=== PATIENT | male | born 1940 | race Caucasian/White ===

== ENCOUNTER → 2017-12-02 09:17 | Outpatient (CLI) | payer MEDICARE, BC, SELFPAY ==
[2017-12-02 10:47] LABS: AST(SGOT) 15 U/L (15-37); Alanine Aminotransfer ALT/SGPT 19 U/L (16-61); Albumin, Serum 3.7 g/dL (3.2-5.0); Alkaline Phosphatase 103 U/L (45-117); Anion Gap 10 (5-15); BUN 16 mg/dL (7-18); BUN/Creat Ratio 15.1 RATIO (10-20); Chloride 103 mmol/L (98-107); Cholesterol 123 mg/dL (200); Creatinine, Serum 1.06 mg/dL (0.70-1.30); EST Glomerular Filtration Rate 72 mL/min (>60); Est Glom Filt Rate - Afr Amer 87 mL/min (>60); Globulin 3.6 g/dL (2.2-4.2); Glucose 130 mg/dL (74-106); High Density Lipoprotein 45 mg/dL; Potassium 4.4 mmol/L (3.5-5.1); Protein, Total 7.3 g/dL (6.4-8.2); Sodium Level 141 mmol/L (136-145); Triglycerides 80 mg/dL; Very Low Density Lipoprotein 16 mg/dL (5-40)
== END ==
PROVIDERS: Family Provider Family Medicine; PCP Family Medicine; Visit Provider Family Medicine
DX: E11.9 Type 2 diabetes mellitus without complications (principal)
CPT/HCPCS: 36415; 80053; 80061

== ENCOUNTER → 2017-12-09 11:28 | Outpatient (CLI) | payer MEDICARE, BC, SELFPAY | PROVIDERS: Family Provider Family Medicine; PCP Family Medicine; Visit Provider Family Medicine | DX: M51.36 Other intervertebral disc degeneration, lumbar region (principal) | CPT/HCPCS: 72100 ==

== ENCOUNTER 2018-01-13 16:30 | Outpatient (RCR) | payer MEDICARE, BC, SELFPAY ==
--- NOTE | 2018-01-06 09:16 | HP.PTEVAL_ITS ---
Patient's Visit Information FAIZA TELLO is a 78 year old M referred to Physical Therapy by Cortez Holloway with a diagnosis of lumbar DDD. Date of Evaluation: 12/21/17 Physical Therapist: Nestor Weinberg - Visit Plan Frequency: 2x /Week Duration: 4-6 Weeks Plan: Start with flexion progression, US, neutral spine core stability exercises. - Subjective Subjective: Pt. is here today for his initial evaluation with diagnosis of lumbar DDD. Pt. reports having back pain for years, but has become worse over the past few months. He arrives today walking without AD, but is flexed and wears an abdominal brace. Pt. has increased pain down her R leg to toes. He is a refrigerated national truck driver by trade and reports no pain while sitting. He has greatest difficulty with getting up and with walking. He has trialed chiropractor without releif, ice and heat without relief. He denies N/T in either LE. He reports being able to sleep on his L side without issues. He reports having to walk hunched over in grocery store and having to sit down frequently. He did have an xray showing There is disc space narrowing L2-3, L3-4 and L5-S1. There is also spondylolysis of L5 with a grade 2 spondylolisthesis of L5 over S1He also takes care of his who has dementia. Pt. is hopeful to reduce symptoms in order to get back to all house and work activies without issues. - Pain lumbar spine Pain Intensity (Out of 10): 3 - Objective POSTURE: Pt. has flexed posture with R lateral lean. He has increased pain with attempts to correct. Pt. has slight L knee flexion during stance. decreased lumbar lordosis. PALPATION: Pt. has increased tenderness throughout lumbar paraspinals. Pt. has incraesed pain at R gluteal region. No pain at distal leg. NEURO: Pt. has normal sensation throughout B LEs. Pt. has 2+ achilles and patellar DTR. Pt. is able to rise on heels and toes with balance aid. ROM: Lumbar spine: flexion min loss increase NW, extension mod/max loss increase NW, SB mod loss bilat, rotation- mod loss bilat increase NW. Pt. has normal ROM of B hips, but has tight HS and hip flexors bilaterally. MMT: RLE- ankle 5/5 throughout; knee- ext 4+/5, flexion 4+/5; hip- flexion 4/5, abd 4/5, ext 4/5. LLE- ankle 5/5 throughout; knee- 5/5 throughout; hip- flexion 4+/5, abd 4/5, ext 4/5. Core strength- poor. GAIT: Pt. ambulates without AD. Pt. has increased pain with stance throughout, flexed posture throughout. R lateral lean. STAIRS: Step to pattern with BHR with icnreased pain noted. - Special Tests L/S Slump test left side: Negative L/S Slump test right side: Positive L/S Left Straight Leg Raise: Negative L/S Right Straight Leg Raise: Positive Lumbar Standing: Flexion - Mechanical Response: No effect Lumbar Standing: Flexion - Symptoms During Testing: Increases Lumbar Standing: Flexion - Symptoms After Testing: No worse Lumbar Standing: Extension - Mechanical Response: No effect Lumbar Standing: Extension - Symptoms During Testing: Increases Lumbar Standing: Extension - Symptoms After Testing: No worse Lumbar Standing: Right Side Glides - Mechanical Response: No effect Lumbar Standing: Right Side [place] - Symptoms During Testing: Increases Lumbar Standing: Right Side [place] - Symptoms After Testing: No worse Lumbar Standing: Left Side [place] - Mechanical Response: No effect Lumbar Standing: Left Side [place] - Symptoms During Testing: Increases Lumbar Standing: Left Side [place] - Symptoms After Testing: No worse Lumbar Lying: Flexion - Mechanical Response: No effect Lumbar Lying: Flexion - Symptoms During Testing: Decreases Lumbar Lying: Flexion - Symptoms After Testing: No better Lumbar Static: Slouched Sit - Mechanical Response: No effect Lumbar Static: Slouched Sit - Symptoms During Testing: No effect Lumbar Static: Slouched Sit - Symptoms After Testing: No effect Lumbar Static: Sitting Erect - Mechanical Response: No effect Lumbar Static: Sitting Erect - Symptoms During Testing: Increases Lumbar Static: Sitting Erect - Symptoms After Testing: No worse - Goals Goal 1:: Pt. to be I with HEP. Goal Time Frame: 4-6 Weeks Goal 2:: Pt. to sleep throughout the night without increase in symptoms. Goal Time Frame: 4-6 Weeks Goal 3:: Pt. to have increased core and BLE strength by 1/2 grade of all effected musculature. Goal Time Frame: 4-6 Weeks Goal 4:: Pt. to have decreased pain with walking to 0-2/10 with ability to ambulate unlimited distances. Goal Time Frame: 4-6 Weeks Goal 5:: Pt. to complete all job activities without increase in symptoms. - Rehabilitation Potential Physical Therapy Diagnosis: Pt. presents with sign and symptoms consistent with lumbar DDD and spinal stenosiss Pt. has increased pain with standing and reduced pain with flexed posture. Pt. has subsequent core weakness, increased pain, difficulty walking and decreased tolerance to all functional mobility. Rehabilitation Potential: Fair - Anticipated Interventions Patient/Client Instruction: Educate patient on: Condition, Plan of Care, Risk Factors, Benefits of Fitness Program For the Purpose of:: To foster healthy habits, To improve decision making, To facilitate caregiver knowledge, To improve self management, To prevent re-injury , To improve ability to perform tasks related to life management, To improve tolerance to ADL's Therapeutic Exercise to Include: Strength training, Power training, Postural training, Flexibilty training, Passive ROM, Active ROM, Dynamic Lumbar Stabilization, Cierra Exercises For the Purpose of:: To decrease pain, To decrease swelling/inflammation, To increase ROM, To improve nutrient delivery to tissue, To increase oxygenation perfusion, To improve gait and locomotor functions, To improve health of tissue , To decrease soft tissue restriction, To increase flexibility/ROM Thank you for the opportunity to evaluate your patient. For Medicare and Medicare HMO plans, please review the plan of care and approve it. It will need to be FAXED BACK to us at [phone] for Medicare purposes. Please let me know if there are questions or concerns regarding this plan of care. Physician Signature: Date:
--- NOTE | 2018-03-23 11:35 | HP.PTDCNRP_ITS ---
HP - Discharge Summary (1) - Patient Information FAIZA TELLO was seen in my office for initial evaluation on 12/21/17. The following Plan of Care was established for this patient: Initial Frequency: 2x /Week Initial Duration: 4-6 Weeks - Anticipated Interventions Patient/Client Instruction: Educate patient on: Condition, Plan of Care, Risk Factors, Benefits of Fitness Program For the Purpose of:: To foster healthy habits, To improve decision making, To facilitate caregiver knowledge, To improve self management, To prevent re- injury, To improve ability to perform tasks related to life management, To improve tolerance to ADL's Therapeutic Exercise to Include: Strength training, Power training, Postural training, Flexibilty training, Passive ROM, Active ROM, Dynamic Lumbar Stabilization, Cierra Exercises For the Purpose of:: To decrease pain, To decrease swelling/inflammation, To increase ROM, To improve nutrient delivery to tissue, To increase oxygenation perfusion, To improve gait and locomotor functions, To improve health of tissue, To decrease soft tissue restriction, To increase flexibility/ROM This patient was last seen in our office 01/17/18. Pertinent comments regarding their Physical therapy will appear below: Pt. was seen for his lumbar spine. He was ultimately referred to [facility] for consult and has descided to have surgery. Pt. will be DC from PT at this point in time. At this point I will be discontinuing this patient from physical therapy. I would be happy to see this patient again in the future if found appropriate by the physician. Thank you! Nestor Weinberg
== END 2018-01-13 19:00 | disposition home or self-care (01) ==
LOC: PT 16:30
PROVIDERS: Family Provider Family Medicine; PCP Family Medicine; Visit Provider Family Medicine
DX: M51.36 Other intervertebral disc degeneration, lumbar region (principal)
CPT/HCPCS: 97012; 97035; 97110; 97162

== ENCOUNTER → 2018-01-17 06:37 | Outpatient (CLI) | payer MEDICARE, BC, SELFPAY ==
--- NOTE | 2018-01-17 06:43 | CT_ITS ---
STUDY: CT ABDOMEN WITHOUT CONTRAST REASON FOR EXAM: Male, 78 years old. Follow-up AAA, hypertension controlled with medication. RADIATION DOSAGE (If Supplied By Facility): CTDIvol = ( 8.38 ) mGy, DLP = ( 339.17 ) mGycm TECHNIQUE: Transaxial images were obtained without intravenous contrast, and without oral contrast. Sagittal and coronal images were reconstructed. Individualized dose optimization techniques were used for this CT. COMPARISON: CT abdomen without IV contrast February 15, 2017. FINDINGS: There is stable mild elevation of the right diaphragm. Stable 2 mm noncalcified nodule in the posterior left costophrenic sulcus on series 2 image 53. The visualized lung bases are otherwise unremarkable. The heart size is normal. Again seen are atherosclerotic calcifications of the coronary arteries and visualized distal descending thoracic aorta. Normal liver. The portal vein diameter is 13.5 mm. Normal gallbladder and extrahepatic biliary system. Normal spleen. 17 mm accessory spleen noted along the anterior margin of the lower pole. Normal pancreas. Normal bilateral adrenal glands. 3.75 x 3.1 x 2.6 cm cortical cyst at the lateral upper pole of the right kidney again noted, and there is a stable 2.1 x 2.3 x 1.5 cm exophytic cortical cyst at the posterior midpole. There is an exophytic 4.8 x 3.8 x 4.05 cm cortical cyst at the anterior upper pole of the left kidney that is unchanged. Exophytic 1.55 x 1.05 x 1.25 cm cortical cyst at the posterior left mid pole also is stable. No hydronephrosis. There is a stable small hiatal hernia. Normal small intestine. Normal colon. There is non-visualization of the appendix. There is stable atherosclerotic calcification of the abdominal aorta and iliac arteries there is 2.55 cm fusiform dilatation of the proximal to mid infrarenal aorta, common increasing to 3.15 x 3.2 cm at the juncture of the mid and distal thirds. The distal abdominal aorta shows stable 4.3 x 4.5 cm aneurysmal dilatation. 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 Normal inferior vena cava. Normal retroperitoneum. Normal abdominal wall. There are stable multilevel degenerative changes of the visualized lumbar spine, with anterior endplate osteophytes most prominent at L2-3, L3-4, L4-5. There are chronic bilateral L5 pars defects and a stable grade 1-2 spondylolisthesis at L5-S1 There are also degenerative changes with anterior osteophytes fusion of the visualized bilateral sacroiliac joints CT/Abdomen without IV Contrast IMPRESSION: 1. Atherosclerotic vascular calcifications again noted. Stable distal abdominal aortic and distal right common iliac aneurysms, as described. No periaortic density to indicate leak or inflammation. 2. Stable bilateral renal cortical cysts, as noted. No hydronephrosis. 3. Stable degenerative changes of the spine and pelvis, including chronic bilateral L5 pars defects and grade 1-2 L5-S1 spondylolisthesis. 4. Stable small hiatal hernia. The bowel is otherwise unremarkable without central obstruction. The appendix is not visualized. 5. Stable mild elevation of the right diaphragm. Electronically Signed: Donavan Henson MD at 16:27 EDT , Service support ,
--- NOTE | 2018-01-17 06:57 | CDU_ITS ---
Reason For Study: CAROTID ARTERY DISEASE Rt. Velocities/BP Lt. Velocities/BP Prox CCA 59/14 cm/sec. Prox CCA 131/45 cm/sec. Mid CCA 73/19 cm/sec. Mid CCA 90/34 cm/sec. Dist CCA 55/15 cm/sec. Dist CCA 86/37 cm/sec. Rt ICA occluded. Prox ICA 127/51 cm/sec. Prox ECA 114/29 cm/sec. Mid ICA 136/68 cm/sec. Rt. Vert. 45/12 cm/sec. Dist ICA 71/31 cm/sec. Lt. ICA/CCA = 1.5. Prox ECA 123/27 cm/sec. Lt. Vert. 39/14 cm/sec. Right Extracranial There is intimal thickening but no significant atherosclerotic plaque noted in the right common carotid artery. The right internal carotid artery is occluded. There is homogeneous, irregular atherosclerotic plaque noted in the right external carotid artery. Antegrade flow is noted in the right vertebral artery. Left Extracranial There is intimal thickening but no significant atherosclerotic plaque noted in the left common carotid artery. There is heterogeneous, irregular atherosclerotic plaque noted in the left internal carotid artery. The atherosclerotic plaque causes acoustic shadowing. There is heterogeneous, irregular atherosclerotic plaque noted in the left external carotid artery. Antegrade flow is noted in the left vertebral artery. Procedure Carotid Duplex 25892. Exam performed in department. Interpretation Summary Irregular plague at the proximal right internal carotid with no color flow consistent with known occlusion Irregular calcific plague at the proximal left external and internal carotids with 50-69% stenosis of the internal carotid Mild disease left external carotid Patent and antegrade vertebrals bilaterally No change from 05/12/17. Ordering Physician: Cortez Holloway Referring Physician: Joby Holloway Performed By: Em Lemus, YOLIE, RVT
== END ==
PROVIDERS: Family Provider Family Medicine; PCP Family Medicine; Visit Provider Family Medicine
DX: I65.23 Occlusion and stenosis of bilateral carotid arteries (principal); I71.4 Abdominal aortic aneurysm, without rupture
CPT/HCPCS: 74150; 93880

== ENCOUNTER → 2018-01-21 10:22 | Outpatient (CLI) | payer MEDICARE, BC, SELFPAY ==
--- NOTE | 2018-01-21 11:30 | MRI_ITS ---
STUDY: MRI LUMBAR SPINE WITHOUT CONTRAST REASON FOR EXAM: Male, 78 years old. Back pain radiating to right hip TECHNIQUE: Standardized fat and water weighted pulse sequences were obtained in the sagittal and axial planes. COMPARISON: December 15, 2012 FINDINGS: T12-L1: Normal endplates. Normal disc height, desiccation and minimal annular bulge.. Normal bilateral facet joints. Normal central canal and bilateral lateral recesses. Normal bilateral intervertebral neural foramina. Normal lumbar lordosis. There is no substantial scoliosis. Normal conus medullaris that terminates at T12-L1 L1-2: Normal endplates. Normal disc height, desiccation and normal morphology. Normal bilateral facet joints. Normal central canal and bilateral lateral recesses. Normal bilateral intervertebral neural foramina. L2-3: Endplate spurring. Narrowed disc space with desiccation of the disc and prominent annular bulge. Mild facet arthropathy and thickening of ligamenta flava. Mild to moderate narrowing of the central canal. Severe bilateral recess and neuroforaminal stenosis. L3-4: Grade 1 retrolisthesis . Narrowed disc space with desiccation of disc and minimal bulging disc osteophyte complex. Bilateral facet arthropathy and thickening of ligamenta flava. Normal central canal. Severe bilateral recess and neuroforaminal stenosis exaggerated by shortened pedicles L4-5: Mild endplate spurring. Normal disc height, desiccation and minor bulging disc osteophyte complex.. Bilateral facet arthropathy. Normal central canal. Moderate bilateral recess and neuroforaminal stenosis exaggerated by shortened pedicles.. L5-S1: Grade 1 spondylolisthesis and spondylolysis Normal endplates. Normal disc height, desiccation and mild bulging disc osteophyte complex.. Facet arthropathy and thickening of ligamenta flava.. Normal central canal . Moderate bilateral recess stenosis and more severe neuroforaminal stenosis. Normal visualized sacral ala. Bilateral renal cysts are noted Distal abdominal aortic aneurysm is noted with maximum dimension of 4.15 x 3.9 cm Normal visualized paraspinous soft tissue structures. There is increasing narrowing of L3-4 disc space however the disc disease has decreased since prior study. There is also increasing narrowing of the L2-3 disc space and slightly increased prominence of the bulging annulus. No other significant change since prior study MRI/Spine Lumbar (Routine) IMPRESSION: Advanced spondylosis and multilevel spinal stenosis secondary to disc disease and bony hypertrophy exaggerated by shortened pedicles Findings as above Electronically Signed: Christian Pineda MD at 23:19 EDT , Service support ,
== END ==
PROVIDERS: Family Provider Family Medicine; PCP Family Medicine; Referring Provider Family Medicine; Visit Provider Family Medicine
DX: M51.36 Other intervertebral disc degeneration, lumbar region (principal)
CPT/HCPCS: 72148

== ENCOUNTER 2018-07-15 14:30 | Outpatient (RCR) | payer MEDICARE, BC, SELFPAY ==
[2018-03-11 11:56] VITALS: BMI 26.9
--- NOTE | 2018-03-23 11:44 | HP.PTEVAL ---
Patient's Visit Information FAIZA TELLO is a 78 year old M referred to Physical Therapy by Nelida Baez, with a diagnosis of L4-S1 fusion. Date of Evaluation: 03/18/18 Physical Therapist: Nestor Weinberg - Visit Plan Frequency: 2x /Week Duration: 4-6 Weeks Plan: Start with neutral spine core stability HS stretching, After 3 weeks slowly progress ROM and wean from brace at this point as well. Progress gait and BLE strenthening as tolerated. - Subjective Findings: Pt. is here today for his initial evaluation s/p L4-S1 lumbar fusion. Pt. had surgery 1 month previously. Pt. is known to this PT as I saw him previously. Pt. arrives today with walker, but is not wearing his brace. He reports that it is too bulky. Pt. reports having 4/10 pain with walking, but minimal pain with resting. Pt. reports no numbness or tingling. Pt. reports no leg pain, but is sore throughout his lumbar spine. Pt. saw his physician about 2 weeks ago and they were pleased wtih progress. Pt. is taking tylenol with codein for pain killers. Pt. 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 - Pain lumbar spine Pain Intensity (Out of 10): 4 Pain Intensity Range: 2, 6 - Objective POSTURE: Pt. has flexed posture, decreased lordosis. Pt. has wide CRISTINE, rounded shoulders. Pt. is able to improve with use of walker. PALPATION: Pt. has normal healing incision, no signs of infection. Pt. has some scabing formation at top of incision and ~1 inch from superior aspect. Rest of incision is fully healed. NEURO: All intact. Pt. has normal sensation throughout bilateral LEs. Pt. has 2+ achilles and patellar DTR bilaterally. ROM: Lumbar spine: flexion mod loss, ext mod loss, rotation mod loss, SB mob loss bilat. Pt. instructed to just complete motion in pain free ranges. Pt. has tight HS and hip flexor bilaterally. MMT: RLE- ankle- anle 5/5 throughout; knee- ext 4+/5, flexion 4+/5; hip- flexion 4/5, abd 4/5, ext 4/5. LLE- ankle 4+/5 throughout; knee- ext 4+/5, flexion 4+/5; hip- flexion 4/5, abd 4/5, ext 4/5. Core strength- poor. GAIT: Pt. ambulates with standard walker, I adjusted the height to increase erect posture. Pt. has flexed posture, but us abl to correct. Pt. reports mild increase in LBP with walking, reudced with erector posture. - Goals Goal 1:: Pt. to be I with HEP. Goal Time Frame: 4-6 Weeks Goal 2:: Pt. ambulate with least restrictive device without increase in symptoms. Goal Time Frame: 4-6 Weeks Goal 3:: Pt. have improved posture in stance without increase in symptoms. Goal Time Frame: 4-6 Weeks Goal 4:: Pt. to have increased BLE and core strength by 1/2 grade to reduce stress applied to lumbar spine with all functional mobility. Goal Time Frame: 4-6 Weeks Goal 5:: Pt. to have increaed lumbar ROM by 25% in all directions without incerase in symptoms. Goal Time Frame: 4-6 Weeks Goal 6:: Pt. to sleep throughout the night and be able to sit at rest without incerase in symptoms allowing for increased quality of life. Goal Time Frame: 4-6 Weeks - Rehabilitation Potential Physical Therapy Diagnosis: Pt. has signs and syptoms consistent with L4-S1 fusion. Pt. has subsequent hypomobility, core weakness and difficulty walking. Pt. would benefit from PT to adress above limitations and progress functional mobility. Rehabilitation Potential: Good - Anticipated Interventions Patient/Client Instruction: Educate patient on: Condition, Plan of Care, Risk Factors, Benefits of Fitness Program For the Purpose of:: To improve decision making, To facilitate caregiver knowledge, To improve self management, To prevent re-injury, To improve ability to perform tasks related to life management, To improve tolerance to ADL's Therapeutic Exercise to Include: Strength training, Power training, Endurance training, Balance training, Postural training, Flexibilty training, Gait and locomotor training, Passive ROM, Active ROM, Dynamic Lumbar Stabilization For the Purpose of:: To decrease pain, To decrease swelling/inflammation, To increase ROM, To improve nutrient delivery to tissue, To improve muscle performance and motor function, To improve ability to perform ADL's, To improve gait and locomotor functions, To improve health of tissue, To decrease soft tissue restriction, To increase flexibility/ROM IF ES: Yes Cryotherapy (ice pack, ice massage): Yes Thermo therapy (hot pack): Yes Ultrasound (thermal/non thermal): Yes For the Purpose of:: To decrease pain, To decrease swelling/inflammation, To increase ROM, To improve nutrient delivery to tissue, To increase oxygenation perfusion, To improve muscle performance and motor function Thank you for the opportunity to evaluate your patient. For Medicare and Medicare HMO plans, please review the plan of care and approve it. It will need to be FAXED BACK to us at [phone] for Medicare purposes. For Medicare only, by signing this I certify the plan of care. Please let me know if there are questions or concerns regarding this plan of care. Physician Signature: Date:
--- NOTE | 2018-06-07 14:04 | HP.PTREVAL ---
Nelida Baez, GRIFFIN-C, It has been my pleasure to treat FAIZA TELLO over the last 13 visits for L4-S1 fusion. Please see the progress note below for an update on the physical therapy plan of care! Subjective: Pt. reports overall I am improving. Pt. went back to physician who reported that he should continue with PT at this point in time. Pt. reports ebign 75% better overall. Objective/Function: ROM: Lumbar spine- flexion min/nil loss NE, ext mod loss NE (stiffness), Rotation min loss bilat NE, SB min loss bilat NE. R hip- decreased hip IR and ER mild increase in pirformis region. MMT: RLE- ankle 5/5 throghout; knee- ext 5-/5, flexion 5-/5; hip- flexion 4+/5, abd 4/5, ext 4/5. LLE- 5/5 throughout ankle/knee; hip- flexion 4+/5, abd 4/5, ext 4/5. Core strength- poor+. GAIT: Pt. is amblating with SPC at this point in time. He continues to have slight flexed posture with increased hip flexion. Pt. is able increase hip extension with VCing. Pt. contiunes to present with functional RLE weakness, no foot drop. Pt. does continue to complain of burning in his thigh and knee at times, mostly with walking. STAIRS: Pt. is able to complete with BHR with reciprocal pattern, heavy use of bars, especially with eccentric lowering,. Plan Plan: Pt. to be continued to be seen x2 per week for 4 weeks. Progress extension ROM of lumbar spine, stretcing of HS, neural glides, BLE/core strenghtening and gait progression. Goals Goal 1:: Pt. to be I with HEP. Goal Time Frame: 4-6 Weeks Goal Progress: Progressing Goal 2:: Pt. ambulate with least restrictive device without increase in symptoms. Goal Time Frame: 4-6 Weeks Goal Progress: Progressing Goal 3:: Pt. have improved posture in stance without increase in symptoms. Goal Time Frame: 4-6 Weeks Goal Progress: Progressing Goal 4:: Pt. to have increased BLE and core strength by 1/2 grade to reduce stress applied to lumbar spine with all functional mobility. Goal Time Frame: 4-6 Weeks Goal Progress: Progressing Goal 5:: Pt. to have increaed lumbar ROM by 25% in all directions without incerase in symptoms. Goal Time Frame: 4-6 Weeks Goal Progress: Progressing Goal 6:: Pt. to sleep throughout the night and be able to sit at rest without incerase in symptoms allowing for increased quality of life. Goal Time Frame: 4-6 Weeks Goal Progress: Goal Met Anticipated Interventions Patient/Client Instruction: Educate patient on: Condition, Plan of Care, Risk Factors, Benefits of Fitness Program For the Purpose of:: To improve decision making, To facilitate caregiver knowledge, To improve self management, To prevent re-injury, To improve ability to perform tasks related to life management, To improve tolerance to ADL's Therapeutic Exercise to Include: Strength training, Power training, Endurance training, Balance training, Postural training, Flexibilty training, Gait and locomotor training, Passive ROM, Active ROM, Dynamic Lumbar Stabilization For the Purpose of:: To decrease pain, To decrease swelling/inflammation, To increase ROM, To improve nutrient delivery to tissue, To improve muscle performance and motor function, To improve ability to perform ADL's, To improve gait and locomotor functions, To improve health of tissue, To decrease soft tissue restriction, To increase flexibility/ROM IF ES: Yes Cryotherapy (ice pack, ice massage): Yes Thermo therapy (hot pack): Yes Ultrasound (thermal/non thermal): Yes For the Purpose of:: To decrease pain, To decrease swelling/inflammation, To increase ROM, To improve nutrient delivery to tissue, To increase oxygenation perfusion, To improve muscle performance and motor function Please do not hesitate to contact me at [phone] by phone or if you have questions or concerns regarding this new plan of care! Sincerely, CHLOE AlmanzarT
--- NOTE | 2018-08-30 07:59 | HP.PTDCSUM ---
HP - PT D/C Summary It has been my pleasure to treat FAIZA TELLO under orders from CLEO Camarena, for the diagnosis of L4-S1 fusion for a total of 23 visit(s). Discharge Date: 07/15/18 Please see the following information for a summary of their discharge status. - Subjective Subjective: Pt. reports I am doing pkay, but my hip and knee still bother me. Pt. is walking with a cane. He reports no pain with sleeping, but walking continues to be the most sore. - Pain lumbar spine Pain Intensity (Out of 10): 0 right hip pain Pain Intensity (Out of 10): 2 - Overall Improvement % Improvement: 90 - Objective Objective/Function: Pt. contiunes to have lmited ROM into extension and requires increased Vcing to increase upright posture, but has overall improved. He now has minimal low back pain, but his hipcontiunes to bother him. Pt. has progressed with core strength as well. PT. will be DC from PT to HEP at this point intime. - Goals Goal 1:: Pt. to be I with HEP. Goal Progress: Goal Met Goal 2:: Pt. ambulate with least restrictive device without increase in symptoms. Goal Progress: Goal Met Goal 3:: Pt. have improved posture in stance without increase in symptoms. Goal Progress: Goal Met Goal 4:: Pt. to have increased BLE and core strength by 1/2 grade to reduce stress applied to lumbar spine with all functional mobility. Goal Progress: Goal Met Goal 5:: Pt. to have increaed lumbar ROM by 25% in all directions without incerase in symptoms. Goal Progress: Goal Met Goal 6:: Pt. to sleep throughout the night and be able to sit at rest without incerase in symptoms allowing for increased quality of life. Goal Progress: Goal Met - Plan Plan: Pt to be DC from PT at this point in time. - D/C Information Discharge Comments: Pt. was treated for core strengthening and general debility after his lumbar fusion. Pt. made good gains with strengthening, but continues to have pain in hip with all mobility. Pt. did require frequent Vcing to increase erector posture. Pt is currently independent with all mobility and HEP and will be DC to HEP at this point in time. If there are questions or concerns regarding this patient's physical therapy, please feel free to call me at [phone]. Thank you for the referral of this patient. Sincerely, CHLOE AlmanzarT
== END 2018-07-15 19:00 | disposition home or self-care (01) ==
LOC: PT 14:30
PROVIDERS: Family Provider Family Medicine; PCP Family Medicine; Referring Provider Nurse Practitioner Acute Care; Visit Provider Nurse Practitioner Acute Care
DX: Z98.1 Arthrodesis status (principal)
CPT/HCPCS: 97035; 97110; 97140; 97162; 97530

== ENCOUNTER → 2018-07-27 10:47 | Outpatient (CLI) | payer MEDICARE, BC, SELFPAY ==
[2018-03-11 11:56] VITALS: BMI 26.9
--- NOTE | 2018-07-27 10:53 | RAD_ITS ---
STUDY: X-RAY - PELVIS AND RIGHT HIP REASON FOR EXAM: Male, 78 years old. Pain, decreased range of motion TECHNIQUE: 3 views of the pelvis and hip. COMPARISON: None. FINDINGS: There is a non-specific bowel gas pattern. Normal visualized soft tissue structures. There is diffuse demineralization of the osseous structures. There is narrowing with cortical sclerosis and osteophyte formation of the sacroiliac joint consistent with degenerative osteoarthritic changes. Normal bilateral superior and inferior pubic rami. Normal pubic symphysis. Normal bilateral ischial tuberosities. There is severe right hip arthrosis with obliteration of the superior joint space between the femoral head and acetabulum. Additionally there is femoral head flattening. No demonstrated subchondral sclerosis or cyst formation. Age consistent mild to moderate left hip arthrosis. RAD/HIP, UNI W/ Pelvis 2-3 Views IMPRESSION: Severe right hip arthrosis with flattening of the femoral head Electronically Signed: Donavan Rosa MD at 17:44 EDT , Service support ,
== END ==
PROVIDERS: Family Provider Family Medicine; PCP Family Medicine; Referring Provider Family Medicine; Visit Provider Family Medicine
DX: M25.551 Pain in right hip (principal)
CPT/HCPCS: 73502; J7030; A4216

== ENCOUNTER → 2018-08-25 09:31 | Outpatient (CLI) | payer MEDICARE, BC, SELFPAY ==
[2018-03-11 11:56] VITALS: BMI 26.9
--- NOTE | 2018-08-25 09:35 | RAD_ITS ---
PROCEDURE: Fluoroscopic guided Hip Injection DATE: August 25, 2018. INDICATION: Male, 78 years old. Chronic right hip pain PHYSICIAN: Alvin Lopez M.D. MEDICATIONS: 80 mg of Depomedrol, 4 cc of 1% lidocaine. 2% lidocaine administered subcutaneously for local anesthesia. ACCESS SITE: Right hip. NEEDLE: 22-gauge spinal needle. FLUOROSCOPY TIME (if supplied): (0:24) minutes/seconds FINDINGS: The risks, benefits, and alternatives to the procedure were explained to the patient. The specific risks of bleeding, infection, and neurovascular injury were detailed and accepted. Witnessed informed consent was obtained. A 22-gauge spinal needle was positioned under radiographic fluoroscopic localization. Approximately 2 cc of Isovue-300 instilled for localization purposes. Medication was then injected. The patient tolerated the procedure well without any immediate complications. The patient was placed supine with head elevated and returned to the floor in stable condition. RAD/Inj/Asp [place] Jt Should/Hip/Knee IMPRESSION: 1. Successful fluoroscopic guided hip injection. Electronically Signed: Alvin Lopez, at 11:08 EDT , Service support ,
== END ==
PROVIDERS: Family Provider Family Medicine; PCP Family Medicine; Referring Provider Family Medicine; Visit Provider Family Medicine
DX: M25.551 Pain in right hip (principal); G89.29 Other chronic pain
CPT/HCPCS: 20610; 77002; Q9967

== ENCOUNTER → 2018-09-22 08:12 | Outpatient (CLI) | payer MEDICARE, BC, SELFPAY ==
[2018-03-11 11:56] VITALS: BMI 26.9
[2018-09-22 10:45] LABS: ALB/GLOB Ratio 1.1 RATIO (0.9-2.4); AST(SGOT) 15 U/L (15-37); Alanine Aminotransfer ALT/SGPT 15 U/L (16-61); Albumin, Serum 3.6 g/dL (3.2-5.0); Alkaline Phosphatase 185 U/L (45-117); Anion Gap 9 (5-15); BUN 24 mg/dL (7-18); BUN/Creat Ratio 22.6 RATIO (10-20); Calcium,Total 8.9 mg/dL (8.5-10.1); Chloride 103 mmol/L (98-107); Cholesterol 160 mg/dL (200); Creatinine, Serum 1.06 mg/dL (0.70-1.30); EST Glomerular Filtration Rate 72 mL/min (>60); Est Glom Filt Rate - Afr Amer 87 mL/min (>60); Globulin 3.2 g/dL (2.2-4.2); Glucose 126 mg/dL (74-106); High Density Lipoprotein 47 mg/dL; Potassium 4.5 mmol/L (3.5-5.1); Protein, Total 6.8 g/dL (6.4-8.2); Sodium Level 139 mmol/L (136-145); Thyroid Stim Hormone (TSH) 2.21 uIU/mL (0.358-3.74); Triglycerides 144 mg/dL; Very Low Density Lipoprotein 29 mg/dL (5-40)
== END ==
PROVIDERS: Family Provider Family Medicine; PCP Family Medicine; Referring Provider Family Medicine; Visit Provider Family Medicine
DX: E11.9 Type 2 diabetes mellitus without complications (principal)
CPT/HCPCS: 36415; 80053; 80061; 84403; 84443

== ENCOUNTER 2018-12-14 14:00 | Outpatient (RCR) | payer MEDICARE, BC, SELFPAY ==
[2018-03-11 11:56] VITALS: BMI 26.9
--- NOTE | 2018-11-18 14:08 | HP.PTEVAL_ITS ---
Patient's Visit Information FAIZA TELLO is a 78 year old M referred to Physical Therapy by Nicholas Araya MD with a diagnosis of UNILATERAL PRIMARY OSTEOARTHRITIS RIGHT HIP. Date of Evaluation: 11/18/18 Physical Therapist: Polo Giraldo, PT, Cert MDT, OCS - Visit Plan Frequency: 1-2x /Week Duration: 3 Weeks Plan: PT INTERVENTIONNS ROM/STRENGTHENING EX'S FOR HIP ,NUSTEP - Subjective Findings: This 78 y/o male presents to physical therapy with right pain from OA.Patient sent for PT for prehab for right THR on 12/05/18. Patient has had right hip pain several years but became progessive worse since undergoing lumbar fusion L3-4 with rods Feb 2018. Patient also has right TKR . Patient has hip pain with difficulty with walking ,get up from chair. Stairs are dufficulty one step at time with cane /railing. Patient sleeping okay. Patient location pain referrs to groin to thigh. Patient pain affects ADLS and housework tasks. Patient pain affects QOL and function. VOCATION: retired. HOME SITUATION : 1 story home has fww ,chair in tub. SOCIAL : - Pain Right Hip Pain Intensity (Out of 10): 9 Pain Intensity Range: 10 - Objective POSTURE: mod posture knee varus. GAIT: antalgic gait foward posture antalgic gait. NEURO INTACT. BALANCE: fair+ cane. AROM: flexion 80 flexion degrees,abduction 20 degrees pain , ER 0 degrees. MMT: quads 3+hams 4-/5,hip flexion 3/5,abd 3-/5. STAIRS: one step at time with rail/cane - Special Tests R Hip Scour: Positive - Goals Goal 1:: Independant with HEP post surgery ex's Goal Time Frame: 2-4 Weeks Goal 2:: Improve gait with less pain by 30% to improve function Goal Time Frame: 2-4 Weeks Goal 3:: Patient to increase ROM of hip by 5 degrees or greater to improve function. Goal Time Frame: 2-4 Weeks Goal 4:: Patient to increase strength hip by 1/2 grade to improve function. Goal Time Frame: 2-4 Weeks - Rehabilitation Potential Physical Therapy Diagnosis: Patient has OA right hip with pain ,severe loss of hip motion ,painfull gait impairs function and requires Prehab prior to THR right. Rehabilitation Potential: Good - Anticipated Interventions Patient/Client Instruction: Educate patient on: Condition, Plan of Care For the Purpose of:: To decrease pain, To increase ROM, To improve muscle performance and motor function, To improve ability to perform ADL's, To increase tolerance to activity/condition/position, To improve ability of physical actions for home/community/work/leisure, To improve gait and locomotor functions, To improve balance, To improve safety with gait, To improve tolerance to ADL's Therapeutic Exercise to Include: Strength training, Postural training, Gait and locomotor training, Passive ROM, Active ROM For the Purpose of:: To decrease pain, To increase ROM, To improve ability to perform ADL's, To increase tolerance to activity/condition/position, To improve health of tissue, To decrease soft tissue restriction, To increase flexibility/ROM, To improve endurance, To improve balance, To improve tolerance to ADL's Thank you for the opportunity to evaluate your patient. For Medicare and Medicare HMO plans, please review the plan of care and approve it. It will need to be FAXED BACK to us at [phone] for Medicare purposes. For Medicare only, by signing this I certify the plan of care. Please let me know if there are questions or concerns regarding this plan of care. Physician Signature: Date:
--- NOTE | 2019-01-18 15:20 | HP.PTDCSUM ---
HP - PT D/C Summary It has been my pleasure to treat FAIZA TELLO under orders from Nicholas Araya MD, for the diagnosis of UNILATERAL PRIMARY OSTEOARTHRITIS RIGHT HIP for a total of 4 visit(s). Discharge Date: Please see the following information for a summary of their discharge status. - Subjective Subjective: Doing okay pain same.. HIP surgey not scheduled - Pain Right Hip Pain Intensity (Out of 10): 7 - Overall Improvement % Improvement: 30 - Objective Objective/Function: DID WELL WITH EXERCISES PROGRESSING ROM ,PATIENT WAITING FOR SURGERY - Goals Goal 1:: Independant with HEP post surgery ex's Goal 2:: Improve gait with less pain by 30% to improve function Goal 3:: Patient to increase ROM of hip by 5 degrees or greater to improve function. Goal 4:: Patient to increase strength hip by 1/2 grade to improve function. - Plan Plan: PT INTERVENTIONNS ROM/STRENGTHENING EX'S FOR HIP ,NUSTEP - D/C Information If there are questions or concerns regarding this patient's physical therapy, please feel free to call me at [phone]. Thank you for the referral of this patient. Sincerely, Polo Giraldo, PT, Cert MDT, OCS
== END 2018-12-14 19:00 | disposition home or self-care (01) ==
LOC: PT 14:00
PROVIDERS: Family Provider Family Medicine; PCP Family Medicine; Referring Provider Orthopaedic Surgery; Visit Provider Orthopaedic Surgery
DX: M16.11 Unilateral primary osteoarthritis, right hip (principal)
CPT/HCPCS: 97110; 97162

== ENCOUNTER 2019-02-01 09:00 | Outpatient (RCR) | payer MEDICARE, BC, SELFPAY ==
[2018-03-11 11:56] VITALS: BMI 26.9
--- NOTE | 2019-01-19 16:07 | HP.PTEVAL ---
Patient's Visit Information FAIZA TELLO is a 79 year old M referred to Physical Therapy by Nicholas Araya MD with a diagnosis of R hip arthroplasty. Date of Evaluation: 01/19/19 Physical Therapist: Nestor Weinberg DPT - Visit Plan Frequency: 1-2x /Week Duration: 4 Weeks Plan: Pt. will be seen weekly with focus on increased hip ROM (no over stretching), some gentle LE strengthening. and progression of HEP. NO BIKE!!! - Subjective Findings: Pt. is here today for his initial evaluation with diagnosis of R hip replacement. R HANANE DOS: 12/30/18 with direct anterior approach. Pt. did 3 weeks of in home PT. Pt. reports no pain currently, but does have occassional soreness. Pt. arrives today with walking stick, with occassional use, but does pick it up periodically wtih walking. PT. reports no issues with sleeping as well. Pt. denies N/T in either LE. Pt. reports being HEP compliant without issues at home. He is hopeful to - Pain R hip Pain Intensity (Out of 10): 1 Pain Intensity Range: 0, 3 - Objective POSTURE: Pt. has slight flexed posture in stance, but is able to correct. Pt. has good equal LE wt. shift. PALPATION: Pt. has good/well healing incision. No signs of infection, negative homans sign. Pt. has mild anterior thigh soreness. NEURO: Pt. has normal DTR of bilateral LEs, Pt. has normal sensation throughout. ROM: Pt. has good ROM of his R LE, flexion 110deg No pain, no over pressure, abd 40deg NE, ext 10deg (did not apply over pressure. MMT: LLE- 5/5 throughout, except hip abd 4/5. RLE- ankle 5/5 througout; knee 5/5 throughout; hip: flexion x10 SLR no over pressure. Pt. had 4-/5 hip abd. GAIT: Pt. ambulates well with walking stick I without issues. Pt. is able to ambulate without his walking stick, but has slight increased in R hip sway (laterally). STAIRS: reciprocal pattern sligth RLE functional weakness noted. - Goals Goal 1:: Pt. to be I with HEP. Goal Time Frame: 4-6 Weeks Goal 2:: Pt. to sleep throughout the night without increase in symptoms. Goal Time Frame: 4-6 Weeks Goal 3:: Pt. to have icnreased RLE MMT increased by 1/2 grade of all effected musculature. Goal Time Frame: 4-6 Weeks Goal 4:: Pt. to ambulate unlimited distances with normal gait pattern without increase in symptoms and LRD. Goal Time Frame: 4-6 Weeks Goal 5:: Pt. to negotiate 1 fligth of stairs with 1 HR with reciprocal pattern without increase in symptoms. Goal Time Frame: 4-6 Weeks Goal 6:: Pt. to complete all work/recreational activities without increase in symptoms. Goal Time Frame: 4-6 Weeks - Rehabilitation Potential Physical Therapy Diagnosis: Pt. has signs and symptoms with hypombility and weakness after R HANANE. Pt. is doing very well and is walking well. I talked to him about checking in weekly and progressing HEP. I would like him to focus on increasing walking to tolerance and light strengthening exercises. Rehabilitation Potential: Excellent - Anticipated Interventions Patient/Client Instruction: Educate patient on: Condition, Plan of Care, Risk Factors, Benefits of Fitness Program For the Purpose of:: To improve decision making, To facilitate caregiver knowledge, To improve self management, To prevent re-injury, To improve ability to perform tasks related to life management, To improve tolerance to ADL's Therapeutic Exercise to Include: Strength training, Power training, Endurance training, Balance training, Postural training, Flexibilty training, Gait and locomotor training, Passive ROM, Active ROM For the Purpose of:: To decrease pain, To decrease swelling/inflammation, To increase ROM, To improve nutrient delivery to tissue, To increase oxygenation perfusion, To improve muscle performance and motor function, To improve ability to perform ADL's, To improve gait and locomotor functions, To improve health of tissue, To decrease soft tissue restriction, To increase flexibility/ROM Thank you for the opportunity to evaluate your patient. For Medicare and Medicare HMO plans, please review the plan of care and approve it. It will need to be FAXED BACK to us at [phone] for Medicare purposes. For Medicare only, by signing this I certify the plan of care. Please let me know if there are questions or concerns regarding this plan of care. Physician Signature: Date:
--- NOTE | 2019-02-07 07:57 | HP.PTDCSUM ---
HP - PT D/C Summary It has been my pleasure to treat FAIZA TELLO under orders from Nicholas Araya MD, for the diagnosis of R hip arthroplasty for a total of 2 visit(s). Discharge Date: Please see the following information for a summary of their discharge status. - Subjective Subjective: Doing well ..ready to d/c - Pain R hip Pain Intensity (Out of 10): 0 - Overall Improvement % Improvement: 80 - Objective Objective/Function: POSTURE: mild foward posture. GAIT: reciprocal pattern mild decrease stance time. MMT: quads/hams 4/5,hip flexion 4-/5. STAIRS: altenating with rail. BALANCE: good - - Goals Goal 1:: Pt. to be I with HEP. Goal Progress: Progressing Goal 2:: Pt. to sleep throughout the night without increase in symptoms. Goal Progress: Goal Met Goal 3:: Pt. to have icnreased RLE MMT increased by 1/2 grade of all effected musculature. Goal Progress: Goal Met Goal 4:: Pt. to ambulate unlimited distances with normal gait pattern without increase in symptoms and LRD. Goal Progress: Goal Met Goal 5:: Pt. to negotiate 1 fligth of stairs with 1 HR with reciprocal pattern without increase in symptoms. Goal Progress: Goal Met Goal 6:: Pt. to complete all work/recreational activities without increase in symptoms. Goal Progress: Goal Met - Plan Plan: D/C TO HOME - D/C Information If there are questions or concerns regarding this patient's physical therapy, please feel free to call me at [phone]. Thank you for the referral of this patient. Sincerely, Polo Giraldo, PT, Cert MDT, OCS
== END 2019-02-01 19:00 | disposition home or self-care (01) ==
LOC: PT 09:00
PROVIDERS: Family Provider Family Medicine; PCP Family Medicine; Referring Provider Orthopaedic Surgery; Visit Provider Orthopaedic Surgery
DX: Z47.1 Aftercare following joint replacement surgery (principal); M16.11 Unilateral primary osteoarthritis, right hip
CPT/HCPCS: 97110; 97161

== ENCOUNTER → 2019-04-20 07:26 | Outpatient (CLI) | payer MEDICARE, BC, SELFPAY ==
[2018-03-11 11:56] VITALS: BMI 26.9
--- NOTE | 2019-04-20 07:29 | CT_ITS ---
PROCEDURE: CTA OF THE ABDOMEN AND PELVIS WITH IV CONTRAST REASON FOR EXAM: AAA follow-up Patient oriented dose modulation technique utilized. TECHNIQUE: Axial CT angiography multi-detector data acquisition was obtained from the lung bases to the lesser trochanters following intravenous administration of 100 ml of Isovue 300 contrast. Axial images and MIP images were reconstructed from the axial data set. Post-processing of the angiographic images was performed, with multiplanar reformation and 3D reconstruction. TECHNICAL QUALITY: Good COMPARISON: . FINDINGS: ABDOMINAL AORTA: There is abdominal aortic atherosclerosis diffusely extending into the bilateral iliac arteries. There is an abdominal aortic aneurysm which measures 4.6 x 4.4 cm in maximum dimension. No periaortic hemorrhage or fluid collection. The aneurysm begins 6.10 cm below the lowest renal artery and measures approximately 4.1 cm in length. The top of the aneurysm is just below the ROGELIO origin. CELIAC AND SUPERIOR MESENTERIC ARTERIES: Narrowing and angulation of the celiac axis likely due to arcuate ligament compression. Minimal atherosclerosis of the superior mesenteric artery without hemodynamically significant stenosis. INFERIOR MESENTERIC ARTERY: The inferior mesenteric artery is patent. RIGHT RENAL ARTERY(ARTERIES): There are 2 right renal arteries with mild atherosclerosis at the dominant artery origin but no hemodynamically significant stenosis LEFT RENAL ARTERY(ARTERIES): Single left artery with moderate atherosclerosis at its origin causing 55% stenosis. RIGHT COMMON ILIAC ARTERY: Atherosclerosis and significant tortuosity with distal fusiform aneurysm measuring up to 2.3 cm. RIGHT EXTERNAL ILIAC ARTERY: Atherosclerosis without significant narrowing. RIGHT INTERNAL ILIAC ARTERY: Atherosclerosis without significant narrowing. LEFT COMMON ILIAC ARTERY: Atherosclerosis and tortuosity without significant narrowing. LEFT EXTERNAL ILIAC ARTERY: Atherosclerosis without significant narrowing. LEFT INTERNAL ILIAC ARTERY: Atherosclerosis without significant narrowing. Visualized lung bases are normal. The heart is unremarkable. The liver, spleen, pancreas and gallbladder are normal. The adrenal glands are not enlarged. There are bilateral simple renal cysts. No hydronephrosis or solid renal masses. Small bowel and colon are unremarkable except for minor diverticular changes. The appendix is not seen. There are degenerative and operative changes of the lumbar spine. Stable spondylolisthesis of L5-S1. The urinary bladder is unremarkable. Right hip replacement noted. Prostate calcifications are noted. CT/CT ANGIO ABD&PEL W/O&W/DYE IMPRESSION: 1. Infrarenal fusiform abdominal aortic aneurysm measuring 4.6 x 4.4 cm, not substantially changed since 01/17/2018 when utilizing similar measurement techniques on both studies. 2. 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 3. Atherosclerosis and arterial tortuosity. 4. 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 5. Simple bilateral renal cysts. 6. 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 7. Degenerative and operative changes of the lumbar spine. Electronically Signed: Magnus Ledesma MD ([place]) at 13:23 EST , Service support ,
[2019-04-20 07:41] LABS: EGFR FINGERSTICK > 60.0000 mL/min (>60)
--- NOTE | 2019-04-20 07:47 | CDU_ITS ---
Reason For Study: carotid artery disease Rt. Velocities/BP Lt. Velocities/BP Prox CCA 56.5/10.8 cm/sec. Prox CCA 98.2/33.0 cm/sec. Mid CCA 43.4/9.5 cm/sec. Mid CCA 68.2/18.6 cm/sec. Dist CCA 48.6/8.2 cm/sec. Dist CCA 82.5/33.0 cm/sec. Prox ECA 85.2/14.7 cm/sec. Prox ICA 138.9/42.4 cm/sec. Rt. Vert. 55.2/16.0 cm/sec. Mid ICA 132.3/51.1 cm/sec. Dist ICA 125.8/51.1 cm/sec. Lt. ICA/CCA = 2.0. Prox ECA 149.9/22.6 cm/sec. Lt. Vert. 45.8/12.6 cm/sec. Right Extracranial There is homogeneous, smooth atherosclerotic plaque noted in the right common carotid artery. The right internal carotid artery is occluded. There is heterogeneous, irregular atherosclerotic plaque noted in the right external carotid artery. Antegrade flow is noted in the right vertebral artery. Left Extracranial There is intimal thickening but no significant atherosclerotic plaque noted in the left common carotid artery. There is heterogeneous, irregular atherosclerotic plaque noted in the left internal carotid artery. There is heterogeneous, irregular atherosclerotic plaque noted in the left external carotid artery. Antegrade flow is noted in the left vertebral artery. Procedure Carotid Duplex 15544. The exam was diagnostic. Exam performed in department. Interpretation Summary Occluded right internal carotid artery without change from January 17, 2018 <50% stenosis right external carotid Irregular calcific plaque with shadowing left proximal internal carotid with 50-69% stenosis. <50% stenosis left external carotid Patent, antegrade, <50% stenosis bilateral vertebrals Ordering Physician: Joby Holloway Performed By: Edouard Sanders RVMelinda
== END ==
PROVIDERS: Family Provider Family Medicine; PCP Family Medicine; Referring Provider Family Medicine; Visit Provider Family Medicine
DX: I71.4 Abdominal aortic aneurysm, without rupture (principal); I65.23 Occlusion and stenosis of bilateral carotid arteries; I70.1 Atherosclerosis of renal artery; M51.36 Other intervertebral disc degeneration, lumbar region; N28.1 Cyst of kidney, acquired
CPT/HCPCS: 74174; 93880; Q9967

== ENCOUNTER → 2019-06-19 08:17 | Outpatient (CLI) | payer MEDICARE, BC, SELFPAY ==
[2019-05-01 08:11] VITALS: BMI 27.3
[2019-06-19 10:44] LABS: Anion Gap 7 (5-15); BUN 31 mg/dL (7-18); BUN/Creat Ratio 26.3 RATIO (10-20); Calcium,Total 8.9 mg/dL (8.5-10.1); Chloride 107 mmol/L (98-107); Cholesterol 144 mg/dL (200); Creatinine, Serum 1.18 mg/dL (0.70-1.30); EST Glomerular Filtration Rate 63 mL/min (>60); Est Glom Filt Rate - Afr Amer 76 mL/min (>60); Glucose 152 mg/dL (74-106); High Density Lipoprotein 40 mg/dL; Potassium 4.4 mmol/L (3.5-5.1); Sodium Level 140 mmol/L (136-145); Triglycerides 139 mg/dL; Very Low Density Lipoprotein 28 mg/dL (5-40)
== END ==
PROVIDERS: PCP Family Medicine; Referring Provider Family Medicine; Visit Provider Family Medicine
DX: E11.9 Type 2 diabetes mellitus without complications (principal)
CPT/HCPCS: 36415; 80048; 80061

== ENCOUNTER → 2019-07-14 16:10 | Outpatient (CLI) | payer MEDICARE, BC, SELFPAY ==
[2019-05-01 08:11] VITALS: BMI 27.3
[2019-07-14 17:27] LABS: Absolute Lymphocyte Count 1.49 X10^3/uL (0.83-4.51); Absolute Neutrophil Count 6.6 X10^3/uL (2.0-7.7); Basophil# 0.07 X10^3/uL; Basophil% 0.7 % (0-1); Eosinophils% 3.2 % (0-5); Hematocrit 45.3 % (40-54); Hemoglobin 14.5 g/dL (13.0-16.5); Lymphocyte # 1.49 X10^3/ul (4.0); Lymphocyte % 15.8 % (19-41); Mean Corpuscular Hgb 28.5 pg (27.0-32.0); Mean Platelet Vol. 9.8 fl (6.2-12.0); Monocyte% 9.5 % (0-10); NRBC Flagged by Analyzer 0 % (0-5); Neutrophil # 6.58 X10^3/uL (2.7-7.7); Neutrophil % 69.6 % (47-70); Platelet Count 276 K/mm3 (150-450); RBC Distribution Width CV 12.9 % (11.6-14.6); RBC Distribution Width SD 42.1 fl (35.1-43.9); Red Blood Count 5.09 M/mm3 (4.6-6.2); White Blood Count 9.5 K/mm3 (4.4-11.0)
== END ==
PROVIDERS: PCP Family Medicine; Referring Provider Family Medicine; Visit Provider Family Medicine
DX: K92.1 Melena (principal)
CPT/HCPCS: 36415; 85025

== ENCOUNTER → 2019-10-10 14:37 | Outpatient (CLI) | payer MEDICARE, BC, SELFPAY ==
[2019-05-01 08:11] VITALS: BMI 27.3
[2019-10-10 18:12] LABS: Partial Thromboplast Time 27.4 Seconds (24.1-36.2); Prothrombin Time (Protime)PT. 12.3 SECONDS (11.7-14.9)
[2019-10-10 18:40] LABS: ALB/GLOB Ratio 1.2 RATIO (0.9-2.4); AST(SGOT) 14 U/L (15-37); Alanine Aminotransfer ALT/SGPT 20 U/L (16-61); Albumin, Serum 3.9 g/dL (3.2-5.0); Alkaline Phosphatase 132 U/L (45-117); Anion Gap 10 (5-15); BUN 28 mg/dL (7-18); BUN/Creat Ratio 22.8 RATIO (10-20); Calcium,Total 9.1 mg/dL (8.5-10.1); Chloride 102 mmol/L (98-107); Creatinine, Serum 1.23 mg/dL (0.70-1.30); EST Glomerular Filtration Rate 60 mL/min (>60); Est Glom Filt Rate - Afr Amer 73 mL/min (>60); Globulin 3.3 g/dL (2.2-4.2); Glucose 180 mg/dL (74-106); Potassium 4.3 mmol/L (3.5-5.1); Protein, Total 7.2 g/dL (6.4-8.2); Sodium Level 138 mmol/L (136-145); Thyroid Stim Hormone (TSH) 1.55 uIU/mL (0.358-3.74)
== END ==
PROVIDERS: PCP Family Medicine; Referring Provider Family Medicine; Visit Provider Family Medicine
DX: Z01.818 Encounter for other preprocedural examination (principal); E11.9 Type 2 diabetes mellitus without complications
CPT/HCPCS: 36415; 80053; 84443; 85610; 85730

== ENCOUNTER 2019-10-19 13:30 | Outpatient (RCR) | payer MEDICARE, BC, SELFPAY ==
[2019-05-01 08:11] VITALS: BMI 27.3
--- NOTE | 2019-09-20 16:31 | HP.PTEVAL_ITS ---
Patient's Visit Information FAIZA TELLO is a 79 year old M referred to Physical Therapy by Nelida Baez NP-Billy with a diagnosis of SACROILTIS/S/P LUMBAR FUSION. Date of Evaluation: 09/20/19 Physical Therapist: Polo Giraldo, PT, Cert MDT, OCS - Visit Plan Frequency: 2x /Week Duration: 4 Weeks Plan: H/O RIGHT THR LAST YEAR AND 1 1/2 AGO SPINAL LUMBAR FUSION. PT INTERVENTION MODALTIES FOR PAIN RELEIVE,PROGRESS TO GRADED DLS,LE FLEXABLITY,STRENGTHENING,POSTURAL EX'S - Subjective This 79 y/o male presents to physical therapy with lumbar fusion/scarolitis.Patient had s/p lumbar fusion about 1 1/2 ago . Patient also had right THR 6 monts ago. Patient pain Right buttuck radiated right thigh to foot throbbing pain.Denies parathesia/tingling. Patient seen DR had epsidural injection which only helped 2 days. No MEDS. Patient aggraveting factors standin 10mins,walking ,lifting . Alleviating factors rest,sleeping and sittnig. Patient had MRI showed stenosis (see for results) . Coughing/sneezing/straining -. Bowel/bladder good. Patient sleeping good. Patient plans to have CTS surgery.Patient symptoms affects function and ADLS'/housework tasks. Patient back pain affects QOL. SOCIAL: . VOCATION: retIRED - Pain Right Back Pain Intensity (Out of 10): 5 Pain Intensity Range: 10 Right Lower Extremity Pain Intensity (Out of 10): 4 Pain Intensity Range: 10 - Objective POSTURE: mild foward posture. GAIT: reciprocal pattern antalgic gait with cane right side. NEURO:denies parathesia/tingling ,reflexes L3-4,L4-5,L5-S1 1/3. PALAPTION: INFERIOR SI. FLEXABLITY: HAMS MOD TIGHT. LUMBAR ROM: flexion min tight,extension mod/severe tight pain,side glides mod pain right,left min/mod. SYMTTRIES: ALIGN - Special Tests L/S Slump test left side: Negative L/S Slump test right side: Negative L/S Left Straight Leg Raise: Negative L/S Right Straight Leg Raise: Positive - Goals Goal 1:: Patient to be I with HEP Goal Time Frame: 4-6 Weeks Goal 2:: Patient decrease lumbar pain by 50% or > to improve QOL and function. Goal Time Frame: 4-6 Weeks Goal 3:: Patient improve lumbar ROM for function of recovery Goal Time Frame: 4-6 Weeks Goal 4:: Patient to improve back owestry score by 5 vpoints or > to improve QOL. Goal Time Frame: 4-6 Weeks Goal 5:: Patient improve ability to walking and stand with min limiations for ADLS' Goal Time Frame: 4-6 Weeks - Rehabilitation Potential Physical Therapy Diagnosis: This patient has h/o spinal lumbar fusion 1 1/2 ago and right THR last year. Patient had MRI showed stenosis mod/large bulding and potrusion . Symptoms worse with walking and standing affects right glut and worse with extension,betterwith sitting. Rehabilitation Potential: Good - Anticipated Interventions Patient/Client Instruction: Educate patient on: Condition, Plan of Care For the Purpose of:: To decrease pain, To increase ROM, To improve muscle performance and motor function, To improve ability to perform ADL's, To improve performance and independence with ADL's, To improve ability of physical actions for home/community/work/leisure, To improve health of tissue, To decrease soft tissue restriction, To increase flexibility/ROM, To reduce risk of recurrence, To improve ability to perform tasks related to life management Therapeutic Exercise to Include: Strength training, Postural training, Flexibilty training, Dynamic Lumbar Stabilization For the Purpose of:: To decrease pain, To increase ROM, To improve muscle performance and motor function, To improve ability to perform ADL's, To increase tolerance to activity/condition/position, To improve ability of physical actions for home/community/work/leisure, To improve health of tissue, To decrease soft tissue restriction, To increase flexibility/ROM, To improve ability to perform tasks related to life management TENS: Yes IF ES: Yes Cryotherapy (ice pack, ice massage): Yes Thermo therapy (hot pack): Yes Ultrasound (thermal/non thermal): Yes For the Purpose of:: To decrease pain, To increase ROM, To improve nutrient delivery to tissue, To increase oxygenation perfusion, To improve health of tissue, To decrease soft tissue restriction Thank you for the opportunity to evaluate your patient. For Medicare and Medicare HMO plans, please review the plan of care and approve it. It will need to be FAXED BACK to us at [phone] for Medicare purposes. For Medicare only, by signing this I certify the plan of care. Please let me know if there are questions or concerns regarding this plan of care. Physician Signature: Date:
--- NOTE | 2020-01-04 10:22 | HP.PT.NRP ---
FAIZA TELLO was seen in my office for initial evaluation on 09/20/19. The following Plan of Care was established for this patient: Initial Frequency: 2x /Week Initial Duration: 4 Weeks Patient/Client Instruction: Educate patient on: Condition, Plan of Care For the Purpose of:: To decrease pain, To increase ROM, To improve muscle performance and motor function, To improve ability to perform ADL's, To improve performance and independence with ADL's, To improve ability of physical actions for home/community/work/leisure, To improve health of tissue, To decrease soft tissue restriction, To increase flexibility/ROM, To reduce risk of recurrence, To improve ability to perform tasks related to life management Therapeutic Exercise to Include: Strength training, Postural training, Flexibilty training, Dynamic Lumbar Stabilization For the Purpose of:: To decrease pain, To increase ROM, To improve muscle performance and motor function, To improve ability to perform ADL's, To increase tolerance to activity/condition/position, To improve ability of physical actions for home/community/work/leisure, To improve health of tissue, To decrease soft tissue restriction, To increase flexibility/ROM, To improve ability to perform tasks related to life management TENS: Yes IF ES: Yes Cryotherapy (ice pack, ice massage): Yes Thermo therapy (hot pack): Yes Ultrasound (thermal/non thermal): Yes For the Purpose of:: To decrease pain, To increase ROM, To improve nutrient delivery to tissue, To increase oxygenation perfusion, To improve health of tissue, To decrease soft tissue restriction This patient was last seen in our office . Pertinent comments regarding their Physical therapy will appear below: Patient seen for PT for back pain. PT focused on DLS and strengthening 80% improved thus is d/c. At this point I will be discontinuing this patient from physical therapy. I would be happy to see this patient again in the future if found appropriate by the physician. Thank you! Polo Giraldo, PT, Cert MDT, OCS
== END 2019-10-19 19:00 | disposition home or self-care (01) ==
LOC: PT 13:30
PROVIDERS: PCP Family Medicine; Referring Provider Nurse Practitioner Acute Care; Visit Provider Nurse Practitioner Acute Care
DX: M46.1 Sacroiliitis, not elsewhere classified (principal); Z98.1 Arthrodesis status
CPT/HCPCS: 97110; 97162

== ENCOUNTER → 2020-01-22 08:35 | Outpatient (CLI) | payer MEDICARE, BC, SELFPAY ==
[2019-05-01 08:11] VITALS: BMI 27.3
--- NOTE | 2020-01-22 08:39 | CDU_ITS ---
Reason For Study: carotid artery disease Rt. Velocities/BP Lt. Velocities/BP Prox CCA 77.3/17.3 cm/sec. Prox CCA 98.2/29.1 cm/sec. Mid CCA 69.5/17.3 cm/sec. Mid CCA 102.1/36.9 cm/sec. Dist CCA 69.5/14.7 cm/sec. Dist CCA 91.7/36.9 cm/sec. Prox ECA 109.9/21.3 cm/sec. Prox ICA 140.6/47.4 cm/sec. Rt. Vert. 43.4/10.8 cm/sec. Mid ICA 171.7/55.2 cm/sec. Dist ICA 107.0/42.2 cm/sec. Lt. ICA/CCA = 1.9. Prox ECA 140.6/31.9 cm/sec. Lt. Vert. 56.4/16.8 cm/sec. Right Extracranial There is homogeneous, smooth atherosclerotic plaque noted in the right common carotid artery. The right internal carotid artery is occluded. There is heterogeneous, irregular atherosclerotic plaque noted in the right external carotid artery. Antegrade flow is noted in the right vertebral artery. Left Extracranial There is intimal thickening but no significant atherosclerotic plaque noted in the left common carotid artery. There is heterogeneous, irregular atherosclerotic plaque noted in the left internal carotid artery. There is heterogeneous, irregular atherosclerotic plaque noted in the left external carotid artery. Antegrade flow is noted in the left vertebral artery. Procedure Carotid Duplex 48614. The exam was diagnostic. Exam performed in department. Interpretation Summary Known occlusion of the right internal carotid artery <50% stenosis right external carotid Irregular calcific plaque at the proximal left internal carotid artery with 50 to 69% stenosis of the left internal carotid <50% stenosis left external carotid Patent and antegrade vertebrals bilaterally No clinically significant change since the previous examination of April 20, 2019 Ordering Physician: Joby Holloway Performed By: Edouard Sanders RVT
--- NOTE | 2020-01-22 08:39 | AAVD_ITS ---
Reason For Study: AAA Aorta Measurements Aorta Doppler Measurements Proximal aorta measures1.64 x 1.64cm. in cross- Peak systolic flow velocities within the proximal sectional axis. aorta measure 66.6 cm/sec. Proximal aorta measures1.66cm. in longitudinal Peak systolic flow velocities within the mid aorta axis. measure 43.8 cm/sec. Mid aorta measures2.89 x 2.75cm. in cross- Peak systolic flow velocities within the distal sectional axis. aorta measure 49.5 cm/sec. Mid aorta measures2.66cm. in longitudinal axis. Distal aorta measures4.52 x 4.49cm. in cross- sectional axis. Distal aorta measures4.25cm. in longitudinal axis. Left Iliac Artery Left iliac artery measures .97 x 1.02 cm. in the cross-sectional axis. Left iliac artery measures 1.06 cm. in the longitudinal axis. Peak systolic velocity in the left iliac artery measures 154.4 cm/sec. Right Iliac Artery Right iliac artery measures 2.32 x 2.27 cm. in the cross-sectional axis. Right iliac artery measures 2.16 cm. in the longitudinal axis. Peak systolic velocity in the right iliac artery measures 146.7 cm/sec. Procedure Aorta IVC Iliac vasculature or bypass grafts 13808. The exam was diagnostic. Exam performed in department. Interpretation Summary 4.52 x 4.49 distal abdominal aortic aneurysm Right common iliac 2.32 x 2.27 cm consistent with aneurysmal change Left common iliac 0.97 x 1.02 cm Ordering Physician: Joby Holloway Performed By: Edouard Sanders RVMelinda
== END ==
PROVIDERS: PCP Family Medicine; Referring Provider Family Medicine; Visit Provider Family Medicine
DX: I71.4 Abdominal aortic aneurysm, without rupture (principal); I73.9 Peripheral vascular disease, unspecified; I65.23 Occlusion and stenosis of bilateral carotid arteries
CPT/HCPCS: 93880; 93978

== ENCOUNTER → 2020-04-04 09:36 | Outpatient (CLI) | payer MEDICARE, BC, SELFPAY ==
[2019-05-01 08:11] VITALS: BMI 27.3
[2020-04-04 12:50] LABS: ALB/GLOB Ratio 1.2 RATIO (0.9-2.4); AST(SGOT) 12 U/L (15-37); Alanine Aminotransfer ALT/SGPT 18 U/L (16-61); Alkaline Phosphatase 137 U/L (45-117); Anion Gap 5 (5-15); BUN 25 mg/dL (7-18); BUN/Creat Ratio 21.2 RATIO (10-20); Chloride 107 mmol/L (98-107); Cholesterol 126 mg/dL (200); Creatinine, Serum 1.18 mg/dL (0.70-1.30); EST Glomerular Filtration Rate 63 mL/min (>60); Est Glom Filt Rate - Afr Amer 76 mL/min (>60); Globulin 3.2 g/dL (2.2-4.2); Glucose 105 mg/dL (74-106); High Density Lipoprotein 42 mg/dL; Potassium 4.6 mmol/L (3.5-5.1); Protein, Total 7.2 g/dL (6.4-8.2); Sodium Level 141 mmol/L (136-145); Triglycerides 112 mg/dL; Very Low Density Lipoprotein 22 mg/dL (5-40)
== END ==
PROVIDERS: PCP Family Medicine; Referring Provider Family Medicine; Visit Provider Family Medicine
DX: E11.9 Type 2 diabetes mellitus without complications (principal)
CPT/HCPCS: 36415; 80053; 80061

== ENCOUNTER → 2020-06-05 17:27 | Outpatient (CLI) | payer MEDICARE, BC, SELFPAY ==
[2019-05-01 08:11] VITALS: BMI 27.3
[2020-06-05 17:58] LABS: Absolute Lymphocyte Count 1.89 X10^3/uL (0.83-4.51); Absolute Neutrophil Count 5.3 X10^3/uL (2.0-7.7); Basophil# 0.08 X10^3/uL; Basophil% 0.9 % (0-1); Eosinophil# 0.56 X10^3/uL; Eosinophils% 6.2 % (0-5); Hematocrit 42.5 % (40-54); Hemoglobin 13.5 g/dL (13.0-16.5); Lymphocyte # 1.89 X10^3/ul (4.0); Mean Corp Hgb Conc 31.8 g/dL (32-36); Mean Corpuscular Hgb 27.1 pg (27.0-32.0); Mean Corpuscular Volume 85.2 fL (80-94); Mean Platelet Vol. 9.8 fl (6.2-12.0); Monocyte# 1.07 X10^3/uL; Monocyte% 11.9 % (0-10); NRBC Flagged by Analyzer 0 % (0-5); Neutrophil # 5.31 X10^3/uL (2.7-7.7); Neutrophil % 59.2 % (47-70); Platelet Count 309 K/mm3 (150-450); RBC Distribution Width CV 13.8 % (11.6-14.6); RBC Distribution Width SD 42.8 fl (35.1-43.9); Red Blood Count 4.99 M/mm3 (4.6-6.2)
[2020-06-05 18:05] LABS: ALB/GLOB Ratio 1.1 RATIO (0.9-2.4); AST(SGOT) 12 U/L (15-37); Alanine Aminotransfer ALT/SGPT 17 U/L (16-61); Albumin, Serum 3.9 g/dL (3.2-5.0); Alkaline Phosphatase 145 U/L (45-117); Anion Gap 6 (5-15); BUN 26 mg/dL (7-18); BUN/Creat Ratio 17.4 RATIO (10-20); Calcium,Total 9.2 mg/dL (8.5-10.1); Chloride 104 mmol/L (98-107); Creatinine, Serum 1.49 mg/dL (0.70-1.30); EST Glomerular Filtration Rate 48 mL/min (>60); Est Glom Filt Rate - Afr Amer 58 mL/min (>60); Globulin 3.5 g/dL (2.2-4.2); Glucose 243 mg/dL (74-106); Potassium 4.3 mmol/L (3.5-5.1); Protein, Total 7.4 g/dL (6.4-8.2); Sodium Level 138 mmol/L (136-145)
== END ==
PROVIDERS: PCP Family Medicine; Referring Provider Family Medicine; Visit Provider Family Medicine
DX: K92.1 Melena (principal)
CPT/HCPCS: 36415; 80053; 85025

== ENCOUNTER 2020-06-05 19:20 | Inpatient (IN) | payer MEDICARE, BC, SELFPAY ==
[2019-05-01 08:11] VITALS: BMI 27.3
[2020-06-05] VITALS (11 sets, daily range): BP systolic 92–154; BP diastolic 55–108; PULSE 66–79; RESP 12–20; TEMP 35.3–36.6; O2SAT 95–100; BMI 28.2; BMI 28.3
--- NOTE | 2020-06-05 19:30 | ED.DCSUM_ITS ---
History of Present Illness Chief Complaint: GI Bleed Informant: Patient Narrative: 80-year-old male presenting with rectal bleeding. He states that he has had 5-6 episodes today. Patient does take aspirin and Plavix on a regular basis and he reports that he takes extra aspirin for aches and pains sometimes. Patient does state that he seen some clotting. He was told by his PCP if he started to get lightheaded to come to the ED. This is why he came. He has mild lower abdominal cramping. He does not have any nausea or vomiting. Patient states that he had an episode like this about a year ago which resolved on its own. - Past Medical History (1) Acute blood loss anemia (ABLA) Status: Chronic (2) Arthritis Status: Chronic (3) Carotid stenosis, bilateral Status: Chronic (4) DDD (degenerative disc disease), cervical Status: Chronic (5) Hematochezia Status: Chronic (6) History of diverticulitis of colon Status: Chronic Past Medical History - Allergies and Home Meds Allergies/Adverse Reactions: Allergies No Known Allergies Allergy (Verified 05/01/19 08:11) Prior records reviewed: Yes Past Medical History: - - Reviewed in problem list Surgical History: appendectomy, total knee arthroplasty Lives: Alone Smoking Status: Former smoker Alcohol: None Drugs: None - Family History Maternal Family History: Family History (Last Reviewed 06/05/20 @ 22:[address] Mckay So MD) Father CVA (cerebral vascular accident) Mother Heart disease Brother CVA (cerebral vascular accident) Pancreatic cancer Review of Systems General: Reports: Chills, Fever Eyes: Denies: Visual changes - bilaterally, Diplopia ENT: Denies: Rhinorrhea, Sore throat Cardiovascular: Reports: - - Lightheadedness. Denies: Chest pain, Palpitations Respiratory: Denies: Dyspnea, Cough, Dyspnea on exertion Gastrointestinal: Reports: Abdominal pain, Hematochezia Genitourinary: Denies: Dysuria, Hematuria Musculoskeletal: Denies: Myalgias, Arthralgias Skin: Denies: Rash, Abscess Neurological: Denies: Headache, Parasthesia, Numbness Psych: Denies: Depression, Anxiety Hematologic: Reports: Easy bleeding. Denies: Easy bruising Physical Exam Vital Signs/Narrative: Vital Signs Temp Pulse Resp BP Pulse Ox 06/05/20 19:21 95.5 F L 66 18 95/71 100 Inital Vital Signs reviewed: Yes General: Well nourished, No Acute Distress Head: Normocephalic, Atraumatic Eyes: Perrl, EOMI ENT: Moist mucous membranes, No rhinorrhea Cardiovascular: Regular rate, Regular rhythm Respiratory: No distress, CTA bilaterally Abdomen: Soft, Tender - Mild lower abdominal cramping. Abdomen is nonperitoneal. Rectal: - - Dark brown stool and blood mixed at the rectum verge. No bright red blood noted. Extremities: Nontender, No edema Skin: Normal color, No rash Neurological: Alert, Oriented x3, Cranial nerves II-XII grossly intact Psychological: Normal affect, Normal Mood Diagnostic/Tx/Re-eval Clinical Impression(s) from Imaging Studies Abdomen/Pelvis CT 06/05/20 19:31 IMPRESSION: Colonic diverticulosis. No obstruction or abscess. Infrarenal abdominal aortic aneurysm. Electronically Signed: Darnell Baker MD at 20:18 EST , Service support , Chest X-Ray 06/05/20 20:48 IMPRESSION: Degenerative changes, as described above. No demonstrated acute cardiopulmonary process. Electronically Signed: Darnell Baker MD at 21:27 EST , Service support , Laboratory Data 06/05/20 06/05/20 06/05/20 19:24 19:24 19:24 WBC 8.4 RBC 4.45 L Hgb 12.0 L Hct 37.8 L MCV 84.9 MCH 27.0 MCHC 31.7 L RDW Std Deviation 42.5 RDW Coeff of Ryan 13.7 Plt Count 280 MPV 10.0 Immature Gran % (Auto) 1.000 H Neut % (Auto) 60.8 Lymph % (Auto) 22.2 [place] % (Auto) 9.9 Eos % (Auto) 5.1 H Baso % (Auto) 1.0 Absolute Neuts (auto) 5.1 Absolute Lymphs (auto) 1.86 Nucleated RBC % 0 PT 13.1 INR 1.0 Sodium 138 Potassium 4.6 Chloride 105 Carbon Dioxide 23.0 Anion Gap 10 BUN 27 H Creatinine 1.69 H Estim Creat Clear Calc 34.28 Est GFR (MDRD) Af Amer 50 L Est GFR (MDRD) Non-Af 42 L BUN/Creatinine Ratio 16.0 Glucose 305 H Calcium 8.7 Total Bilirubin 0.30 AST 11 L ALT 17 Alkaline Phosphatase 126 H Total Protein 6.5 Albumin 3.5 Globulin 3.0 Albumin/Globulin Ratio 1.2 Blood Type Antibody Screen Crossmatch 06/05/20 19:24 WBC RBC Hgb Hct MCV MCH MCHC RDW Std Deviation RDW Coeff of Ryan Plt Count MPV Immature Gran % (Auto) Neut % (Auto) Lymph % (Auto) H[place] % (Auto) Eos % (Auto) Baso % (Auto) Absolute Neuts (auto) Absolute Lymphs (auto) Nucleated RBC % PT INR Sodium Potassium Chloride Carbon Dioxide Anion Gap BUN Creatinine Estim Creat Clear Calc Est GFR (MDRD) Af Amer Est GFR (MDRD) Non-Af BUN/Creatinine Ratio Glucose Calcium Total Bilirubin AST ALT Alkaline Phosphatase Total Protein Albumin Globulin Albumin/Globulin Ratio Blood Type A POSITIVE Antibody Screen NEGATIVE Crossmatch See Detail - Medical Decision Making 80-year-old male presenting with lightheadedness and GI bleed. He is a mixture of dark blood in stool but no bright red blood. Initial blood pressures were in the 70s systolic. He was given IV fluids and, screened, crossmatched for 2 units given his type. Patient's hemoglobin was 12 however given his substantial hypotension I did transfuse this. Patient also has acute kidney injury. He was given IV fluids. Patient systolic blood pressure has come up to 110. Patient discussed with Dr. Soto who felt patient was stable enough to be admitted to [facility]. He will see him in consult. Patient was discussed with hospitalist who felt the patient was stable for PCU. Impression: 1. Hypotension?resolved 2. Acute blood loss anemia 3. GI bleed ED Disposition - Plan for ED Patient: Disposition: Acute Care [facility]
--- NOTE | 2020-06-05 19:31 | CT_ITS ---
STUDY: CT ABDOMEN AND PELVIS WITH CONTRAST REASON FOR EXAM: Male, 80 years old. HAVING RECTAL BLEEDING SINCE THIS 3AM WITH BOWEL MOVEMENTS, HX HTN, RADIATION DOSAGE (If Supplied By Facility): CTDIvol = ( 19.15 ) mGy, DLP = ( 1167.60 ) mGycm TECHNIQUE: Transaxial images were obtained from the dome of the diaphragm to the symphysis pubis without oral contrast. IV 100mL Isovue-370 was administered. Sagittal and coronal images were reconstructed. Individualized dose optimization techniques were used for this CT. COMPARISON: April 20, 2019 FINDINGS: There are chronic interstitial fibrotic changes of the lung bases. There are coronary artery calcifications. The visualized portions of the heart are within normal limits. Normal liver. Normal gallbladder and extrahepatic biliary system. Normal spleen. Normal pancreas. Normal bilateral adrenal glands. There are 4.6 and 2.5 cm cysts of the right kidney. There is 4.9 cm cyst of the left kidney. There is a small hiatal hernia. Normal small intestine. There are multiple colonic diverticula consistent with diverticulosis. There is non-visualization of the appendix. There is diffuse atherosclerotic calcification of the abdominal aorta, with a 4.6 cm infrarenal aneurysm. Normal inferior vena cava. Normal retroperitoneum. Normal urinary bladder. There is no free fluid in the abdomen or pelvis. Normal abdominal wall. Degenerative changes of the spine. Spondylolisthesis with spondylolysis at the lumbosacral junction. Posterior fusion with bilateral pedicle screws at L4 and S1 with laminectomy of L5. There is right hip replacement. There is sacroiliac spurring and ankylosis. CT/Abdomen/Pelvis W IV Cont ONLY IMPRESSION: Colonic diverticulosis. No obstruction or abscess. Infrarenal abdominal aortic aneurysm. Electronically Signed: Darnell Baker MD at 20:18 EST , Service support ,
[2020-06-05 19:45] LABS: Absolute Lymphocyte Count 1.86 X10^3/uL (0.83-4.51); Absolute Neutrophil Count 5.1 X10^3/uL (2.0-7.7); Basophil# 0.08 X10^3/uL; Eosinophil# 0.43 X10^3/uL; Eosinophils% 5.1 % (0-5); Hematocrit 37.8 % (40-54); Lymphocyte # 1.86 X10^3/ul (4.0); Lymphocyte % 22.2 % (19-41); Mean Corp Hgb Conc 31.7 g/dL (32-36); Mean Corpuscular Volume 84.9 fL (80-94); Monocyte# 0.83 X10^3/uL; Monocyte% 9.9 % (0-10); NRBC Flagged by Analyzer 0 % (0-5); Neutrophil # 5.11 X10^3/uL (2.7-7.7); Neutrophil % 60.8 % (47-70); Platelet Count 280 K/mm3 (150-450); RBC Distribution Width CV 13.7 % (11.6-14.6); RBC Distribution Width SD 42.5 fl (35.1-43.9); Red Blood Count 4.45 M/mm3 (4.6-6.2); White Blood Count 8.4 K/mm3 (4.4-11.0)
[2020-06-05 19:54] LABS: Prothrombin Time (Protime)PT. 13.1 SECONDS (11.7-14.9)
[2020-06-05 20:06] LABS: ALB/GLOB Ratio 1.2 RATIO (0.9-2.4); AST(SGOT) 11 U/L (15-37); Alanine Aminotransfer ALT/SGPT 17 U/L (16-61); Albumin, Serum 3.5 g/dL (3.2-5.0); Alkaline Phosphatase 126 U/L (45-117); Anion Gap 10 (5-15); BUN 27 mg/dL (7-18); Calcium,Total 8.7 mg/dL (8.5-10.1); Chloride 105 mmol/L (98-107); Creatinine, Serum 1.69 mg/dL (0.70-1.30); EST Glomerular Filtration Rate 42 mL/min (>60); Est Glom Filt Rate - Afr Amer 50 mL/min (>60); Estimated Creatinine Clearance 34.28 ml/min; Glucose 305 mg/dL (74-106); Potassium 4.6 mmol/L (3.5-5.1); Protein, Total 6.5 g/dL (6.4-8.2); Sodium Level 138 mmol/L (136-145)
--- NOTE | 2020-06-05 20:28 | EKG12_ITS ---
Test Reason : GI BLEED Blood Pressure : / mmHG Vent. Rate : 068 BPM Atrial Rate : 068 BPM P-R Int : 176 ms QRS Dur : 088 ms QT Int : 426 ms P-R-T Axes : 035 000 020 degrees QTc Int : 452 ms Normal sinus rhythm Normal ECG Confirmed by DEBORAH BOOTH, KARINE ([id number]), senior technical editor KRISTOFER ESCALERA ([id number]) on 06/10/2020 10:46:26 AM Referred By: ERIBERTO Confirmed By:KARINE CABRERA MD
[2020-06-05] MEDS: 0.9% Normal Saline 1,000 ML 999 ML IV (20:35)
--- NOTE | 2020-06-05 20:48 | RAD_ITS ---
STUDY: X-RAY CHEST REASON FOR EXAM: Male, 80 years old. PT HAVING RECTAL BLEEDING 0300 THIS AM WITH BOWEL MOVEMENTS. TECHNIQUE: Single frontal view of the chest. COMPARISON: None. FINDINGS: There are monitoring devices. The lungs are clear and expanded. There is no demonstrated pleural abnormality. Normal size heart. Normal mediastinum and augustina. Normal visualized pulmonary arteries. Normal visualized aortic arch and descending thoracic aorta. There is demineralization of the osseous structures. There is degenerative osteoarthritis of the bilateral shoulders. There is no demonstrated abnormality of the visualized soft tissue structures of the upper abdomen. RAD/Chest 1 View (Portable) IMPRESSION: Degenerative changes, as described above. No demonstrated acute cardiopulmonary process. Electronically Signed: Darnell Baker MD at 21:27 EST , Service support ,
--- NOTE | 2020-06-05 21:39 | HP.PCM_ITS ---
Problem List (1) Acute blood loss anemia (ABLA) Status: Acute (2) Carotid stenosis, bilateral Status: Chronic (3) Abdominal aortic aneurysm (AAA) greater than 39 mm in diameter Status: Chronic (4) DDD (degenerative disc disease), cervical Status: Chronic (5) Arthritis Status: Chronic (6) S/P knee replacement Status: Chronic Comment: Right knee- 2011 (7) Type II diabetes mellitus, uncontrolled Status: Chronic (8) Generalized abdominal discomfort Status: Chronic (9) History of diverticulitis of colon Status: Chronic (10) Hematochezia Status: Chronic (11) Knee joint replacement status Status: Chronic Comment: Left knee 1987 (12) Lumbago Status: Chronic History of Present Illness Date of Admission: 06/05/20 Chief Complaint: Rectal bleeding The patient is a 80 year old M with a significant history of abdominal aortic aneurysm; degenerative disc disease; diabetes mellitus and of diverticulitis who presents to the emergency department with bright red blood per rectum. His symptoms started about 3 AM on the day of presentation. Aside from the bright red blood per rectum he also had dark red-black stools and clots. He went to see his PCP who reportedly scoped him at the office and sent him for blood work. Patient returned home and was advised to come to the hospital however patient did not want to come to the hospital. Patient's subsequently felt dizzy; was diaphoretic and he passed out. Following the episode of passing out patient agreed to come to the hospital. Patient is on Plavix. Also he was put on baby aspirin but because of hip pain he has been taking full dose aspirin. Reportedly at emergency department his blood pressure was low with systolic in the 70s. Patient received 1 L bolus of normal saline and blood transfusion and his blood pressure responded appropriately. Reportedly he had a colonoscopy 7 to [address] Soto. The colonoscopy was done because of diverticulitis. Patient reports that the colonoscopy was not remarkable. He denies a history of endoscopy. Past Medical History Past Medical History (Chronic Problems): Chronic Problems (Last Reviewed 06/05/20 @ 22:[address] Mckay So MD) Carotid stenosis, bilateral (Chronic) Abdominal aortic aneurysm (AAA) greater than 39 mm in diameter (Chronic) DDD (degenerative disc disease), cervical (Chronic) Arthritis (Chronic) S/P knee replacement (Chronic) Right knee- 2011 Type II diabetes mellitus, uncontrolled (Chronic) Generalized abdominal discomfort (Chronic) History of diverticulitis of colon (Chronic) Hematochezia (Chronic) Knee joint replacement status (Chronic) Left knee 1987 Lumbago (Chronic) Medical History: Medical History (Last Reviewed 06/05/20 @ 22:[address] Mckay So MD) Carotid stenosis, bilateral (Chronic) I65.23 Abdominal aortic aneurysm (AAA) greater than 39 mm in diameter (Chronic) I71.4 DDD (degenerative disc disease), cervical (Chronic) M50.30 Arthritis (Chronic) M19.90 Type II diabetes mellitus, uncontrolled (Chronic) E11.65 Generalized abdominal discomfort (Chronic) R10.84 History of diverticulitis of colon (Chronic) Z87.19 Hematochezia (Chronic) K92.1 Lumbago (Chronic) M54.5 Allergies No Known Allergies Allergy (Verified 05/01/19 08:11) Home Medications: Ambulatory Orders Medication Instructions Recorded clopidogrel 75 mg tablet 75 mg PO ONCE 05/21/17 glipizide 10 mg tablet, extended 10 mg PO QDAY 05/21/17 release 24 hr losartan 50 mg-hydrochlorothiazide 1 tab PO QDAY 05/21/17 12.5 mg tablet metformin 750 mg tablet,extended 750 mg PO BID tab 05/21/17 release 24 hr psyllium husk 0.52 gram capsule 0.52 g PO ONCE 05/21/17 simvastatin 40 mg tablet 40 mg PO QAM 05/21/17 Surgical History: Surgical History (Last Reviewed 06/05/20 @ 22:[address] Mckay So MD) S/P knee replacement (Chronic) Z96.659 Right knee- 2011 Knee joint replacement status (Chronic) Z96.659 Left knee 1987 Previous back surgery Z98.890 Surgical History: appendectomy, total knee arthroplasty Smoking Status: Former smoker Tobacco Use: Chew - *Family History Maternal Family History: Family History (Last Reviewed 06/05/20 @ 22:[address] Mckay So MD) Father CVA (cerebral vascular accident) Mother Heart disease Brother CVA (cerebral vascular accident) Pancreatic cancer Review of Systems Constitutional: Denies: Chills, Fever, Weight Change HEENT: Denies: Head Aches, Sinus Congestion, Sinus Drainage Cardiovascular: Reports: Syncope. Denies: Chest Pain, Palpitations Respiratory: Denies: Cough, Shortness of breath at rest, Sputum production Gastrointestinal: Reports: Abdominal Pain, Hematochezia. Denies: Nausea, Vomiting Genitourinary: Denies: Dysuria Musculoskeletal: Denies: Joint Pain, Joint Tenderness Skin: Denies: Rash, Wounds Neurological: Denies: Numbness, Tingling, Focal weakness Psychiatric: Denies: Anxiety, Depression, Homicidal Ideations, Suicidal Ideations Hematologic/ Lymphatic: Denies: Easy Bruising, Easy Bleeding VTE Information - Inpt Only VTE Present on Admission: No VTE Mechan Device Prophylaxis: SCD's VTE Pharm Prophylaxis ordered?: No Patient Problems: Active and Suspected Problems (Last Reviewed 06/05/20 @ 22:[address] Mckay So MD) Acute blood loss anemia (ABLA) (Acute) - Physical Exam Vitals/I&O's: Vital Signs Temp Pulse Resp BP Pulse Ox 97.5 F L 71 12 110/55 L 100 06/05/20 21:21 06/05/20 21:27 06/05/20 21:27 06/05/20 21:27 06/05/20 21:27 Oxygen Flow Rate (L/min) 2 Oxygen Delivery Method Nasal Cannula Weight: 86.6 kg Body Mass Index (BMI) 28.2 Intake and Output for Last 24 Hours 06/03/20 06/04/20 06/05/20 23:59 23:59 23:59 Intake Total 0 / 0 Balance 0 / 0 General: Alert, Oriented x3, Cooperative HEENT: Atraumatic, PERRLA, EOMI, Normocephalic Neck: Supple, No JVD, Negative Carotid Bruits Lungs: Clear to auscultation, Normal air movement Cardiovascular: Regular rate, Normal S1, Normal S2, No murmurs Abdomen: Bowel Sounds Present, Soft, Non Tender Extremities: No edema, Capillary Refill Less than 3 Seconds Skin: No rashes, No breakdown Musculoskeletal: No Tenderness to Palpation of Joints or Extremities Neurological: Cranial nerves II-XII grossly intact - Hard of hearing Psych/Mental Status: Normal Affect, Appropriate Laboratory Results 06/05/20 19:24: WBC 8.4, RBC 4.45 L, Hgb 12.0 L, Hct 37.8 L, MCV 84.9, MCH 27.0, MCHC 31.7 L, RDW Std Deviation 42.5, RDW Coeff of Ryan 13.7, Plt Count 280, MPV 10.0, Immature Gran % (Auto) 1.000 H, Neut % (Auto) 60.8, Lymph % (Auto) 22.2, [place] % (Auto) 9.9, Eos % (Auto) 5.1 H, Baso % (Auto) 1.0, Absolute Neuts (auto) 5.1, Absolute Lymphs (auto) 1.86, Nucleated RBC % 0 06/05/20 19:24: Sodium 138, Potassium 4.6, Chloride 105, Carbon Dioxide 23.0, Anion Gap 10, BUN 27 H, Creatinine 1.69 H, Estim Creat Clear Calc 34.28, Est GFR (MDRD) Af Amer 50 L, Est GFR (MDRD) Non-Af 42 L, BUN/Creatinine Ratio 16.0, Glucose 305 H, Calcium 8.7, Total Bilirubin 0.30, AST 11 L, ALT 17, Alkaline Phosphatase 126 H, Total Protein 6.5, Albumin 3.5, Globulin 3.0, A lbumin/Globulin Ratio 1.2 06/05/20 19:24: PT 13.1, INR 1.0 06/05/20 19:24: Blood Type A POSITIVE, Antibody Screen NEGATIVE, Crossmatch See Detail Assessment/Plan All Active Problems (Last Reviewed 06/05/20 @ 22:[address] Mckay So MD) Acute blood loss anemia (ABLA) (Acute) The patient is a 80 year old M with a significant history of abdominal aortic aneurysm; degenerative disc disease; diabetes mellitus and of diverticulitis who presents emergency department with bright red blood per rectum; syncope and hypotension. Acute blood loss anemia/syncope/hypotension Etiology from rectal bleeding likely secondary to diverticular bleed. Received normal saline bolus and 2 units of packed red blood was ordered and transfusion began at emergency department. Nursing communication to get H&H 1 hour after second unit of blood has been transfused. Although this is likely lower GI bleed because of syncope and hypotension cannot completely rule out upper GI bleed. Protonix 40 mg IV twice daily ordered. We will keep patient n.p.o. and hold aspirin and Plavix as well. Emergency point doctor discussed the case with Dr. Soto. Inpatient consult to Dr. Soto. Acute kidney injury Creatinine of 1.69. Review of old record shows a creatinine baseline between 1.06-1.23. IVELISSE likely secondary to hypoperfusion from acute blood loss anemia. Normal saline bolus and packed red blood cells as above. Trend BMP. Diabetes mellitus Patient with hyperglycemia on presentation Glipizide and Metformin held secondary to n.p.o. status. Accu-Chek with correction scale insulin ordered. Aortic aneurysm and carotid stenosis On aspirin and Plavix held secondary to acute blood loss anemia. DVT prophylaxis Subcutaneous Lovenox ordered. Inpatient E&M: 19487 Init Hosp L3
[2020-06-06] VITALS (14 sets, daily range): BP systolic 106–141; BP diastolic 58–95; PULSE 59–73; RESP 13–20; TEMP 36.6–37.4; O2SAT 96–100
[2020-06-06] MEDS: Insulin Lispro 100 UNIT/ML INSULN.PEN SC ×2 (00:05→05:36)
[2020-06-06 00:21] LABS: Bedside Glucose 220 mg/dL (70-110)
[2020-06-06 03:25] LABS: Absolute Lymphocyte Count 1.43 X10^3/uL (0.83-4.51); Absolute Neutrophil Count 6.8 X10^3/uL (2.0-7.7); Basophil# 0.07 X10^3/uL; Basophil% 0.7 % (0-1); Eosinophil# 0.27 X10^3/uL; Eosinophils% 2.8 % (0-5); Hematocrit 38.3 % (40-54); Hemoglobin 12.2 g/dL (13.0-16.5); Lymphocyte # 1.43 X10^3/ul (4.0); Lymphocyte % 14.8 % (19-41); Mean Corp Hgb Conc 31.9 g/dL (32-36); Mean Corpuscular Hgb 27.3 pg (27.0-32.0); Mean Corpuscular Volume 85.7 fL (80-94); Mean Platelet Vol. 9.8 fl (6.2-12.0); Monocyte# 0.98 X10^3/uL; Monocyte% 10.2 % (0-10); NRBC Flagged by Analyzer 0 % (0-5); Neutrophil # 6.83 X10^3/uL (2.7-7.7); Platelet Count 196 K/mm3 (150-450); RBC Distribution Width CV 14.1 % (11.6-14.6); RBC Distribution Width SD 44.1 fl (35.1-43.9); Red Blood Count 4.47 M/mm3 (4.6-6.2); White Blood Count 9.6 K/mm3 (4.4-11.0)
[2020-06-06 03:33] LABS: Anion Gap 4 (5-15); BUN 26 mg/dL (7-18); BUN/Creat Ratio 23.4 RATIO (10-20); Chloride 108 mmol/L (98-107); Creatinine, Serum 1.11 mg/dL (0.70-1.30); EST Glomerular Filtration Rate 68 mL/min (>60); Est Glom Filt Rate - Afr Amer 82 mL/min (>60); Glucose 215 mg/dL (74-106); Potassium 4.1 mmol/L (3.5-5.1); Sodium Level 139 mmol/L (136-145)
[2020-06-06 05:41] LABS: Bedside Glucose 205 mg/dL (70-110)
--- NOTE | 2020-06-06 07:40 | PN_ITS ---
Patient Problems: Active and Suspected Problems (Last Reviewed 06/06/20 @ 11:[address] Ezra Soto MD) Rectal bleeding (Acute) Reason for Visit: Follow-up on acute GI bleed Subjective: Patient was seen and examined. He has had 2 maroon colored stools. Vitals have remained stable. No sudden drops in H&H overnight. Patient was transfused 2 units of blood in the ED. repeat hemoglobin is 13.0. He denies chest pain, palpitations or abdominal pain. Objective: Physical exam: General: Alert, Oriented x3, Cooperative HEENT: Atraumatic, PERRLA, EOMI, Normocephalic Neck: Supple, No JVD, Negative Carotid Bruits Lungs: Clear to auscultation, Normal air movement Cardiovascular: Regular rate, Normal S1, Normal S2, No murmurs Abdomen: Bowel Sounds Present, Soft, Non Tender Extremities: No edema Musculoskeletal: No Tenderness to Palpation of Joints or Extremities Neurological: Cranial nerves II-XII grossly intact - Hard of hearing Psych/Mental Status: Normal Affect, Appropriate Vitals/I&O's: Vital Signs Temp Pulse Resp BP Pulse Ox 97.9 F 60 18 125/72 H 98 06/06/20 04:45 06/06/20 04:45 06/06/20 04:45 06/06/20 04:45 06/06/20 04:45 Oxygen Flow Rate (L/min) 2 Oxygen Delivery Method Room Air Weight: 82.3 kg Body Mass Index (BMI) 28.3 Intake and Output for Last 24 Hours 06/04/20 06/05/20 06/06/20 23:59 23:59 23:59 Intake Total 1510.25 / 1510.25 400 / 400 Output Total 300 / 300 Balance 1510.25 / 1510.25 100 / 100 Laboratory Results 06/05/20 19:24: WBC 8.4, RBC 4.45 L, Hgb 12.0 L, Hct 37.8 L, MCV 84.9, MCH 27.0, MCHC 31.7 L, RDW Std Deviation 42.5, RDW Coeff of Ryan 13.7, Plt Count 280, MPV 10.0, Immature Gran % (Auto) 1.000 H, Neut % (Auto) 60.8, Lymph % (Auto) 22.2, [place] % (Auto) 9.9, Eos % (Auto) 5.1 H, Baso % (Auto) 1.0, Absolute Neuts (auto) 5.1, Absolute Lymphs (auto) 1.86, Nucleated RBC % 0 06/05/20 19:24: Sodium 138, Potassium 4.6, Chloride 105, Carbon Dioxide 23.0, Anion Gap 10, BUN 27 H, Creatinine 1.69 H, Estim Creat Clear Calc 34.28, Est GFR (MDRD) Af Amer 50 L, Est GFR (MDRD) Non-Af 42 L, BUN/Creatinine Ratio 16.0, Gl ucose 305 H, Calcium 8.7, Total Bilirubin 0.30, AST 11 L, ALT 17, Alkaline Phosphatase 126 H, Total Protein 6.5, Albumin 3.5, Globulin 3.0, Albumin/Globulin Ratio 1.2 06/05/20 19:24: PT 13.1, INR 1.0 06/05/20 19:24: Blood Type A POSITIVE, Antibody Screen NEGATIVE, Crossmatch See Detail 06/06/20 00:03: POC Glucose 220 H 06/06/20 03:10: Sodium 139, Potassium 4.1, Chloride 108 H, Carbon Dioxide 27.0, Anion Gap 4 L, BUN 26 H, Creatinine 1.11, Estim Creat Clear Calc 48.80, Est GFR (MDRD) Af Amer 82, Est GFR (MDRD) Non-Af 68, BUN/Creatinine Ratio 23.4 H, Glucose 215 H, Calcium 8.0 L 06/06/20 03:10: WBC 9.6, RBC 4.47 L, Hgb 12.2 L, Hct 38.3 L, MCV 85.7, MCH 27.3, MCHC 31.9 L, RDW Std Deviation 44.1 H, RDW Coeff of Ryan 14.1, Plt Count 196, MPV 9.8, Immature Gran % (Auto) 0.500, Neut % (Auto) 71.0 H, Lymph % (Auto) 14.8 L, [place] % (Auto) 10.2 H, Eos % (Auto) 2.8, Baso % (Auto) 0.7, Absolute Neuts (auto) 6.8, Absolute Lymphs (auto) 1.43, Nucleated RBC % 0 06/06/20 05:35: POC Glucose 205 H Current Medications Dextrose (Dextrose 50%-Water 25 Gm/50 Ml Disp.Syrin) 0 gm IV X1 PRN; Protocol PRN Reason: Hypoglycemia Glucagon (Glucagon 1 Mg/Ml Syringe) 1 mg IM .X1 PRN PRN Reason: Hypoglycemia Pantoprazole Sodium 40 mg/ (Sodium Chloride) 110 mls @ 330 mls/hr IV Q12 NAGI Last Infusion: 06/05/20 23:43 Dose: Infused Documented by: Sodium Chloride () 250 mls @ 15 mls/hr IV .[id number] PRN PRN Reason: Saline Flush Last Infusion: 06/05/20 23:43 Dose: 15 mls/hr Documented by: Sodium Chloride () 250 mls @ 15 mls/hr IV .[id number] PRN PRN Reason: Additional IVPB Infusion Insulin Human Lispro (Insulin Lispro 100 Unit/Ml Insuln.Pen) 0 unit SC Q6 NAGI; Protocol Last Admin: 06/06/20 05:36 Dose: 4 u Documented by: Ondansetron HCl (Ondansetron 4 Mg/2 Ml Vial) 4 mg IV Q8H PRN PRN PRN Reason: NAUSEA/VOMITING Sodium Chloride (0.9% Saline Lock 10 Ml Syringe) 10 - 40 ml IV UD PRN PRN Reason: SALINE FLUSH STROKE Vital Signs/Narrative: Vital Signs Temp Pulse Resp BP Pulse Ox 06/06/20 04:45 97.9 F 60 18 125/72 H 98 Medical Necessity - Tobacco Use Smoking Status: Former smoker Tobacco Use: Chew Assessment/Plan All Active Problems (Last Reviewed 06/06/20 @ 11:[address] Ezra Soto MD) Rectal bleeding (Acute) 1. Acute GI bleed, likely secondary to diverticular bleed Patient got 2 units of packed RBCs in the emergency room CT of the abdomen and pelvis on admission showed colonic diverticulosis. Patient has had 2 maroon-colored stools since admission; home Plavix and aspirin on hold General surgery consulted We will continue on PPI. Patient will be discharged off Plavix and aspirin if no more bleeding tomorrow 2. Hypotension, resolved with blood transfusions, blood pressure starting to rise up Would resume home losartan/hydrochlorothiazide Continue to monitor 3. Type 2 DM, on Metformin and glipizide at home Blood glucose in the hospital is fairly uncontrolled Continue to hold Metformin, resume glipizide Due to monitor with insulin sliding scale 4. Abdominal aortic aneurysm/chronic right carotid artery occlusion/left carotid artery stenosis All remain stable, patient is due for follow-up with Dr. Cueva in the outpatient 5. DVT prophylaxis?SCDs 6. Disposition:DC in am if no further bleeding Inpatient E&M: [id number] [facility] Hosp L3
[2020-06-06 09:05] LABS: Hematocrit 39.7 % (40-54)
--- NOTE | 2020-06-06 11:20 | PCM.CONS.GEN ---
Problem List (1) Rectal bleeding Status: Acute Reason for Consult Date of Consultation: 06/06/20 History of Present Illness: The patient is a 80 year old M with a significant history of abdominal aortic aneurysm; degenerative disc disease; diabetes mellitus and of diverticulitis who presents to the emergency department with bright red blood per rectum. His symptoms started about 3 AM on the day of presentation. Aside from the bright red blood per rectum he also had dark red-black stools and clots. He went to see his PCP who reportedly scoped him at the office and sent him for blood work. Patient returned home and was advised to come to the hospital however patient did not want to come to the hospital. Patient's subsequently felt dizzy; was diaphoretic and he passed out. Following the episode of passing out patient agreed to come to the hospital. Patient is on Plavix. Also he was put on baby aspirin but because of hip pain he has been taking full dose aspirin. Reportedly at emergency department his blood pressure was low with systolic in the 70s. Patient received 1 L bolus of normal saline and blood transfusion and his blood pressure responded appropriately. Reportedly he had a colonoscopy 7 to 8 years ago with me. The colonoscopy was done because of diverticulitis. Patient reports that the colonoscopy was not remarkable. He denies a history of endoscopy. Has been on the floor he has had 1 maroon-colored stool in his hemoglobin has actually gone up from his initial hemoglobin (12.2). Past Medical History Past Medical History (Chronic Problems): Chronic Problems (Last Reviewed 06/05/20 @ 22:[address] Mckay So MD) Acute blood loss anemia (ABLA) (Chronic) Carotid stenosis, bilateral (Chronic) Abdominal aortic aneurysm (AAA) greater than 39 mm in diameter (Chronic) DDD (degenerative disc disease), cervical (Chronic) Arthritis (Chronic) S/P knee replacement (Chronic) Right knee- 2011 Type II diabetes mellitus, uncontrolled (Chronic) Generalized abdominal discomfort (Chronic) History of diverticulitis of colon (Chronic) Hematochezia (Chronic) Knee joint replacement status (Chronic) Left knee 1987 Lumbago (Chronic) Medical History: Medical History (Last Reviewed 06/06/20 @ 11:[address] Ezra Soto MD) Carotid stenosis, bilateral (Chronic) I65.23 Abdominal aortic aneurysm (AAA) greater than 39 mm in diameter (Chronic) I71.4 DDD (degenerative disc disease), cervical (Chronic) M50.30 Arthritis (Chronic) M19.90 Type II diabetes mellitus, uncontrolled (Chronic) E11.65 Generalized abdominal discomfort (Chronic) R10.84 History of diverticulitis of colon (Chronic) Z87.19 Hematochezia (Chronic) K92.1 Lumbago (Chronic) M54.5 Allergies No Known Allergies Allergy (Verified 05/01/19 08:11) Home Medications: Ambulatory Orders Medication Instructions Recorded clopidogrel 75 mg tablet 75 mg PO ONCE 05/21/17 glipizide 10 mg tablet, extended 10 mg PO QDAY 05/21/17 release 24 hr losartan 50 mg-hydrochlorothiazide 1 tab PO QDAY 05/21/17 12.5 mg tablet metformin 750 mg tablet,extended 750 mg PO BID tab 05/21/17 release 24 hr psyllium husk 0.52 gram capsule 0.52 g PO ONCE 05/21/17 simvastatin 40 mg tablet 40 mg PO QAM 05/21/17 Surgical History: Surgical History (Last Reviewed 06/06/20 @ 11:[address] Ezra Soto MD) S/P knee replacement (Chronic) Z96.659 Right knee- 2011 Knee joint replacement status (Chronic) Z96.659 Left knee 1987 Previous back surgery Z98.890 Surgical History: appendectomy, total knee arthroplasty Lives: Alone Smoking Status: Former smoker Tobacco Use: Chew Alcohol: None Drugs: None - *Family History Maternal Family History: Family History (Last Reviewed 06/05/20 @ 22:[address] Mckay So MD) Father CVA (cerebral vascular accident) Mother Heart disease Brother CVA (cerebral vascular accident) Pancreatic cancer Review of Systems Constitutional: Denies: Chills, Fever, Weight Change Cardiovascular: Denies: Chest Pain, Chest Pressure, Chest Tightness, Palpitations Respiratory: Denies: Cough, Hemoptysis, Shortness of breath at rest, Shortness of breath upon exertion, Wheezing Gastrointestinal: Reports: Abdominal Pain - Lower abdominal, Melena. Denies: Nausea, Vomiting - Physical Exam Vitals/I&O's: Vital Signs Temp Pulse Resp BP Pulse Ox 98.1 F 59 L 20 H 120/66 99 06/06/20 09:00 06/06/20 09:00 06/06/20 09:00 06/06/20 09:00 06/06/20 09:00 Oxygen Flow Rate (L/min) 2 Oxygen Delivery Method Room Air Weight: 181 lb 7.047 oz Body Mass Index (BMI) 28.3 Intake and Output for Last 24 Hours 06/04/20 06/05/20 06/06/20 23:59 23:59 23:59 Intake Total 1510.25 / 1510.25 670 / 670 Output Total 450 / 450 Balance 1510.25 / 1510.25 220 / 220 General: Alert, Oriented x3 Lungs: Clear to auscultation Cardiovascular: Regular rate, Regular Rhythm, No murmurs Abdomen: Bowel Sounds Present, Soft, Non Tender, Non-Distended Laboratory Results 06/05/20 19:24: WBC 8.4, RBC 4.45 L, Hgb 12.0 L, Hct 37.8 L, MCV 84.9, MCH 27.0, MCHC 31.7 L, RDW Std Deviation 42.5, RDW Coeff of Ryan 13.7, Plt Count 280, MPV 10.0, Immature Gran % (Auto) 1.000 H, Neut % (Auto) 60.8, Lymph % (Auto) 22.2, [place] % (Auto) 9.9, Eos % (Auto) 5.1 H, Baso % (Auto) 1.0, Absolute Neuts (auto) 5.1, Absolute Lymphs (auto) 1.86, Nucleated RBC % 0 06/05/20 19:24: Sodium 138, Potassium 4.6, Chloride 105, Carbon Dioxide 23.0, Anion Gap 10, BUN 27 H, Creatinine 1.69 H, Estim Creat Clear Calc 34.28, Est GFR (MDRD) Af Amer 50 L, Est GFR (MDRD) Non-Af 42 L, BUN/Creatinine Ratio 16.0, Glucose 305 H, Calcium 8.7, Total Bilirubin 0.30, AST 11 L, ALT 17, Alkaline Phosphatase 126 H, Total Protein 6.5, Albumin 3.5, Globulin 3.0, Albumin/Globulin Ratio 1.2 06/05/20 19:24: PT 13.1, INR 1.0 06/05/20 19:24: Blood Type A POSITIVE, Antibody Screen NEGATIVE, Crossmatch See Detail 06/06/20 00:03: POC Glucose 220 H 06/06/20 03:10: Sodium 139, Potassium 4.1, Chloride 108 H, Carbon Dioxide 27.0, Anion Gap 4 L, BUN 26 H, Creatinine 1.11, Estim Creat Clear Calc 48.80, Est GFR (MDRD) Af Amer 82, Est GFR (MDRD) Non-Af 68, BUN/Creatinine Ratio 23.4 H, Glucose 215 H, Calcium 8.0 L 06/06/20 03:10: WBC 9.6, RBC 4.47 L, Hgb 12.2 L, Hct 38.3 L, MCV 85.7, MCH 27.3, MCHC 31.9 L, RDW Std Deviation 44.1 H, RDW Coeff of Ryan 14.1, Plt Count 196, MPV 9.8, Immature Gran % (Auto) 0.500, Neut % (Auto) 71.0 H, Lymph % (Auto) 14.8 L, [place] % (Auto) 10.2 H, Eos % (Auto) 2.8, Baso % (Auto) 0.7, Absolute Neuts (auto) 6.8, Absolute Lymphs (auto) 1.43, Nucleated RBC % 0 06/06/20 05:35: POC Glucose 205 H 06/06/20 09:00: Hgb 13.0, Hct 39.7 L Current Medications Dextrose (Dextrose 50%-Water 25 Gm/50 Ml Disp.Syrin) 0 gm IV X1 PRN; Protocol PRN Reason: Hypoglycemia Glucagon (Glucagon 1 Mg/Ml Syringe) 1 mg IM .X1 PRN PRN Reason: Hypoglycemia Pantoprazole Sodium 40 mg/ (Sodium Chloride) 110 mls @ 330 mls/hr IV Q12 NAGI Last Infusion: 06/06/20 10:45 Dose: Infused Documented by: Sodium Chloride () 250 mls @ 15 mls/hr IV .[id number] PRN PRN Reason: Saline Flush Last Infusion: 06/06/20 10:46 Dose: 15 mls/hr Documented by: Sodium Chloride () 250 mls @ 15 mls/hr IV .[id number] PRN PRN Reason: Additional IVPB Infusion Insulin Human Lispro (Insulin Lispro 100 Unit/Ml Insuln.Pen) 0 unit SC Q6 NAGI; Protocol Last Admin: 06/06/20 05:36 Dose: 4 u Documented by: Non-Formulary Medication (Simvastatin) 40 mg PO QAM NAGI Non-Formulary Medication (Psyllium Husk [Konsyl]) 0.52 g PO ONCE NAGI Ondansetron HCl (Ondansetron 4 Mg/2 Ml Vial) 4 mg IV Q8H PRN PRN PRN Reason: NAUSEA/VOMITING Sodium Chloride (0.9% Saline Lock 10 Ml Syringe) 10 - 40 ml IV UD PRN PRN Reason: SALINE FLUSH Assessment/Plan All Active Problems (Last Reviewed 06/05/20 @ 22:[address] Mckay So MD) Rectal bleeding (Acute) At this point with stable vitals and stable hemoglobin and no active bleeding I really do not think going to give changes plan of care by doing an upper scope on him. I like for him to have full liquids now. I am not quite sure why he is on the Plavix. Plavix should be remain on hold. He has significant sciatica and was using aspirin for this. Neurology consultation might be of benefit to put him on more appropriate medications for his sciatica. His hemoglobin remained stable and he is tolerating liquids probably discharging him on a proton pump inhibitor be appropriate and I will see him in the office in 1 week.
[2020-06-06 12:10] LABS: Bedside Glucose 102 mg/dL (70-110)
--- NOTE | 2020-06-06 12:45 | CASEMGMT ---
RN H[employer]OR [employer]ER CM spoke w/pt for planning/care coordination assessment. АНДРЕЙ YOUNG introduced self and role at [facility]. Pt voices understanding and consents to assessment at this time. Pt is A/O at this time and answers all questions appropriately. Care providers, pharmacy, and demographics verified/updated at this time. PCP: Dr Holloway Specialists: none Preferred Pharmacy: [facility] Retail pharmacy Insurance:[facility], [place] Prescription Benefit: Yes Living Will/HPOA: Pt states he has both LW and Healthcare POMirna, who is his son, Jimmy Rivas. LNOK: Son/POA, Jimmy. Son, Jovani, Daughter, Maria G Living Arrangements: Lives in a ranch-style home w/2 steps to enter. Pt lives w/his , who has dementia, and pt takes care of her. Pt's daughter, Maria G, is staying with his while pt is hospitalized. Transportation: Pt states drives self and states no transportation concerns at this time. DME: States has the following DME: shower chair, raised toilet seat, rails/grab bars, hand held shower, cane, glucometer Pt states no need for further DME at this time. HHC/SNF: No history of either and denies needs for HHC. Pt wishes to return home and states has no concerns with going home at time of discharge. CM to follow for any discharge planning/needs. Pt voices no concerns/needs at this time. Advised pt to ask for CM if any questions/concerns/needs arise. Voices understanding. PLAN: Home Christelle BARTON RN, CM
[2020-06-06 15:14] LABS: Hematocrit 38.9 % (40-54); Hemoglobin 12.6 g/dL (13.0-16.5)
[2020-06-06 16:55] LABS: Bedside Glucose 145 mg/dL (70-110)
[2020-06-06 23:22] LABS: Hematocrit 39.8 % (40-54); Hemoglobin 12.9 g/dL (13.0-16.5)
[2020-06-07] VITALS: BP 130/64; PULSE 63; RESP 15; TEMP 36.3; O2SAT 96
[2020-06-07 00:02] VITALS: PULSE 55
[2020-06-07] MEDS: Insulin Lispro 100 UNIT/ML INSULN.PEN SC (00:16)
[2020-06-07 00:20] LABS: Bedside Glucose 195 mg/dL (70-110)
[2020-06-07 02:38] VITALS: BP 142/78; PULSE 60; RESP 16; TEMP 36.4; O2SAT 97
[2020-06-07 04:00] VITALS: PULSE 55
[2020-06-07 05:34] LABS: Absolute Lymphocyte Count 1.02 X10^3/uL (0.83-4.51); Absolute Neutrophil Count 4.7 X10^3/uL (2.0-7.7); Basophil# 0.05 X10^3/uL; Basophil% 0.7 % (0-1); Eosinophil# 0.43 X10^3/uL; Eosinophils% 6.2 % (0-5); Hematocrit 41.2 % (40-54); Hemoglobin 13.3 g/dL (13.0-16.5); Lymphocyte # 1.02 X10^3/ul (4.0); Lymphocyte % 14.7 % (19-41); Mean Corp Hgb Conc 32.3 g/dL (32-36); Mean Corpuscular Hgb 27.6 pg (27.0-32.0); Mean Corpuscular Volume 85.5 fL (80-94); Mean Platelet Vol. 9.7 fl (6.2-12.0); Monocyte% 10.1 % (0-10); NRBC Flagged by Analyzer 0 % (0-5); Neutrophil # 4.71 X10^3/uL (2.7-7.7); Neutrophil % 67.7 % (47-70); Platelet Count 221 K/mm3 (150-450); RBC Distribution Width CV 14.2 % (11.6-14.6); RBC Distribution Width SD 44.1 fl (35.1-43.9); Red Blood Count 4.82 M/mm3 (4.6-6.2)
[2020-06-07 05:55] LABS: AST(SGOT) 20 U/L (15-37); Alanine Aminotransfer ALT/SGPT 16 U/L (16-61); Albumin, Serum 3.3 g/dL (3.2-5.0); Alkaline Phosphatase 134 U/L (45-117); Anion Gap 6 (5-15); BUN 18 mg/dL (7-18); BUN/Creat Ratio 16.7 RATIO (10-20); Calcium,Total 8.6 mg/dL (8.5-10.1); Chloride 104 mmol/L (98-107); Creatinine, Serum 1.08 mg/dL (0.70-1.30); EST Glomerular Filtration Rate 70 mL/min (>60); Est Glom Filt Rate - Afr Amer 84 mL/min (>60); Estimated Creatinine Clearance 50.15 ml/min; Globulin 3.2 g/dL (2.2-4.2); Glucose 159 mg/dL (74-106); Potassium 4.1 mmol/L (3.5-5.1); Protein, Total 6.5 g/dL (6.4-8.2); Sodium Level 138 mmol/L (136-145)
--- NOTE | 2020-06-07 08:04 | DCINST_ITS ---
- Discharge Diagnoses Current Active Problems: Current Active and Chronic Problems (Last Reviewed 06/06/20 @ 11:[address] Ezra Soto MD) Acute blood loss anemia (ABLA) (Chronic) Rectal bleeding (Acute) Carotid stenosis, bilateral (Chronic) Abdominal aortic aneurysm (AAA) greater than 39 mm in diameter (Chronic) DDD (degenerative disc disease), cervical (Chronic) Arthritis (Chronic) S/P knee replacement (Chronic) Right knee- 2011 Type II diabetes mellitus, uncontrolled (Chronic) Generalized abdominal discomfort (Chronic) History of diverticulitis of colon (Chronic) Hematochezia (Chronic) Knee joint replacement status (Chronic) Left knee 1987 Lumbago (Chronic) You will use the following diet at home:: Cardiac Your food should be the consistency of: Regular Your liquids should be the consistency of: Regular/Thin Discharge Activity: Return to Normal Activity Call your doctor if you observe: Fever of 101 or Higher, Shortness of breath, Dizziness, Fainting spells, Swelling in the ankles, Chest pain, Increased palpitations (irregular heartbeat) Instructions: ED Lower GI Bleeding (Stable) Additional Instructions: Obtain a CBC by your primary care physician as an outpatient on Wednesday if possible Allergies/Adverse Reactions: Allergies No Known Allergies Allergy (Verified 05/01/19 08:11) Medications to take at Discharge glipizide 10 mg tablet, extended release 24 hr 10 mg PO QDAY 05/21/17 losartan 50 mg-hydrochlorothiazide 12.5 mg tablet 1 tab PO QDAY 05/21/17 metformin 750 mg tablet,extended release 24 hr 750 mg PO BID tab 05/21/17 psyllium husk 0.52 gram capsule 0.52 g PO ONCE 05/21/17 simvastatin 40 mg tablet 40 mg PO QAM 05/21/17 Primary Care Physician: Joby Holloway MD [Primary Care Provider] - Please follow up with your Primary Care Physician in: 3-5 days Test Results: Test results from this visit will be discussed in further detail at your follow- up appointment, if applicable. Please Follow Up With: Ezra Soto MD When: 1-2 weeks
[2020-06-07 08:30] VITALS: BP 135/70; PULSE 65; RESP 16; TEMP 36.6; O2SAT 96
--- NOTE | 2020-06-07 09:32 | DS.PCM_ITS ---
Discharge Date and Diagnosis - Problem List Patient Problems: Active and Suspected Problems (Last Reviewed 06/06/20 @ 11:[address] Ezra Soto MD) Rectal bleeding (Acute) Date of Admission: 06/05/20 Date of Discharge: 06/07/20 - Primary Discharge Diagnosis Acute Problems: Active Problems (Last Reviewed 06/06/20 @ 11:[address] Ezra Soto MD) Rectal bleeding (Acute) - Secondary Discharge Diagnosis Chronic Problems: Chronic Problems (Last Reviewed 06/06/20 @ 11:[address] zEra Soto MD) Acute blood loss anemia (ABLA) (Chronic) Carotid stenosis, bilateral (Chronic) Abdominal aortic aneurysm (AAA) greater than 39 mm in diameter (Chronic) DDD (degenerative disc disease), cervical (Chronic) Arthritis (Chronic) S/P knee replacement (Chronic) Right knee- 2011 Type II diabetes mellitus, uncontrolled (Chronic) Generalized abdominal discomfort (Chronic) History of diverticulitis of colon (Chronic) Hematochezia (Chronic) Knee joint replacement status (Chronic) Left knee 1987 Lumbago (Chronic) Hospital Course and Treatment Imaging Results: Clinical Impression(s) from Imaging Studies Abdomen/Pelvis CT 06/05/20 19:31 IMPRESSION: Colonic diverticulosis. No obstruction or abscess. Infrarenal abdominal aortic aneurysm. Electronically Signed: Darnell Baker MD at 20:18 EST , Service support , Chest X-Ray 06/05/20 20:48 IMPRESSION: Degenerative changes, as described above. No demonstrated acute cardiopulmonary process. Electronically Signed: Darnell Baker MD at 21:27 EST , Service support , Consults: General Surgery Operations: None Procedures: None Summary of Care Provided: Per HPI: The patient is a 80 year old M with a significant history of abdominal aortic aneurysm; degenerative disc disease; diabetes mellitus and of diverticulitis who presents to the emergency department with bright red blood per rectum. His symptoms started about 3 AM on the day of presentation. Aside from the bright red blood per rectum he also had dark red-black stools and clots. He went to see his PCP who reportedly scoped him at the office and sent him for blood work. Patient returned home and was advised to come to the hospital however patient did not want to come to the hospital. Patient's subsequently felt dizzy; was diaphoretic and he passed out. Following the episode of passing out patient agreed to come to the hospital. Patient is on Plavix. Also he was put on baby aspirin but because of hip pain he has been taking full dose aspirin. Reportedly at emergency department his blood pressure was low with systolic in the 70s. Patient received 1 L bolus of normal saline and blood transfusion and his blood pressure responded appropriately. Reportedly he had a colonoscopy 7 to [address] Soto. The colonoscopy was done because of diverticulitis. Patient reports that the colonoscopy was not remarkable. He denies a history of endoscopy. Hospital Course: 1. Acute GI [id number]-old male presented from home with bright red blood per rectum likely secondary to a diverticular bleed. He does have a history of diverticulosis. His hemoglobin on admission was stable at 12 but he was transfused 2 units in the ER. His hemoglobin is stable and he says that he did not have any more maroon stools overnight tonight. He would like to go home. We will plan for discharge today and have him follow-up with general surgery as an outpatient for EGD and colonoscopy at their discretion. I discussed with him that he is not to continue his aspirin and Plavix until after he is seen general surgery. I discussed the discharge plan with him and expressed understanding of the risk and benefits of going home and would like to go home today. 2. Type 2 diabetes, abdominal aortic aneurysm, chronic right carotid artery occlusion, left carotid artery stenosis, hypertension, hyperlipidemia are all chronic medical conditions which complicate his care. His home medications were continued where appropriate Patient Problems: Active and Suspected Problems (Last Reviewed 06/06/20 @ 11:[address] Ezra Soto MD) Rectal bleeding (Acute) - Physical Exam Vitals/I&O's: Vital Signs Temp Pulse Resp BP Pulse Ox 97.8 F 65 16 135/70 H 96 06/07/20 08:30 06/07/20 08:30 06/07/20 08:30 06/07/20 08:30 06/07/20 08:30 Oxygen Flow Rate (L/min) 2 Oxygen Delivery Method Room Air Weight: 177 lb 4.026 oz Body Mass Index (BMI) 28.3 Intake and Output for Last 24 Hours 06/05/20 06/06/20 06/07/20 23:59 23:59 23:59 Intake Total 1510.25 / 1510.25 802.75 / 802.75 58.5 / 58.5 Output Total 1650 / 1950 300 / 300 Balance 1510.25 / 1510.25 -847.25 / -1147.25 -241.5 / -241.5 General: Alert, Oriented x3, Cooperative, No apparent distress HEENT: Atraumatic, PERRLA, EOMI, Normocephalic Oral: Moist Mucosa Neck: Supple, No JVD Lungs: Clear to auscultation, Normal air movement, No rhonchi, No wheeze, No rales Cardiovascular: Regular rate, Regular Rhythm, Normal S1, Normal S2, No murmurs Abdomen: Soft, Non Tender, Non-Distended, No Hepato-splenomegaly Extremities: No edema, Capillary Refill Less than 3 Seconds Skin: No rashes, No breakdown Neurological: Neuro grossly intact, Sensory exam intact to light touch and pain Psych/Mental Status: Normal Affect, Appropriate Laboratory Results 06/06/20 12:04: POC Glucose 102 06/06/20 15:00: Hgb 12.6 L, Hct 38.9 L 06/06/20 16:51: POC Glucose 145 H 06/06/20 23:10: Hgb 12.9 L, Hct 39.8 L 06/07/20 00:10: POC Glucose 195 H 06/07/20 05:20: WBC 7.0, RBC 4.82, Hgb 13.3, Hct 41.2, MCV 85.5, MCH 27.6, MCHC 32.3, RDW Std Deviation 44.1 H, RDW Coeff of Ryan 14.2, Plt Count 221, MPV 9.7, Immature Gran % (Auto) 0.600, Neut % (Auto) 67.7, Lymph % (Auto) 14.7 L, [place] % (Auto) 10.1 H, Eos % (Auto) 6.2 H, Baso % (Auto) 0.7, Absolute Neuts (auto) 4.7, Absolute Lymphs (auto) 1.02, Nucleated RBC % 0 06/07/20 05:20: Sodium 138, Potassium 4.1, Chloride 104, Carbon Dioxide 28.0, Anion Gap 6, BUN 18, Creatinine 1.08, Estim Creat Clear Calc 50.15, Est GFR (MDRD) Af Amer 84, Est GFR (MDRD) Non-Af 70, BUN/Creatinine Ratio 16.7, Glucose 159 H, Calcium 8.6, Total Bilirubin 0.50, AST 20, ALT 16, Alkaline Phosphatase 134 H, Total Protein 6.5, Albumin 3.3, Globulin 3.2, Albumin/Globulin Ratio 1.0 Discharge Activity: Return to Normal Activity Call your doctor if you observe: Fever of 101 or Higher, Shortness of breath, Dizziness, Fainting spells, Swelling in the ankles, Chest pain, Increased palpitations (irregular heartbeat) Home Medications: Medications to take at Discharge glipizide 10 mg tablet, extended release 24 hr 10 mg PO QDAY 05/21/17 losartan 50 mg-hydrochlorothiazide 12.5 mg tablet 1 tab PO QDAY 05/21/17 metformin 750 mg tablet,extended release 24 hr 750 mg PO BID tab 05/21/17 psyllium husk 0.52 gram capsule 0.52 g PO ONCE 05/21/17 simvastatin 40 mg tablet 40 mg PO QAM 05/21/17 Primary Care Physician: Joby Holloway MD [Primary Care Provider] - Please follow up with your Primary Care Physician in: 3-5 days Please Follow Up With: Ezra Soto MD When: 1-2 weeks Patient Instructions: ED Lower GI Bleeding (Stable) Disposition: Home Minutes spent on discharge:: 35 Patient Condition:: Stable Medical Necessity - Tobacco Use Smoking Status: Former smoker Tobacco Use: Chew Meaningful Use Info Meaningful Use Diagnoses (Choose all that apply): None applicable Inpatient E&M: 69100 Disch Hosp
--- NOTE | 2020-06-10 14:36 | CASEMGMT ---
[facility] Discharge Follow-Up Phone Call. Dennise: Janice Strata: 3 Discharge Date: 06/07/20 Adm Dx: Acute Blood Loss anemia Call to pt to inquire about how he has been doing since being discharged from the hospital. Pt states, I'm doing pretty good. He states he was getting concerned since he had not had a BM over the weekend and called Dr Holloway this morning who ordered for him to take Dulcolax OTC. He states, he did end up having a BM on his own today without the medication. He states it was solid and very dark red/blackish. He has not had any further bright red BM since being at the hospital. He has been holding the Plavix and ASA as instructed and has an appt with Dr Soto no 06/17 who he states plans to address with him at that time if he wishes for him to resume these medications. He also has an appt scheduled with his PCP, Dr Holloway, on 06/18. He denies having any questions about the discharge instructions or medications. He thanked [facility] for calling him. Christelle BARTON RN, CM
== END 2020-06-07 09:15 | disposition home or self-care (01) | DRG 811 ==
LOC: ED 21:21 → ICU 22:23
PROVIDERS: Internal Medicine; Admitting Provider Hospitalist; Emergency Provider Student in an Organized Health Care Education/Training Program; PCP Family Medicine; Visit Provider Family Medicine
DX: D62 Acute posthemorrhagic anemia (principal); K57.33 Diverticulitis of large intestine without perforation or abscess with bleeding; I65.23 Occlusion and stenosis of bilateral carotid arteries; I71.4 Abdominal aortic aneurysm, without rupture; G89.29 Other chronic pain; I10 Essential (primary) hypertension; E78.5 Hyperlipidemia, unspecified; E11.65 Type 2 diabetes mellitus with hyperglycemia; M50.30 Other cervical disc degeneration, unspecified cervical region; M19.90 Unspecified osteoarthritis, unspecified site; M54.40 Lumbago with sciatica, unspecified side; Z79.82 Long term (current) use of aspirin; Z79.02 Long term (current) use of antithrombotics/antiplatelets; Z79.84 Long term (current) use of oral hypoglycemic drugs; Z87.891 Personal history of nicotine dependence
CPT/HCPCS: 36415; 71045; 74177; 80048; 80053; 82962; 85014; 85018; 85025; 85610; 86850; 86900; 86901; 86920; 86922; 93005; 99285; J7050; P9016; Q9967; A4216

== ENCOUNTER → 2021-01-15 14:53 | Outpatient (CLI) | payer MEDICARE, BC, SELFPAY ==
[2021-01-15 18:12] LABS: Hematocrit 46.3 % (40-54); Hemoglobin 14.8 g/dL (13.0-16.5); Mean Corpuscular Hgb 28.2 pg (27.0-32.0); Mean Corpuscular Volume 88.4 fL (80-94); Platelet Count 308 K/mm3 (150-450); RBC Distribution Width CV 13.3 % (11.6-14.6); RBC Distribution Width SD 43.1 fl (35.1-43.9); Red Blood Count 5.24 M/mm3 (4.6-6.2); White Blood Count 8.1 K/mm3 (4.4-11.0)
[2021-01-15 18:49] LABS: ALB/GLOB Ratio 0.8 RATIO (0.9-2.4); AST(SGOT) 14 U/L (15-37); Alanine Aminotransfer ALT/SGPT 18 U/L (16-61); Albumin, Serum 3.6 g/dL (3.2-5.0); Alkaline Phosphatase 141 U/L (45-117); Anion Gap 8 (5-15); BUN 27 mg/dL (7-18); BUN/Creat Ratio 23.3 RATIO (10-20); Calcium,Total 9.1 mg/dL (8.5-10.1); Chloride 101 mmol/L (98-107); Cholesterol 140 mg/dL (200); Creatinine, Serum 1.16 mg/dL (0.70-1.30); EST Glomerular Filtration Rate 64 mL/min (>60); Est Glom Filt Rate - Afr Amer 78 mL/min (>60); Globulin 4.3 g/dL (2.2-4.2); Glucose 146 mg/dL (74-106); High Density Lipoprotein 40 mg/dL; Potassium 4.4 mmol/L (3.5-5.1); Protein, Total 7.9 g/dL (6.4-8.2); Sodium Level 136 mmol/L (136-145); Thyroid Stim Hormone (TSH) 1.56 uIU/mL (0.358-3.74); Triglycerides 164 mg/dL; Very Low Density Lipoprotein 33 mg/dL (5-40)
== END ==
PROVIDERS: PCP Family Medicine; Referring Provider Family Medicine; Visit Provider Family Medicine
DX: E11.59 Type 2 diabetes mellitus with other circulatory complications (principal)
CPT/HCPCS: 36415; 80053; 80061; 84443; 85027

== ENCOUNTER 2021-04-24 12:34 | Outpatient (CLI) | payer MEDICARE, BC, SELFPAY ==
--- NOTE | 2021-04-24 12:36 | CDU_ITS ---
Reason For Study: carotid stenosis Rt. Velocities/BP Lt. Velocities/BP Prox CCA 82.6/13.4 cm/sec. Prox CCA 79.9/22.6 cm/sec. Mid CCA 86.5/13.4 cm/sec. Mid CCA 100.8/30.4 cm/sec. Dist CCA 65.6/12.1 cm/sec. Dist CCA 98.2/35.6 cm/sec. Prox ECA 100.8/18.6 cm/sec. Prox ICA 180.6/53.3 cm/sec. Rt. Vert. 61.7/13.4 cm/sec. Mid ICA 99.4/33.6 cm/sec. Dist ICA 139.0/51.1 cm/sec. Lt. ICA/CCA = 1.8. Prox ECA 146.7/20.6 cm/sec. Lt. Vert. 48.5/12.6 cm/sec. Right Extracranial There is homogeneous, smooth atherosclerotic plaque noted in the right common carotid artery. The right internal carotid artery is occluded. There is homogeneous, smooth atherosclerotic plaque noted in the right external carotid artery. Antegrade flow is noted in the right vertebral artery. Left Extracranial There is intimal thickening but no significant atherosclerotic plaque noted in the left common carotid artery. There is heterogeneous, irregular atherosclerotic plaque noted in the left internal carotid artery. There is heterogeneous, irregular atherosclerotic plaque noted in the left external carotid artery. Antegrade flow is noted in the left vertebral artery. Procedure Carotid Duplex 13178. This is a Carotid Duplex examination using B-mode, color flow and specral Doppler. The exam was diagnostic. Exam performed in department. VL/Carotid Duplex Ultrasound Interpretation Summary Irregular calcific plaque at the proximal right internal carotid artery with no flow identified consistent with occlusion Less than 50% stenosis right external carotid artery Irregular calcific plaque in the proximal left internal carotid artery with 50 to 69% stenosis. Less than 50% stenosis left external carotid artery Patent and antegrade vertebral arteries bilaterally No change from the previous examination of January 22, 2020 Ordering Physician: Subhash Cueva Referring Physician: Joby Holloway Performed By: Edouard Sanders Melinda
== END 2021-04-24 23:59 | disposition short-term general hospital (02) ==
LOC: CVS 12:35
PROVIDERS: PCP Family Medicine; Referring Provider Family Medicine; Visit Provider Family Medicine
DX: I77.9 Disorder of arteries and arterioles, unspecified (principal); I65.23 Occlusion and stenosis of bilateral carotid arteries
CPT/HCPCS: 93880

== ENCOUNTER 2021-06-04 07:40 | Outpatient (CLI) | payer MEDICARE, BC, SELFPAY ==
--- NOTE | 2021-06-04 07:46 | AAVD_ITS ---
Reason For Study: AAA Aorta Measurements Aorta Doppler Measurements Proximal aorta measures2.0 X 2.0cm. in cross- Peak systolic flow velocities within the proximal sectional axis. aorta measure 105.8 cm/sec. Proximal aorta measures2.1cm. in longitudinal Peak systolic flow velocities within the mid aorta axis. measure 50.9 cm/sec. Mid aorta measures2.35 X 2.34cm. in cross- Peak systolic flow velocities within the distal sectional axis. aorta measure 40.8 cm/sec. Mid aorta measures2.4cm. in longitudinal axis. Distal aorta measures4.51 X 4.54cm. in cross- sectional axis. Distal aorta measures4.59cm. in longitudinal axis. Left Iliac Artery Left iliac artery measures 1.31 X 1.34 cm. in the longitudinal axis. Left iliac artery measures 1.38 cm. in the cross-sectional axis. Peak systolic velocity in the left iliac artery measures 138.7 cm/sec. Right Iliac Artery Right iliac artery measures 2.81 X 2.82 cm. in the longitudinal axis. Right iliac artery measures 2.78 cm. in the cross-sectional axis. Peak systolic velocity in the right iliac artery measures 200.2 cm/sec. Procedure Aorta IVC Iliac vasculature or bypass grafts 36572. Exam performed in department. VL/Abd Aortic/IVC Duplex scan Interpretation Summary Distal abdominal aortic aneurysm 4.51 x 4.54 cm in diameter. Left common iliac artery 1.31 x 1.34 cm in diameter Right common iliac artery 2.81 x 2.82 cm in diameter Previous examination of January 22, 2020 demonstrates a 4.52 x 4.49 cm abdominal aortic aneurysm with a right common iliac measuring 2.32 x 2.27 cm in diameter Ordering Physician: Subhash Cueva Referring Physician: MARIELA PARKINSON Performed By: Em Lemus, RDCS, RVT
== END 2021-06-04 23:59 | disposition home or self-care (01) ==
PROVIDERS: PCP Family Medicine; Referring Provider Surgery; Visit Provider Surgery
DX: I71.4 Abdominal aortic aneurysm, without rupture (principal)
CPT/HCPCS: 93978

== ENCOUNTER 2023-04-21 01:15 | Emergency (ER) | payer MEDICARE, BC, SELFPAY ==
[2023-04-21] VITALS (12 sets, daily range): BP systolic 119–169; BP diastolic 57–80; PULSE 57–69; RESP 11–18; TEMP 36.2; O2SAT 97–100; BMI 29.3
--- NOTE | 2023-04-21 01:27 | CT_ITS ---
EXAM: CT ABDOMEN AND PELVIS WITHOUT INTRAVENOUS CONTRAST CLINICAL INDICATION: back pain, AAA back pain, AAA TECHNIQUE: Helically acquired images were obtained of the abdomen and pelvis without intravenous contrast. This CT exam was performed using one or more of the following dose reduction techniques: automated exposure control, adjustment of the mA and/or kV according to patient size, and/or use of iterative reconstruction technique. RADIATION DOSE: CTDIvol = 9.91 mGy, DLP = 549.83 mGy-cm COMPARISON: CT scan 06/05/2020. FINDINGS: LOWER THORAX: There is a moderate hiatal hernia. There are coronary artery calcifications. There is mild atelectasis in visualized posterior lung bases. No cardiomegaly. No significant pericardial effusion. ABDOMEN: LIVER: Unremarkable. Homogeneous. GALLBLADDER AND BILE DUCTS: Unremarkable. No calcified gallstones. No gallbladder distention or wall edema. No intra- or extrahepatic biliary ductal dilation. PANCREAS: Unremarkable. No focal cystic mass. SPLEEN: The spleen appears normal. There is a small accessory spleen. ADRENALS: Unremarkable. No nodules. KIDNEYS AND URETERS: There are simple appearing renal cysts bilaterally. No follow-up imaging is necessary for simple renal cysts or cysts that are too small to characterize. Normal renal size and position. No hydronephrosis. STOMACH AND BOWEL: There are colonic diverticula. There is no evidence for acute diverticulitis. No stomach or bowel distention. PELVIS: APPENDIX: No evidence of acute appendicitis. BLADDER: Unremarkable. REPRODUCTIVE: Unremarkable as visualized. No mass. ABDOMEN and PELVIS: INTRAPERITONEAL SPACE: Unremarkable. No ascites or other fluid collection. No free air. BONES/JOINTS: There are multilevel degenerative changes in the visualized spine. There is chronic spondylolysis and grade 2 spondylolisthesis at the L5-S1 level. There are postsurgical changes in the lower lumbar spine, including laminectomy and surgical fusion at the L4-S1 levels. There is a right hip prosthesis. SOFT TISSUES: Unremarkable. No discrete abdominal or pelvic wall hernia. VASCULATURE: There is a 5.4 x 5.5 cm aneurysm of the distal abdominal aorta, extending to the bifurcation. This was also present on the 2020 exam, and was 5.1 x 5.1 cm, by my measurement. There is a short segment of dissection within the angles, which was also previously present. There no evidence for aneurysm leakage/rupture.. LYMPH NODES: Unremarkable. No enlarged lymph nodes. CT/Abdomen/Pelvis without Cont IMPRESSION: 1. 5.5 cm distal abdominal aortic aneurysm, which contains a short segment of dissection but no evidence for rupture. Aneurysm has increased from 5.1 cm at the time of the 2020 exam. Recommend abdomen/pelvis CT or MR imaging follow-up in 3-6 months. Consider surgical or endovascular referral. 2. Moderate hiatal hernia. 3. Coronary artery atherosclerosis. 4. Colonic diverticulosis without evidence for acute diverticulitis. Electronically Signed: Dillon Rai MD at 2:25 EST ,
[2023-04-21] MEDS: fentaNYL 100 MCG/2 ML Ampul 12.5 MCG IV (01:32)
[2023-04-21] MEDS: Ondansetron 4 MG/2 ML Vial IV (01:32)
[2023-04-21 01:35] LABS: Absolute Lymphocyte Count 1.52 X10^3/uL (0.83-4.51); Absolute Neutrophil Count 2.2 X10^3/uL (2.0-7.7); Basophil# 0.05 X10^3/uL; Basophil% 1.1 % (0-1); Eosinophil# 0.35 X10^3/uL; Eosinophils% 7.4 % (0-5); Hematocrit 42.5 % (40-54); Hemoglobin 13.6 g/dL (13.0-16.5); Lymphocyte # 1.52 X10^3/ul (0.83-4.51); Lymphocyte % 31.9 % (19-41); Mean Corpuscular Hgb 29.4 pg (27.0-32.0); Mean Platelet Vol. 9.2 fl (6.2-12.0); Monocyte# 0.64 X10^3/uL; Monocyte% 13.4 % (0-10); NRBC Flagged by Analyzer 0.8 % (0-5); Neutrophil # 2.18 X10^3/uL (2.7-7.7); Neutrophil % 45.8 % (47-70); Platelet Count 240 K/mm3 (150-450); RBC Distribution Width CV 13.8 % (11.6-14.6); Red Blood Count 4.62 M/mm3 (4.6-6.2); White Blood Count 4.8 K/mm3 (4.4-11.0)
--- OUTSIDE RECORDS SUMMARY | 2023-04-21 01:50 | XMS RPT_ITS | CCD ---
Author Name Unknown Address [address] [place] [address] Organization [facility] Care Team Providers Care Bottler Helper Name Role Phone Cortez Holloway Primary Care Provider [phone] Medications Completed/Discontinued Medications Medication Drug Class(es) Dates Sig (Normalized) Sig (Original) aspirin 81 mg oral tablet (1 source) Platelet Aggregation Inhibitor, Nonsteroidal Anti-inflammatory Drug take 1 tablet by mouth once daily Aspirin 81 mg tab Take 81 mg by mouth once daily. 0 Active Problems Problem Classification Problem Date Documented Da te Episodic/Chronic Diverticulosis and diverticulitis (1 source) Diverticular disease; Translations: [Diverticulosis] Onset: 04-13-2013 04-13-2013 Chronic Results Test Name Value Interpretation Reference Range Facil ity Encounters Encounter Date Encounter Type Care Provider Facility Start: 06-08-2020 End: 06-08-2020 Patient encounter procedure Ezra Soto Work Phone: [facility] Start: 06-08-2020 Results Only Ezra obando Work Phone: General Surgery Procedures Date Procedure Procedure Detail Performing Clinician Start: 06-08-2020 PT ED PATIENT INFORMATION Ezra Soto Work Phone: Plan of Treatment Date Care Activity Detail Author Start: 12-19-2019 Influenza vaccination INFLUENZA (#1) [facility] Start: 01-02-2004 ADVANCE DIRECTIVE DISCUSSION ADVANCE DIRECTIVE DISCUSSION [facility] Start: 01-02-2004 PNEUMOVAX AGE 65 AND OVER WITH 5YR LOOKBACK (#1) PNEUMOVAX AGE 65 AND OVER WITH 5YR LOOKBACK (#1) [facility] Start: 1989 SHINGRIX VACCINE (1 of 2) MÉNDEZ GRIX VACCINE (1 of 2) [facility] Start: 01-02-1984 DIABETES SCREEN DIABETES SCREEN [facility] Start: 1958 Urine microalbumin profile DTAP,TDAP ,TD (1 - Tdap) [facility] PT ED PATIENT INFORMATION PT ED PATIENT INFORMATION Other 06/08/2020 [facility] Payers Date Payer Category Payer Unknown [employer] DENG ME DICARE SUPPLEMENT [id number] 2016-Present Indemnity [id number] 2003 Medicare MEDICARE MEDICAR E A AND B [id number] 2003-Present [place], [place] Medicare [id number] Social History Date Type Detail Facility [facility]: [facility] Start: 04-03-2013 Alcohol intake 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 Author Type: Physician Type: Progress Notes Filed: 07/16/2020 9:41 AM Note Text: Patient is status post an EGD and colonoscopy completed at [facility] on 07/09/2020. His upper scope showed that he had a small hiatal hernia biopsies for H. pylori were negative. He had no signs of any active bleeding and no ulcerations were identified. His colonoscopy showed some diverticulosis and some internal hemorrhoids. He had a fairly poor bowel prep and there were certainly areas where I could have missed polyps. But I do not think that I missed anything bit. Patient has been moving his bowels he has not noticed any rectal bleeding. Objective:Blood pressure 136/76, pulse 82, temperature 36.3 ?C (97.3 ?F), temperature source Temporal Artery, weight 81.6 kg (180 lb), SpO2 100 %. Abdomen is soft and nontender Assessment:Anemia, unspecified type (primary encounter diagnosis) Rectal bleeding Plan: At this point I really do not think we need to repeat endoscopies on him if he were to develop rectal bleeding that he is noticing I would probably treat him just with some Anusol HC suppositories which can be obtained at [facility]. [facility] Clinical Note 07-09-2020 Note Date & Type Note Facility 07-09-2020 Note HNO ID: [id number] Author: Candis (Rn) АНДРЕЙ Arndt Service: ? Author Type: Registered Nurse Type: Nursing Progress Note Filed: 07/09/2020 8:59 AM Note Text: Dr. Soto notified of pt's continued BP. No orders received. Candis Arndt RN [facility] Progress note 06-17-2020 Note Date & Type Note Facility 06-17-2020 Note HNO ID: [id number] Author: Ezra Soto Service: ? Author Type: Physician Type: Progress Notes Filed: 06/17/2020 9:50 AM Note Text: HISTORY AND PHYSICAL Faiza Rivas 1940 REFERRING PHYSICIAN: MD Prasanth CHIEF COMPLAINT: Hospital F/U HPI: The patient is a 80 year old male referred for Follow-up from hospitalization for GI bleed. The patient is a 80 year old M with a significant history of abdominal aortic aneurysm; degenerative disc disease; diabetes mellitus and of diverticulitis who presents to the emergency department with bright red blood per rectum. His symptoms started about 3 AM on the day of presentation. Aside from the bright red blood per rectum he also had dark red-black stools and clots. He went to see his PCP who reportedly scoped him at the office and sent him for blood work. Patient returned home and was advised to come to the hospital however patient did not want to come to the hospital. Patient's subsequently felt dizzy; was diaphoretic and he passed out. Following the episode of passing out patient agreed to come to the hospital. Patient is on Plavix. Also he was put on baby aspirin but because of hip pain he has been taking full dose aspirin. Reportedly at emergency department his blood pressure was low with systolic in the 70s. Patient received 1 L bolus of normal saline and blood transfusion and his blood pressure responded appropriately. Reportedly he had a colonoscopy 7 to 8 years ago with me. The colonoscopy was done because of diverticulitis. Patient reports that the colonoscopy was not remarkable. He denies a history of endoscopy. Has been on the floor he has had 1 maroon-colored stool in his hemoglobin has actually gone up from his initial hemoglobin (12.2). Since being home he has had normal bowel movements he has been eating normally he has not been back on his Plavix or aspirin. Faiza has undergone prior endoscopy. The patient is being seen by me today at the request of Self, my opinion and advice regarding Rectal bleeding (primary encounter diagnosis). 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 - glipiZIDE 10 mg tablet Take 1 tablet by mouth twice daily before meals. - losartan/hydrochlorothiazide(HYZAAR 100 MG-12.5 MG TAB) Take one(1) tablet daily. - simvastatin (ZOCOR) 40 mg tablet Take 40 mg by mouth once daily. - Aspirin 81 mg tab Take 81 mg by mouth once daily. - pioglitazone hcl(ACTOS 15 MG TAB) Take one(1) tablet daily. - pioglitazone hcl(ACTOS 30 MG TAB) Take one(1) tablet daily. No current facility-administered medications for this visit. ALLERGIES: Patient has no known allergies. PERSONAL HISTORY: Social History Tobacco Use - Smoking status: Never Smoker Substance Use Topics - Alcohol use: No - Drug use: Not on file FAMILY HISTORY: No family history on file. REVIEW OF SYMPTOMS: The review of systems data was entered by the nurse and reviewed by me Nursing Notes: Rachael Suresh LPN 06/17/2020 9:43 AM Signed REVIEW OF SYSTEMS: General: The patient NOTES fatigue, denies weight loss, denies weight gain, denies feeling hot, and denies feelings of cold. Eyes: The patient denies glaucoma, denies eye injury/surgery, wears glasses or contacts. Ear/Nose/Throat: The patient denies allergies, denies hayfever, denies ear infections, and denies bloody noses. Cardiovascular: The patient denies chest pain, denies heart disease, denies high blood pressure,denies cardiac stent, denies prior heart attack, denies irregular heart beat, NOTES high cholesterol, denies poor circulation, denies heart failure, other cardiac issues, denies claudication, denies cold feet, denies peripheral arterial stent. Respiratory: The patient denies tuberculosis, denies pneumonia, denies frequent cough, denies pulmonary embolism, denies shortness of breath, and denies coughing up blood. Gastrointestinal: The patient denies difficulty swallowing, denies acid reflux, denies ulcers, denies vomiting, denies jaundice/hepatitis, denies gallbladder problems, denies black or tarry stools, denies hemorrhoids, denies bleeding from rectum, denies diverticulitis, denies constipation, denies diarrhea, denies loss of stool control, and denies hernias. Kidney/[place]man (more content not included)... [facility] Summary Purpose Family History No Family History Records Found Advance Directives No Advanced Directives Records Found Additional Source Comments Source Comments (unrecognize d section and content) In the event this informatio n is protected by the Federal Confidentiality of Alcohol and Drug Abuse Patient Records regulations: The Federal rules restrict any use of the information to criminally investigate or prosecute any alcohol or drug abuse patient.[facility] (unrecognized sect ion and content) No Status Records Found INFORMATION SOURCE (unrecogn ized section and content) FOR RECORDS PERTAINING TO PATIENTS WHO ARE OR HAVE BEEN ENROLLED IN A CHEMICAL DEPENDENCY/SUBSTANCEABUSE PROGRAM, SOME INFORMATION MAY BE OMITTED. This clinical summary was aggregated from multiple sources. Caution should be exercised in using it in the provision of clinical care. This summary normalizes information from multiple sources, and as a consequence, information in this document may materially change the coding, format and clinical context of patient data. In addition, data may be omitted in some cases. CLINICAL DECISIONS SHOULD BE BASED ON THE PRIMARY CLINICAL RECORDS. [facility]. provides no warranty or guarantee of the accuracy or completeness of information in this document.
[2023-04-21 01:53] LABS: AST(SGOT) 15 U/L (15-37); Alanine Aminotransfer ALT/SGPT 18 U/L (16-61); Albumin, Serum 3.4 g/dL (3.2-5.0); Alkaline Phosphatase 100 U/L (45-117); Anion Gap 3 (5-15); BUN 25 mg/dL (7-18); BUN/Creat Ratio 21.6 RATIO (10-20); Bilirubin, Direct 0.11 mg/dL (0.00-0.30); Calcium,Total 9.4 mg/dL (8.5-10.1); Chloride 105 mmol/L (98-107); Creatinine, Serum 1.16 mg/dL (0.70-1.30); EST Glomerular Filtration Rate 64 mL/min (>60); Est Glom Filt Rate - Afr Amer 77 mL/min (>60); Estimated Creatinine Clearance 44.32 ml/min; Globulin 3.8 g/dL (2.2-4.2); Glucose 110 mg/dL (74-106); Lipase 29 U/L (13-75); Potassium 4.2 mmol/L (3.5-5.1); Protein, Total 7.2 g/dL (6.4-8.2); Sodium Level 140 mmol/L (136-145)
[2023-04-21] MEDS: fentaNYL 100 MCG/2 ML Ampul 25 MCG IV (01:59)
[2023-04-21 02:15] LABS: Bacteria 0 SEEN /hpf (None Seen); Mucous, Urine 0 SEEN /hpf (<or=2+); Red Blood Cells-Urine 0 SEEN /hpf (0-5); Squamous Epithelial Cells - UA 0 SEEN /hpf (0-5); White Blood Cells 0 SEEN /hpf (0-5)
[2023-04-21 02:24] LABS: Color, Urine Yellow (Yellow); Glucose, Dipstick Normal (Normal); Ketone-Dipstick Negative (Negative); Leukocyte Esterase-Dipstick Negative /ul (Negative); Nitrite-Dipstick Negative (Negative); Occult Blood-Urine Negative /ul (Negative); Protein-Dipstick 15 mg/dl (Negative); Urine Bilirubin Dipstick Negative (Negative); Urine Clarity Clear (Clear); Urine Urobilinogen Normal (Normal)
[2023-04-21] MEDS: Morphine 4 MG/ML Syringe IV (02:51)
--- NOTE | 2023-04-21 03:06 | EX.ED.DYSGE1 ---
HPI History of Present Illness Chief Complaint: Flank Pain Informant: patient Onset/Context/Timing Onset: Days Context: Gradual Onset Narrative Narrative: Patient presents via EMS secondary to back pain. He states has had back pain for the last week that continues to worsen. He finally took some [place] tonight but does not like taking pain medicine. He denies any new injury. No fall. No urinary symptoms. On review of records I did note that the patient has a history of a AAA. Last imaging obtained here was from 2020. Family states that has been stable for quite some time. He has not had it repaired and has not had it checked since 2020. [facility] Medical History Abdominal aortic aneurysm (AAA) greater than 39 mm in diameter Arthritis Bleeding internal hemorrhoids Carotid stenosis, bilateral DDD (degenerative disc disease), cervical Generalized abdominal discomfort Hematochezia History of diverticulitis of colon Lumbago Type II diabetes mellitus, uncontrolled Home Medications glipizide 10 mg tablet, extended release 24 hr 10 mg PO QDAY 05/21/17 [History Last Taken Unknown] losartan 50 mg-hydrochlorothiazide 12.5 mg tablet (Hyzaar) 1 tab PO QDAY 05/21/17 [History Last Taken Unknown] metformin 750 mg tablet,extended release 24 hr 750 mg PO BID 05/21/17 [History Last Taken Unknown] psyllium husk 0.52 gram capsule (Daily Fiber) 0.52 g PO DAILY 05/21/17 [History Last Taken Unknown] simvastatin 40 mg tablet 40 mg PO QAM 05/21/17 [History Last Taken Unknown] hydrocodone-acetaminophen 5-325mg 5mg-325mg 1 tab PO Q6H PRN PRN Pain 3 days #10 TABLETS 04/21/23 [Rx Last Taken Unknown] pioglitazone 45 mg tablet 45 mg PO DAILY 04/21/23 [History Last Taken Unknown] Allergy/AdvReac Type Severity Reaction Status Date / Time No Known Allergies Allergy Verified 06/17/21 14:54 Family History Father CVA (cerebral vascular accident) Mother Heart disease Brother CVA (cerebral vascular accident) Pancreatic cancer Surgical History Knee joint replacement status Previous back surgery S/P knee replacement Social History Smoking Status: Former smoker second hand exposure: No alcohol intake: current alcohol intake frequency: holidays/special occasions only Alcohol type: beer substance use type: does not use caffeine: Yes what type of physical activity do you participate in: none frequency: does not exercise seatbelt use: always ROS ROS ED Constitutional Constitutional ED: Denies chills or fever(s) Eyes Eyes: Denies discharge from eye(s) ENT ENT ED: Denies discharge from eye(s), rhinorrhea or sore throat Cardiovascular Cardiovascular: Denies chest pain or palpitations Respiratory/Chest Respiratory/Chest: Denies cough or dyspnea Gastrointestinal Gastrointestinal: Denies abdominal pain, nausea or vomiting Genitourinary Genitourinary ED: Denies dysuria or hematuria Musculoskeletal Musculoskeletal: Reports back pain; Denies extremity pain Integumentary Denies Abrasions or rash Neurologic Neurologic: Denies headache(s) or weakness Allergic/Immunologic Allergic/Immunologic ED: Denies lip swelling or urticaria EXAM Physical Exam Const Vital Signs: 04/21/23 01:16 04/21/23 01:56 04/21/23 02:00 Temperature 97.1 F L Temperature Source Temporal Pulse Rate 62 61 57 L Respiratory Rate 18 15 12 Blood Pressure 148/80 H 127/80 H Blood Pressure Mean 102 95 Pulse Ox 100 99 99 Oxygen Delivery Method Room Air 04/21/23 02:10 04/21/23 02:15 04/21/23 02:20 Temperature Temperature Source Pulse Rate 69 60 57 L Respiratory Rate 18 15 17 Blood Pressure 121/72 H Blood Pressure Mean 87 Pulse Ox 100 99 Oxygen Delivery Method Room Air 04/21/23 02:30 04/21/23 02:40 04/21/23 02:45 Temperature Temperature Source Pulse Rate 62 59 L 63 Respiratory Rate 11 L 11 L 14 Blood Pressure 131/57 H 143/76 H Blood Pressure Mean 80 95 Pulse Ox 98 99 100 Oxygen Delivery Method Nasal Cannula 04/21/23 02:50 04/21/23 04:17 04/21/23 05:25 Temperature Temperature Source Pulse Rate 62 60 66 Respiratory Rate 15 14 15 Blood Pressure 169/75 H 119/78 Blood Pressure Mean 106 91 Pulse Ox 100 98 97 Oxygen Delivery Method Room Air Positive well nourished and well developed General Appearance ED: well developed HEENT Reports moist mucous membranes Eyes EOMs intact bilaterally Chest Wall inspection of chest normal and palpation of chest normal Resp normal respiratory effort and clear to auscultation bilaterally Cardio regular rate and regular rhythm GI GI Narrative: Mild diffuse abdominal tenderness. No guarding or rebound. Back/Spine Back/Spine Narrative: No CVA tenderness, but patient states his back pain does feel better with pressure to the right CVA region. Extremity normal to inspection Neuro oriented x3 and no sensory deficits noted Neuro Narrative: Strong and equal distal pulses. Motor Exam: strength 5/5 throughout Psych mental status grossly normal Skin no rashes or lesions noted MDM MDM MDM Narrative Medical decision making narrative: Given the patient's prior AAA, he was sent immediately to CT. He was given a small dose of fentanyl. Labwork obtained to evaluate for leukocytosis, anemia, and electrolyte derangement. Urinalysis obtained to evaluate for infection/hematuria. History & Record Review Discussion w/independent historian: Patient and Family Additional record(s) reviewed:: Prior outpatient record, Prior ED visit and Prior labs Lab Data Attestation: I reviewed the patient's lab results. Labs: Laboratory Results - last 24 hr 04/21/23 04/21/23 01:23 02:10 WBC 4.8 RBC 4.62 Hgb 13.6 Hct 42.5 MCV 92.0 MCH 29.4 MCHC 32.0 RDW Std Deviation 47.0 H RDW Coeff of Ryan 13.8 Plt Count 240 MPV 9.2 Immature Gran % (Auto) 0.400 Neut % (Auto) 45.8 L Lymph % (Auto) 31.9 [place] % (Auto) 13.4 H Eos % (Auto) 7.4 H Baso % (Auto) 1.1 H Absolute Neuts (auto) 2.2 Absolute Lymphs (auto) 1.52 Nucleated RBC % 0.8 Sodium 140 Potassium 4.2 Chloride 105 Carbon Dioxide 32.0 Anion Gap 3 L BUN 25 H Creatinine 1.16 Estim Creat Clear Calc 44.32 Est GFR (MDRD) Af Amer 77 Est GFR (MDRD) Non-Af 64 BUN/Creatinine Ratio 21.6 H Glucose 110 H Calcium 9.4 Total Bilirubin 0.30 Direct Bilirubin 0.11 AST 15 ALT 18 Alkaline Phosphatase 100 Total Protein 7.2 Albumin 3.4 Globulin 3.8 Lipase 29 Urine Color Yellow Urine Clarity Clear Urine pH 7.0 Ur Specific [place] 1.010 Urine Protein 15 H Urine Glucose (UA) Normal Urine Ketones Negative Urine Occult Blood Negative Urine Nitrite Negative Urine Bilirubin Negative Urine Urobilinogen Normal Ur Leukocyte Esterase Negative Urine RBC 0 SEEN Urine WBC 0 SEEN Ur Squamous Epith Cells 0 SEEN Urine Bacteria 0 SEEN Urine Mucus 0 SEEN Radiography Diagnostic Testing: Clinical Impression(s) from Imaging Studies Abdomen/Pelvis CT 04/21/23 01:27 IMPRESSION: 1. 5.5 cm distal abdominal aortic aneurysm, which contains a short segment of dissection but no evidence for rupture. Aneurysm has increased from 5.1 cm at the time of the 2020 exam. Recommend abdomen/pelvis CT or MR imaging follow-up in 3-6 months. Consider surgical or endovascular referral. 2. Moderate hiatal hernia. 3. Coronary artery atherosclerosis. 4. Colonic diverticulosis without evidence for acute diverticulitis. Electronically Signed: Dillon Rai MD at 2:25 EST Reading Location ID and State: [facility] [place] , Service support , Treatment and Re-Evaluation :: CBC was normal white count 4.8 with a hemoglobin of 13.6. Differential unremarkable. Chemistry studies unremarkable with normal creatinine. LFTs unremarkable. Urinalysis reveals no evidence of infection or hematuria. CT scan of the abdomen pelvis reveals a 5.5 cm distal aortic aneurysm which contains a short segment of dissection but no evidence for rupture. Aneurysm has increased from 5.1 cm in 2020. Area of dissection was present previously. Test results are discussed with patient and family at bedside. He does require multiple doses of analgesics here. I offered admission for pain control and further evaluation of his aneurysm. He is very adamant that he wants to go home. Patient does follow with Dr. Cueva for his aneurysm and will be sure to follow-up soon. He has an appointment with his PCP next week as well. He is given a short course of [place] for pain. Return instructions given. Discharge Plan Triage Chief Complaint: Flank Pain ED Provider: Luiza Price Dx/Rx/DC Orders Clinical Impression: Back pain Instructions: ED Back Pain (Acute or Chronic) Prescriptions: New hydrocodone-acetaminophen 5-325 mg tablet 1 tab PO Q6H PRN PRN (Reason: Pain) 3 Days Qty: 10 0RF No Action losartan-hydrochlorothiazide [Hyzaar] 50-12.5 mg tablet 1 tab PO QDAY metformin 750 mg tablet extended release 24 hr 750 mg PO BID simvastatin 40 mg tablet 40 mg PO QAM glipizide 10 mg tablet extended release 24 hr 10 mg PO QDAY psyllium husk [Daily Fiber] 0.52 gram capsule 0.52 g PO DAILY pioglitazone 45 mg tablet 45 mg PO DAILY Patient Comments: TAKE 1 TABLET BY MOUTHEONCE DAILYD Primary Care Provider: Joby Holloway Referrals: Joby Holloway MD [Primary Care Provider] - [facility] appointment Disposition Disposition: Home, Self Care Discharge Date/Time: 04/21/23 05:58
[2023-04-21] MEDS: Ketorolac 15 MG/ML Vial IV (04:06)
[2023-04-21] MEDS: HYDROmorphone 0.5 MG/0.5 ML SYRINGE IV (04:07)
== END 2023-04-21 05:58 | disposition home or self-care (01) ==
PROVIDERS: Emergency Provider Emergency Medicine; PCP Family Medicine; Visit Provider Emergency Medicine
DX: M54.50 Low back pain, unspecified (principal); I71.40 Abdominal aortic aneurysm, without rupture, unspecified; E11.9 Type 2 diabetes mellitus without complications; Z79.84 Long term (current) use of oral hypoglycemic drugs; Z87.891 Personal history of nicotine dependence
CPT/HCPCS: 74176; 80048; 80076; 81001; 83690; 85025; 96374; 96375; 96376; 99284; A4216; J2405

== ENCOUNTER 2023-05-18 07:57 | Emergency (ER) | payer MEDICARE, BC, SELFPAY ==
[2023-05-18 07:58] VITALS: BP 182/101; PULSE 74; RESP 14; TEMP 36.7; O2SAT 100; BMI 28.5
[2023-05-18 08:29] VITALS: BP 175/93; PULSE 69; RESP 18; O2SAT 99
--- NOTE | 2023-05-18 08:38 | CT_ITS ---
STUDY: CT BRAIN WITHOUT CONTRAST REASON FOR EXAM: Male, 83 years old. Dizziness RADIATION DOSAGE (If Supplied By Facility): CTDIvol = ( 44.99 ) mGy, DLP = ( 779.24 ) mGycm TECHNIQUE: Transaxial CT imaging of the brain was performed without administration of intravenous contrast material. Individualized dose optimization techniques were used for this CT. COMPARISON: No relevant priors. FINDINGS: Normal soft tissue structures. Normal calvarium. There is mild cerebral atrophy with widening of the extra-axial spaces and ventricular dilatation. Normal white matter tracts of the cerebral hemispheres. Normal basal ganglia and thalami. Normal brainstem. Normal cerebellum. There is no intracranial hemorrhage. There are no findings of an acute ischemic infarction. There is dense calcification of the vertebral arteries and cavernous portions of the internal carotid arteries bilaterally. Normal visualized paranasal sinuses. CT/Brain/Head without Contrast IMPRESSION: Chronic involutional changes of the brain. Electronically Signed: Alvin Lopez MD at 9:18 EST ,
--- OUTSIDE RECORDS SUMMARY | 2023-05-18 08:44 | XMS RPT_ITS | CCD ---
Author Name Unknown Address [address] [place] [address] Organization [facility] Care Team Providers Care Bank Cashier Name Role Phone Cortez Holloway Primary Care Provider [phone] Medications Completed/Discontinued Medications Medication Drug Class(es) Dates [...] Patient encounter procedure Ezra Soto Work Phone: [facility] Start: 06-08-2020 Results Only Ezra obando Work Phone: General Surgery Procedures Date Procedure Procedure Detail Performing Clinician Start: 06-08-2020 PT ED PATIENT INFORMATION Ezra Soto Work Phone: Plan of Treatment Date Care Activity Detail Author Start: 12-19-2019 Influenza vaccination INFLUENZA (#1) [facility] Start: 01-02-2004 ADVANCE DIRECTIVE DISCUSSION ADVANCE DIRECTIVE DISCUSSION [facility] Start: 01-02-2004 PNEUMOVAX AGE 65 AND OVER WITH 5YR LOOKBACK (#1) PNEUMOVAX AGE 65 AND OVER WITH 5YR LOOKBACK (#1) [facility] Start: 1989 SHINGRIX VACCINE (1 of 2) MÉNDEZ GRIX VACCINE (1 of 2) [facility] Start: 01-02-1984 DIABETES SCREEN DIABETES SCREEN [facility] Start: 1958 Urine microalbumin profile DTAP,TDAP ,TD (1 - Tdap) [facility] PT ED PATIENT INFORMATION PT ED PATIENT INFORMATION Other 06/08/2020 [facility] Payers Date Payer Category Payer Unknown ISH DENG ME DICARE SUPPLEMENT [id number] 2016-Present Indemnity [id number] 2003 Medicare MEDICARE MEDICAR E A AND B [id number] 2003-Present [place], [place] Medicare [id number] Social History Date Type Detail Facility [facility]: [facility] Start: 04-03-2013 Alcohol intake 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 Author Type: Physician Type: Progress Notes Filed: 07/16/2020 9:41 AM Note Text: Patient is status post an EGD and colonoscopy completed at [facility] on 07/09/2020. His upper scope showed that [...] HC suppositories which can be obtained at [facility]. [facility] Clinical Note 07-09-2020 Note Date & Type Note Facility 07-09-2020 Note HNO ID: [id number] Author: Candis (Rn) АНДРЕЙ Arndt Service: ? Author Type: Registered Nurse Type: Nursing Progress Note Filed: 07/09/2020 8:59 AM Note Text: Dr. Soto notified of pt's continued BP. No orders received. Candis Arndt RN [facility] Progress note 06-17-2020 Note Date & Type Note Facility 06-17-2020 Note HNO ID: [id number] Author: Ezra Soto Service: ? Author Type: [...] - APPENDECTOMY - COLONOSCOP W/ OR W/O [facility] SPEC 04/28/2007 Colonoscopy - COLONOSCOP W/ OR W/O [facility] SPEC 03/29/13 Current Outpatient Medications Medication Sig [...] denies hernias. Kidney/Usman (more content not included)... [facility] Summary Purpose Family History No Family History [...] or prosecute any alcohol or drug abuse patient.[facility] (unrecognized sect ion and content) No [...] BE BASED ON THE PRIMARY CLINICAL RECORDS. [facility] [employer] [facility]. provides no warranty or guarantee of the accuracy or completeness of information in this document.
--- NOTE | 2023-05-18 08:54 | EDS_ITS ---
HPI History of Present Illness Chief Complaint: Dizziness Informant: patient and family Narrative Narrative: 83-year-old male states has been having episodes of dizziness for the past several weeks and had a severe episode today. He states turning his head is tri ggering the episodes, and he seems to get them every morning when he gets up, other position changes are also triggering the episodes which last just about a minute or so. Feels like movement and spinning. He denies any headache or focal neurologic symptoms. Today he caused an episode by reaching back and stretching his arms up over his head, and states he felt like he blacked out although he knows that he did not lose consciousness and family confirms that he did not fall or lose consciousness. He denies any neck pain, focal neurologic symptoms, he states sometimes he gets a little blurry vision and some nausea with these but has not vomited. Denies any fevers. No recent illness. No earache or johnie tinnitus but he states his hearing is very poor and oftentimes in crowds he gets some buzzing or ringing. No recent head injuries. He takes aspirin, he states he has a history of carotid vascular disease, was on clopidogrel but was stopped due to GI bleeding sometime remotely. Family was also concerned because this morning they checked his blood pressure and it was very high at home and 2 weeks ago the last time he had a checked it was low/normal. He has been compliant with his blood pressure medications, but presents here early and has not had his morning medications yet which include his blood pressure medicine. [facility] Medical History Abdominal aortic aneurysm (AAA) greater than 39 mm in diameter Arthritis Bleeding internal hemorrhoids Carotid stenosis, bilateral DDD (degenerative disc disease), cervical Generalized abdominal discomfort Hematochezia History of diverticulitis of colon Lumbago Type II diabetes mellitus, uncontrolled Home Medications glipizide 10 mg tablet, extended release 24 hr 10 mg PO QDAY 05/21/17 [History Last Taken Unknown] losartan 50 mg-hydrochlorothiazide 12.5 mg tablet (Hyzaar) 1 tab PO QDAY 05/21/17 [History Last Taken Unknown] metformin 750 mg tablet,extended release 24 hr 750 mg PO BID 05/21/17 [History Last Taken Unknown] psyllium husk 0.52 gram capsule (Daily Fiber) 0.52 g PO DAILY 05/21/17 [History Last Taken Unknown] simvastatin 40 mg tablet 40 mg PO QAM 05/21/17 [History Last Taken Unknown] pioglitazone 45 mg tablet 45 mg PO DAILY 04/21/23 [History Last Taken Unknown] diazepam 5 mg tablet 2.5 - 5 mg (0.5 - 1 x 5 mg) PO BID PRN dizziness or vertigo #10 tabs 05/18/23 [Rx Last Taken Unknown] meclizine 25 mg tablet 25 mg PO Q8H PRN PRN Dizziness #30 tabs 05/18/23 [Rx Last Taken Unknown] Allergy/AdvReac Type Severity Reaction Status Date / Time No Known Allergies Allergy Verified 06/17/21 14:54 Family History Father CVA (cerebral vascular accident) Mother Heart disease Brother CVA (cerebral vascular accident) Pancreatic cancer Surgical History Knee joint replacement status Previous back surgery S/P knee replacement Social History Smoking Status: Former smoker second hand exposure: No alcohol intake: current alcohol intake frequency: holidays/special occasions only Alcohol type: beer substance use type: does not use caffeine: Yes what type of physical activity do you participate in: none frequency: does not exercise seatbelt use: always ROS ROS ED Constitutional Constitutional ED: Denies chills or fever(s) Eyes Eyes: Reports blurry vision bilateral (Only when vertiginous. Normal right now.); Denies change in vision or diplopia ENT ENT ED: Reports vertigo; Denies ear pain, rhinorrhea, sore throat or tinnitus Cardiovascular Cardiovascular: Reports other Details: Edema both feet and ankles for several weeks ; Denies chest pain or palpitations Respiratory/Chest Respiratory/Chest: Denies cough or dyspnea Gastrointestinal Gastrointestinal: Denies abdominal pain, diarrhea, nausea or vomiting Genitourinary Genitourinary ED: Denies dysuria or hematuria Musculoskeletal Musculoskeletal: Denies back pain or neck pain Integumentary Denies abscess or rash Neurologic Neurologic: Reports other Details: Chronic numbness over the dorsum of the right knee since knee replacement remotely, nothing distally ; Denies headache(s), paresthesias or weakness Psychiatric Psychiatric: Denies suicidal ideation or suicidal thoughts EXAM Physical Exam Const Vital Signs: 05/18/23 07:58 05/18/23 08:26 05/18/23 08:29 Temperature 98.1 F Temperature Source Temporal Pulse Rate 74 69 Respiratory Rate 14 18 Respiratory Effort Normal Non-Labored Respiratory Pattern Normal Blood Pressure 182/101 H 175/93 H Blood Pressure Mean 128 120 Pulse Ox 100 99 Oxygen Delivery Method Room Air Room Air Positive well nourished and well developed General Appearance ED: well developed and NAD HEENT Reports TM's clear and moist mucous membranes normocephalic and atraumatic Tympanic Membrane ED: Yes TM's clear Eyes PERRL and EOMs intact bilaterally Neck full ROM and supple Resp normal respiratory effort and clear to auscultation bilaterally Cardio regular rate, regular rhythm and no murmurs GI non-tender and non-distended Auscultation: normoactive bowel sounds Palpation: soft Back/Spine no CVA tenderness General Back: other FROM Extremity normal to inspection General Extremety ED: Yes edema; Negative for pulses abnormal or tenderness General Extremity: edema bilateral lower extremity Details: moderate (But only to ankles, symmetric bilaterally); Negative for pulses abnormal Neuro oriented x3, CN's II-XII intact bilaterally and no sensory deficits noted Neuro Narrative: Normal odpfdm-qz-fjmu and ykiz-dw-sfhf bilaterally. Normal speech no aphasia or dysarthria. NIHSS 0. Sensorium / Orientation: awake and alert Motor Exam: strength 5/5 throughout Psych mental status grossly normal Skin no rashes or lesions noted and no wounds MDM MDM MDM Narrative Medical decision making narrative: The symptoms are very much consistent with peripheral vertigo. He does not have symptoms right now, so I did not perform a jolt test which would not be helpful in this case. With his pressure being very high and this feeling like he blacked out this morning, although I suspect it was just a severe episode of vertigo, I performed a CT in order to rule out intracranial hemorrhage. Neurologically he is intact and normal. He currently is asymptomatic with regards to his pressure elevation which is 182/101, on repeat without treatment 175/93. I reviewed the images and the results of the CT head which I agree with, it is negative for anything acute. Basic labs are unremarkable as well, normal renal function in context of his bilateral ankle edema, this may be due to venous insufficiency given his age, and because of his vertigo he has been more sedentary, resting in his recliner more often. Discussed this with patient and family. He was given meclizine that family had with them, and I approved. He then turned his head while we were discussing his test results, his blood pressure was 160 prior to that, and turning his head triggered another severe episode of vertigo. Watching him during this, he was very anxious, he then turned his head more and felt worse, he was very anxious, and repeat blood pressure afterwards is 170s. He has not had his morning medications yet, I do not think that the hypertension is causing his vertigo. I think is probably reactionary. He is ambulatory to and from the bathroom without problem, I offered admission, however he wants to go home. I did offer a prescription for some Valium in case he needs it, and we will write him for meclizine as well and have him follow-up with otolaryngology as an outpatient. We discussed reasons to return family understands comfortable with that plan. Lab Data Attestation: I reviewed the patient's lab results. Labs: Laboratory Results - last 24 hr 05/18/23 08:50 WBC 5.6 RBC 4.57 L Hgb 13.4 Hct 42.6 MCV 93.2 MCH 29.3 MCHC 31.5 L RDW Std Deviation 47.3 H RDW Coeff of Ryan 13.9 Plt Count 253 MPV 9.6 Immature Gran % (Auto) 0.500 Neut % (Auto) 66.0 Lymph % (Auto) 16.5 L Early % (Auto) 11.1 H Eos % (Auto) 4.8 Baso % (Auto) 1.1 H Absolute Neuts (auto) 3.7 Absolute Lymphs (auto) 0.92 Nucleated RBC % 0 Sodium 137 Potassium 4.4 Chloride 104 Carbon Dioxide 30.0 Anion Gap 3 L BUN 22 H Creatinine 1.15 Estim Creat Clear Calc 50.78 Est GFR (MDRD) Af Amer 78 Est GFR (MDRD) Non-Af 64 BUN/Creatinine Ratio 19.1 Glucose 152 H Calcium 9.6 Radiography Diagnostic Testing: Clinical Impression(s) from Imaging Studies Brain CT 05/18/23 08:38 IMPRESSION: Chronic involutional changes of the brain. Electronically Signed: Alvin Lopez MD at 9:18 EST , Rhythm Strip Rhythm Strip: Sinus Rhythm Rate: 70 Ectopy: None Discharge Plan Triage Chief Complaint: Dizziness ED Provider: Darnell Kessler Dx/Rx/DC Orders Clinical Impression: Episodic peripheral vertigo, Episode of hypertension, Bilateral edema of lower extremity Instructions: ED Vertigo, Unspecified Prescriptions: New meclizine [meclizine] 25 mg tablet 25 mg PO Q8H PRN PRN (Reason: Dizziness) Qty: 30 0RF diazepam 5 mg tablet 2.5 - 5 mg PO BID PRN (Reason: dizziness or vertigo) Qty: 10 0RF No Action losartan-hydrochlorothiazide [Hyzaar] 50-12.5 mg tablet 1 tab PO QDAY metformin 750 mg tablet extended release 24 hr 750 mg PO BID simvastatin 40 mg tablet 40 mg PO QAM glipizide 10 mg tablet extended release 24 hr 10 mg PO QDAY psyllium husk [Daily Fiber] 0.52 gram capsule 0.52 g PO DAILY pioglitazone 45 mg tablet 45 mg PO DAILY Patient Comments: TAKE 1 TABLET BY MOUTHEONCE DAILYD Primary Care Provider: Joby Holloway Referrals: Joby Holloway MD [Primary Care Provider] - 3-5 Days (for reevaluation of your blood pressure and leg swelling) Cortez Blevins MD [Med Staff - Active Staff] - As soon as possible Activity Restrictions/Additional Instructions: Take your blood pressure medicine as soon as you get home. Disposition Disposition: Home, Self Care
[2023-05-18 09:02] LABS: Absolute Lymphocyte Count 0.92 X10^3/uL (0.83-4.51); Absolute Neutrophil Count 3.7 X10^3/uL (2.0-7.7); Basophil# 0.06 X10^3/uL; Basophil% 1.1 % (0-1); Eosinophil# 0.27 X10^3/uL; Eosinophils% 4.8 % (0-5); Hematocrit 42.6 % (40-54); Hemoglobin 13.4 g/dL (13.0-16.5); Lymphocyte # 0.92 X10^3/ul (0.83-4.51); Lymphocyte % 16.5 % (19-41); Mean Corp Hgb Conc 31.5 g/dL (32-36); Mean Corpuscular Hgb 29.3 pg (27.0-32.0); Mean Corpuscular Volume 93.2 fL (80-94); Mean Platelet Vol. 9.6 fl (6.2-12.0); Monocyte# 0.62 X10^3/uL; Monocyte% 11.1 % (0-10); NRBC Flagged by Analyzer 0 % (0-5); Neutrophil # 3.69 X10^3/uL (2.7-7.7); Platelet Count 253 K/mm3 (150-450); RBC Distribution Width CV 13.9 % (11.6-14.6); RBC Distribution Width SD 47.3 fl (35.1-43.9); Red Blood Count 4.57 M/mm3 (4.6-6.2); White Blood Count 5.6 K/mm3 (4.4-11.0)
[2023-05-18 09:43] LABS: Anion Gap 3 (5-15); BUN 22 mg/dL (7-18); BUN/Creat Ratio 19.1 RATIO (10-20); Calcium,Total 9.6 mg/dL (8.5-10.1); Chloride 104 mmol/L (98-107); Creatinine, Serum 1.15 mg/dL (0.70-1.30); EST Glomerular Filtration Rate 64 mL/min (>60); Est Glom Filt Rate - Afr Amer 78 mL/min (>60); Estimated Creatinine Clearance 50.78 ml/min; Glucose 152 mg/dL (74-106); Potassium 4.4 mmol/L (3.5-5.1); Sodium Level 137 mmol/L (136-145)
[2023-05-18 11:10] VITALS: BP 142/87; PULSE 80; RESP 16; O2SAT 97
--- NOTE | 2023-05-18 11:12 | ED.RN ---
THIS RN EDUCATES PATIENT AND FAMILY ON DISCHARGE INSTRUCTIONS AND FOLLOW UP. PT INSTRUCTED TO TAKE HIS BP MEDICATION UPON RETURNING HOME HE IS SCHEDULED. PT EDUCATED ON PRESCRIPTIONS AND NOT TO DRIVE WHEN TAKING NARCOTIC PAIN MEDICATION. PT VERBALIZES UNDERSTANDING AND DENIES ANY FURTHER QUESTIONS. IV D/C. AND ASSISTED IN DRESSING. PT AMBULATES OUT OF DEPARTMENT WITH FAMILY.
== END 2023-05-18 11:15 | disposition home or self-care (01) ==
PROVIDERS: Emergency Provider Emergency Medicine; PCP Family Medicine; Visit Provider Emergency Medicine
DX: H81.399 Other peripheral vertigo, unspecified ear (principal); E11.9 Type 2 diabetes mellitus without complications; R60.0 Localized edema; I10 Essential (primary) hypertension; Z79.84 Long term (current) use of oral hypoglycemic drugs; Z79.899 Other long term (current) drug therapy; Z87.891 Personal history of nicotine dependence
CPT/HCPCS: 70450; 80048; 85025; 93005; 99283; A4216

== ENCOUNTER → 2023-06-04 | Outpatient (CLI) | payer MEDICARE, BC, SELFPAY ==
--- NOTE | 2023-06-04 12:42 | CT_ITS ---
STUDY: CTA ABDOMEN AND PELVIS WITH CONTRAST REASON FOR EXAM: Male, 83 years old. AAA RADIATION DOSAGE (If Supplied By Facility): CTDIvol = ( 23 ) mGy, DLP = ( 972.62 ) mGycm TECHNIQUE: Transaxial images were obtained from the dome of the diaphragm to the symphysis pubis without oral contrast. 100mL [id number] was administered. Sagittal and coronal images were reconstructed. Individualized dose optimization techniques were used for this CT. COMPARISON: Comparison is made with prior study dated November 19, 2019 and April 21, 2019. FINDINGS: Mild degree of increased markings at the lung bases suggests a mild degree of scarring. Carotid artery calcification. Normal liver. Normal gallbladder and extrahepatic biliary system. Normal spleen. Small accessory spleen. Normal pancreas. Normal bilateral adrenal glands. Stable bilateral renal cysts. There is a small hiatal hernia. Normal small intestine. Normal colon. The appendix is visualized and appears normal. There is diffuse atherosclerotic calcification of the abdominal aorta. Saccular infrarenal abdominal aortic aneurysm with a transverse dimension of 5.3 cm. Mural thrombus is seen especially on the left side of the midline. Stable short segment of dissection on the lateral inferior aspect of the aneurysm. There is evidence of aneurysmal dilatation of the right common iliac artery measuring 1.7 cm in transverse dimension. Normal inferior vena cava. Normal retroperitoneum. Normal urinary bladder. There are prostatic calcifications. Normal abdominal wall. There are diffuse degenerative changes of the visualized lumbar spine. Loss of the normal lumbar lordosis. Prior fusion at the L4-L5 and L5-S1 levels. Stable grade 2 anterolisthesis of L5 on S1. CT/CTA Abd/Pelvis W/WO Contrast IMPRESSION: Saccular infrarenal abdominal aortic aneurysm with a transverse dimension of 5.3 cm. Mural thrombus is seen. Aneurysmal dilatation of the right common iliac artery. Electronically Signed: Alvin Lopez MD at 14:01 EST ,
--- OUTSIDE RECORDS SUMMARY | 2023-06-04 12:58 | XMS RPT_ITS | CCD ---
Author Name Unknown Address [address] [place] [address] Organization [facility] Care Team Providers Care Broacher Name Role Phone Cortez Holloway Primary Care Provider Medications Completed/Discontinued Medications Medication Drug Class(es) Dates [...] Patient encounter procedure Ezra Soto Work Phone: [facility] Start: 06-08-2020 Results Only Ezra obando Work Phone: General Surgery Procedures Date Procedure Procedure Detail Performing Clinician Start: 06-08-2020 PT ED PATIENT INFORMATION Ezra Soto Work Phone: Plan of Treatment Date Care Activity Detail Author Start: 12-19-2019 Influenza vaccination INFLUENZA (#1) [facility] Start: 01-02-2004 ADVANCE DIRECTIVE DISCUSSION ADVANCE DIRECTIVE DISCUSSION [facility] Start: 01-02-2004 PNEUMOVAX AGE 65 AND OVER WITH 5YR LOOKBACK (#1) PNEUMOVAX AGE 65 AND OVER WITH 5YR LOOKBACK (#1) [facility] Start: 1989 SHINGRIX VACCINE (1 of 2) MÉNDEZ GRIX VACCINE (1 of 2) [facility] Start: 01-02-1984 DIABETES SCREEN DIABETES SCREEN [facility] Start: 1959 Urine microalbumin profile DTAP,TDAP ,TD (1 - Tdap) [facility] PT ED PATIENT INFORMATION PT ED PATIENT INFORMATION Other 06/08/2020 [facility] Payers Date Payer Category Payer Unknown ISH DENG ME DICARE SUPPLEMENT [id number] 2016-Present Indemnity [id number] 2003 Medicare MEDICARE MEDICAR E A AND B [id number] 2003-Present [place], [place] Medicare [id number] Social History Date Type Detail Facility [facility]: [facility] Start: 04-03-2013 Alcohol intake 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 Author Type: Physician Type: Progress Notes Filed: 07/16/2020 9:41 AM Note Text: Patient is status post an EGD and colonoscopy completed at [facility] on 07/09/2020. His upper scope showed that [...] HC suppositories which can be obtained at [facility]. [facility] Clinical Note 07-09-2020 Note Date & Type Note Facility 07-09-2020 Note HNO ID: [id number] Author: Candis (Rn) АНДРЕЙ Arndt Service: ? Author Type: Registered Nurse Type: Nursing Progress Note Filed: 07/09/2020 8:59 AM Note Text: Dr. Soto notified of pt's continued BP. No orders received. Candis Arndt RN [facility] Progress note 06-17-2020 Note Date & Type Note Facility 06-17-2020 Note HNO ID: [id number] Author: Ezra Soto Service: ? Author Type: [...] - APPENDECTOMY - COLONOSCOP W/ OR W/O [facility] SPEC 04/28/2007 Colonoscopy - COLONOSCOP W/ OR W/O [facility] SPEC 03/29/13 Current Outpatient Medications Medication Sig [...] denies hernias. Kidney/Usman (more content not included)... [facility] Summary Purpose Family History No Family History [...] or prosecute any alcohol or drug abuse patient.[facility] (unrecognized sect ion and content) No Status [...] BE BASED ON THE PRIMARY CLINICAL RECORDS. [facility] [employer] [facility]. provides no warranty or guarantee of the accuracy or completeness of information in this document.
== END | disposition home or self-care (01) ==
LOC: CT 12:36
PROVIDERS: PCP Family Medicine; Referring Provider Surgery; Visit Provider Surgery
DX: I71.40 Abdominal aortic aneurysm, without rupture, unspecified (principal)
CPT/HCPCS: 74174; Q9967

== ENCOUNTER → 2023-06-08 | Outpatient (CLI) | payer MEDICARE, BC, SELFPAY ==
--- NOTE | 2023-06-08 08:54 | CDU_ITS ---
Reason For Study: Rt Carotid Stenosis/Occlusion Rt. Velocities/BP Lt. Velocities/BP Prox CCA 76.0/13.9 cm/sec. Prox CCA 80.2/28.6 cm/sec. Mid CCA 77.8/15.7 cm/sec. Mid CCA 114.6/36.0 cm/sec. Dist CCA 65.5/13.8 cm/sec. Dist CCA 106.0/38.4 cm/sec. RT ICA Occluded. Prox ICA 203.7/68.9 cm/sec. Prox ECA 118.0/19.4 cm/sec. Mid ICA 146.2/38.6 cm/sec. Rt. Vert. 33.9/11.8 cm/sec. Dist ICA 114.1/47.1 cm/sec. Lt. ICA/CCA = 1.8. Prox ECA 192.7/24.6 cm/sec. Lt. Vert. 36.0/9.0 cm/sec. Right Extracranial There is homogeneous, smooth atherosclerotic plaque noted in the right common carotid artery. The right internal carotid artery is occluded. There is heterogeneous, irregular atherosclerotic plaque noted in the right external carotid artery. Antegrade flow is noted in the right vertebral artery. Left Extracranial There is heterogeneous, irregular atherosclerotic plaque noted in the left common carotid artery. There is heterogeneous, irregular atherosclerotic plaque noted in the left internal carotid artery. The atherosclerotic plaque causes acoustic shadowing. There is heterogeneous, irregular atherosclerotic plaque noted in the left external carotid artery. Antegrade flow is noted in the left vertebral artery. Procedure Carotid Duplex 85072. This is a Carotid Duplex examination using B-mode, color flow and specral Doppler. The exam was diagnostic. Exam performed in department. VL/Carotid Duplex Ultrasound Interpretation Summary Occluded right internal carotid artery Less than 50% stenosis right external carotid artery Extensive irregular calcific plaque with shadowing at the proximal left interna l carotid artery with 50 to 69% stenosis but likely closer to the upper limits of that range. Less than 50% stenosis left external carotid artery but close to the 50% range. Patent and antegrade vertebral arteries bilaterally Velocities demonstrate slight progression on the left from a previous examinati on April 24, 2021 Ordering Physician: Subhash Cueva Referring Physician: Cortez Holloway MD Performed By: Celestino Avendano RVT
--- OUTSIDE RECORDS SUMMARY | 2023-06-08 09:23 | XMS RPT_ITS | CCD ---
Author Name Unknown Address [address] [place] [address] Organization [facility] Care Team Providers Care Insurance Associate Name Role Phone Cortez Holloway Primary Care [...] Patient encounter procedure Ezra Soto Work Phone: [facility] Start: 06-08-2020 Results Only Ezra obando Work Phone: General Surgery Procedures Date Procedure Procedure Detail Performing Clinician Start: 06-08-2020 PT ED PATIENT INFORMATION Ezra Soto Work Phone: Plan of Treatment Date Care Activity Detail Author Start: 12-19-2019 Influenza vaccination INFLUENZA (#1) [facility] Start: 01-02-2004 ADVANCE DIRECTIVE DISCUSSION ADVANCE DIRECTIVE DISCUSSION [facility] Start: 01-02-2004 PNEUMOVAX AGE 65 AND OVER WITH 5YR LOOKBACK (#1) PNEUMOVAX AGE 65 AND OVER WITH 5YR LOOKBACK (#1) [facility] Start: 1989 SHINGRIX VACCINE (1 of 2) MÉNDEZ GRIX VACCINE (1 of 2) [facility] Start: 01-02-1984 DIABETES SCREEN DIABETES SCREEN [facility] Start: 1958 Urine microalbumin profile DTAP,TDAP ,TD (1 - Tdap) [facility] PT ED PATIENT INFORMATION PT ED PATIENT INFORMATION Other 06/08/2020 [facility] Payers Date Payer Category Payer Unknown [employer]H DENG ME DICARE SUPPLEMENT [id number] 2016-Present Indemnity [id number] 2003 Medicare MEDICARE MEDICAR E A AND B [id number] 2003-Present [place] [id number] Social History Date Type Detail Facility [facility]: [facility] Start: 04-03-2013 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 Author Type: Physician Type: Progress Notes Filed: 07/16/2020 9:41 AM Note Text: Patient is status post an EGD and colonoscopy completed at [facility] on 07/09/2020. His upper scope showed [...] HC suppositories which can be obtained at [facility]. [facility] Clinical Note 07-09-2020 Note Date & Type Note Facility 07-09-2020 Note HNO ID: [id number] Author: Candis (Rn) АНДРЕЙ Arndt Service: ? Author Type: Registered Nurse Type: Nursing Progress Note Filed: 07/09/2020 8:59 AM Note Text: Dr. Soto notified of pt's continued BP. No orders received. Candis Arndt RN [facility] Progress note 06-17-2020 Note Date & Type Note Facility 06-17-2020 Note HNO ID: [id number] Author: Ezra Soto Service: ? Author Type: [...] - APPENDECTOMY - COLONOSCOP W/ OR W/O [facility] SPEC 04/28/2007 Colonoscopy - COLONOSCOP W/ OR W/O [facility] SPEC 03/29/13 Current Outpatient Medications Medication Sig [...] not included)... [facility] Summary Purpose Family History No Family [...] or prosecute any alcohol or drug abuse patient.[facility] (unrecognized sect ion and content) No [...] BE BASED ON THE PRIMARY CLINICAL RECORDS. [facility] [employer] [facility]. provides no warranty or guarantee of the accuracy or completeness of information in this document.
== END | disposition home or self-care (01) ==
LOC: CVS 08:53
PROVIDERS: PCP Family Medicine; Referring Provider Surgery; Visit Provider Surgery
DX: I65.23 Occlusion and stenosis of bilateral carotid arteries (principal)
CPT/HCPCS: 93880

== ENCOUNTER → 2023-11-30 | Outpatient (CLI) | payer MEDICARE, BC, SELFPAY ==
--- NOTE | 2023-11-30 13:35 | CT_ITS ---
INDICATION: AAA EXAMINATION: CTA abdomen and pelvis - TECHNIQUE: Routine abdominal CT angiogram protocol was performed with IV contrast. MIP images provided. A radiation dose optimization technique was used for this scan. IV Contrast dosage and agent: 100 mL Isovue-370 Radiation dose DLP mGy / cm. COMPARISON: 06/04/2023 FINDINGS: Lung bases: Normal. Liver: Normal. No bile ductal dilatation. Gallbladder: Normal. Spleen: Normal. Adrenal gland: Normal. Kidneys: Normal. No hydronephrosis or stone formation. Multiple bilateral renal cysts. Pancreas:Normal. Bowel gas pattern: Nonobstructive. Small hiatal hernia. Appendix: Not visualized Free air: None. Free fluid: None. Pelvis: Pelvic organs: No mass lesion noted. Bone survey: No aggressive bony lesions. No acute fractures. Status post transpedicular fixation from L4 through S1. Diffuse degenerative disc disease of the lumbar spine. Status post right hip arthroplasty which produces streak artifact and obscures the pelvis. Adenopathy: No significant pathologic adenopathy detected. Other: None. Vascular: There is fusiform dilatation of the infrarenal abdominal aorta measuring up to 3.2 cm in diameter with some peripheral pelvic calcified and noncalcified plaque. There is no change in the more saccular aneurysm of the distal abdominal aorta just proximal to the aortic bifurcation with a maximal transverse diameter of 5.2 cm. Mild amount of peripheral calcified plaque and a moderate amount of mural thrombus. No change in dilatation of the right common iliac artery.. Mild amount of calcified plaque within the common iliac arteries were widely patent external iliac arteries. 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 The superior mesenteric artery is widely patent. Inferior mesenteric arteries widely patent. 2 right renal arteries without renal artery stenosis. Calcified plaque in the origin left renal artery producing a moderate (60%) stenosis. CT/CTA Abd/Pelvis W/WO Contrast IMPRESSION: No change in fusiform and saccular aneurysm of the distal abdominal aorta with dilatation of the right common iliac artery. No acute or chronic mesenteric ischemia. Widely patent right renal arteries. Moderate (60%) stenosis left renal artery stenosis. Small hiatal hernia. Bilateral renal cysts. Electronically Signed: David Palma MD at 11:37 EDT ,
[2023-11-30 14:12] LABS: CREATININE FINGERSTICK < 1.0 mg/dL (0.70-1.30); EGFR FINGERSTICK > 60.0000 mL/min (>60)
== END | disposition home or self-care (01) ==
LOC: CT 13:29
PROVIDERS: PCP Family Medicine; Referring Provider Surgery Trauma Surgery; Visit Provider Surgery Trauma Surgery
DX: I71.43 Infrarenal abdominal aortic aneurysm, without rupture (principal)
CPT/HCPCS: 74174; Q9967

== ENCOUNTER 2024-02-01 20:23 | Emergency (ER) | payer MEDICARE, BC, SELFPAY ==
[2024-02-01 20:24] VITALS: BP 151/93; PULSE 126; RESP 15; TEMP 36.4; O2SAT 99; BMI 25.8
--- NOTE | 2024-02-01 22:08 | EX.ED.UPPERE ---
HPI History of Present Illness Chief Complaint: Upper Extremity Injury Informant: patient and family Narrative Narrative: Patient is an 84-year-old male with history of type 2 diabetes as well as degenerative disc disease and arthritis. He states that roughly 1 to 2 days ago he noticed pain in his left wrist without any type of trauma or excessive activity. He states that as the days have passed he now has increased pain redness and swelling and is difficult to move his wrist/hand secondary to this. He states he tried [id number] medications without any improvement and therefore comes in for evaluation [facility] Medical History Bleeding internal hemorrhoids Carotid stenosis, bilateral Abdominal aortic aneurysm (AAA) greater than 39 mm in diameter DDD (degenerative disc disease), cervical Arthritis Lumbago Hematochezia History of diverticulitis of colon Generalized abdominal discomfort Type II diabetes mellitus, uncontrolled Home Medications ?Medication ?Instructions ?Recorded ?Last Taken ?Type metformin 750 mg tablet,extended 750 mg PO BID 05/21/17 Unknown History release 24 hr psyllium husk 0.52 gram capsule 0.52 g PO DAILY 05/21/17 Unknown History (Daily Fiber) simvastatin 40 mg tablet 40 mg PO QAM 05/21/17 Unknown History colchicine 0.6 mg capsule 0.6 mg PO BID 7 days #14 caps 02/01/24 Unknown Rx ibuprofen 200 mg tablet (Advil) 200 mg PO Q6H 02/01/24 Unknown History oxycodone-acetaminophen 5 mg-325 1 tab PO Q6H PRN pain 3 days #12 02/01/24 Unknown Rx mg tablet (Percocet) tabs Allergy/AdvReac Type Severity Reaction Status Date / Time No Known Allergies Allergy Verified 12/30/23 13:08 Family History Father CVA (cerebral vascular accident) Mother Heart disease Brother CVA (cerebral vascular accident) Pancreatic cancer Surgical History History of hip replacement (~2019) Previous back surgery S/P knee replacement Knee joint replacement status Social History Smoking Status: Former smoker second hand exposure: No alcohol intake: current alcohol intake frequency: holidays/special occasions only Alcohol type: beer substance use type: does not use caffeine: Yes what type of physical activity do you participate in: none frequency: does not exercise seatbelt use: always ROS ROS ED Constitutional Constitutional ED: Denies chills or fever(s) Eyes Eyes: Denies change in vision ENT ENT ED: Denies sore throat Cardiovascular Cardiovascular: Denies chest pain Respiratory/Chest Respiratory/Chest: Denies cough or dyspnea Gastrointestinal Gastrointestinal: Denies abdominal pain, diarrhea, nausea or vomiting Genitourinary Genitourinary ED: Denies dysuria Musculoskeletal Musculoskeletal: Reports back pain and other Details: Positive left wrist pain Integumentary Reports other Details: Positive left wrist redness and swelling Neurologic Neurologic: Denies headache(s) or paresthesias Hematologic/Lymphatic Hematologic/Lymphatic: Denies easy bleeding or easy bruising EXAM Physical Exam Const Vital Signs: 02/01/24 20:24 Temperature 97.6 F L Temperature Source Temporal Pulse Rate 126 H Respiratory Rate 15 Blood Pressure 151/93 H Blood Pressure Mean 112 Pulse Ox 99 Oxygen Delivery Method Room Air Positive well nourished and well developed General Appearance ED: well developed HEENT HEENT Narrative: Normocephalic atraumatic Eyes PERRL and EOMs intact bilaterally Neck full ROM and supple Resp normal respiratory effort and clear to auscultation bilaterally Cardio regular rate and regular rhythm Extremity Extremity Narrative: Left upper extremity is neurovascularly intact; AIN/PIN are intact and normal. There is asymmetric soft tissue swelling and erythema to the left wrist compared to right. There is diffuse tenderness to palpation of the left wrist and there is pain with passive or active range of motion. No obvious abscess formation. No lymphangitic streaking. Compartments are soft and compressible going against compartment syndrome. Neuro oriented x3, CN's II-XII intact bilaterally, moves all extremities, no focal motor deficits and no sensory deficits noted Sensorium / Orientation: alert Psych mental status grossly normal Skin Skin Narrative: Asymmetric erythema warmth and soft tissue swelling of the left wrist compared to right MDM MDM MDM Narrative Medical decision making narrative: Patient arrived to the ER hypertensive and tachycardic but states this is secondary to pain. He denied any recent trauma and/or fevers or recent surgical procedures. He states there is no chest pain or shortness of breath associated with this. The history and exam is most consistent with gout as he reports that there was no trauma or increased activity. Therefore I have low concern for fracture or dislocation and by exam there are no signs of compartment syndrome. Therefore do not feel there is need for imaging or laboratory studies I have low concern for a septic joint based on the fact the patient's wrist joint is negative and he has had no recent trauma or procedures. He will be started on colchicine for the gout secondary to his advanced age but otherwise is safe for discharge. After treatment in the ER he did have improvement of his hypertension and heart rate. History & Record Review Discussion w/independent historian: Patient and Family Discharge Plan Triage Chief Complaint: Upper Extremity Injury ED Provider: Ruben Cunningham Dx/Rx/DC Orders Clinical Impression: Gout, Arthritis, DDD (degenerative disc disease), cervical, Type 2 diabetes mellitus Instructions: ED Gout, ED Gout Diet Prescriptions: New colchicine 0.6 mg capsule 0.6 mg PO BID 7 Days Qty: 14 0RF oxycodone-acetaminophen [Percocet] 5-325 mg tablet 1 tab PO Q6H PRN (Reason: pain) 3 Days Qty: 12 0RF No Action metformin 750 mg tablet extended release 24 hr 750 mg PO BID simvastatin 40 mg tablet 40 mg PO QAM psyllium husk [Daily Fiber] 0.52 gram capsule 0.52 g PO DAILY ibuprofen [Advil] 200 mg tablet 200 mg PO Q6H Primary Care Provider: Cortez Holloway Referrals: Cortez Holloway MD [Primary Care Provider] - Activity Restrictions/Additional Instructions: Your symptoms are most consistent with gout. Take the colchicine to help dissolve the crystals. You may continue the prescribed Percocet for pain control but please continue to take 2 or 3 [id number] Advil at the same time as you take a Percocet to help control pain and reduce inflammation. If you have worsening of symptoms or any further concerns please return for repeat evaluation Print Language: Frisian Disposition Disposition: Home, Self Care Discharge Date/Time: 02/01/24 23:08
[2024-02-01 22:23] VITALS: BP 100/92; PULSE 100; RESP 16; O2SAT 94
[2024-02-01] MEDS: oxyCODONE 5 MG Tablet PO (22:42)
[2024-02-01] MEDS: predniSONE 20 MG Tablet 60 MG PO (22:43)
[2024-02-01] MEDS: Colchicine 0.6 MG TABLET 1.2 MG PO (22:44)
[2024-02-01 23:01] VITALS: BP 131/73; PULSE 101; RESP 16; TEMP 36.6; O2SAT 94
[2024-02-01] MEDS: Colchicine 0.6 MG TABLET PO (23:05)
== END 2024-02-01 23:08 | disposition home or self-care (01) ==
PROVIDERS: Emergency Provider Emergency Medicine; PCP Family Medicine; Visit Provider Emergency Medicine
DX: M10.032 Idiopathic gout, left wrist (principal); E11.9 Type 2 diabetes mellitus without complications; I10 Essential (primary) hypertension; M50.30 Other cervical disc degeneration, unspecified cervical region; Z79.84 Long term (current) use of oral hypoglycemic drugs; Z79.899 Other long term (current) drug therapy; Z87.891 Personal history of nicotine dependence
CPT/HCPCS: 99283

== ENCOUNTER → 2024-02-10 | Outpatient (CLI) | payer MEDICARE, BC, SELFPAY ==
--- NOTE | 2024-02-10 14:20 | RAD_ITS ---
STUDY: X-RAY - LEFT KNEE REASON FOR EXAM: Male, 84 years old. POLYARTHRALGIA TECHNIQUE: 4 views of the left knee. COMPARISON: Left knee radiographs dated 09/29/2011. FINDINGS: There are 2 unchanged fixation screws traversing through the lateral tibial plateau of the proximal tibia. Normal visualized distal femur. Normal visualized proximal fibula. Normal proximal tibiofibular articulation. There is no demonstrated acute fracture. There is unchanged severe degenerative arthrosis of the medial femorotibial compartment with severe joint space narrowing. There is unchanged moderate degenerative arthrosis of the lateral femorotibial compartment with moderate joint space narrowing. There is unchanged severe degenerative arthrosis of the patellofemoral articulation. There is a moderate volume joint effusion. There are atherosclerotic calcifications. RAD/Knee 4 or More Views IMPRESSION: Unchanged tricompartment degenerative arthrosis, most pronounced in the patellofemoral and medial femorotibial compartments. Moderate joint effusion. No demonstrated acute fracture. Electronically Signed: Pilo Lopez MD at 16:01 EDT ,
[2024-02-10 17:55] LABS: Absolute Lymphocyte Count 1.26 X10^3/uL (0.83-4.51); Absolute Neutrophil Count 5.7 X10^3/uL (2.0-7.7); Basophil# 0.07 X10^3/uL; Basophil% 0.9 % (0-1); Eosinophil# 0.21 X10^3/uL; Eosinophils% 2.6 % (0-5); Hematocrit 39.5 % (40-54); Hemoglobin 12.8 g/dL (13.0-16.5); Lymphocyte # 1.26 X10^3/ul (0.83-4.51); Lymphocyte % 15.5 % (19-41); Mean Corp Hgb Conc 32.4 g/dL (32-36); Mean Corpuscular Hgb 28.8 pg (27.0-32.0); Mean Platelet Vol. 9.8 fl (6.2-12.0); Monocyte# 0.79 X10^3/uL; Monocyte% 9.7 % (0-10); NRBC Flagged by Analyzer 0 % (0-5); Neutrophil # 5.69 X10^3/uL (2.7-7.7); Neutrophil % 70.2 % (47-70); Platelet Count 435 K/mm3 (150-450); RBC Distribution Width CV 12.5 % (11.6-14.6); RBC Distribution Width SD 40.9 fl (35.1-43.9); Red Blood Count 4.44 M/mm3 (4.6-6.2); White Blood Count 8.1 K/mm3 (4.4-11.0)
[2024-02-10 18:09] LABS: Anion Gap 6 (5-15); BUN 29 mg/dL (7-18); BUN/Creat Ratio 21.3 RATIO (10-20); Calcium,Total 9.2 mg/dL (8.5-10.1); Chloride 102 mmol/L (98-107); Creatinine, Serum 1.36 mg/dL (0.70-1.30); EST Glomerular Filtration Rate 53 mL/min (>60); Est Glom Filt Rate - Afr Amer 64 mL/min (>60); Glucose 169 mg/dL (74-106); Potassium 4.2 mmol/L (3.5-5.1); Sodium Level 134 mmol/L (136-145); Uric Acid 4.6 mg/dL (3.5-7.2)
[2024-02-10 18:32] LABS: Erythrocyte Sedimentation Rate 31 mm/hr (0-20)
[2024-02-14 11:08] LABS: ANTINUCLEAR ANTIBODIES DIRECT Negative (Negative)
== END | disposition home or self-care (01) ==
PROVIDERS: PCP Family Medicine; Referring Provider Family Medicine; Visit Provider Family Medicine
DX: N39.0 Urinary tract infection, site not specified (principal)
CPT/HCPCS: 36415; 73564; 80048; 84550; 85025; 85652; 86038; 86140

== ENCOUNTER → 2024-06-06 | Outpatient (CLI) | payer MEDICARE, BC, SELFPAY ==
--- NOTE | 2024-06-06 09:01 | AAVD_ITS ---
Reason For Study : AAA Aorta Measurements Aorta Doppler Measurements Proximal aorta measures1.99 x 2.03cm. in cross-sectional Peak systolic flow velocities within the proximal aorta axis. measure 85 cm/sec. Proximal aorta measures1.99cm. in longitudinal axis. Peak systolic flow velocities within the mid aorta measure Mid aorta measures3.43 x 3.37cm. in cross-sectional axis. 85 cm/sec. Mid aorta measures3.35cm. in longitudinal axis. Peak systolic flow velocities within the distal aorta Distal aorta measures5.28 x 5.25cm. in cross-sectional axis.measure 54.2 cm/sec. Distal aorta measures5.19cm. in longitudinal axis. Mural thrombus noted in distal aorta with true lumen measuring 3.01 x 4.59 cm. Left Iliac Artery Left iliac artery measures 1.00 x 1.03 cm. in the cross-sectional axis. Left iliac artery measures 1.09 cm. in the longitudinal axis. Peak systolic velocity in the left iliac artery measures 203.4 cm/sec. Right Iliac Artery Right iliac artery measures 2.19 x 1.96 cm. in the cross-sectional axis. Right iliac artery measures 2.21 cm. in the longitudinal axis. Peak systolic velocity in the right iliac artery measures 203.4 cm/sec. Procedure Aorta IVC Iliac vasculature or bypass grafts 60802. Preliminary report given to Erin MAHER. Exam performed in department. 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
== END | disposition home or self-care (01) ==
PROVIDERS: PCP Family Medicine; Referring Provider Surgery Trauma Surgery; Visit Provider Surgery Trauma Surgery
DX: I72.3 Aneurysm of iliac artery (principal); I71.40 Abdominal aortic aneurysm, without rupture, unspecified
CPT/HCPCS: 93978

== ENCOUNTER → 2024-11-17 | Outpatient (CLI) | payer MEDICARE, BC, SELFPAY ==
--- NOTE | 2024-11-17 07:17 | AAVD_ITS ---
Reason For Study Reason For Study: AAA Aorta Measurements Aorta Doppler Measurements Proximal aorta measures2.19 x 2.23cm. in cross-sectional Peak systolic flow velocities within the proximal aorta axis. measure 39.5 cm/sec. Proximal aorta measures2.36cm. in longitudinal axis. Peak systolic flow velocities within the mid aorta measure Mid aorta measures3.67 x 3.54cm. in cross-sectional axis. 55.5 cm/sec. Mid aorta measures3.67cm. in longitudinal axis. Peak systolic flow velocities within the distal aorta Distal aorta measures5.71 x 5.64cm. in cross-sectional axis.measure 15.9 cm/sec. Distal aorta measures5.56cm. in longitudinal axis. 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 Left Iliac Artery Left iliac artery measures 1.26 x 1.28 cm. in the cross-sectional axis. Left iliac artery measures 1.42 cm. in the longitudinal axis. Peak systolic velocity in the left iliac artery measures 144.7 cm/sec. Right Iliac Artery Right iliac artery measures 2.29 x 2.46 cm. in the cross-sectional axis. Right iliac artery measures 2.20 cm. in the longitudinal axis. Peak systolic velocity in the right iliac artery measures 125.4 cm/sec. VL/Abd Aortic/IVC Duplex scan Interpretation Summary Aorta patent, 5.71 cm aneurysm present. Right iliac artery patent, 2.46 cm aneurysm present Left iliac artery patent, ectasia to 1.28 cm Ordering Physician: Jennifer Velazquez Referring Physician: Cortez Holloway Performed By: Celestino Avendano RVT
--- OUTSIDE RECORDS SUMMARY | 2024-11-17 07:23 | XMS RPT_ITS | CCD ---
Author Organization [facility] Care Team Providers Care Educational Interpreter Name Role Phone Mariela Holloway Primary Care Provider [phone] Dr. Joby Holloway Primary Care Provider [phone] Dr. Subhash Cueva Attending Provider German Irizarry Attending Unavailable Jewel, Mariela Referring Unavailable Rannathanael, Christopher Primary Care Unavailable Edie, German Attending Unavailable Jewel, Christopher Referring Unavailable Rannathanael, [facility] Primary [facility] Unavailable Newcastle, German Attending Unavailable Ranney, [facility] Primary Care Unavailable Edie, German Referring Unavailable Ranney, Christopher Primary Care Unavailable Ranney, Christopher Referring Unavailable Newcastle, German Attending Unavailable Newcastle, German Referring Unavailable Ranney, Christopher Primary Care Unavailable Edie, German Attending Unavailable Ranney, [facility] Primary Care Unavailable Ruben Cunningham Attending Unavailable [facility] Unavailable Edie, German Attending Unavailable Velazquez, Jennifer Attending Unavailable Velazquez, Jennifer Referring Unavailable Ranney, [facility] Primary Care Unavailable Rannathanael, Christopher Attending Unavailable Ranney, Christopher Referring Unavailable Ranney, Christopher Primary Care Unavailable Edie, German Referring Unavailable Ranney, Christopher Primary Care Unavailable Newcastle, German Attending Unavailable Medications Current Medications Medication Drug Class(es) Dates Sig (Normalized) Sig (Original) diazePAM 5 mg oral tablet (2 sources) Benzodiazepine Start: 05-18-2023 take 2.5-5 mg by mouth twice daily Diazepam Active 2.5 - 5 MG PO TWICE A DAY May 18, 2023 12:00am glipiZIDE er 10 mg 24 hr extended release oral tablet (4 sources) Sulfonylurea Start: 05-21-2017 take 10 mg by mouth once daily Glipizide Active 10 MG PO daily May 21, 2017 12:00am Start: 12-28-2012 take 1 tablet by manuel th twice daily before mealtime glipiZIDE 10 mg tablet Take 1 tablet by mouth twice daily before meals. 0 12/28/2012 Active Comment on above: Take 1 tablet by manuel th twice daily before meals. hydroCHLOROthiazide 12.5 mg / losartan potassium 50 mg oral tablet (4 sources) Thiazide Diuretic, Angiotensin 2 Receptor Rupesh Start: 05-21-19 18 take 1 tablet by mouth once daily Losartan-Hydroch lorothiazide (Hyzaar) 50-12.5 mg tablet Active 1 TABLET PO daily May 21, 2017 12:00am Start: 03-16-2007 losartan/hydro chlorothiazide(HYZAAR 100 MG-12.5 MG TAB) Take one(1) tablet daily. 0 03/16/2007 Active Comment on above: Take one(1) tablet d aily. meclizine hydrochloride 25 mg oral tablet (2 sources) Antiemetic Start: 4 take 25 mg by mouth every eight hours as needed Meclizine Active 25 MG PO EVERY 8 HOURS NEEDED May 18, 2023 10:46am 24 hr metFORMIN hydrochloride 750 mg extended release oral tablet (4 sources) Biguanide Start: 8 take 750 mg by mouth twice daily Metformin Active 750 MG PO TWICE A DAY May 21, 2017 12:00am Start: 12-28-2012 take 1 tablet by manuel th once daily metFORMIN (GLUCOPHAGE) 500 mg tablet Take 1 tablet by mouth once daily. 0 12/28/2012 Active Comment on above: Take 1 tablet by manuel th once daily. pioglitazone 45 mg oral tablet (5 sources) Peroxisome Proliferator Receptor alpha Agonist, Peroxisome Proliferator Receptor gamma Agonist, Thiazolidinedione Start: 04-21-19 24 take 45 mg by mouth once daily Pioglitazone Active 45 MG PO DAILY April 21, 2023 12:00am Start: 03-16-2007 pioglitazone h cl(ACTOS 30 MG TAB) Take one(1) tablet daily. 0 03/16/2007 Active Start: 03-16-2007 pioglitazone h cl(ACTOS 15 MG TAB) Take one(1) tablet daily. 0 03/16/2007 Active Comment on above: Take one(1) tablet d aily. psyllium 520 mg oral capsule (3 sources) Start: 8 Psyllium Husk (Daily Fiber) 0.52 gram capsule Active 0.52 GM PO DAILY May 21, 2017 12:00am simvastatin 40 mg oral tablet (3 sources) HMG-CoA Reductase Inhibitor Start: 8 take 40 mg by mouth once daily in the morning Simvastatin Active 40 MG PO EVERY MORNING May 21, 2017 12:00am Completed/Discontinued Medications Medication Drug Class(es) Dates Sig (Normalized) Sig (Original) acetaminophen 325 mg / HYDROcodone bitartrate 5 mg oral tablet (3 sources) Opioid Agonist Start: 04-21-2023 End: 05-18-2023 take 1 tablet by mouth every six hours as needed Hydrocodone-Acetam inophen Discontinued 1 TABLET PO EVERY 6 HOURS NEEDED 10 April 21, 2023 May 18, 2023 8:31am aspirin 81 mg oral tablet (1 source) Platelet Aggregation Inhibitor, Nonsteroidal Anti-inflammatory Drug take 1 tablet by mouth once daily Aspirin 81 mg tab Take 81 mg by mouth once daily. 0 Active Comment on above: Take 81 mg by mouth once daily. clopidogrel 75 mg oral tablet (3 sources) P2Y12 Platelet Inhibitor Start: 05-21-2017 End: 06-06-2020 take 1 tablet by mouth once Clopidogrel (Plavix) 75 mg tablet Discontinued 75 MG PO ONCE May 21, 2017 12:00am June 06, 2020 4:28pm Problems Active Problems Problem Classification Problem Date Documented Da te Episodic/Chronic Abdominal pain (3 sources) Abdominal discomfort; Translations: [Generalized abdominal pain] 05-21-2017 Episodic Acute posthemorrhagic anemia (3 sources) Acute posthemorrhagic anemia; Translations: [Acute posthemorrhagic anemia] 06-05-2020 Episodic Aortic; peripheral; and visceral artery aneurysms (7 sources) Abdominal aortic aneurysm; Translations: [Abdominal aortic aneurysm (AAA) greater than 39 mm in diameter] Onset: 06-18-2024 06-05-2020 Chronic Conditions associated with dizziness or vertigo (2 sources) Peripheral vertigo; Translations: [Other peripheral vertigo, unspecified ear] 05-26-2023 Episodic Diabetes mellitus with complications (3 sources) Type II diabetes mellitus uncontrolled; Translations: [Uncontrolled type II diabetes mellitus] 06-05-2020 Chronic Diverticulosis and diverticulitis (1 source) Diverticular disease; Translations: [Diverticulosis] Onset: 04-13-2013 04-13-2013 Chronic Essential hypertension (2 sources) Elevated blood pressure; Translations: [Essential (primary) hypertension] 05-26-2023 Chronic Gastrointestinal hemorrhage (6 sources) Rectal hemorrhage; Translations: [Hemorrhage of anus and rectum] 06-06-2020 Episodic Occlusion or stenosis of precerebral arteries (3 sources) Bilateral stenosis of carotid arteries; Translations: [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es] 06-05-2020 Chronic Osteoarthritis (3 sources) Arthritis; Translations: [Unspecified osteoarthritis, unspecified site] 06-05-2020 Chronic Other connective tissue disease (3 sources) History of total knee arthroplasty; Translations: [Presence of unspecified artificial knee joint] 06-05-2020 Chronic Other gastrointestinal disorders (3 sources) History of diverticulitis; Translations: [Personal history of other diseases of the digestive system] 05-21-2017 Episodic Residual codes; unclassified (2 sources) Bilateral lower limb edema; Translations: [Localized edema] 05-26-2023 Episodic Spondylosis; intervertebral disc disorders; other back problems (3 sources) Degeneration of cervical intervertebral disc; Translations: [Other cervical disc degeneration, unspecified cervical region] 06-05-2020 Chronic Spondylosis; intervertebral disc disorders; other back problems (6 sources) Low back pain; Translations: [Low back pain] 06-05-2020 Episodic Unclassified (2 sources) Infrarenal abdominal aortic aneurysm, without rupture; Translations: [Infrarenal abdominal aortic aneurysm, without rupture] Onset: 12-28-2023 Unclassified (1 source) Abdominal aortic aneurysm, without rupture, unspecified; Translations: [Abdominal aortic aneurysm, without rupture, unspecified] Onset: 01-03-2024 Past or Other Problems Problem Classification Problem Date Documented Da te Episodic/Chronic Other non-traumatic joint disorders (1 source) Pain in left wrist; Translations: [Pain in left wrist] Onset: 02-25-2024 Episodic Urinary tract infections (1 source) Urinary tract infection, site not specified; Translations: [Urinary tract infection, site not specified] Onset: 03-01-2024 Episodic Results Test Name Value Interpretation Reference Range Facility Abd Aortic/IVC Duplex scanon 06-06-2024 Abd Aortic/IVC Duplex scan [facility] [address] [place] [address] Abd Aortic/IVC Duplex scan 06/06/24 0902 MR#: [id number] Acct: [id number] Name: JAYJAY PARKS Rep #: [id number] : 1940 84 From: German Irizarry MD Attending Dr: Dr. German Irizarry MD Status: [facility] Ordering Dr: German Irizarry MD Date: 06/06/24 Location: [facility] Sex: M C Admitted: Reason For Study : AAA Aorta Measurements Aorta Doppler Measurements Proximal aorta measures1.99 x 2.03cm. in cross-sectional Peak systolic flow velocities within the proximal aorta axis. measure 85 cm/sec. Proximal aorta measures1.99cm. in longitudinal axis. Peak systolic flow velocities within the mid aorta measure Mid aorta measures3.43 x 3.37cm. in cross-sectional axis. 85 cm/sec. Mid aorta measures3.35cm. in longitudinal axis. Peak systolic flow velocities within the distal aorta Distal aorta measures5.28 x 5.25cm. in cross-sectional axis.measure 54.2 cm/sec. Distal aorta measures5.19cm. in longitudinal axis. Mural thrombus noted in distal aorta with true lumen measuring 3.01 x 4.59 cm. Left Iliac Artery Left iliac artery measures 1.00 x 1.03 cm. in the cross-sectional axis. Left iliac artery measures 1.09 cm. in the longitudinal axis. Peak systolic velocity in the left iliac artery measures 203.4 cm/sec. Right Iliac Artery Right iliac artery measures 2.19 x 1.96 cm. in the cross-sectional axis. Right iliac artery measures 2.21 cm. in the longitudinal axis. Peak systolic velocity in the right iliac artery measures 203.4 cm/sec. Procedure Aorta IVC Iliac vasculature or bypass grafts 31775. Preliminary report given to Erin MAHER. Exam performed in department. 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 Mariela Holloway MD; Dr. German Irizarry MD Date Dictated: 06/06/24901 Date Transcribed: 06/06/241706 Sprinkler Worker: Signed Normal [facility] ANTINUCLEAR ANTIBODIES DIREC Ton 02-14-2024 DALI,DIRECT Negative Normal Negative [facility] Comment on above: Order Comment: Order Date: 02/10/24 Order Info: [id number] - DALI Result Comment: Perf ormed at: [facility] [place] [id number] Clinical Nursing Assistant: Khoa Reyes PhD, Phone: [phone] Performed By: #### L 501.1400, L100.0100, L501.6710, L3100.5475, L101.9900, L500.2500 #### [facility] [address] [place], [place], [id number] Basic Metabolic Profile (BMP )on 02-10-2024 BUN/CRE 21.3 RATIO High 10- [facility] Comment on above: Order Comment: Order Date: 02/10/24 Order Info: 0667-1 - BMP Order Info: 3084-1 - URIC Order Info: 69976-4 - CRP Performed By: #### L 501.1400, L100.0100, L501.6710, L3100.5475, L101.9900, L500.2500 #### [facility] [address] [place], [address] CA,Total 9.2 mg/dL Normal 8.5-10.1 [facility] Comment on above: Order Comment: Order Date: 02/10/24 Order Info: 666-04 - BMP Order Info: 3083-04 - URIC Order Info: - CRP Performed By: #### L 501.1400, L100.0100, L501.6710, L3100.5475, L101.9900, L500.2500 #### [facility] [address] [place], [address] Chloride [Moles/Vol] 102 mmol/L Normal 98-107 [facility] Comment on above: Order Comment: Order Date: 02/10/24 Order Info: 666-04 - BMP Order Info: 3083-04 - URIC Order Info: - CRP Performed By: #### L 501.1400, L100.0100, L501.6710, L3100.5475, L101.9900, L500.2500 #### [facility] [address] [place], [address] CO2 [Moles/Vol] 27.0 mmol/L Normal 21.0-32.0 [facility] Comment on above: Order Comment: Order Date: 02/10/24 Order Info: 666-04 - BMP Order Info: 3083-04 - URIC Order Info: - CRP Performed By: #### L 501.1400, L100.0100, L501.6710, L3100.5475, L101.9900, L500.2500 #### [facility] [address] [place], [address] Creatinine [Mass/Vol] 1.36 mg/dL High 0.70-1.30 [facility] Comment on above: Order Comment: Order Date: 02/10/24 Order Info: 666-04 - BMP Order Info: 3083-04 - URIC Order Info: - CRP Result Comment: The validity of the calculated GFR GFRAA in patients over 70 years has not been determined. Clinical correlation is essential. Performed By: #### L 501.1400, L100.0100, L501.6710, L3100.5475, L101.9900, L500.2500 #### [facility] [address] [place], [address] EST GFR - AA 64 mL/min Normal >60 [facility] Comment on above: Order Comment: Order Date: 02/10/24 Order Info: 666-04 - BMP Order Info: 3083-04 - URIC Order Info: [id number] - CRP Result Comment: Afri can Armenian GFR Calc Performed By: #### L 501.1400, L100.0100, L501.6710, L3100.5475, L101.9900, L500.2500 #### [facility] [address] [place], [address] GAP 6 Normal 5-15 [facility] Comment on above: Order Comment: Order Date: 02/10/24 Order Info: 666-04 - BMP Order Info: 3083-04 - URIC Order Info: 16431-9 - CRP Performed By: #### L 501.1400, L100.0100, L501.6710, L3100.5475, L101.9900, L500.2500 #### [facility] [address] [place], [address] GFR/1.73 sq M.predicted among non-blacks MDRD (S/P/Bld) [Vol rate/Area] 53 mL/min/{1.73_m2} Low >60 [facility] Comment on above: Order Comment: Order Date: 02/10/24 Order Info: 666-04 - BMP Order Info: 3083-04 - URIC Order Info: [id number] - CRP Result Comment: Non- GFR Calc Performed By: #### L 501.1400, L100.0100, L501.6710, L3100.5475, L101.9900, L500.2500 #### [facility] [address] [place], [address] Glucose [Mass/Vol] 169 mg/dL High 74-106 [facility] Comment on above: Order Comment: Order Date: 02/10/24 Order Info: 666-04 - BMP Order Info: 3083-04 - URIC Order Info: [id number] - CRP Result Comment: Fast ing Glucose result greater than or equal to 126 mg/dL suggests DIABETES MELLITUS per A.D.A. criteria. Performed By: #### L 501.1400, L100.0100, L501.6710, L3100.5475, L101.9900, L500.2500 #### [facility] [address] [place], [address] Potassium [Moles/Vol] 4.2 mmol/L Normal 3.5-5.1 [facility] Comment on above: Order Comment: Order Date: 02/10/24 Order Info: 666-04 - BMP Order Info: 3083-04 - URIC Order Info: [id number] - CRP Performed By: #### L 501.1400, L100.0100, L501.6710, L3100.5475, L101.9900, L500.2500 #### [facility] [address] [place], [address] Sodium [Moles/Vol] 134 mmol/L Low 136-145 [facility] Comment on above: Order Comment: Order Date: 02/10/24 Order Info: 666-04 - BMP Order Info: 3083-04 - URIC Order Info: [id number] - CRP Performed By: #### L 501.1400, L100.0100, L501.6710, L3100.5475, L101.9900, L500.2500 #### [facility] [address] [place], [address] Urea nitrogen [Mass/Vol] 29 mg/dL High 7-18 [facility] Comment on above: Order Comment: Order Date: 02/10/24 Order Info: 666-04 - BMP Order Info: 3083-04 - URIC Order Info: 33287-0 - CRP Performed By: #### L 501.1400, L100.0100, L501.6710, L3100.5475, L101.9900, L500.2500 #### [facility] [address] [place], [address] CBC W/Diff, Automatedon 10 Absolute Lymph 1.26 X10 3/uL Normal 0.83-4.51 [facility] Comment on above: Order Comment: Order Date: 02/10/24 Order Info: 01807-18 - CBCD Order Info: 15092-9 - SED Performed By: #### L 501.1400, L100.0100, L501.6710, L3100.5475, L101.9900, L500.2500 #### [facility] [address] [place], [address] Absolute Neut 5.7 X10 3/uL Normal 2.0-7.7 [facility] Comment on above: Order Comment: Order Date: 02/10/24 Order Info: 01807-18 - CBCD Order Info: 52201-5 - SED Performed By: #### L 501.1400, L100.0100, L501.6710, L3100.5475, L101.9900, L500.2500 #### [facility] [address] [place], [address] Basophils/100 WBC (Bld) 0.9 % Normal 0-1 [facility] Comment on above: Order Comment: Order Date: 02/10/24 Order Info: 0184 - CBCD Order Info: 33333-5 - SED Performed By: #### L 501.1400, L100.0100, L501.6710, L3100.5475, L101.9900, L500.2500 #### [facility] [address] [place], [address] Eosinophils/100 WBC (Bld) 2.6 % Normal 0-5 [facility] Comment on above: Order Comment: Order Date: 02/10/24 Order Info: 01807-18 - CBCD Order Info: - SED Performed By: #### L 501.1400, L100.0100, L501.6710, L3100.5475, L101.9900, L500.2500 #### [facility] [address] [place], [address] Erythrocyte distribution width (RBC) [Ratio] 12.5 % Normal 11.6-14.6 [facility] Comment on above: Order Comment: Order Date: 02/10/24 Order Info: 183-04 - CBCD Order Info: - SED Performed By: #### L 501.1400, L100.0100, L501.6710, L3100.5475, L101.9900, L500.2500 #### [facility] [address] [place], [address] Hematocrit (Bld) [Volume fraction] 39.5 % Low 40-54 [facility] Comment on above: Order Comment: Order Date: 02/10/24 Order Info: 01807-18 - CBCD Order Info: 39707-6 - SED Performed By: #### L 501.1400, L100.0100, L501.6710, L3100.5475, L101.9900, L500.2500 #### [facility] [address] [place], [address] Hemoglobin (Bld) [Mass/Vol] 12.8 g/dL Low 13.0-16.5 [facility] Comment on above: Order Comment: Order Date: 02/10/24 Order Info: 01807-18 - CBCD Order Info: - SED Performed By: #### L 501.1400, L100.0100, L501.6710, L3100.5475, L101.9900, L500.2500 #### [facility] [address] [place], [address] IG% 1.100 High 0.0-0.9 [facility] Comment on above: Order Comment: Order Date: 02/10/24 Order Info: 183-04 - CBCD Order Info: - SED Result Comment: IG% - Immature Granulocytes (promyelocytes, myelocytes and metamyelocytes) > 1% indicates that a LEFT SHIFT is Present. Performed By: #### L 501.1400, L100.0100, L501.6710, L3100.5475, L101.9900, L500.2500 #### [facility] [address] [place], [address] Lymphocytes/100 WBC (Bld) 15.5 % Low 19-41 [facility] Comment on above: Order Comment: Order Date: 02/10/24 Order Info: 183-04 - CBCD Order Info: - SED Performed By: #### L 501.1400, L100.0100, L501.6710, L3100.5475, L101.9900, L500.2500 #### [facility] [address] [place], [address] MCH (RBC) [Entitic mass] 28.8 pg Normal 27.0-32.0 [facility] Comment on above: Order Comment: Order Date: 02/10/24 Order Info: 183-04 - CBCD Order Info: - SED Performed By: #### L 501.1400, L100.0100, L501.6710, L3100.5475, L101.9900, L500.2500 #### [facility] [address] [place], [address] MCHC (RBC) [Mass/Vol] 32.4 g/dL Normal 32-36 [facility] Comment on above: Order Comment: Order Date: 02/10/24 Order Info: 183-04 - CBCD Order Info: - SED Performed By: #### L 501.1400, L100.0100, L501.6710, L3100.5475, L101.9900, L500.2500 #### [facility] [address] [place], [address] MCV (RBC) [Entitic vol] 89.0 fL Normal 80-94 [facility] Comment on above: Order Comment: Order Date: 02/10/24 Order Info: 183- - CBCD Order Info: - SED Performed By: #### L 501.1400, L100.0100, L501.6710, L3100.5475, L101.9900, L500.2500 #### [facility] [address] [place], [address] Monocytes/100 WBC (Bld) 9.7 % Normal 0-10 [facility] Comment on above: Order Comment: Order Date: 02/10/24 Order Info: 183-04 - CBCD Order Info: - SED Performed By: #### L 501.1400, L100.0100, L501.6710, L3100.5475, L101.9900, L500.2500 #### [facility] [address] [place], [address] Neutrophils/100 WBC (Bld) 70.2 % High 47-70 [facility] Comment on above: Order Comment: Order Date: 02/10/24 Order Info: 183-04 - CBCD Order Info: - SED Performed By: #### L 501.1400, L100.0100, L501.6710, L3100.5475, L101.9900, L500.2500 #### [facility] [address] [place], [address] Nucleated RBC (Bld) [#/Vol] 0 10*3/uL Normal 0-5 [facility] Comment on above: Order Comment: Order Date: 02/10/24 Order Info: 01807-18 - CBCD Order Info: [id number] - SED Performed By: #### L 501.1400, L100.0100, L501.6710, L3100.5475, L101.9900, L500.2500 #### [facility] [address] [place], [address] Platelet mean volume (Bld) [Entitic vol] 9.8 fL Normal 6.2-12.0 [facility] Comment on above: Order Comment: Order Date: 02/10/24 Order Info: 183-04 - CBCD Order Info: 08960-1 - SED Performed By: #### L 501.1400, L100.0100, L501.6710, L3100.5475, L101.9900, L500.2500 #### [facility] [address] [place], [address] Platelets (Bld) [#/Vol] 435 10*3/uL Normal 150-450 [facility] Comment on above: Order Comment: Order Date: 02/10/24 Order Info: 183-04 - CBCD Order Info: 34122-0 - SED Performed By: #### L 501.1400, L100.0100, L501.6710, L3100.5475, L101.9900, L500.2500 #### [facility] [address] [place], [address] RBC (Bld) [#/Vol] 4.44 10*6/uL Low 4.6-6.2 [facility] Comment on above: Order Comment: Order Date: 02/10/24 Order Info: 183-04 - CBCD Order Info: - SED Performed By: #### L 501.1400, L100.0100, L501.6710, L3100.5475, L101.9900, L500.2500 #### [facility] [address] [place], [address] RDW SD 40.9 fl Normal 35.1-43.9 [facility] Comment on above: Order Comment: Order Date: 02/10/24 Order Info: 01807-18 - CBCD Order Info: [id number] - SED Performed By: #### L 501.1400, L100.0100, L501.6710, L3100.5475, L101.9900, L500.2500 #### [facility] [address] [place], [address] WBC (Bld) [#/Vol] 8.1 10*3/uL Normal 4.4-11.0 [facility] Comment on above: Order Comment: Order Date: 02/10/24 Order Info: 0184-1 - CBCD Order Info: 58659-3 - SED Performed By: #### L 501.1400, L100.0100, L501.6710, L3100.5475, L101.9900, L500.2500 #### [facility] [address] [place], [address] CRPon 02-10-2024 C-REACTIVE PROT 23.90 mg/L High 0.0-3.0 [facility] Comment on above: Order Comment: Order Date: 02/10/24 Order Info: 0667-1 - BMP Order Info: 3084-1 - URIC Order Info: 03929-5 - CRP Result Comment: C-Re active Protein (CRP) provides useful information for the diagnosis, therapy and monitoring of inflammatory processes and associated diseases. For the evaluation of Relative Risk for Cardiovascular Disease, a High Sensitivity CRP (HSCRP) should be ordered. Performed By: #### L 501.1400, L100.0100, L501.6710, L3100.5475, L101.9900, L500.2500 #### [facility] [address] [place], [address] Erythrocyte Sed Rateon 02-09 SED RATE 31 mm/hr High 0-20 [facility] Comment on above: Order Comment: Order Date: 02/10/24 Order Info: 0184-1 - CBCD Order Info: 70382-2 - SED Performed By: #### L 501.1400, L100.0100, L501.6710, L3100.5475, L101.9900, L500.2500 #### [facility] [address] [place], [address] Knee 4 or More Viewson 02-09 Knee 4 or More Views [facility] Imaging Services [address] [place], [place] [address] Knee 4 or More Views MR#: [id number] Acct: [id number] Name: JAYJAY PARKS Rep #: [id number] : 1940 M 84 From: Pilo Lopez MD PCP: Dr. Mariela Holloway MD Status: REG CLI Study: Knee 4 or More Views Date of Exam: 02/10/24 Exam# [id number] Ordering Dr: Mariela Holloway [id number] STUDY: X-RAY - LEFT KNEE REASON FOR EXAM: Male, 84 years old. POLYARTHRALGIA TECHNIQUE: 4 views of the left knee. COMPARISON: Left knee radiographs dated 09/29/2011. FINDINGS: There are 2 unchanged fixation screws traversing through the lateral tibial plateau of the proximal tibia. Normal visualized distal femur. Normal visualized proximal fibula. Normal proximal tibiofibular articulation. There is no demonstrated acute fracture. There is unchanged severe degenerative arthrosis of the medial femorotibial compartment with severe joint space narrowing. There is unchanged moderate degenerative arthrosis of the lateral femorotibial compartment with moderate joint space narrowing. There is unchanged severe degenerative arthrosis of the patellofemoral articulation. There is a moderate volume joint effusion. There are atherosclerotic calcifications. RAD/Knee 4 or More Views IMPRESSION: Unchanged tricompartment degenerative arthrosis, most pronounced in the patellofemoral and medial femorotibial compartments. Moderate joint effusion. No demonstrated acute fracture. Electronically Signed: Pilo Lopez MD at 16:01 EDT Reading Location ID and State: [address] [place] [address] , Service support , CC: Dr. Mariela Holloway MD Sprinkler Worker: Signed [facility] Uric Acidon 02-10-2024 URIC 4.6 mg/dL Normal 3.5-7.2 [facility] Comment on above: Order Comment: Order Date: 02/10/24 Order Info: [id number] - BMP Order Info: [id number] - URIC Order Info: [id number] - CRP Result Comment: The drugs N-Acetylcysteine and Metamizole may falsely depress this assay. Performed By: #### L 501.1400, L100.0100, L501.6710, L3100.5475, L101.9900, L500.2500 #### [facility] [address] [place], [address] Emergency Department Summary on 02-01-2024 Emergency Department Summary [facility] Medical Records Department [address] [place] [address] Emergency Department Summary 02/01/24 MR#: [id number] Acct: [id number] Name: JAYJAY PARKS Rep #: [id number] : 1940 84 From: Ruben Cunningham DO PCP: Dr. Mariela Holloway MD Status:DEP ER Location: ED HPI History of Present Illness Chief Complaint: Upper Extremity Injury Informant: patient and family Narrative Narrative: Patient is an 84-year-old male with history of type 2 diabetes as well as degenerative disc disease and arthritis. He states that roughly 1 to 2 days ago he noticed pain in his left wrist without any type of trauma or excessive activity. He states that as the days have passed he now has increased pain redness and swelling and is difficult to move his wrist/hand secondary to this. He states he tried [id number] medications without any improvement and therefore comes in for evaluation [facility] Medical History Bleeding internal hemorrhoids Carotid stenosis, bilateral Abdominal aortic aneurysm (AAA) greater than 39 mm in diameter DDD (degenerative disc disease), cervical Arthritis Lumbago Hematochezia History of diverticulitis of colon Generalized abdominal discomfort Type II diabetes mellitus, uncontrolled Home Medications ???Medication ???Instructions ???Recorded ???Last Taken ???Type metformin 750 mg tablet,extended 750 mg PO BID 05/21/17 Unknown History release 24 hr psyllium husk 0.52 gram capsule 0.52 g PO DAILY 05/21/17 Unknown History (Daily Fiber) simvastatin 40 mg tablet 40 mg PO QAM 05/21/17 Unknown History colchicine 0.6 mg capsule 0.6 mg PO BID 7 days #14 caps 02/01/24 Unknown Rx ibuprofen 200 mg tablet (Advil) 200 mg PO Q6H 02/01/24 Unknown History oxycodone-acetaminophen 5 mg-325 1 tab PO Q6H PRN pain 3 days #12 02/01/24 Unknown Rx mg tablet (Percocet) tabs Allergy/AdvReac Type Severity Reaction Status Date / Time No Known Allergies Allergy Verified 12/30/23 13:08 Family History Father CVA (cerebral vascular accident) Mother Heart disease Brother CVA (cerebral vascular accident) Pancreatic cancer Surgical History History of hip replacement ( 2019) Previous back surgery S/P knee replacement Knee joint replacement status Social History Smoking Status: Former smoker second hand exposure: No alcohol intake: current alcohol intake frequency: holidays/special occasions only Alcohol type: beer substance use type: does not use caffeine: Yes what type of physical activity do you participate in: none frequency: does not exercise seatbelt use: always ROS ROS ED Constitutional Constitutional ED: Denies chills or fever(s) Eyes Eyes: Denies change in vision ENT ENT ED: Denies sore throat Cardiovascular Cardiovascular: Denies chest pain Respiratory/Chest Respiratory/Chest: Denies cough or dyspnea Gastrointestinal Gastrointestinal: Denies abdominal pain, diarrhea, nausea or vomiting Genitourinary Genitourinary ED: Denies dysuria Musculoskeletal Musculoskeletal: Reports back pain and other Details: Positive left wrist pain Integumentary Reports other Details: Positive left wrist redness and swelling Neurologic Neurologic: Denies headache(s) or paresthesias Hematologic/Lymphatic Hematologic/Lymphatic: Denies easy bleeding or easy bruising EXAM Physical Exam Const Vital Signs: 02/01/24 20:24 Temperature 97.6 F L Temperature Source Temporal Pulse Rate 126 H Respiratory Rate 15 Blood Pressure 151/93 H Blood Pressure Mean 112 Pulse Ox 99 Oxygen Delivery Method Room Air Positive well nourished and well developed General Appearance ED: well developed HEENT HEENT Narrative: Normocephalic atraumatic Eyes PERRL and EOMs intact bilaterally Neck full ROM and supple Resp normal respiratory effort and clear to auscultation bilaterally Cardio regular rate and regular rhythm Extremity Extremity Narrative: Left upper extremity is neurovascularly intact; AIN/PIN are intact and normal. There is asymmetric soft tissue swelling and erythema to the left wrist compared to right. There is diffuse tenderness to palpation of the left wrist and there is pain with passive or active range of motion. No obvious abscess formation. No lymphangitic streaking. Compartments are soft and compressible going against compartment syndrome. Neuro oriented x3, CN's II-XII intact bilaterally, moves all extremities, no focal motor deficits and no sensory deficits noted Sensorium / Orientation: alert Psych mental status grossly normal Skin Skin Yaniv (more content not included)... Normal [facility] MR/BMS.Jessica 12-30-2023 MR/BMS.S [facility] Vascular Surgery [address] [place] [address] OFFICE VISIT Date of Service: 12/30/23 MR#: [id number] Acct: [id number] Name: JAYJAY PARKS Rep #: [id number] : 1940 Provider: Dr. German Irizarry MD Age/Sex: 83/M Location: [facility] Status: Signed Intake Vital Signs 07/05/23 13:34 12/30/23 13:07 Height 5 ft 8 in Weight: 177 lb BP 150/80 H Blood Pressure Location Lt brachial Position Sitting Respiration 16 Pulse 72 Pulse Source Monitor Temp 98.4 F Temp Source Temporal Pulse Oximetry (%) 99 Oxygen Delivery Method room air Intake Visit Reasons: DISCUSS ANEURYSM Is patient in pain?: No Allergies No Known Allergies Allergy (Verified 12/30/23 13:08) Medications ???Medication ???Instructions ???Recorded ???Confirmed ???Type metformin 750 mg tablet,extended 750 mg PO BID 05/21/17 12/30/23 History release 24 hr psyllium husk 0.52 gram capsule 0.52 g PO DAILY 05/21/17 12/30/23 History (Daily Fiber) simvastatin 40 mg tablet 40 mg PO QAM 05/21/17 12/30/23 History aspirin 81 mg tablet,delayed 81 mg PO QDAY 12/30/23 12/30/23 History release Have you fallen in the past year?: Yes PFSH Medical History Bleeding internal hemorrhoids Carotid stenosis, bilateral Abdominal aortic aneurysm (AAA) greater than 39 mm in diameter DDD (degenerative disc disease), cervical Arthritis Lumbago Hematochezia History of diverticulitis of colon Generalized abdominal discomfort Type II diabetes mellitus, uncontrolled Surgical History History of hip replacement ( 2019) Previous back surgery S/P knee replacement Knee joint replacement status Family History Father CVA (cerebral vascular accident) Mother Heart disease Brother CVA (cerebral vascular accident) Pancreatic cancer Social History Smoking Status: Former smoker second hand exposure: No alcohol intake: current alcohol intake frequency: holidays/special occasions only Alcohol type: beer substance use type: does not use caffeine: Yes what type of physical activity do you participate in: none frequency: does not exercise seatbelt use: always HPI HPI HPI: JAYJAY PARKS, is a 83 M who presents to the office today for follow up of AAA. He was last seen in July 2023 at which time it measured 5.5 cm. He was not interested in repair at the time so interval imaging was obtained and he returns now to discuss. 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 ROS General General: No weight change, appetite, fatigue, colon cancer, breast cancer or weakness HEENT HEENT: No difficulty swallowing, eye injury, eye surgery, swollen glands or hoarseness Endo Endocrine: Yes diabetes mellitus; No thyroid disease, thyroid cancer, Hair loss, heat intolerance or cold intolerance Skin Skin: No rash or changing moles Musc Musculoskeletal: Yes back problems and joint pain; No arthritis, rheumatoid arthritis or gout Cardio Cardiovascular: No murmur, pacemaker, heart disease, atrial fibrillation, high blood pressure, heart attack, heart stent, palpitations, shortness of breat with exertion or chest pain Psych Psychiatric: Yes depression; No anxiety or hearing voices Resp Respiratory: No shortness of breath, No sleep apnea, No cough, No COPD, No asthma, No emphysema and No wheezing Gastro Gastrointestinal: No abdominal pain, No nausea or vomiting, No diarrhea, No constipation, No blood in stool, No acid reflux, No hemorrhoids, No ulcers, No gallbladder problem and No black,tarry stools Cornelio Hematologic: Yes blood thinners, No blood disorders, No bleeding, No anemia and No blood clots Additional Details: asa Neuro Neurologic: No system reviewed and no additional complaints, except as documented, No as per HPI, No abnormal gait, No abnormal hearing, No abnormal movements, No abnormal speech, No behavioral changes, No burning sensations, No confusion, No convulsions, Yes disequilibrium, No dizziness, No localized weakness, No frequent falls, No headache(s), No lack of coordination, No loss of vision, No memory loss, No numbness, No other visual disturbances, No radicular pain, No restless legs, No sensory deficit, No syncope, No tingling, No tremor(s), No weakness and No other Exam Const General: cooperative, healthy appearing, comfortable, no acute distress and well developed Nutritional Appearance: well nourished Orientation: alert, awake and oriented x3 HENMT Head: normocephalic and atraumatic Ears: hearing grossly normal bilat (more content not included)... Normal [facility] CREATININE FINGERSTICKon CREATININE WB < 1.0 Normal 0.70-1.30 [facility] Comment on above: Performed By: #### L 9100.0200 #### [facility] [address] [place], [place], [id number] EGFR WB > 60.0000 Normal >60 [facility] Comment on above: Performed By: #### L 9100.0200 #### [facility] [address] [place], [place], [id number] CTA Abd/Pelvis W/WO Contrast on 11-30-2023 CTA Abd/Pelvis W/WO Contrast [facility] Imaging Services [address] [place] [address] CTA Abd/Pelvis W/WO Contrast MR#: [id number] Acct: [id number] Name: JAYJAY PARKS Rep #: [id number] : 1940 M 83 From: David Palma MD PCP: Dr. Mariela Holloway MD Status: REG CLI Study: CTA Abd/Pelvis W/WO Contrast Date of Exam: Exam# [id number] Ordering Dr: [place] [id number] INDICATION: AAA EXAMINATION: CTA abdomen and pelvis - TECHNIQUE: Routine abdominal CT angiogram protocol was performed with IV contrast. MIP images provided. A radiation dose optimization technique was used for this scan. IV Contrast dosage and agent: 100 mL Isovue-370 Radiation dose DLP mGy / cm. COMPARISON: 06/04/2023 FINDINGS: Lung bases: Normal. Liver: Normal. No bile ductal dilatation. Gallbladder: Normal. Spleen: Normal. Adrenal gland: Normal. Kidneys: Normal. No hydronephrosis or stone formation. Multiple bilateral renal cysts. Pancreas:Normal. Bowel gas pattern: Nonobstructive. Small hiatal hernia. Appendix: Not visualized Free air: None. Free fluid: None. Pelvis: Pelvic organs: No mass lesion noted. Bone survey: No aggressive bony lesions. No acute fractures. Status post transpedicular fixation from L4 through S1. Diffuse degenerative disc disease of the lumbar spine. Status post right hip arthroplasty which produces streak artifact and obscures the pelvis. Adenopathy: No significant pathologic adenopathy detected. Other: None. Vascular: There is fusiform dilatation of the infrarenal abdominal aorta measuring up to 3.2 cm in diameter with some peripheral pelvic calcified and noncalcified plaque. There is no change in the more saccular aneurysm of the distal abdominal aorta just proximal to the aortic bifurcation with a maximal transverse diameter of 5.2 cm. Mild amount of peripheral calcified plaque and a moderate amount of mural thrombus. No change in dilatation of the right common iliac artery.. Mild amount of calcified plaque within the common iliac arteries were widely patent external iliac arteries. 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 The superior mesenteric artery is widely patent. Inferior mesenteric arteries widely patent. 2 right renal arteries without renal artery stenosis. Calcified plaque in the origin left renal artery producing a moderate (60%) stenosis. CT/CTA Abd/Pelvis W/WO Contrast IMPRESSION: No change in fusiform and saccular aneurysm of the distal abdominal aorta with dilatation of the right common iliac artery. No acute or chronic mesenteric ischemia. Widely patent right renal arteries. Moderate (60%) stenosis left renal artery stenosis. Small hiatal hernia. Bilateral renal cysts. Electronically Signed: David Palma MD at 11:37 EDT , CC: Dr. Mariela Holloway MD; Dr. German Irizarry MD Sprinkler Worker: Signed Normal [facility] Absolute lymphocyte countOrd ered By: Darnellsaurav Kessler on 05-18-2023 Lymphocytes Auto (Unsp spec) [#/Vol] 0.92 10*3/uL 0.83-4.51 [facility] Automated lymphocyte count a s percentage of total leukocytesOrdered By: Darnell Kessler on 05-18-2023 Lymphocytes/100 WBC Auto (Unsp spec) 16.5 % 19-41 [facility] Basophil percentageOrdered B y: Darnell Kessler on 05-18-2023 Basophils/100 WBC (Bld) 1.1 % 0-1 [facility] Chloride [Moles/Vol] 104 mmol/L 98-107 [facility] Eosinophils/100 WBC (Bld) 4.8 % 0-5 [facility] Glucose [Mass/Vol] 152 mg/dL 74-106 [facility] Comment on above: Fasting Glucose resu lt greater than or equal to 126 mg/dL suggests DIABETES MELLITUS per A.D.A. criteria. Hemoglobin (Bld) [Mass/Vol] 13.4 g/dL 13.0-16.5 [facility] Monocytes/100 WBC (Bld) 11.1 % 0-10 [facility] Neutrophils (Bld) [#/Vol] 3.7 10*3/uL 2.0-7.7 [facility] Neutrophils/100 WBC (Bld) 66.0 % 47-70 [facility] Potassium [Moles/Vol] 4.4 mmol/L 3.5-5.1 [facility] Sodium [Moles/Vol] 137 mmol/L 136-145 [facility] WBC (Bld) [#/Vol] 5.6 10*3/uL 4.4-11.0 [facility] Determination of erythrocyte mean corpuscular volume (MCV)Ordered By: Darnell Kessler on 05-18-2023 MCV (RBC) [Entitic vol] 93.2 fL 80-94 [facility] Erythrocyte distribution wid th ratioOrdered By: Darnell Kessler on 05-18-2023 Erythrocyte distribution width (RBC) [Ratio] 13.9 % 11.6-14.6 [facility] Erythrocyte distribution wid th standard deviationOrdered By: Darnell Kessler on 05-18-2023 Erythrocyte distribution width (RBC) [Entitic vol] 47.3 fL 35.1-43.9 [facility] Hematocrit Auto (Bld) [Volum e fraction]Ordered By: Darnell Kessler on 05-18-2023 Hematocrit (Bld) [Volume fraction] 42.6 % 40-54 [facility] Immature granulocytes/100 WB C Auto (Bld)Ordered By: Darnell Kessler on 05-18-2023 Immature granulocytes/100 WBC (Bld) 0.500 % 0.0-0.9 [facility] Comment on above: IG% - Immature Granu locytes (promyelocytes, myelocytes and metamyelocytes) > 1% indicates that a LEFT SHIFT is Present. Laboratory - Chemistry and C hemistry - challengeOrdered By: Darnell Kessler on 05-18-2023 CO2 [Moles/Vol] 30.0 mmol/L 21.0-32.0 [facility] Urea nitrogen/Creatinine [Mass ratio] 19.1 mg/mg 10-20 [facility] - Hematology and Cell countsOrdered By: Darnell Kessler on 05-18-2023 MCH (RBC) [Entitic mass] 29.3 pg 27.0-32.0 [facility] MCHC (RBC) [Mass/Vol] 31.5 g/dL 32-36 [facility] Nucleated RBC/100 WBC (Bld) [Ratio] 0 % 0-5 [facility] Platelets (Bld) [#/Vol] 253 10*3/uL 150-450 [facility] No Panel InformationOrdered By: Darnell Kessler on 05-18-2023 Estimated Creatinine Clearance Calc 50.78 ml/min [facility] Estimated GFR (MDRD) Amer 78 mL/min >60 [facility] Comment on above: GFR Calc Estimated GFR (MDRD) Non-Af Amer 64 mL/min >60 [facility] Comment on above: Non- GFR Calc Platelet mean volume Benjamin-Ec ker (Bld) [Entitic vol]Ordered By: Darnell Kessler on 05-18-2023 Platelet mean volume (Bld) [Entitic vol] 9.6 fL 6.2-12.0 [facility] RBC Auto (Bld) [#/Vol]Ordere d By: Darnell Kessler on 05-18-2023 RBC (Bld) [#/Vol] 4.57 10*6/uL 4.6-6.2 [facility] Serum or plasma calcium bjorn urement (mass/volume)Ordered By: Darnell Kessler on 05-18-2023 Calcium [Mass/Vol] 9.6 mg/dL 8.5-10.1 [facility] Serum or plasma creatinine m easurement (mass/volume)Ordered By: Darnell Kessler on 05-18-2023 Creatinine [Mass/Vol] 1.15 mg/dL 0.70-1.30 [facility] Comment on above: The validity of the calculated GFR & GFRAA in patients over 70 years has not been determined. Clinical correlation is essential. Serum or plasma urea nitroge n measurement (mass/volume)Ordered By: Darnell Kessler on 05-18-2023 Urea nitrogen [Mass/Vol] 22 mg/dL 7-18 [facility] Thin prep Papanicolaou smear with manual screeningOrdered By: Darnell Kessler on 05-18-2023 Thin prep Papanicolaou smear with manual screening 3 5-15 [facility] Absolute lymphocyte countOrd ered By: Luiza Price on 04-21-2023 Lymphocytes Auto (Unsp spec) [#/Vol] 1.52 10*3/uL 0.83-4.51 [facility] Basophil percentageOrdered B y: Luiza Price on 04-21-2023 Basophil percentage 0 SEEN /hpf 0-5 [facility] Basophils/100 WBC (Bld) 1.1 % 0-1 [facility] Bilirubin [Mass/Vol] 0.30 mg/dL 0.20-1.00 [facility] Comment on above: For patients on eltr ombopag therapy, use of Dimension [place] TBIL is not recommended. Chloride [Moles/Vol] 105 mmol/L 98-107 [facility] Eosinophils/100 WBC (Bld) 7.4 % 0-5 [facility] Glucose [Mass/Vol] 110 mg/dL 74-106 [facility] Comment on above: Fasting Glucose resu lt from 100 to 125 mg/dL suggests IMPAIRED HOMEOSTASIS per A.D.A. criteria. Neutrophils (Bld) [#/Vol] 2.2 10*3/uL 2.0-7.7 [facility] Neutrophils/100 WBC (Bld) 45.8 % 47-70 [facility] Potassium [Moles/Vol] 4.2 mmol/L 3.5-5.1 [facility] Protein [Mass/Vol] 7.2 g/dL 6.4-8.2 [facility] Sodium [Moles/Vol] 140 mmol/L 136-145 [facility] WBC (Bld) [#/Vol] 4.8 10*3/uL 4.4-11.0 [facility] Bilirubin Test strip Ql (U)O rdered By: Luiza Price on 04-21-2023 Bilirubin Ql (U) Negative Negative [facility] Blood erythrocytes count (nu mber/volume)Ordered By: Luiza Price on 04-21-2023 RBC (Bld) [#/Vol] 4.62 10*6/uL 4.6-6.2 [facility] Blood hemoglobin measurement (mass/volume)Ordered By: Luiza Price on 04-21-2023 Hemoglobin (Bld) [Mass/Vol] 13.6 g/dL 13.0-16.5 [facility] Blood lymphocytes/100 leukoc ytesOrdered By: Luiza Price on 04-21-2023 Lymphocytes/100 WBC (Bld) 31.9 % 19-41 [facility] Blood monocytes/100 leukocyt esOrdered By: Luiza Price on 04-21-2023 Monocytes/100 WBC (Bld) 13.4 % 0-10 [facility] Blood platelet mean volumeOr dered By: Luiza Price on 04-21-2023 Platelet mean volume (Bld) [Entitic vol] 9.2 fL 6.2-12.0 [facility] Determination of erythrocyte mean corpuscular volume (MCV)Ordered By: Luiza Price on 04-21-2023 MCV (RBC) [Entitic vol] 92.0 fL 80-94 [facility] Direct bilirubinOrdered By: Luiza Price on 04-21-2023 Bilirubin.direct [Mass/Vol] 0.11 mg/dL 0.00-0.30 [facility] Hematocrit Auto (Bld) [Volum e fraction]Ordered By: Luiza Price on 04-21-2023 Hematocrit (Bld) [Volume fraction] 42.5 % 40-54 [facility] Ketones Test strip Ql (U)Ord ered By: Luiza Price on 04-21-2023 Ketones Ql (U) Negative Negative [facility] - Chemistry and C hemistry - challengeOrdered By: Luiza Price on 04-21-2023 ALP [Catalytic activity/Vol] 100 U/L 45-117 [facility] ALT [Catalytic activity/Vol] 18 U/L 16-61 [facility] CO2 [Moles/Vol] 32.0 mmol/L 21.0-32.0 [facility] Globulin (S) [Mass/Vol] 3.8 g/dL 2.2-4.2 [facility] Lipase [Catalytic activity/Vol] 29 U/L 13-75 [facility] Comment on above: Please note:LIPASE r evised reference range effective 22. New Lipase methodology. Expected to produce lower values than the previous assay method. NEW Reference Range: 13 - 75 U/L Urea nitrogen/Creatinine [Mass ratio] 21.6 mg/mg 10-20 [facility] - Hematology and Cell countsOrdered By: Luiza Price on 04-21-2023 Erythrocyte distribution width (RBC) [Entitic vol] 47.0 fL 35.1-43.9 [facility] Erythrocyte distribution width (RBC) [Ratio] 13.8 % 11.6-14.6 [facility] Immature granulocytes/100 WBC (Bld) 0.400 % 0.0-0.9 [facility] Comment on above: IG% - Immature Granu locytes (promyelocytes, myelocytes and metamyelocytes) > 1% indicates that a LEFT SHIFT is Present. MCH (RBC) [Entitic mass] 29.4 pg 27.0-32.0 [facility] Nucleated RBC/100 WBC (Bld) [Ratio] 0.8 % 0-5 [facility] MCHC Auto (RBC) [Mass/Vol]Or dered By: Luiza Price on 04-21-2023 MCHC (RBC) [Mass/Vol] 32.0 g/dL 32-36 [facility] Mucus LM Ql (Urine sed)Order ed By: Luiza Price on 04-21-2023 Mucus Ql (Urine sed) 0 SEEN /hpf [facility] Nitrite Test strip Ql (U)Ord ered By: Luiza Price on 04-21-2023 Nitrite Ql (U) Negative Negative [facility] No Panel InformationOrdered By: Luiza Price on 04-21-2023 Estimated Creatinine Clearance Calc 44.32 ml/min [facility] Estimated GFR (MDRD) Amer 77 mL/min >60 [facility] Comment on above: GFR Calc Estimated GFR (MDRD) Non-Af Amer 64 mL/min >60 [facility] Comment on above: Non- GFR Calc Platelets bldOrdered By: Lauren rPice on 04-21-2023 Platelets (Bld) [#/Vol] 240 10*3/uL 150-450 [facility] Protein Test strip Ql (U)Ord ered By: Luiza Price on 04-21-2023 Protein Ql (U) 15 mg/dl Negative [facility] Serum or plasma albumin bjorn urement (mass/volume)Ordered By: Luiza Price on 04-21-2023 Albumin [Mass/Vol] 3.4 g/dL 3.2-5.0 [facility] Serum or plasma calcium bjorn urement (mass/volume)Ordered By: Luiza Price on 04-21-2023 Calcium [Mass/Vol] 9.4 mg/dL 8.5-10.1 [facility] Serum or plasma creatinine m easurement (mass/volume)Ordered By: Luiza Price on 04-21-2023 Creatinine [Mass/Vol] 1.16 mg/dL 0.70-1.30 [facility] Comment on above: The validity of the calculated GFR & GFRAA in patients over 70 years has not been determined. Clinical correlation is essential. Serum or plasma urea nitroge n measurement (mass/volume)Ordered By: Luiza Price on 04-21-2023 Urea nitrogen [Mass/Vol] 25 mg/dL 7-18 [facility] Squamous epithelial cells de tection in urine sediment by light microscopyOrdered By: Luiza Price on 04-21-2023 Epithelial cells.squamous LM Ql (Urine sed) 0 SEEN /hpf 0-5 [facility] Thin prep Papanicolaou smear with manual screeningOrdered By: Luiza Price on 04-21-2023 Thin prep Papanicolaou smear with manual screening 15 U/L 15-37 [facility] Thin prep Papanicolaou smear with manual screening 3 5-15 [facility] Urine blood detectionOrdered By: Luiza Price on 04-21-2023 RBC Ql (U) Negative Negative [facility] RBC Ql (U) 0 SEEN /hpf 0-5 [facility] Urine clarityOrdered By: Lauren Price on 04-21-2023 Clarity (U) Clear Clear [facility] Urine color determinationOrd ered By: Luiza Price on 04-21-2023 Color (U) Yellow Yellow [facility] Urine glucose detectionOrder ed By: Luiza Price on 04-21-2023 Glucose Ql (U) Normal mg/dl Normal [facility] Urine leukocyte esterase det ection by dipstickOrdered By: Luiza Price on 04-21-2023 Leukocyte esterase Test strip Ql (U) Negative Negative [facility] Urine pHOrdered By: Luiza Price on 04-21-2023 pH (U) 7.0 [pH] 5.0 - 8.0 [facility] Urine sediment bacteria coun t by microscopy (number/high power field)Ordered By: Luiza Price on 04-21-2023 Bacteria LM.HPF (Urine sed) [#/Area] 0 /[HPF] None Seen [facility] Urine specific gravity measu rementOrdered By: Luiza Price on 04-21-2023 Specific gravity (U) [Rel density] 1.010 1.002-1.030 [facility] Urobilinogen Auto test strip Ql (U)Ordered By: Luiza Price on 04-21-2023 Urobilinogen Ql (U) Normal mg/dl Normal [facility] CNOVon 07-16-2020 GISELE Office Visit (KRISS ) JAYJAY PARKS ([id number]) 1940 M Date Time Provider Department 07/16/20 9:30 AM EZRA SOTO During your visit today, we recorded the following information about you: Temperature Pulse Blood pressure Weight 97.3 degrees 82/minute 136/76 81.6 kg Ezra Soto III, MD 07/16/2020 9:41 AM Signed Patient is status post an EGD and colonoscopy completed at [facility] on 07/09/2020. His upper scope showed [...] HC suppositories which can be obtained at [facility]. Referring Provider: MARIELA HOLLOWAY [[id number]] Allergies As of Date: 07/16/2020 (No Known Allergies) Date Reviewed: 07/16/2020 Reviewed by: Brittney Garcia Ma - Fully Assessed Reason for Visit: Follow Up [171] Primary Visit Diagnosis:Anemia, unspecified type [D64.9] Other Visit Diagnosis:Rectal bleeding [K62.5] Prescriptions as of 07/16/2020 Sig: SIMVASTATIN 40 MG TABLET Take 40 mg by mouth once yuliya* ASPIRIN 81 MG TABLET Take 81 mg by mouth once yuliya* METFORMIN 500 MG TABLET Take 1 tablet by mouth once d* GLIPIZIDE 10 MG TABLET Take 1 tablet by mouth twice * * HYZAAR 100 MG-12.5 MG TABLET Take one(1) tablet daily. * ACTOS 15 MG TABLET Take one(1) tablet daily. * ACTOS 30 MG TABLET Take one(1) tablet daily. Problem List As Of Date 07/16/2020 Noted Resolved Diverticulosis [K57.90] 04/13/2013 Anemia [D64.9] 07/09/2020 07/09/2020 Letter Text Encounter Status:Closed by EZRA SOTO MD on 07/16/20 Normal [facility] HISTORY PHYSICALon HISTORY PHYSICAL HNO ID: [id number] Author: Ezra Soto Service: General Surgery Author Type: Physician Type: HANDP Filed: 07/09/2020 7:47 AM Note Text: UPDATED HISTORY AND PHYSICAL EXAMINATION SERVICE DATE: 07/09/2020 SERVICE TIME: 7:47 AM PHYSICAL EXAM MUST BE COMPLETED ON ADMISSION The History and Physical (completed in the past 30 days) has been reviewed and the patient has been examined. The contents accurately reflect the patient's condition with the following additions or revisions since the HANDP was completed. Examination indicates no changes. This HANDP can be found in the Electronic Medical Record dated 06/17/20. SIGNATURE: Ezra Soto III, MD PATIENT NAME: Jayjay Parks DATE: July 09, 2020 TIME: 7:47 AM Normal [facility] NURSING PROGon 07-09-2020 NURSING PROG HNO ID: [id number] Author: Candis Arndt RN Service: ? Author Type: Registered Nurse Type: Nursing Progress Note Filed: 07/09/2020 11:01 AM Note Text: BP stabilized. Pt very alert. Denies any dizziness, pain or nausea. Ready for discharge. Candis Arndt RN Normal [facility] NURSING PROG HNO ID: [id number] Author: Candis Arndt RN Service: ? Author Type: Registered Nurse Type: Nursing Progress Note Filed: 07/09/2020 11:00 AM Note Text: Pt received in PACU. Pt just slightly drowsy, talking and awake. BP low. Dr. Soto notified. Denies pain or nausea. Abd soft and non distended. Passing gas rectally. Candis Arndt RN Normal [facility] NURSING PROG HNO ID: [id number] Author: Candis Arndt RN Service: ? Author Type: Registered Nurse Type: Nursing Progress Note Filed: 07/09/2020 10:39 AM Note Text: [facility] PRE-OP NURSING HAND OFF NOTE SBAR Hand off given to Carolann Murrieta RN. Hand off was communicated verbally and at the patient's bedside and all questions were answered. Candis Arndt RN Normal [facility] SURGICAL PATHOLOGYon 021 SURGICAL PATHOLOGY Specimen originated from [facility] Specimen #: [id number] Submitting Physician: EZRA SOTO ([id number]) FINAL DIAGNOSIS Stomach, antrum, biopsy Gastric oxyntic mucosa with no diagnostic abnormality. - There is no evidence of active Helicobacter pylori infection. Chandler Boswell M.D., PhD ([employer]) SPECIMEN SUBMITTED A: ANTRUM, BIOPSY H/H CLINICAL DATA ANEMIA, HOSP F/U GI BLEED R/O H. PYLORI GROSS DESCRIPTION A. Received in formalin are two pieces of domingo, soft tissue aggregating to 0.5 x 0.3 x 0.2 cm. Totally submitted in one cassette. Gross examination performed at [facility], [address] [place] [address] 07/09/2020 7:12:00 PM Date of Report: 07/10/2020 Date of Procedure: 07/09/2020 Date of Receipt: 07/09/2020 Submitted by: EZRA SOOT ([id number]) [facility] interpretation performed at [place] [address]. CLIA Number: [id number] Normal [facility] CNOVon 06-17-2020 CNOV Office Visit (BRANDYS ) JAYJAY PARKS ([id number]) 1940 M Date Time Provider Department 06/17/20 9:00 AM EZRA SOTO During your visit today, we recorded the following information about you: Temperature Pulse Respiration Blood pressure 97.8 degrees 82/minute 22/minute 124/62 Weight 82.1 kg Ezra Soto III, MD 06/17/2020 9:50 AM Signed HISTORY AND PHYSICAL Jayjay Parks 1940 REFERRING PHYSICIAN: MD Prasanth CHIEF COMPLAINT: [...] been back on his Plavix or aspirin. Jayjay has undergone prior endoscopy. The patient is being seen by me today at the request of MD Prasanth my opinion and advice regarding Rectal bleeding [...] - APPENDECTOMY - COLONOSCOP W/ OR W/O [facility] SPEC 04/28/2007 Colonoscopy - COLONOSCOP W/ OR W/O [facility] SPEC 03/29/13 Current Outpatient Medications Medication Sig - metFORMIN (GLUCOPHAGE) 500 mg tablet Take 1 tablet by mouth once daily. - glipiZIDE 10 mg tablet Take 1 tablet by mouth twice daily before meals. - losartan/hydrochlorothi azide(HYZAAR 100 MG-12.5 MG TAB) Take one(1) tablet [...] entered by the nurse and reviewed by wy Nursing Notes: Job Suresh LPN 06/17/2020 9:43 AM Signed REVIEW [...] The patient denies difficulty swallowing, denies acid r (more content not included)... Normal [facility] Jaz 06-17-2020 [facility] Telephone (GENSWS) JAYJAY PARKS ([id number]) 1940 M Date Time Provider Department 06/17/20 EZRA SOTO During your visit today, we recorded the following information about you: Job Suresh LPN 06/17/2020 9:36 AM Signed [facility] SURGICAL PHONE NOTE Date of Procedure/Surgery: 07/09/2020 [place] Procedure/Surgery Type: EGD COLONOSCOPY ? SEDATION:Conscious Sedation Location of Planned Procedure/Surgery: ? [facility] Surgery/Procedure Ordered: Yes COVID Testing Required: (FOR MAC CASES AND ASC PROCEDURES OTHER THAN COLON AND EGD): No Pre-Op Clearance Needed: No Prep Ordered:No and N/A Prep Instructions given:Yes: Given in the office. Referral Completed:PAVE to complete. Patient Diabetic:Yes: Non-Insulin Dependent Medication Considerations: Any meds that need to be held: No Patient on blood Thinners:No Pacemaker or Defibrillator:No Patient/Family Informed of above information and given directions regarding location/arrival: Yes: Patient Transportation Considerations: No Other Important Information: No Any physical limitations: Yes - uses walking cane for minimal assistance Any cognitive limitations: No Medical Case Manager/Chemicals Fermentation Operator required: No Communication Limitations: No Allergies As of Date: 06/17/2020 (No Known Allergies) Date Reviewed: 06/17/2020 Reviewed by: Job Suresh LPN - Fully Assessed Reason for Visit: Procedure [88] Primary Visit Diagnosis:Anemia, unspecified type [D64.9] Order(s):SURGICAL REQUEST - ELECTIVE (11/2019) [[id number]] Order #: [id number]: 1 Prescriptions as of 06/17/2020 Sig: SIMVASTATIN 40 MG TABLET Take 40 mg by mouth once yuliya* ASPIRIN 81 MG TABLET Take 81 mg by mouth once yuliya* METFORMIN 500 MG TABLET Take 1 tablet by mouth once d* GLIPIZIDE 10 MG TABLET Take 1 tablet by mouth twice * * HYZAAR 100 MG-12.5 MG TABLET Take one(1) tablet daily. * ACTOS 15 MG TABLET Take one(1) tablet daily. * ACTOS 30 MG TABLET Take one(1) tablet daily. Problem List As Of Date 06/17/2020 Noted Resolved Diverticulosis [K57.90] 04/13/2013 Encounter Status:Closed by JOB SURESH LPN on 06/17/20 [facility] 06-17-2020 [facility] Patient:Jayjay Parks MRN: Height:5' 8(1.727 m) Weight:181 lb (82.101 kg) Outpatient Medications as of 07/09/20: simvastatin (ZOCOR) 40 mg tablet Aspirin 81 mg tab metFORMIN (GLUCOPHAGE) 500 mg tablet glipiZIDE 10 mg tablet losartan/hydrochlorothi azide(HYZAAR 100 MG-12.5 MG TAB) pioglitazone hcl(ACTOS 15 MG TAB) pioglitazone hcl(ACTOS 30 MG TAB) Admission/Clinic Administered Medications as of 07/09/20: fentaNYL 50 mcg/mL 25-100 mcg injection (SUBLIMAZE) midazolam 1-5 mg injection (VERSED) diphenhydrAMINE 12.5-50 mg injection (BENADRYL) benzocaine 20% 1 [place] (TOPEX) Problem List: Diverticulosis [K57.90] Allergies: No Known Allergies Date Verified:07/09/20 Lab Values No results within the last 30 days for the following basenames: [facility] Job Suresh LPN 06/17/2020 9:36 AM Signed [facility] SURGICAL PHONE NOTE Date of Procedure/Surgery: 07/09/2020 [place] Procedure/Surgery Type: EGD COLONOSCOPY ? SEDATION:Conscious Sedation Location of Planned Procedure/Surgery: ? [facility] Surgery/Procedure Ordered: Yes COVID Testing Required: (FOR MAC CASES AND ASC PROCEDURES OTHER THAN COLON AND EGD): No Pre-Op Clearance Needed: No Prep Ordered:No and N/A Prep Instructions given:Yes: Given in the office. Referral Completed:PAVE to complete. Patient Diabetic:Yes: Non-Insulin Dependent Medication Considerations: Any meds that need to be held: No Patient on blood Thinners:No Pacemaker or Defibrillator:No Patient/Family Informed of above information and given directions regarding location/arrival: Yes: Patient Transportation Considerations: No Other Important Information: No Any physical limitations: Yes - uses walking cane for minimal assistance Any cognitive limitations: No Medical Case Manager/Chemicals Fermentation Operator required: No Communication Limitations: No Progress Notes ([facility]): Ezra Soto III, MD 06/17/2020 9:50 AM Signed HISTORY AND PHYSICAL Jayjay Parks 1940 REFERRING PHYSICIAN: MD Prasanth CHIEF COMPLAINT: [...] been back on his Plavix or aspirin. Jayjay has undergone prior endoscopy. The patient is being seen by me today at the request of MD Prasanth my opinion and advice regarding Rectal bleeding [...] - APPENDECTOMY - COLONOSCOP W/ OR W/O [facility] SPEC 04/28/2007 Colonoscopy - COLONOSCOP W/ OR W/O [facility] SPEC 03/29/13 Current Outpatient Medications Medication Sig - metFORMIN (GLUCOPHAGE) 500 mg tablet Take 1 tablet by mouth once daily. - glipiZIDE 10 mg tablet Take 1 tablet by mouth twice daily before meals. - losartan/hydrochlorothi azide(HYZAAR 100 MG-12.5 MG TAB) Take one(1) tablet daily. - simvastatin (ZOCOR) 40 mg tablet Take 40 mg by mouth once daily. - Aspirin 81 mg tab Take 81 mg by mouth once daily. - pioglitazone hcl(ACTOS 15 MG TAB) Take one (more content not included)... Normal [facility] Vital Signs Date Time Vital Sign Value Performing Clinician Faci santiagoy 05-18-2023 11:10-0500 Diastolic blood pressure 87 mm[Hg] Dr. Joby Holloway Work Phone: [facility] 05-18-2023 11:10-0500 Heart rate 80 /min Dr. Joby Holloway Work Phone: [facility] 05-18-2023 11:10-0500 Respiratory rate 16 /min Dr. Joby Holloway Work Phone: [facility] 05-18-2023 11:10-0500 SaO2% (BldA) [Mass fraction] 97 % Dr. Joby Holloway Work Phone: [facility] 05-18-2023 11:10-0500 Systolic blood pressure 142 mm[Hg] Dr. Joby Holloway Work Phone: [facility] 05-18-2023 07:58-0500 Body height 172.[address] Joby Holloway Work Phone: [facility] 05-18-2023 07:58-0500 Body mass index (BMI) [Ratio] 28.5 kg/m2 Dr. Joby Holloway Work Phone: [facility] 05-18-2023 07:58-0500 Body temperature 98.1 [degF] Dr. Joby Holloway Work Phone: [facility] 05-18-2023 07:58-0500 Body weight 85.[address] Joby Holloway Work Phone: [facility] 04-21-2023 05:25-0500 Diastolic blood pressure 78 mm[Hg] [facility] 04-21-2023 05:25-0500 Heart rate 66 /min [facility] 04-21-2023 05:25-0500 Respiratory rate 15 /min [facility] 04-21-2023 05:25-0500 SaO2% (BldA) [Mass fraction] 97 % [facility] 04-21-2023 05:25-0500 Systolic blood pressure 119 mm[Hg] [facility] 04-21-2023 01:16-0500 Body height 170.18 cm [facility] 04-21-2023 01:16-0500 Body mass index (BMI) [Ratio] 29.3 kg/m2 [facility] 04-21-2023 01:16-0500 Body temperature 97.1 [degF] [facility] 04-21-2023 01:16-0500 Body weight 85 kg [facility] Encounters Encounter Date Encounter Type Care Provider Facility Start: 11-17-2024 ambulatory Jennifer Velazquez Facility:[facility] Start: 08-31-2024 ambulatory German Irizarry Facility:[facility] Start: 06-22-2024 ambulatory German Irizarry Facility:[facility] Start: 06-06-2024 ambulatory German Irizarry Facility:[facility] Start: 06-06-2024 End: 06-06-2024 ambulatory German Irizarry Facility:[facility] Start: 02-10-2024 End: 02-10-2024 ambulatory Mariela Holloway Facility:[facility] Start: 02-01-2024 End: 02-01-2024 Emergency department patient visit Mariela Holloway Facility:[facility] Start: 01-25-2024 ambulatory Mariela Holloway Faci lity:[facility] Start: 12-30-2023 End: 12-30-2023 ambulatory Mariela Holloway [facility] Start: 11-30-2023 End: 11-30-2023 ambulatory German Irizarry Facility:[facility] Start: 06-08-2023 Non-patient / Non-visit Dr. Joby Holloway Work Phone: [facility] Start: 06-08-2023 End: 06-08-[address] Joby Holloway Work Phone: [facility] Work Phone: Start: 06-08-2023 End: 06-08-[address] Joby Holloway Work Phone: [facility] Work Phone: Start: 06-04-2023 End: 06-04-[address] Joby Holloway Work Phone: [facility] Work Phone: Start: 06-04-2023 End: 06-04-[address] Joby Holloway Work Phone: [facility] Work Phone: Start: 05-18-2023 End: 05-18-2023 Emergency department patient visit Dr. Joby Holloway Work Phone: [facility] Work Phone: Start: 04-21-2023 End: 04-21-2023 Emergency department patient visit [facility] Work Phone: Start: 06-08-2020 End: 06-08-2020 Patient encounter procedure Ezra Soto Work Phone: [facility] Start: 06-08-2020 Results Only Ezra obando Work Phone: General Surgery Procedures Date Procedure Procedure Detail Performing Clinician Start: 06-04-2023 Computed tomography angiography of abdominal and/or pelvic blood vessel Dr. Joby Holloway Work Phone: Start: 05-18-2023 CT of head without contrast Dr. Joby Holloway Work Phone: Start: 04-21-2023 CT of abdomen and pe lvis without contrast Start: 06-08-2020 PT ED PATIENT INFORMATION Ezra Aby Soto Work Phone: H/O: artificial joint S/P knee replacemen t Plan of Treatment Date Care Activity Detail Author Start: 05-18-2023 [facility] Start: 04-21-2023 [facility] Start: 12-19-2019 Influenza vaccination INFLUENZA (#1) [facility] Start: 01-02-2004 ADVANCE DIRECTIVE DISCUSSION ADVANCE DIRECTIVE DISCUSSION [facility] Start: 01-02-2004 PNEUMOVAX AGE 65 AND OVER WITH 5YR LOOKBACK (#1) PNEUMOVAX AGE 65 AND OVER WITH 5YR LOOKBACK (#1) [facility] Start: 1989 SHINGRIX VACCINE (1 of 2) SHINGRIX VACCINE (1 of 2) [facility] Start: 01-02-1984 DIABETES SCREEN DIABETES SCREEN [facility] Start: 1958 Urine microalbumin profile DTAP,TDAP,TD (1 - Tdap) [facility] Patient Education [facility] Work Phone: Patient referral [facility] Work Phone: PT ED PATIENT INFORMATION PT ED PATIENT INFORMATION Other 06/08/2020 [facility] Immunizations Immunization Date Immunization Notes Care Provider Del reza 01-07-2020 Influenza virus vaccine [facility] Payers Date Payer Category Payer Self-pay [id number] 2023 Unknown [id number] 2016 Unknown [employer]H [employer] DICARE SUPPLEMENT [id number] 2016-Present Indemnity [id number] 2003 Medicare MEDICARE MEDICAR E A AND B [id number] 2003-Present [place] [id number] 2003 Medicare [id number] Unknown [id number] 2 Unknown [id number] 2 Unknown [id number] 2 Unknown [id number] 2 Unknown [id number] 2 Unknown [id number] 2 Unknown [id number] 2 Unknown [id number] 2 Unknown [id number] 2 Unknown [id number] 2 Social History Date Type Detail Facility Start: 04-03-2013 [facility] Start: 04-03-2013 Alcohol intake 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 (finding) [facility] Start: 1940 Sex Assigned At [facility] Exposure to SARS-CoV -2 (event) Unable to assess [facility] Start: 04-21-2023 End: 05-18-2023 Tobacco smoking status NHIS Unknown if ever smoked [facility] Start: 01-15-2021 Occasional [facility] Start: 06-05-2020 None [facility] Start: 06-05-2020 Alone [facility] Start: 01-15-2021 Non-smoker [facility] Start: 1940 Sex Assigned At Male [facility] Mental Status Date Assessment Result Facility 05-18-2023 Cognitive function Voice/Name [facility] Work Phone: Progress note 07-16-2020 Note Date & Type Note Facility 07-16-2020 Note HNO ID: [id number] Author: Ezra Soto Service: ? Author Type: Physician Type: Progress Notes Filed: 07/16/2020 9:41 AM Note Text: Patient is status post an EGD and colonoscopy completed at [facility] on 07/09/2020. His upper scope showed [...] HC suppositories which can be obtained at [facility]. [facility] Clinical Note 07-09-2020 Note Date & Type Note Facility 07-09-2020 Note HNO ID: [id number] Author: Candis HandRn) АНДРЕЙ Arndt Service: ? Author Type: Registered Nurse Type: Nursing Progress Note Filed: 07/09/2020 8:59 AM Note Text: Dr. Soto notified of pt's continued BP. No orders received. Candis Arndt RN [facility] Progress note 06-17-2020 Note Date & Type Note Facility 06-17-2020 Note HNO ID: [id number] Author: Ezra Soto Service: ? Author Type: Physician Type: Progress Notes Filed: 06/17/2020 9:50 AM Note Text: HISTORY AND PHYSICAL Jayjay Parks 1940 REFERRING PHYSICIAN: MD Prasanth CHIEF COMPLAINT: [...] been back on his Plavix or aspirin. Jayjay has undergone prior endoscopy. The patient is being seen by me today at the request of MD Prasanth my opinion and advice regarding Rectal bleeding [...] - APPENDECTOMY - COLONOSCOP W/ OR W/O [facility] SPEC 04/28/2007 Colonoscopy - COLONOSCOP W/ OR W/O [facility] SPEC 03/29/13 Current Outpatient Medications Medication [...] entered by the nurse and reviewed by wy Nursing Notes: Job Suresh LPN 06/17/2020 9:43 AM Signed REVIEW [...] Kidney/Usman (more content not included)... [facility] Evaluation note Note Date & Type Note Facility Evaluation note No assessment information availa [facility] Work Phone: Summary Purpose Family History No Family History Records Found Relationship Condition Age at Onset Recorded Date/T leo father Cerebrovascular accident (CVA) Unknown mother Cardiac disease Unknown brother Cerebrovascular accident (CVA) Unknown Malignant neoplasm of pancreas Unknown Advance Directives No Advanced Directives Records Found Advance Directive Response Recorded Date/ Time Living Will No April 21 1:20am Power of Beer Runner Yes April 21 024 1:20am Name of Medical Power of Beer Runner KEILA PARKS April 21, 2023 1:20am Advance Directive Response Recorded Date/ Time Name of Medical Power of Beer Runner KEILA PARKS April 21, 2023 1:20am Name of Medical Power of Beer Runner segundo sandoval and andrez parks May 18, 2023 8:17am Living Will Yes May 18 8:17am Power of Beer Runner Yes May 18, 2023 8:17am Chief Complaint and Reason for Visit Chief Complaint flank pain Chief Complaint flank pain DIZZINESS AAA 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 Additional Source Comments Source Comments (unrecognize d section and content) In the event this informatio n is protected by the Federal Confidentiality of Alcohol and Drug Abuse Patient Records regulations: The Federal rules restrict any use of the information to criminally investigate or prosecute any alcohol or drug abuse patient.[facility] (unrecognized sect ion and content) No Status Records FoundNo Status Records Found INFORMATION SOURCE (unrecogn ized section and content) DATE CREATED AUTHOR 05/17/2021 [facility] DATE CREATED AUTHOR AUTHOR'S ORGANIZ ATION 11/12/2024 [facility] Care Teams (unrecognized sec tion and content) Team Status: Active Member Role Status Dates Dr. Joby Holloway MD Family Provider Active Dr. Joby Holloway MD Primary Care Provider Activ e Team Status: Inactive Member Role Status Dates Dr. Joby Holloway MD Primary Care Provider Activ e Dr. Luiza Price MD Emergency Provider Active Team Status: Active Member Role Status Dates Dr. Joby Holloway MD Primary Care Provider Activ e Dr. Subhash Cueva MD Attending Provider Active Team Status: Inactive Member Role Status Dates Dr. Joby Holloway MD Primary Care Provider Activ e Dr. Luiza Price MD Attending Provider, Emergency Provider Active Team Status: Inactive Member Role Status Dates Dr. Joby Holloway MD Primary Care Provider Activ e Dr. Subhash Cueva MD Attending Provider, Referring Provider Active Team Status: Inactive Member Role Status Dates Dr. Joby Holloway MD Primary Care Provider Activ e Dr. Darnell Kessler MD Attending Provider, Emergency Provider Active Team Status: Active Member Role Status Dates Dr. Joby Holloway MD Primary Care Provider Activ e Dr. Subhash Cueva MD Attending Provider, Referring Provider Active Goals (unrecognized section and content) Goals may be documented in a n alternate sectionGoals may be documented in an alternate sectionGoals may be documented in an alternate section FOR RECORDS PERTAINING TO PATIENTS WHO ARE [...] BE BASED ON THE PRIMARY CLINICAL RECORDS. [facility]. provides no warranty or guarantee of the accuracy or completeness of information in this document.
== END | disposition home or self-care (01) ==
LOC: CVS 07:16
PROVIDERS: PCP Family Medicine; Referring Provider Physician Assistant; Visit Provider Physician Assistant
DX: I71.43 Infrarenal abdominal aortic aneurysm, without rupture (principal)
CPT/HCPCS: 93978

== ENCOUNTER → 2024-11-27 | Outpatient (CLI) | payer MEDICARE, BC, SELFPAY ==
--- NOTE | 2024-11-27 09:32 | CDU_ITS ---
Reason For Study Reason For Study: Carotid Stenosis Rt. Velocities/BP Lt. Velocities/BP Prox CCA 57.0/6.9 cm/sec. Prox CCA 70.2/21.1 cm/sec. Mid CCA 60.7/6.0 cm/sec. Mid CCA 89.4/26.7 cm/sec. Dist CCA 60.7/6.0 cm/sec. Dist CCA 85.0/26.7 cm/sec. Rt ICA Occluded. Prox ICA 108.2/29.2 cm/sec. Prox ECA 121.1/11.5 cm/sec. Mid ICA 134.6/44.6 cm/sec. Rt. Vert. 33.7/8.0 cm/sec. Dist ICA 74.5/28.2 cm/sec. Lt. ICA/CCA = 1.5. Prox ECA 156.5/20.4 cm/sec. Lt. Vert. 38.4/10.2 cm/sec. Right Extracranial There is homogeneous, smooth atherosclerotic plaque noted in the right common carotid artery. The right internal carotid artery is occluded. There is heterogeneous, irregular atherosclerotic plaque noted in the right external carotid artery. Antegrade flow is noted in the right vertebral artery. Left Extracranial There is heterogeneous, irregular atherosclerotic plaque noted in the left common carotid artery. There is heterogeneous, irregular atherosclerotic plaque noted in the left internal carotid artery. The atherosclerotic plaque causes acoustic shadowing. There is heterogeneous, irregular atherosclerotic plaque noted in the left external carotid artery. Antegrade flow is noted in the left vertebral artery. Procedure Carotid Duplex 39307. This is a Carotid Duplex examination using B-mode, color flow and specral Doppler. Exam performed in department. VL/Carotid Duplex Ultrasound Interpretation Summary Occlusion of the right extracranial internal carotid. Moderate (50-69%) stenosis left extracranial internal carotid. Limited due to c alcific shadowing, alternative imaging may be beneficial. Patent and antegrade vertebrals bilaterally. Ordering Physician: German Irizarry Referring Physician: Cortez Holloway MD Performed By: Norah Staton RVT
--- NOTE | 2024-11-27 09:32 | CDU_ITS ---
Reason For Study Reason For Study: Carotid Stenosis Rt. Velocities/BP Lt. Velocities/BP Prox CCA 57.0/6.9 cm/sec. Prox CCA 70.2/21.1 cm/sec. Mid CCA 60.7/6.0 cm/sec. Mid CCA 89.4/26.7 cm/sec. Dist CCA 60.7/6.0 cm/sec. Dist CCA 85.0/26.7 cm/sec. Rt ICA Occluded. Prox ICA 108.2/29.2 cm/sec. Prox ECA 121.1/11.5 cm/sec. Mid ICA 134.6/44.6 cm/sec. Rt. Vert. 33.7/8.0 cm/sec. Dist ICA 74.5/28.2 cm/sec. Lt. ICA/CCA = 1.5. Prox ECA 156.5/20.4 cm/sec. Lt. Vert. 38.4/10.2 cm/sec. Right Extracranial There is homogeneous, smooth atherosclerotic plaque noted in the right common carotid artery. The right internal carotid artery is occluded. There is heterogeneous, irregular atherosclerotic plaque noted in the right external carotid artery. Antegrade flow is noted in the right vertebral artery. Left Extracranial There is heterogeneous, irregular atherosclerotic plaque noted in the left common carotid artery. There is heterogeneous, irregular atherosclerotic plaque noted in the left internal carotid artery. The atherosclerotic plaque causes acoustic shadowing. There is heterogeneous, irregular atherosclerotic plaque noted in the left external carotid artery. Antegrade flow is noted in the left vertebral artery. Procedure Carotid Duplex [id number]. This is a Carotid Duplex examination using B-mode, color flow and specral Doppler. Exam performed in department. VL/Carotid Duplex Ultrasound Interpretation Summary Occlusion of the right extracranial internal carotid. Moderate (50-69%) stenosis left extracranial internal carotid. Limited due to c alcific shadowing, alternative imaging may be beneficial. Patent and antegrade vertebrals bilaterally. Ordering Physician: German Irizarry Referring Physician: Cortez Holloway MD Performed By: Norah Staton RVT
--- OUTSIDE RECORDS SUMMARY | 2024-11-27 09:56 | XMS RPT_ITS | CCD ---
Author Organization [facility] Care Team Providers Care Cell Repairer Name Role Phone Mariela Holloway Primary Care Provider Dr. Joby Holloway Primary Care Provider Dr. Subhash Cueva Attending Provider Dr. Mariela Holloway MD Primary Care Provider Jennifer Larkin Attending Provider Jennifer Larkin Referring Provider Dr. German Irizarry MD Attending Provider Ranney, Christopher Primary Care Unavailable Edie, German Attending Unavailable Idanha, German Referring Unavailable Velazquez, Jennifer Attending Unavailable Velazquez, Jennifer Referring Unavailable Ranney, Christopher Primary Care Unavailable Idanha, German Attending Unavailable Ranney, Christopher Primary Care Unavailable Edie, German Referring Unavailable Ranney, Christopher Attending Unavailable Ranney, Christopher Referring Unavailable Ranney, Christopher Primary Care Unavailable Ranney, Christopher Primary Care Unavailable Ruben Cunningham Attending Unavailable Ranney, Christopher Primary Care Unavailable Edie, German Attending Unavailable Ranney, Christopher Referring Unavailable Ranney, Christopher Primary Care Unavailable Edie, German Attending Unavailable Ranney, Christopher Primary Care Unavailable Idanha, German Attending Unavailable Edie, German Attending Unavailable Ranney, Christopher Primary Care Unavailable Idanha, German Referring Unavailable Edie, German Attending Unavailable Ranney, Christopher Referring Unavailable Ranney, Christopher Primary Care Unavailable Ranney, Christopher Primary Care Unavailable Ranney, Christopher Referring Unavailable Idanha, German Attending Unavailable Ranney, Christopher Primary Care Unavailable Edie, German Referring Unavailable Idanha, German Attending Unavailable Medications Current Medications Medication Drug Class(es) Dates Sig (Normalized) Sig (Original) acetaminophen 325 mg / oxyCODONE hydrochloride 5 mg oral tablet (1 source) Opioid Agonist Start: 02-01-2024 take 1 tablet by mouth every six hours as needed for pain Oxycodone-Acetami nophen (Percocet) 5-325 mg tablet Active 1 {tbl} PO EVERY 6 HOURS as needed for pain 12 3 0 February 01, 2024 Gout Gout, unspecified colchicine 0.6 mg oral capsule (1 source) Start: 02-01-2024 take 1 capsule by mouth twice daily Colchicine 0.6 mg capsule Active 0.6 mg PO TWICE A DAY 14 7 0 February 01, 2024 12:00am ibuprofen 200 mg oral tablet (1 source) Nonsteroidal Anti-inflammatory Drug Start: 02-01-2024 take 1 tablet by mouth every six hours Ibuprofen (Advil) 200 mg tablet Active 200 mg PO EVERY 6 HOURS February 01, 2024 12:00am 24 hr metFORMIN hydrochloride 750 mg extended release oral tablet (5 sources) Biguanide Start: 05-21-2017 take 1 tablet by mouth twice daily Metformin 750 mg tablet extended release 24 hr Active 750 mg PO TWICE A DAY May 21, 2017 1:00am Start: 12-28-2012 take 1 tablet by manuel th once daily metFORMIN (GLUCOPHAGE) 500 mg tablet Take 1 tablet by mouth once daily. 0 12/28/2012 Active Comment on above: Take 1 tablet by manuel th once daily. psyllium 520 mg oral capsule (4 sources) Start: 8 Psyllium Husk (Daily Fiber) 0.52 gram capsule Active 0.52 g PO DAILY May 21, 2017 1:00am simvastatin 40 mg oral tablet (4 sources) HMG-CoA Reductase Inhibitor Start: 8 take 1 tablet by mouth once daily in the morning Simvastatin 40 mg tablet Active 40 mg PO EVERY MORNING May 21, 2017 1:00am Completed/Discontinued Medications Medication Drug Class(es) Dates Sig (Normalized) Sig (Original) acetaminophen 325 mg / HYDROcodone bitartrate 5 mg oral tablet (4 sources) Opioid Agonist Start: 04-21-2023 End: 05-18-2023 Hydrocodone-Acetami nophen 5-325 mg tablet Discontinued 1 {tbl} PO EVERY 6 HOURS NEEDED as needed for Pain 10 3 0 April 21, 2023 May 18, 2023 9:31am Back pain Dorsalgia, unspecified Start: 04-21-2023 End: 05-18-2023 take 1 tablet by mouth every six hours as needed Hydrocodone-Acetaminophen Discontinued 1 TABLET PO EVERY 6 HOURS NEEDED 10 3 April 21, 2023 May 18, 2023 8:31am aspirin 81 mg delayed release oral tablet (2 sources) Platelet Aggregation Inhibitor, Nonsteroidal Anti-inflammatory Drug Start: 12-30-2023 End: 02-01-2024 take 1 tablet by mouth once daily Aspirin 81 mg tablet,delayed release (DR/EC) Discontinued 81 mg PO daily December 30, 2023 12:00am February 01, 2024 8:49pm take 1 tablet by mouth once yuliya y Aspirin 81 mg tab Take 81 mg by mouth once daily. 0 Active Comment on above: Take 81 mg by mouth once daily. clopidogrel 75 mg oral tablet (4 sources) P2Y12 Platelet Inhibitor Start: 05-21-19 End: 06-06-19 take 1 tablet by mouth once Clopidogrel (Plavix) 75 mg tablet Discontinued 75 mg PO ONCE May 21, 2017 1:00am June 06, 2020 5:28pm diazePAM 5 mg oral tablet (3 sources) Benzodiazepine Start: 05-18-19 End: 07-28-19 24 take 2.5-5 mg by mouth twice daily as needed for dizziness Diazepam 5 mg tablet Discontinued 2.5 - 5 mg PO TWICE A DAY as needed for dizziness or vertigo 10 0 May 18, 2023 1:00am July 28, 2023 3:39pm glipiZIDE er 10 mg 24 hr extended release oral tablet (5 sources) Sulfonylurea Start: 05-21-19 18 End: 12-30-19 24 take 1 tablet by mouth once daily Glipizide 10 mg tablet extended release 24 hr Discontinued 10 mg PO daily May 21, 2017 1:00am December 30, 2023 1:08pm Start: 12-28-2012 take 1 tablet by manuel th twice daily before mealtime glipiZIDE 10 mg tablet Take 1 tablet by mouth twice daily before meals. 0 12/28/2012 Active Comment on above: Take 1 tablet by manuel th twice daily before meals. hydroCHLOROthiazide 12.5 mg / losartan potassium 50 mg oral tablet (5 sources) Thiazide Diuretic, Angiotensin 2 Receptor Rupesh Start: 05-21-2017 End: 12-30-2023 Losartan-Hydrochloroth iazide (Hyzaar) 50-12.5 mg tablet Discontinued 1 {tbl} PO daily May 21, 2017 1:00am December 30, 2023 1:09pm Start: 03-16-2007 losartan/hydro chlorothiazide(HYZAAR 100 MG-12.5 MG TAB) Take one(1) tablet daily. 0 03/16/2007 Active Comment on above: Take one(1) tablet d aily. meclizine hydrochloride 25 mg oral tablet (3 sources) Antiemetic Start: End: take 1 tablet by mouth every eight hours as needed for dizziness Meclizine 25 mg tablet Discontinued 25 mg PO EVERY 8 HOURS NEEDED as needed for Dizziness 30 0 May 18, 2023 11:46am December 30, 2023 1:09pm Episodic peripheral vertigo Other peripheral vertigo, unspecified ear pioglitazone 45 mg oral tablet (6 sources) Peroxisome Proliferator Receptor alpha Agonist, Peroxisome Proliferator Receptor gamma Agonist, Thiazolidinedione Start: End: take 1 tablet by mouth once daily Pioglitazone 45 mg tablet Discontinued 45 mg PO DAILY April 21, 2023 1:00am July 28, 2023 3:40pm Start: 03-16-2007 pioglitazone h cl(ACTOS 30 MG TAB) Take one(1) tablet daily. 0 03/16/2007 Active Start: 03-16-2007 pioglitazone h cl(ACTOS 15 MG TAB) Take one(1) tablet daily. 0 03/16/2007 Active Comment on above: Take one(1) tablet d aily. Problems Active Problems Problem Classification Problem Date Documented Da te Episodic/Chronic Abdominal pain (4 sources) Abdominal discomfort; Translations: [Generalized abdominal pain] 05-21-2017 Episodic Acute posthemorrhagic anemia (4 sources) Acute posthemorrhagic anemia; Translations: [Acute posthemorrhagic anemia] 06-05-2020 Episodic Aortic; peripheral; and visceral artery aneurysms (10 sources) Abdominal aortic aneurysm; Translations: [Abdominal aortic aneurysm (AAA) greater than 39 mm in diameter] Onset: 06-18-2024 06-05-2020 Chronic Comment on above: CTA-images reviewed, now 5.7 cm infrarenal abdominal aortic aneurysm with sufficient infrarenal neck for possible endovascular treatment. 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 Aneurysmal disease extends into the iliac artery and down to the iliac bifurcation. Significantly tortuous iliac arteries bilaterally with mild to moderate atherosclerosis but no significant stenosis Conditions associated with dizziness or vertigo (3 sources) Peripheral vertigo; Translations: [Other peripheral vertigo, unspecified ear] 05-26-2023 Episodic Diabetes mellitus with complications (4 sources) Type II diabetes mellitus uncontrolled; Translations: [Uncontrolled type II diabetes mellitus] 06-05-2020 Chronic Diabetes mellitus without complication (1 source) Type 2 diabetes mellitus; Translations: [Type 2 diabetes mellitus without complications] 02-09-2024 Chronic Diverticulosis and diverticulitis (1 source) Diverticular disease; Translations: [Diverticulosis] Onset: 04-13-2013 04-13-2013 Chronic Essential hypertension (3 sources) Elevated blood pressure; Translations: [Essential (primary) hypertension] 05-26-2023 Chronic Gastrointestinal hemorrhage (8 sources) Rectal hemorrhage; Translations: [Hemorrhage of anus and rectum] 06-06-2020 Episodic Gout and other crystal arthropathies (1 source) Gout; Translations: [Gout, unspecified] 02-09-2024 Chronic Occlusion or stenosis of precerebral arteries (5 sources) Bilateral stenosis of carotid arteries; Translations: [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es] Onset: 11-23-2024 06-05-2020 Chronic Osteoarthritis (4 sources) Arthritis; Translations: [Unspecified osteoarthritis, unspecified site] 06-05-2020 Chronic Other connective tissue disease (4 sources) History of total knee arthroplasty; Translations: [Presence of unspecified artificial knee joint] 06-05-2020 Chronic Comment on above: Left knee 1988 Other gastrointestinal disorders (4 sources) History of diverticulitis; Translations: [Personal history of other diseases of the digestive system] 05-21-2017 Episodic Residual codes; unclassified (3 sources) Bilateral lower limb edema; Translations: [Localized edema] 05-26-2023 Episodic Spondylosis; intervertebral disc disorders; other back problems (4 sources) Degeneration of cervical intervertebral disc; Translations: [Other cervical disc degeneration, unspecified cervical region] 06-05-2020 Chronic Spondylosis; intervertebral disc disorders; other back problems (8 sources) Low back pain; Translations: [Low back pain] 06-05-2020 Episodic Unclassified (1 source) Infrarenal abdominal aortic aneurysm, without rupture; Translations: [Infrarenal abdominal aortic aneurysm, without rupture] Onset: 11-23-2024 Unclassified (1 source) Abdominal aortic aneurysm, without [...] Test Name Value Interpretation Reference Range Facility Abdominal aortic duplex scan reportOrdered By: German Irizarry on 11-20-2024 US.doppler Thoracic and abdominal aorta [facility] [address] [place] [id number] Abd Aortic/IVC Duplex scan 11/17/24 0808 MR#: [id number] Acct: [id number] Name: JAYJAY PARKS Rep #:[id number] : 1940 84 From: German Taylor Attending Dr: ERNESTO Loera Stat us: REG CLI Ordering Dr: Jennifer Velazquez Date: Location: [facility] Sex: M C Admitted: Reason For Study Reason For Study: AAA Aorta Measurements Aorta Doppler Measurements Proximal aorta measures2.19 x 2.23cm. in cross-sectional Peak systolic flow velocities within the proximal aorta axis. measure 39.5 cm/sec. Proximal aorta measures2.36cm. in longitudinal axis. Peak systolic flow velocities within the mid aorta measure Mid aorta measures3.67 x 3.54cm. in cross-sectional axis. 55.5 cm/sec. Mid aorta measures3.67cm. in longitudinal axis. Peak systolic flow velocities within the distal aorta Distal aorta measures5.71 x 5.64cm. in cross-sectional axis.measure 15.9 cm/sec. Distal aorta measures5.56cm. in longitudinal axis. 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 Left Iliac Artery Left iliac artery measures 1.26 x 1.28 cm. in the cross-sectional axis. Left iliac artery measures 1.42 cm. in the longitudinal axis. Peak systolic velocity in the left iliac artery measures 144.7 cm/sec. Right Iliac Artery Right iliac artery measures 2.29 x 2.46 cm. in the cross-sectional axis. Right iliac artery measures 2.20 cm. in the longitudinal axis. Peak systolic velocity in the right iliac artery measures 125.4 cm/sec. VL/Abd Aortic/IVC Duplex scan Interpretation Summary Aorta patent, 5.71 cm aneurysm present. Right iliac artery patent, 2.46 cm aneurysm present Left iliac artery patent, ectasia to 1.28 cm Ordering Physician: Jennifer Velazquez Referring Physician: Mariela Holloway Performed By: Celestino Avendano, T 11/20/24943 Date _ German Irizarry MD CC: ERNESTO Loera; Dr. Mariela Holloway MD ~ Date Dictated: 11/17/24807 Date Transcribed: 11/20/24943 Weaver Apprentice: Signed [facility] Work Phone: Abd Aortic/IVC Duplex scanon 11-17-2024 Abd Aortic/IVC Duplex scan [facility] [place] [address] [address] Abd Aortic/IVC Duplex scan 11/17/24807 MR#: [id number] Acct: [id number] Name: JAYJAY PARKS Rep #: [id number] : 1940 84 From: German Irizarry MD Attending Dr: ERNESTO Loera Status: REG CLI Ordering Dr: Jennifer Velazquez Date: 11/17/24 Location: [facility] Sex: M C Admitted: Reason For Study Reason For Study: AAA Aorta Measurements Aorta Doppler Measurements Proximal aorta measures2.19 x 2.23cm. in cross-sectional Peak systolic flow velocities within the proximal aorta axis. measure 39.5 cm/sec. Proximal aorta measures2.36cm. in longitudinal axis. Peak systolic flow velocities within the mid aorta measure Mid aorta measures3.67 x 3.54cm. in cross-sectional axis. 55.5 cm/sec. Mid aorta measures3.67cm. in longitudinal axis. Peak systolic flow velocities within the distal aorta Distal aorta measures5.71 x 5.64cm. in cross-sectional axis.measure 15.9 cm/sec. Distal aorta measures5.56cm. in longitudinal axis. 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 Left Iliac Artery Left iliac artery measures 1.26 x 1.28 cm. in the cross-sectional axis. Left iliac artery measures 1.42 cm. in the longitudinal axis. Peak systolic velocity in the left iliac artery measures 144.7 cm/sec. Right Iliac Artery Right iliac artery measures 2.29 x 2.46 cm. in the cross-sectional axis. Right iliac artery measures 2.20 cm. in the longitudinal axis. Peak systolic velocity in the right iliac artery measures 125.4 cm/sec. VL/Abd Aortic/IVC Duplex scan Interpretation Summary Aorta patent, 5.71 cm aneurysm present. Right iliac artery patent, 2.46 cm aneurysm present Left iliac artery patent, ectasia to 1.28 cm Ordering Physician: Jennifer Velazquez Referring Physician: Mariela Holloway Performed By: Celestino Avendano, RVT 11/20/24943 Date German Irizarry MD CC: ERNESTO Loera; Dr. Mariela Holloway MD Date Dictated: 11/17/24807 Date Transcribed: 11/20/24943 Weaver Apprentice: Signed Normal [facility] Abd Aortic/IVC Duplex scanon 06-06-2024 Abd Aortic/IVC Duplex scan [facility] [address] [place] [address] Abd Aortic/IVC Duplex scan 06/06/24901 MR#: [id number] Acct: [id number] Name: JAYJAY PARKS Rep #: [id number] : 1940 84 From: German Irizarry MD Attending Dr: Dr. German Irizarry MD Status: [facility] Ordering Dr: German Irizarry MD Date: 06/06/24 Location: [facility] Sex: M C Admitted: Reason For Study [...] Aorta IVC Iliac vasculature or bypass grafts [address]44[address]. Preliminary report given to Erin MAHER. Exam performed in department. VL/Abd Aortic/IVC Duplex scan Interpretation Summary Aorta patent, 5.28 cm aneurysm Right iliac artery patent, 2.19 cm aneurysm present Left iliac artery patent, normal caliber Ordering Physician: German Irizarry Referring Physician: Mariela Holloway MD Performed By: Milly Sullivan RVT 10/30/24 1223 Date German Irizarry MD CC: Dr. Mariela Holloway MD; Dr. German Irizarry MD Date Dictated: 06/06/24 0902 Date Transcribed: 06/06/24 1707 Weaver Apprentice: Signed Normal [facility] ANTINUCLEAR ANTIBODIES DIRE Ton 02-14-2024 DALI,DIRECT Negative Normal Negative [facility] Comment on above: Order Comment: Order Date: 02/10/24Order Info: [id number] - DALI Result Comment: Perf ormed at: - [facility] [address] [id number] Segment Assembler: Khoa Reyes PhD, Phone: [phone] Performed By: #### L 501.5113, L100.0100, L554.5492, L3100.0791, L101.9900, L500.2500 ####[facility] [id number] [place], [address] Basic Metabolic Profile (BMP )on 02-10-2024 BUN/CRE 21.3 RATIO High 10-20 [facility] Comment on above: Order Comment: Order Date: 02/10/24 Order Info: 666-04 - BMP Order Info: 3083-04 - URIC Order Info: [id number] - CRP Performed By: #### L 501.1400, L100.0100, L501.6710, L3100.5475, L101.9900, L500.2500 #### [facility] Laboratory [address] [place], [address] CA,Total 9.2 mg/dL Normal 8.5-10.1 [facility] Comment on above: Order Comment: Order Date: 02/10/24 Order Info: 666-04 - BMP Order Info: 3083-04 - URIC Order Info: [id number] - CRP Performed By: #### L 501.1400, L100.0100, L501.6710, L3100.5475, L101.9900, L500.2500 #### [facility] Laboratory [address] [place], [address] Chloride [Moles/Vol] 102 mmol/L Normal 98-107 [facility] Comment on above: Order Comment: Order Date: 02/10/24 Order Info: 666-04 - BMP Order Info: 3083-04 - URIC Order Info: [id number] - CRP Performed By: #### L 501.1400, L100.0100, L501.6710, L3100.5475, L101.9900, L500.2500 #### [facility] Laboratory [address] [place], [address] CO2 [Moles/Vol] 27.0 mmol/L Normal 21.0-32.0 [facility] Comment on above: Order Comment: Order Date: 02/10/24 Order Info: 666-04 - BMP Order Info: 3083-04 - URIC Order Info: [id number] - CRP Performed By: #### L 501.1400, L100.0100, L501.6710, L3100.5475, L101.9900, L500.2500 #### [facility] Laboratory [address] [place], [address] Creatinine [Mass/Vol] 1.36 mg/dL High 0.70-1.30 [facility] Comment on above: Order Comment: Order Date: 02/10/24 Order Info: 666-04 - BMP Order Info: 3083-04 - URIC Order Info: [id number] - CRP Result Comment: The validity of the calculated GFR GFRAA in patients over 70 years has not been determined. Clinical correlation is essential. Performed By: #### L 501.1400, L100.0100, L501.6710, L3100.5475, L101.9900, L500.2500 #### [facility] Laboratory [address] [place], [address] EST GFR - AA 64 mL/min Normal >60 [facility] Comment on above: Order Comment: Order Date: 02/10/24 Order Info: 666-04 - BMP Order Info: 3083-04 - URIC Order Info: [id number] - CRP Result Comment: Afri can Dominican GFR Calc Performed By: #### L 501.1400, L100.0100, L501.6710, L3100.5475, L101.9900, L500.2500 #### [facility] Laboratory [address] [place], [address] GAP 6 Normal 5-15 [facility] Comment on above: Order Comment: Order Date: 02/10/24 Order Info: 666-04 - BMP Order Info: 3083-04 - URIC Order Info: [id number] - CRP Performed By: #### L 501.1400, L100.0100, L501.6710, L3100.5475, L101.9900, L500.2500 #### [facility] Laboratory [address] [place], [address] GFR/1.73 sq M.predicted among non-blacks MDRD (S/P/Bld) [Vol rate/Area] 53 mL/min/{1.73_m2} Low >60 [facility] Comment on above: Order Comment: Order Date: 02/10/24 Order Info: 666-04 - BMP Order Info: 3083-04 - URIC Order Info: [id number] - CRP Result Comment: Non- GFR Calc Performed By: #### L 501.1400, L100.0100, L501.6710, L3100.5475, L101.9900, L500.2500 #### [facility] Laboratory [address] [place], [address] Glucose [Mass/Vol] 169 mg/dL High 74-106 [facility] Comment on above: Order Comment: Order Date: 02/10/24 Order Info: 666-04 - BMP Order Info: 3083-04 - URIC Order Info: [id number] - CRP Result Comment: Fast ing Glucose result greater than or equal to 126 mg/dL suggests DIABETES MELLITUS per A.D.A. criteria. Performed By: #### L 501.1400, L100.0100, L501.6710, L3100.5475, L101.9900, L500.2500 #### [facility] Laboratory [address] [place], [address] Potassium [Moles/Vol] 4.2 mmol/L Normal 3.5-5.1 [facility] Comment on above: Order Comment: Order Date: 02/10/24 Order Info: 666-04 - BMP Order Info: 3083-04 - URIC Order Info: [id number] - CRP Performed By: #### L 501.1400, L100.0100, L501.6710, L3100.5475, L101.9900, L500.2500 #### [facility] Laboratory [address] [place], [address] Sodium [Moles/Vol] 134 mmol/L Low 136-145 [facility] Comment on above: Order Comment: Order Date: 02/10/24 Order Info: 666-04 - BMP Order Info: 3084-1 - URIC Order Info: [id number] - CRP Performed By: #### L 501.1400, L100.0100, L501.6710, L3100.5475, L101.9900, L500.2500 #### [facility] Laboratory [address] [place], [address] Urea nitrogen [Mass/Vol] 29 mg/dL High 7-18 [facility] Comment on above: Order Comment: Order Date: 02/10/24 Order Info: [id number] - BMP Order Info: 3084-1 - URIC Order Info: [id number] - CRP Performed By: #### L 501.1400, L100.0100, L501.6710, L3100.5475, L101.9900, L500.2500 #### [facility] Laboratory [address] [place], [address] CBC W/Diff, Automatedon 10- Absolute Lymph 1.26 X10 3/uL Normal 0.83-4.51 [facility] Comment on above: Order Comment: Order Date: 02/10/24 Order Info: [id number] - CBCD Order Info: [id number] - SED Performed By: #### L 501.1400, L100.0100, L501.6710, L3100.5475, L101.9900, L500.2500 #### [facility] Laboratory [address] [place], [address] Absolute Neut 5.7 X10 3/uL Normal 2.0-7.7 [facility] Comment on above: Order Comment: Order Date: 02/10/24 Order Info: [id number] - CBCD Order Info: [id number] - SED Performed By: #### L 501.1400, L100.0100, L501.6710, L3100.5475, L101.9900, L500.2500 #### [facility] Laboratory [address] [place], [address] Basophils/100 WBC (Bld) 0.9 % Normal 0-1 [facility] Comment on above: Order Comment: Order Date: 02/10/24 Order Info: [id number] - CBCD Order Info: [id number] - SED Performed By: #### L 501.1400, L100.0100, L501.6710, L3100.5475, L101.9900, L500.2500 #### [facility] Laboratory [address] [place], [address] Eosinophils/100 WBC (Bld) 2.6 % Normal 0-5 [facility] Comment on above: Order Comment: Order Date: 02/10/24 Order Info: 018- - CBCD Order Info: [id number] - SED Performed By: #### L 501.1400, L100.0100, L501.6710, L3100.5475, L101.9900, L500.2500 #### [facility] Laboratory [address] [place], [address] Erythrocyte distribution width (RBC) [Ratio] 12.5 % Normal 11.6-14.6 [facility] Comment on above: Order Comment: Order Date: 02/10/24 Order Info: [id number] - CBCD Order Info: [id number] - SED Performed By: #### L 501.1400, L100.0100, L501.6710, L3100.5475, L101.9900, L500.2500 #### [facility] Laboratory [address] [place], [address] Hematocrit (Bld) [Volume fraction] 39.5 % Low 40-54 [facility] Comment on above: Order Comment: Order Date: 02/10/24 Order Info: [id number]- - CBCD Order Info: [id number] - SED Performed By: #### L 501.1400, L100.0100, L501.6710, L3100.5475, L101.9900, L500.2500 #### [facility] Laboratory [address] [place], [address] Hemoglobin (Bld) [Mass/Vol] 12.8 g/dL Low 13.0-16.5 [facility] Comment on above: Order Comment: Order Date: 02/10/24 Order Info: [id number] - CBCD Order Info: - SED Performed By: #### L 501.1400, L100.0100, L501.6710, L3100.5475, L101.9900, L500.2500 #### [facility] Laboratory [address] [place], [address] IG% 1.100 High 0.0-0.9 [facility] Comment on above: Order Comment: Order Date: 02/10/24 Order Info: 183-04 - CBCD Order Info: - SED Result Comment: IG% - Immature Granulocytes (promyelocytes, myelocytes and metamyelocytes) > 1% indicates that a LEFT SHIFT is Present. Performed By: #### L 501.1400, L100.0100, L501.6710, L3100.5475, L101.9900, L500.2500 #### [facility] Laboratory [address] [place], [address] Lymphocytes/100 WBC (Bld) 15.5 % Low 19-41 [facility] Comment on above: Order Comment: Order Date: 02/10/24 Order Info: 183-04 - CBCD Order Info: - SED Performed By: #### L 501.1400, L100.0100, L501.6710, L3100.5475, L101.9900, L500.2500 #### [facility] Laboratory [address] [place], [address] MCH (RBC) [Entitic mass] 28.8 pg Normal 27.0-32.0 [facility] Comment on above: Order Comment: Order Date: 02/10/24 Order Info: 183-04 - CBCD Order Info: - SED Performed By: #### L 501.1400, L100.0100, L501.6710, L3100.5475, L101.9900, L500.2500 #### [facility] Laboratory [address] [place], [address] MCHC (RBC) [Mass/Vol] 32.4 g/dL Normal 32-36 [facility] Comment on above: Order Comment: Order Date: 02/10/24 Order Info: 183-04 - CBCD Order Info: [id number] - SED Performed By: #### L 501.1400, L100.0100, L501.6710, L3100.5475, L101.9900, L500.2500 #### [facility] Laboratory [address] [place], [address] MCV (RBC) [Entitic vol] 89.0 fL Normal 80-94 [facility] Comment on above: Order Comment: Order Date: 02/10/24 Order Info: 183-04 - CBCD Order Info: [id number] - SED Performed By: #### L 501.1400, L100.0100, L501.6710, L3100.5475, L101.9900, L500.2500 #### [facility] Laboratory [address] [place], [address] Monocytes/100 WBC (Bld) 9.7 % Normal 0-10 [facility] Comment on above: Order Comment: Order Date: 02/10/24 Order Info: 183-04 - CBCD Order Info: [id number] - SED Performed By: #### L 501.1400, L100.0100, L501.6710, L3100.5475, L101.9900, L500.2500 #### [facility] Laboratory [address] [place], [address] Neutrophils/100 WBC (Bld) 70.2 % High 47-70 [facility] Comment on above: Order Comment: Order Date: 02/10/24 Order Info: 183-04 - CBCD Order Info: 10642-8 - SED Performed By: #### L 501.1400, L100.0100, L501.6710, L3100.5475, L101.9900, L500.2500 #### [facility] Laboratory [address] [place], [address] Nucleated RBC (Bld) [#/Vol] 0 10*3/uL Normal 0-5 [facility] Comment on above: Order Comment: Order Date: 02/10/24 Order Info: 018-1 - CBCD Order Info: [id number] - SED Performed By: #### L 501.1400, L100.0100, L501.6710, L3100.5475, L101.9900, L500.2500 #### [facility] Laboratory [address] [place], [address] Platelet mean volume (Bld) [Entitic vol] 9.8 fL Normal 6.2-12.0 [facility] Comment on above: Order Comment: Order Date: 02/10/24 Order Info: [id number] - CBCD Order Info: [id number] - SED Performed By: #### L 501.1400, L100.0100, L501.6710, L3100.5475, L101.9900, L500.2500 #### [facility] Laboratory [address] [place], [address] Platelets (Bld) [#/Vol] 435 10*3/uL Normal 150-450 [facility] Comment on above: Order Comment: Order Date: 02/10/24 Order Info: [id number]- - CBCD Order Info: [id number] - SED Performed By: #### L 501.1400, L100.0100, L501.6710, L3100.5475, L101.9900, L500.2500 #### [facility] Laboratory [address] [place], [address] RBC (Bld) [#/Vol] 4.44 10*6/uL Low 4.6-6.2 [facility] Comment on above: Order Comment: Order Date: 02/10/24 Order Info: 0184- - CBCD Order Info: [id number] - SED Performed By: #### L 501.1400, L100.0100, L501.6710, L3100.5475, L101.9900, L500.2500 #### [facility] Laboratory [address] [place], [address] RDW SD 40.9 fl Normal 35.1-43.9 [facility] Comment on above: Order Comment: Order Date: 02/10/24 Order Info: 0184-1 - CBCD Order Info: 08244-1 - SED Performed By: #### L 501.1400, L100.0100, L501.6710, L3100.5475, L101.9900, L500.2500 #### [facility] Laboratory [address] [place], [address] WBC (Bld) [#/Vol] 8.1 10*3/uL Normal 4.4-11.0 [facility] Comment on above: Order Comment: Order Date: 02/10/24 Order Info: [id number] - CBCD Order Info: [id number] - SED Performed By: #### L 501.1400, L100.0100, L501.6710, L3100.5475, L101.9900, L500.2500 #### [facility] Laboratory [address] [place], [address] CRPon 02-10-2024 C-REACTIVE PROT 23.90 mg/L High 0.0-3.0 [facility] Comment on above: Order Comment: Order Date: 02/10/24 Order Info: [id number] - BMP Order Info: 3084-1 - URIC Order Info: [id number] - CRP Result Comment: C-Re active Protein (CRP) provides useful information for the diagnosis, therapy and monitoring of inflammatory processes and associated diseases. For the evaluation of Relative Risk for Cardiovascular Disease, a High Sensitivity CRP (HSCRP) should be ordered. Performed By: #### L 501.1400, L100.0100, L501.6710, L3100.5475, L101.9900, L500.2500 #### [facility] Laboratory [address] [place], [place], [address] Erythrocyte Sed Rateon 02-09 SED RATE 31 mm/hr High 0-20 [facility] Comment on above: Order Comment: Order Date: 02/10/24 Order Info: [id number] - CBCD Order Info: [id number] - SED Performed By: #### L 501.1400, L100.0100, L501.6710, L3100.5475, L101.9900, L500.2500 #### [facility] Laboratory [address] [place], [place], [address] Knee 4 or More Viewson 02-09 Knee 4 or More Views [facility] Imaging Services [address] [place], [place] [address] Knee 4 or More Views MR#: [id number] Acct: [id number] Name: JAYJAY PARKS Rep #: [id number] : 1940 M 84 From: Pilo Lopez MD PCP: Dr. Mariela Holloway MD Status: REG CLI Study: Knee 4 or More Views Date of Exam: 02/10/24 Exam# [id number] Ordering Dr: Mariela Holloway [id number] STUDY: X-RAY - LEFT KNEE REASON FOR [...] 16:01 EDT Reading Location ID and State: [facility] / [place] , Service support , CC: Dr. Mariela Holloway MD Weaver Apprentice: Signed Normal [facility] Uric Acidon 02-10-2024 URIC 4.6 mg/dL Normal 3.5-7.2 [facility] Comment on above: Order Comment: Order Date: 02/10/24 Order Info: [id number] - BMP Order Info: 3084-1 - URIC Order Info: [id number] - CRP Result Comment: The drugs N-Acetylcysteine and Metamizole may falsely depress this assay. Performed By: #### L 501.1400, L100.0100, L501.6710, L3100.5475, L101.9900, L500.2500 #### [facility] Laboratory [address] [place], [address] Emergency Department Summary on 02-01-2024 Emergency Department Summary [facility] Medical Records Department [address] [place] [address] Emergency Department Summary 02/01/24 MR#: [id number] Acct: [id number] Name: JAYJAY PARKS Rep #: [id number] : 1940 84 From: Ruben Cunningham DO PCP: Dr. Mariela Holloway MD Status:DEP ER Location: ED [facility] History of Present Illness Chief Complaint: Upper [...] secondary to this. He states he tried veln-wgj-xhdxjmg medications without any improvement and therefore comes in for evaluation [facility] Medical History Bleeding internal hemorrhoids Carotid stenosis, [...] Skin Yaniv (more content not included)... Normal [facility] MR/BMS.BVSon 12-30-2023 MR/BMS.BVS [facility] Vascular Surgery [address] [place], [place] [address] OFFICE VISIT Date of Service: 12/30/23 MR#: [id number] Acct: [id number] Name: JAYJAY PARKS Rep #: [id number] : 1940 Provider: Dr. German Irizarry MD Age/Sex: 83/M Location: [facility].BVS Status: Signed Intake Vital Signs 07/05/23 13:34 [...] normal bilat (more content not included)... Normal [facility] CREATININE FINGERSTICKon CREATININE WB < 1.0 Normal 0.70-1.30 [facility] Comment on above: Performed By: #### L 9100.0200 #### [facility] Laboratory [address] [place], [address] EGFR WB > 60.0000 Normal >60 [facility] Comment on above: Performed By: #### L 9100.0200 #### [facility] Laboratory [address] [place], [address] CTA Abd/Pelvis W/WO Contrast on 11-30-2023 CTA Abd/Pelvis W/WO Contrast [facility] Imaging Services [address] [place], [place] [address] CTA Abd/Pelvis W/WO Contrast MR#: [id number] Acct: [id number] Name: JAYJAY PARKS Rep #: [id number] : 1940 M 83 From: David Palma MD PCP: Dr. Mariela Holloway MD Status: [facility] Study: CTA Abd/Pelvis W/WO Contrast Date of Exam: Exam# [id number] Ordering [place]: [place] [id number] INDICATION: AAA EXAMINATION: CTA abdomen and pelvis [...] Mariela Holloway MD; Dr. German Irizarry MD Weaver Apprentice: Signed Normal [facility] Absolute lymphocyte countOrd ered By: Darnell Kessler on 05-18-2023 Lymphocytes Auto (Unsp spec) [#/Vol] 0.92 10*3/uL 0.83-4.51 [facility] Automated lymphocyte count a s percentage of total leukocytesOrdered By: Darnell Kessler on 05-18-2023 Lymphocytes/100 WBC Auto (Unsp spec) 16.5 % 19-41 [facility] Basophil percentageOrdered B y: Darnell Kessler on 05-18-2023 Basophils/100 WBC (Bld) 1.1 % 0-1 [facility] Chloride [Moles/Vol] 104 mmol/L 98-107 [facility] Eosinophils/100 WBC (Bld) 4.8 % 0-5 [facility] Glucose [Mass/Vol] 152 mg/dL 74-106 [facility] Comment on above: Fasting Glucose resu lt greater than or equal to 126 mg/dL suggests DIABETES MELLITUS per A.D.A. criteria. Hemoglobin (Bld) [Mass/Vol] 13.4 g/dL 13.0-16.5 [facility] Monocytes/100 WBC (Bld) 11.1 % 0-10 [facility] Neutrophils (Bld) [#/Vol] 3.7 10*3/uL 2.0-7.7 [facility] Neutrophils/100 WBC (Bld) 66.0 % 47-70 [facility] Potassium [Moles/Vol] 4.4 mmol/L 3.5-5.1 [facility] Sodium [Moles/Vol] 137 mmol/L 136-145 [facility] WBC (Bld) [#/Vol] 5.6 10*3/uL 4.4-11.0 [facility] Determination of erythrocyte mean corpuscular volume (MCV)Ordered By: Darnell Kessler on 05-18-2023 MCV (RBC) [Entitic vol] 93.2 fL 80-94 [facility] Erythrocyte distribution wid th ratioOrdered By: Darnell Kessler on 05-18-2023 Erythrocyte distribution width (RBC) [Ratio] 13.9 % 11.6-14.6 [facility] Erythrocyte distribution wid th standard deviationOrdered By: Darnell Kessler on 05-18-2023 Erythrocyte distribution width (RBC) [Entitic vol] 47.3 fL 35.1-43.9 [facility] Hematocrit Auto (Bld) [Volum e fraction]Ordered By: Darnell Kessler on 05-18-2023 Hematocrit (Bld) [Volume fraction] 42.6 % 40-54 [facility] Immature granulocytes/100 WB C Auto (Bld)Ordered By: Darnell Kessler on 05-18-2023 Immature granulocytes/100 WBC (Bld) 0.500 % 0.0-0.9 [facility] Comment on above: IG% - Immature Granu locytes (promyelocytes, myelocytes and metamyelocytes) > 1% indicates that a LEFT SHIFT is Present. Laboratory - Chemistry and C hemistry - challengeOrdered By: Darnell Kessler on 05-18-2023 CO2 [Moles/Vol] 30.0 mmol/L 21.0-32.0 [facility] Urea nitrogen/Creatinine [Mass ratio] 19.1 mg/mg 10-20 [facility] Laboratory - Hematology and Cell countsOrdered By: Darnell Kessler on 05-18-2023 MCH (RBC) [Entitic mass] 29.3 pg 27.0-32.0 [facility] MCHC (RBC) [Mass/Vol] 31.5 g/dL 32-36 [facility] Nucleated RBC/100 WBC (Bld) [Ratio] 0 % 0-5 [facility] Platelets (Bld) [#/Vol] 253 10*3/uL 150-450 [facility] No Panel InformationOrdered By: Darnell Kessler on 05-18-2023 Estimated Creatinine Clearance Calc 50.78 ml/min [facility] Estimated GFR (MDRD) Amer 78 mL/min >60 [facility] Comment on above: GFR Calc Estimated GFR (MDRD) Non-Af Amer 64 mL/min >60 [facility] Comment on above: Non- GFR Calc Platelet mean volume Benjamin-Ec ker (Bld) [Entitic vol]Ordered By: Darnell Kessler on 05-18-2023 Platelet mean volume (Bld) [Entitic vol] 9.6 fL 6.2-12.0 [facility] RBC Auto (Bld) [#/Vol]Ordere d By: aDrnell Kessler on 05-18-2023 RBC (Bld) [#/Vol] 4.57 10*6/uL 4.6-6.[address] [facility] Serum or plasma calcium bjorn urement (mass/volume)Ordered By: Darnell Kessler on 05-18-2023 Calcium [Mass/Vol] 9.6 mg/dL 8[facility]5-10.1 [facility] Serum or plasma creatinine m easurement (mass/volume)Ordered By: Darnell Kessler on 05-18-2023 Creatinine [Mass/Vol] 1.15 mg/dL 0.70-1.30 [facility] Comment on above: The validity of the calculated GFR & GFRAA in patients over 70 years has not been determined. Clinical correlation is essential. Serum or plasma urea nitroge n measurement (mass/volume)Ordered By: Darnell Kessler on 05-18-2023 Urea nitrogen [Mass/Vol] 22 mg/dL 7-18 [facility] Thin prep Papanicolaou smear with manual screeningOrdered By: Darnell Kessler on 05-18-2023 Thin prep Papanicolaou smear with manual screening 3 5-15 [facility] Absolute lymphocyte countOrd ered By: Luiza Price on 04-21-2023 Lymphocytes Auto (Unsp spec) [#/Vol] 1.52 10*3/uL 0.83-4.51 [facility] Basophil percentageOrdered B y: Luiza Price on 04-21-2023 Basophil percentage 0 SEEN /hpf 0-5 [facility] Basophils/100 WBC (Bld) 1.1 % 0-1 [facility] Bilirubin [Mass/Vol] 0.30 mg/dL 0.20-1.00 [facility] Comment on above: For patients on eltr ombopag therapy, use of Dimension [place] TBIL is not recommended. Chloride [Moles/Vol] 105 mmol/L 98-107 [facility] Eosinophils/100 WBC (Bld) 7.4 % 0-5 [facility] Glucose [Mass/Vol] 110 mg/dL 74-106 [facility] Comment on above: Fasting Glucose resu lt from 100 to 125 mg/dL suggests IMPAIRED HOMEOSTASIS per A.D.A. criteria. Neutrophils (Bld) [#/Vol] 2.2 10*3/uL 2.0-7.7 [facility] Neutrophils/100 WBC (Bld) 45.8 % 47-70 [facility] Potassium [Moles/Vol] 4.2 mmol/L 3.5-5.1 [facility] Protein [Mass/Vol] 7.2 g/dL 6.4-8.2 [facility] Sodium [Moles/Vol] 140 mmol/L 136-145 [facility] WBC (Bld) [#/Vol] 4.8 10*3/uL 4.4-11.0 [facility] Bilirubin Test strip Ql (U)O rdered By: Luiza Price on 04-21-2023 Bilirubin Ql (U) Negative Negative [facility] Blood erythrocytes count (nu mber/volume)Ordered By: Luiza Price on 04-21-2023 RBC (Bld) [#/Vol] 4.62 10*6/uL 4.6-6.2 [facility] Blood hemoglobin measurement (mass/volume)Ordered By: Luiza Price on 04-21-2023 Hemoglobin (Bld) [Mass/Vol] 13.6 g/dL 13.0-16.5 [facility] Blood lymphocytes/100 leukoc ytesOrdered By: Luiza Price on 04-21-2023 Lymphocytes/100 WBC (Bld) 31.9 % 19-41 [facility] Blood monocytes/100 leukocyt esOrdered By: Luiza Price on 04-21-2023 Monocytes/100 WBC (Bld) 13.4 % 0-10 [facility] Blood platelet mean volumeOr dered By: Luiza Price on 04-21-2023 Platelet mean volume (Bld) [Entitic vol] 9.2 fL 6.2-12.0 [facility] Determination of erythrocyte mean corpuscular volume (MCV)Ordered By: Luiza Price on 04-21-2023 MCV (RBC) [Entitic vol] 92.0 fL 80-94 [facility] Direct bilirubinOrdered By: Luiza Price on 04-21-2023 Bilirubin.direct [Mass/Vol] 0.11 mg/dL 0.00-0.30 [facility] Hematocrit Auto (Bld) [Volum e fraction]Ordered By: Luiza Price on 04-21-2023 Hematocrit (Bld) [Volume fraction] 42.5 % 40-54 [facility] Ketones Test strip Ql (U)Ord ered By: Luiza Price on 04-21-2023 Ketones Ql (U) Negative Negative [facility] Laboratory - Chemistry and C hemistry - challengeOrdered By: Luiza Price on 04-21-2023 ALP [Catalytic activity/Vol] 100 U/L 45-117 [facility] ALT [Catalytic activity/Vol] 18 U/L 16-61 [facility] CO2 [Moles/Vol] 32.0 mmol/L 21.0-32.0 [facility] Globulin (S) [Mass/Vol] 3.8 g/dL 2.2-4.2 [facility] Lipase [Catalytic activity/Vol] 29 U/L 13-75 [facility] Comment on above: Please note:LIPASE r evised reference range effective 22. New Lipase methodology. Expected to produce lower values than the previous assay method. NEW Reference Range: 13 - 75 U/L Urea nitrogen/Creatinine [Mass ratio] 21.6 mg/mg 10-20 [facility] Laboratory - Hematology and Cell countsOrdered By: Luiza Price on 04-21-2023 Erythrocyte distribution width (RBC) [Entitic vol] 47.0 fL 35.1-43.9 [facility] Erythrocyte distribution width (RBC) [Ratio] 13.8 % 11.6-14.6 [facility] Immature granulocytes/100 WBC (Bld) 0.400 % 0.0-0.9 [facility] Comment on above: IG% - Immature Granu locytes (promyelocytes, myelocytes and metamyelocytes) > 1% indicates that a LEFT SHIFT is Present. MCH (RBC) [Entitic mass] 29.4 pg 27.0-32.0 [facility] Nucleated RBC/100 WBC (Bld) [Ratio] 0.8 % 0-5 [facility] MCHC Auto (RBC) [Mass/Vol]Or dered By: Luiza Price on 04-21-2023 MCHC (RBC) [Mass/Vol] 32.0 g/dL 32-36 [facility] Mucus LM Ql (Urine sed)Order ed By: Luiza Price on 04-21-2023 Mucus Ql (Urine sed) 0 SEEN /hpf [facility] Nitrite Test strip Ql (U)Ord ered By: Luiza Price on 04-21-2023 Nitrite Ql (U) Negative Negative [facility] No Panel InformationOrdered By: Luiza Price on 04-21-2023 Estimated Creatinine Clearance Calc 44.32 ml/min [facility] Estimated GFR (MDRD) Amer 77 mL/min >60 [facility] Comment on above: GFR Calc Estimated GFR (MDRD) Non-Af Amer 64 mL/min >60 [facility] Comment on above: Non- GFR Calc Platelets bldOrdered By: Lauren Price on 04-21-2023 Platelets (Bld) [#/Vol] 240 10*3/uL 150-450 [facility] Protein Test strip Ql (U)Ord ered By: Luiza Price on 04-21-2023 Protein Ql (U) 15 mg/dl Negative [facility] Serum or plasma albumin bjorn urement (mass/volume)Ordered By: Luiza Price on 04-21-2023 Albumin [Mass/Vol] 3.4 g/dL 3.2-5.0 [facility] Serum or plasma calcium bjorn urement (mass/volume)Ordered By: Luiza Price on 04-21-2023 Calcium [Mass/Vol] 9.4 mg/dL 8.5-10.1 [facility] Serum or plasma creatinine m easurement (mass/volume)Ordered By: Luiza Price on 04-21-2023 Creatinine [Mass/Vol] 1.16 mg/dL 0.70-1.30 [facility] Comment on above: The validity of the calculated GFR & GFRAA in patients over 70 years has not been determined. Clinical correlation is essential. Serum or plasma urea nitroge n measurement (mass/volume)Ordered By: Luiza Price on 04-21-2023 Urea nitrogen [Mass/Vol] 25 mg/dL 7-18 [facility] Squamous epithelial cells de tection in urine sediment by light microscopyOrdered By: Luiza Price on 04-21-2023 Epithelial cells.squamous LM Ql (Urine sed) 0 SEEN /hpf 0-5 [facility] Thin prep Papanicolaou smear with manual screeningOrdered By: Luiza Price on 04-21-2023 Thin prep Papanicolaou smear with manual screening 15 U/L 15-37 [facility] Thin prep Papanicolaou smear with manual screening 3 5-15 [facility] Urine blood detectionOrdered By: Luiza Price on 04-21-2023 RBC Ql (U) Negative Negative [facility] RBC Ql (U) 0 SEEN /hpf 0-5 [facility] Urine clarityOrdered By: Lauren Price on 04-21-2023 Clarity (U) Clear Clear [facility] Urine color determinationOrd ered By: Luiza Price on 04-21-2023 Color (U) Yellow Yellow [facility] Urine glucose detectionOrder ed By: Luiza Price on 04-21-2023 Glucose Ql (U) Normal mg/dl Normal [facility] Urine leukocyte esterase det ection by dipstickOrdered By: Luiza Price on 04-21-2023 Leukocyte esterase Test strip Ql (U) Negative Negative [facility] Urine pHOrdered By: Luiza Price on 04-21-2023 pH (U) 7.0 [pH] 5.0 - 8.0 [facility] Urine sediment bacteria coun t by microscopy (number/high power field)Ordered By: Luiza Price on 04-21-2023 Bacteria LM.HPF (Urine sed) [#/Area] 0 /[HPF] None Seen [facility] Urine specific gravity measu rementOrdered By: Luiza Price on 04-21-2023 Specific gravity (U) [Rel density] 1.010 1.002-1.030 [facility] Urobilinogen Auto test strip Ql (U)Ordered By: Luiza Price on 04-21-2023 Urobilinogen Ql (U) Normal mg/dl Normal [facility] CNOVon 07-16-2020 CNOV Office Visit (BRANDYS ) JAYJAY PARKS ([id number]) 1940 M Date Time Provider Department 07/16/20 9:30 AM EZRA SOTO During your visit today, we recorded the following information about you: Temperature Pulse Blood pressure Weight 97.3 degrees 82/minute 136/76 81.6 kg Ezra Soto III, MD 07/16/2020 9:41 AM Signed Patient is status post an EGD and colonoscopy completed at [facility] on 07/09/2020. His upper scope showed that [...] HC suppositories which can be obtained at [facility] Referring Provider: MARIELA HOLLOWAY [[id number]] Allergies As of Date: 07/16/2020 (No Known [...] by EZRA SOTO MD on 07/16/20 Normal [facility] HISTORY PHYSICALon HISTORY PHYSICAL HNO ID: [id number] Author: Ezra Soot Service: General Surgery Author Type: Physician Type: [...] July 09, 2020 TIME: 7:47 AM Normal [facility] NURSING PROGon 07-09-2020 NURSING PROG HNO ID: [id number] Author: Candis Arndt RN Service: ? Author Type: Registered Nurse Type: Nursing Progress Note Filed: 07/09/2020 11:01 AM Note Text: BP stabilized. Pt very alert. Denies any dizziness, pain or nausea. Ready for discharge. Candis Arndt RN Normal [facility] NURSING PROG HNO ID: [id number] Author: Candis Arndt RN Service: ? Author Type: Registered Nurse Type: Nursing Progress Note Filed: 07/09/2020 11:00 AM Note Text: Pt received in PACU. Pt just slightly drowsy, talking and awake. BP low. Dr. Soto notified. Denies pain or nausea. Abd soft and non distended. Passing gas rectally. Candis Arndt RN Normal [facility] NURSING PROG HNO ID: [id number] Author: Candis Arndt RN Service: ? Author Type: Registered Nurse Type: Nursing Progress Note Filed: 07/09/2020 10:39 AM Note Text: [facility] PRE-OP NURSING HAND OFF NOTE SBAR Hand off given to Carolann Murrieta RN. Hand off was communicated verbally and at the patient's bedside and all questions were answered. Candis Arndt RN Normal [facility] SURGICAL PATHOLOGYon 021 SURGICAL PATHOLOGY Specimen originated from [facility] Specimen #: [id number] Submitting Physician: EZRA SOTO ([id number]) FINAL DIAGNOSIS Stomach, antrum, biopsy Gastric oxyntic mucosa with no diagnostic abnormality. - There is no evidence of active Helicobacter pylori infection. Chandler Boswell M.D., PhD (Electronic Signature) SPECIMEN SUBMITTED A: ANTRUM, BIOPSY H/H CLINICAL DATA ANEMIA, HOSP F/U GI BLEED R/O H. PYLORI GROSS DESCRIPTION A. Received in formalin are two pieces of domingo, soft tissue aggregating to 0.5 x 0.3 x 0.2 cm. Totally submitted in one cassette. Gross examination performed at [facility], [address] [place] [address] 07/09/2020 7:12:00 PM Date of Report: 07/10/2020 Date of Procedure: 07/09/2020 Date of Receipt: 07/09/2020 Submitted by: EZRA SOTO ([id number]) Location: W01 Diagnostic interpretation performed at [place] [address]. CLIA Number: [id number] Normal [facility] CNOVon 06-17-2020 CNOV Office Visit (GENSWS ) JAYJAY PARKS ([id number]) 1940 Date Time Provider Department 06/17/20 9:00 AM [...] - APPENDECTOMY - COLONOSCOP W/ OR W/O [facility] SPEC 04/28/2007 Colonoscopy - COLONOSCOP W/ OR W/O [facility] SPEC 03/29/13 Current Outpatient Medications [...] nurse and reviewed by me Nursing Notes: Job Suresh LPN 06/17/2020 9:43 [...] acid r (more content not included)... Normal [facility] JAYJAY PARKS ([id number]) 1940 M Date Time Provider Department 06/17/20 EZRA SOTO [facility] [employer] During your visit today, we recorded the following information about you: Job Suresh LPN 06/17/2020 9:36 AM Signed [facility] SURGICAL PHONE NOTE Date of Procedure/Surgery: 07/09/2020 [place] Procedure/Surgery Type: EGD COLONOSCOPY ? SEDATION:Conscious Sedation Location of Planned Procedure/Surgery: ? 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 Communication Limitations: No Allergies As of Date: 06/17/2020 (No Known Allergies) Date Reviewed: 06/17/2020 Reviewed by: Job Suresh LPN - Fully Assessed Reason for Visit: Procedure [88] Primary Visit Diagnosis:Anemia, unspecified type [D64.9] Order(s):SURGICAL REQUEST - ELECTIVE (11/2019) [[id number]] Order #: [id number]: 1 Prescriptions as of 06/17/2020 Sig: SIMVASTATIN [...] Status:Closed by JOB SURESH LPN on 06/17/20 [facility] HOSPon 06-17-2020 HOSP Patient:Jayjay Parks MRN: Height:5' 8(1.727 m) Weight:181 [...] 12.5-50 mg injection (BENADRYL) benzocaine 20% 1 [place] (TOPEX) Problem List: Diverticulosis [K57.90] Allergies: No Known Allergies Date Verified:07/09/20 Lab Values No results within the last 30 days for the following basenames: K,HCT Progress Notes ([facility]): Job Suresh LPN 06/17/2020 9:36 AM Signed [...] for minimal assistance Any cognitive limitations: No 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 Normal [facility] Vital Signs Date Time Vital Sign Value Performing Clinician Horace saleh 05-18-2023 11:10-0500 Diastolic blood pressure 87 mm[Hg] Dr. Joby Holloway Work Phone: [facility] 05-18-2023 11:10-0500 Heart rate 80 /min Dr. Joby Holloway Work Phone: [facility] 05-18-2023 11:10-0500 Respiratory rate 16 /min Dr. Joby Holloway Work Phone: [facility] 05-18-2023 11:10-0500 SaO2% (BldA) [Mass fraction] 97 % Dr. Joby Holloway Work Phone: [facility] 05-18-2023 11:10-0500 Systolic blood pressure 142 mm[Hg] Dr. Joby Holloway Work Phone: [facility] 05-18-2023 07:58-0500 Body height 172.[address] Joby Holloway Work Phone: [facility] 05-18-2023 07:58-0500 Body mass index (BMI) [Ratio] 28.5 kg/m2 Dr. Joby Holloway Work Phone: [facility] 05-18-2023 07:58-0500 Body temperature 98.1 [degF] Dr. Joby Holloway Work Phone: [facility] 05-18-2023 07:58-0500 Body weight 85.[address] Joby Holloway Work Phone: [facility] 04-21-2023 05:25-0500 Diastolic blood pressure 78 mm[Hg] [facility] 04-21-2023 05:25-0500 Heart rate 66 /min [facility] 04-21-2023 05:25-0500 Respiratory rate 15 /min [facility] 04-21-2023 05:25-0500 SaO2% (BldA) [Mass fraction] 97 % [facility] 04-21-2023 05:25-0500 Systolic blood pressure 119 mm[Hg] [facility] 04-21-2023 01:16-0500 Body height 170.18 cm [facility] 04-21-2023 01:16-0500 Body mass index (BMI) [Ratio] 29.3 kg/m2 [facility] 04-21-2023 01:16-0500 Body temperature 97.1 [degF] [facility] 04-21-2023 01:16-0500 Body weight 85 kg [facility] Encounters Encounter Date Encounter Type Care Provider Facility Start: 11-27-2024 ambulatory Mariela De Lunai lity:[facility] Start: 11-17-2024 Non-patient / Non-visit Dr. German Irizarry MD -[facility] Start: 11-17-2024 End: 11-17-[address] Mariela Holloway MD Work Phone: -[facility] Start: 11-17-2024 End: 11-17-2024 Patient encounter procedure Jennifer Velazquez PA -[facility] Services Work Phone: Start: 11-17-2024 End: 11-17-2024 ambulatory Jennifer Velazquez Facility:[facility] Start: 08-31-2024 ambulatory Mariela De Lunai lity:[facility] Start: 06-22-2024 ambulatory German Irizarry Facility:[facility] Start: 06-06-2024 ambulatory German Irizarry Facility:[facility] Start: 06-06-2024 End: 06-06-2024 ambulatory German Irizarry Facility:[facility] Start: 02-10-2024 End: 02-10-2024 ambulatory Mariela Holloway Facility:[facility] Start: 02-01-2024 End: 02-01-2024 Emergency department patient visit Mariela Holloway Facility:[facility] Start: 01-25-2024 ambulatory Mariela Holloway Faci lity:[facility] Start: 12-30-2023 End: 12-30-2023 ambulatory Mariela Holloway Facility:[facility] Start: 11-30-2023 End: 11-30-2023 ambulatory Mariela Holloway Facility:[facility] Start: 06-08-2023 Non-patient / Non-visit Dr. Joby Holloway Work Phone: [facility] Start: 06-08-2023 End: 06-08-[address] Joby Holloway Work Phone: [facility] Work Phone: Start: 06-08-2023 End: 06-08-[address] Joby Holloway Work Phone: [facility]-Cardiovascula r Services Work Phone: Start: 06-04-2023 End: 06-04-[address] Joby Holloway Work Phone: [facility] Work Phone: Start: 06-04-2023 End: 06-04-[address] Joby Holloway Work Phone: [facility]-Cat [facility] Work Phone: Start: 05-18-2023 End: 05-18-2023 Emergency department patient visit Dr. Joby Holloway Work Phone: [facility]-Emergency Department Work Phone: Start: 04-21-2023 End: 04-21-2023 Emergency department patient visit [facility]-Emergency Department Work Phone: Start: 06-08-2020 End: 06-08-2020 Patient encounter procedure Ezra Soto Work Phone: [facility] Start: 06-08-2020 Results Only Ezra Contreras dy Work Phone: General Surgery Procedures Date Procedure Procedure Detail Performing Clinician Start: 06-04-2023 Computed tomography angiography of abdominal and/or pelvic blood vessel Dr. Joby Holloway Work Phone: Start: 05-18-2023 CT of head without contrast Dr. Joby Holloway Work Phone: Start: 04-21-2023 CT of abdomen and pe lvis without contrast Start: 06-08-2020 PT ED PATIENT INFORMATION Ezra Soto Work Phone: H/O: artificial joint S/P knee replacemen t Comment on above: Right knee- 2011 Plan of Treatment Date Care Activity Detail Author Start: 05-18-2023 [facility] Start: 04-21-2023 [facility] Start: 12-19-2019 Influenza vaccination INFLUENZA (#1) [facility] Start: 01-02-2004 ADVANCE DIRECTIVE DISCUSSION ADVANCE DIRECTIVE DISCUSSION [facility] Start: 01-02-2004 PNEUMOVAX AGE 65 AND OVER WITH 5YR LOOKBACK (#1) PNEUMOVAX AGE 65 AND OVER WITH 5YR LOOKBACK (#1) [facility] Start: 1989 SHINGRIX VACCINE (1 of 2) SHINGRIX VACCINE (1 of 2) [facility] Start: 01-02-1984 DIABETES SCREEN DIABETES SCREEN [facility] Start: 1958 Urine microalbumin profile DTAP,TDAP,TD (1 - Tdap) [facility] Patient Education [facility] Work Phone: Patient referral [facility] Work Phone: PT ED PATIENT INFORMATION PT ED PATIENT INFORMATION Other 06/08/2020 [facility] Immunizations Immunization Date Immunization Notes Care Provider Fa cility 01-07-2020 Influenza virus vaccine [facility] Payers Date Payer Category Payer Self-pay [id number] 2023 Unknown [id number] 2016 Unknown ISH DENG ID DICARE SUPPLEMENT [id number] 2016-Present Indemnity [id number] 2003 Medicare MEDICARE MEDICAR E A AND B [id number] 2003-Present [place] [id number] 2003 Medicare [id number] Unknown [id number] 2 Unknown [id number] 2 Unknown [id number] [id number] 2 Unknown [id number] [id number] 2 Unknown [id number] [id number] 2 Unknown [id number] [id number] 2 Unknown [id number] [id number] 2 Unknown [id number] [id number] 2 Unknown [id number] [id number] 2 Unknown [id number] [id number] 2 Unknown [id number] [id number] 2 Unknown [id number] 2 Social History Date Type Detail Facility Start: 04-03-2013 Tobacco smoking stat [facility] Never smoker [facility] Start: 04-03-2013 Alcohol intake Current non-dr specimen accessioner of alcohol (finding) [facility] Start: 1940 Sex Assigned At Not on file [facility] Exposure to SARS-CoV -2 (event) Unable to assess [facility] Start: 04-21-2023 End: 05-18-2023 Tobacco smoking status NHIS Unknown if ever smoked [facility] Start: 01-15-2021 Occasional [facility] Start: 06-05-2020 None [facility] Start: 06-05-2020 Alone [facility] Start: 01-15-2021 Non-smoker [facility] Start: 1940 Sex Assigned At Male [facility] Start: 02-01-2024 [facility] Mental Status Date Assessment Result Facility 01-30-2024 Cognitive function Voice/Name [facility] Work Phone: Progress note 07-16-2020 Note Date & Type Note Facility 07-16-2020 Note HNO ID: [id number] Author: Ezra Soto Service: ? Author Type: Physician Type: Progress Notes Filed: 07/16/2020 9:41 AM Note Text: Patient is status post an EGD and colonoscopy completed at [facility] on 07/09/2020. His upper scope showed that [...] HC suppositories which can be obtained at [facility] Clinical Note 07-09-2020 Note Date & Type Note Facility 07-09-2020 Note HNO ID: [id number] Author: Candis (Rn) АНДРЕЙ Arndt Service: ? Author Type: Registered Nurse Type: Nursing Progress Note Filed: 07/09/2020 8:59 AM Note Text: Dr. Soto notified of pt's continued BP. No orders received. Candis Arndt RN [facility] Progress note 06-17-2020 Note Date & Type Note Facility 06-17-2020 Note HNO ID: [id number] Author: Ezra Soto Service: ? Author Type: [...] - APPENDECTOMY - COLONOSCOP W/ OR W/O [facility] SPEC 04/28/2007 Colonoscopy - COLONOSCOP W/ OR W/O [facility] SPEC 03/29/13 Current Outpatient Medications [...] entered by the nurse and reviewed by dc Nursing Notes: Job Suresh LPN 06/17/2020 9:43 [...] denies hernias. Kidney/[place] (more content not included)... [facility] Evaluation note Note Date & Type Note Facility Evaluation note No assessment information availa ble [facility] Work Phone: Reason for referral (narrative) Note Date & Type Note Facility Reason for referral (narrative) No reason for referral information available [facility] Work Phone: Summary Purpose Family History No Family History Records Found Relationship Condition Age at Onset Recorded Date/T leo father Cerebrovascular accident (CVA) Unknown mother Cardiac disease Unknown brother Cerebrovascular accident (CVA) Unknown Malignant neoplasm of pancreas Unknown Advance Directives No Advanced Directives Records Found Advance Directive Response Recorded Date/ Time Living Will No April 21 1:20am Power of Registered Nurse Fetal Yes April 21 1:20am Name of Medical Power of Registered Nurse Fetal KEILA ELISHA April 21, 2023 1:20am Advance Directive Response Recorded Date/ Time Name of Medical Power of Registered Nurse Fetal KEILA PARKS April 21, 2023 1:20am Name of Medical Power of Registered Nurse Fetal segundo sandoval and andrez parks May 18, 2023 8:17am Living Will Yes May 18 8:17am Power of Registered Nurse Fetal Yes May 18, 2023 8:17am Chief Complaint and Reason for Visit Chief Complaint flank pain Chief Complaint flank pain DIZZINESS AAA 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 Chief Complaint Admit Date AAA November 17, 2024 7:1 5am Additional Source Comments Source Comments (unrecognize d section and content) In the event this informatio n is protected by the Federal Confidentiality of Alcohol and Drug Abuse Patient Records regulations: The Federal rules restrict any use of the information to criminally investigate or prosecute any alcohol or drug abuse patient.[facility] (unrecognized sect ion and content) No Status Records FoundNo Status Records Found INFORMATION SOURCE (unrecogn ized section and content) DATE CREATED AUTHOR 05/17/2021 [facility] DATE CREATED AUTHOR AUTHOR'S ORGANIZ ATION 11/25/2024 [facility] Care Teams (unrecognized sec tion and content) [...] Attending Provider, Referring Provider Active Team Status: Active Member Role/Relationship Status Dates Dr. Mariela Holloway MD Primary Care Provider Acti ve Team Status: Inactive Member Role/Relationship Status Dates Dr. Mariela Holloway MD Primary Care Provider Acti ve Start: November 17, 2024 End: November 17, 2024 ERNESTO Loera Attending Provider Active Star t: November 17, 2024 End: November 17, 2024 ERNESTO Loera Referring Provider Active Star t: November 17, 2024 End: November 17, 2024 Team Status: Active Member Role/Relationship Status Dates Dr. Mariela Holloway MD Primary Care Provider Acti ve Start: November 17, 2024 Dr. German Irizarry MD Attending Provider Active S tart: November 17, 2024 Goals (unrecognized section and content) Goals may [...] BE BASED ON THE PRIMARY CLINICAL RECORDS. [facility] provides no warranty or guarantee of the accuracy or completeness of information in this document.
--- OUTSIDE RECORDS SUMMARY | 2024-11-27 09:56 | XMS RPT_ITS | CCD ---
Author Organization [facility] CliniSynd Care Team Providers Care Purchasing Assistant Name Role Phone Mariela Holloway Primary Care Provider Dr. Joby Holloway Primary Care Provider Dr. Subhash Cueva Attending Provider Dr. Mariela Holloway MD Primary Care Provider Jennifer Larkin Attending Provider Jennifer Larkin Referring Provider Dr. German Irizarry MD Attending Provider Ranney, Christopher Primary Care Unavailable Edie, German Attending Unavailable [place], German Referring Unavailable Velazquez, Jennifer Attending Unavailable Velazquez, Jennifer Referring Unavailable Ranney, Christopher Primary Care Unavailable [place], German Attending Unavailable Ranney, Christopher Primary Care Unavailable Edie, German Referring Unavailable Ranney, Christopher Attending Unavailable Ranney, Christopher Referring Unavailable Ranney, Christopher Primary Care Unavailable Ranney, Christopher Primary Care Unavailable Ruben Cunningham Attending Unavailable Ranney, Christopher Primary Care Unavailable Edie, German Attending Unavailable Ranney, Christopher Referring Unavailable Ranney, Christopher Primary Care Unavailable Edie, German Attending Unavailable Ranney, Christopher Primary Care Unavailable [place], German Attending Unavailable Edie, German Attending Unavailable Ranney, Christopher Primary Care Unavailable [place], German Referring Unavailable Edie, German Attending Unavailable Ranney, Christopher Referring Unavailable Ranney, Christopher Primary Care Unavailable Ranney, Christopher Primary Care Unavailable Ranney, Christopher Referring Unavailable [place], German Attending Unavailable Ranney, Christopher Primary Care Unavailable Edie, German Referring Unavailable [place], German Attending Unavailable Medications Current Medications Medication [...] aorta [facility] [address] [place] [address] Abd Aortic/IVC Duplex scan 11/17/24 0808 MR#: [id number] Acct: [id number] Name: JAYJAY PARKS Rep #:[id number] : [...] ~ Date Dictated: 11/17/24807 Date Transcribed: 11/20/24943 Compounding And Finishing Supervisor: Signed [facility] Work Phone: Abd Aortic/IVC Duplex scanon 11-17-2024 Abd Aortic/IVC Duplex scan [facility] [place] [address] [address] Abd Aortic/IVC Duplex scan 11/17/24807 MR#: [id number] Acct: [id number] Name: JAYJAY PARKS Rep #: [id number] : 1940 84 From: German Irizarry MD Attending Dr: ERNESTO Loera Status: REG CLI Ordering Dr: Jennifer Velazquez Date: 11/17/24 Location: [facility] Sex: M C Admitted: Reason [...] MD Date Dictated: 11/17/24807 Date Transcribed: 11/20/24943 Compounding And Finishing Supervisor: Signed Normal [facility] Abd Aortic/IVC Duplex scanon 06-06-2024 Abd Aortic/IVC Duplex scan [facility] [address] [place] [address] Abd Aortic/IVC Duplex scan 06/06/24901 MR#: [id number] Acct: [id number] Name: JAYJAY PARKS Rep #: [id number] : 1940 84 From: German Irizarry MD Attending Dr: Dr. German Irizarry MD Status: [facility] Ordering Dr: German Irizarry MD Date: 06/06/24 Location: [facility] Sex: M C Admitted: Reason [...] Aorta IVC Iliac vasculature or bypass grafts 52230. Preliminary report given to Erin MAHER. Exam [...] Dictated: 06/06/24 0902 Date Transcribed: 06/06/24 1707 Compounding And Finishing Supervisor: Signed Normal [facility] ANTINUCLEAR ANTIBODIES DIRE Ton 02-14-2024 DALI,DIRECT Negative Normal Negative [facility] Comment on above: Order Comment: Order Date: 02/10/24Order Info: 0270-1 - DALI Result Comment: Perf ormed at: - [facility] [address] [id number] Film Processing Utility Worker: Khoa Reyes PhD, Phone: [phone] Performed By: #### L 501.4292, L100.0100, L560.3405, L3100.5266, L101.9900, L500.2500 ####[facility] [address] [place], [address] Basic Metabolic Profile (BMP )on 02-10-2024 BUN/CRE 21.3 RATIO High 10-20 [facility] Comment on above: Order Comment: Order Date: 02/10/24 Order Info: 666-04 - BMP Order Info: 3083-04 - URIC Order Info: 59925-3 - CRP Performed By: #### L 501.1400, L100.0100, L501.6710, L3100.5475, L101.9900, L500.2500 #### [facility] [address] [place], [address] CA,Total 9.2 mg/dL Normal 8.5-10.1 [facility] Comment on above: Order Comment: Order Date: 02/10/24 Order Info: 666-04 - BMP Order Info: 3083-04 - URIC Order Info: [id number] - CRP Performed By: #### L 501.1400, L100.0100, L501.6710, L3100.5475, L101.9900, L500.2500 #### [facility] [address] [place], [address] Chloride [Moles/Vol] 102 mmol/L Normal 98-107 [facility] Comment on above: Order Comment: Order Date: 02/10/24 Order Info: 666-04 - BMP Order Info: 3083-04 - URIC Order Info: 17502-2 - CRP Performed By: #### L 501.1400, L100.0100, L501.6710, L3100.5475, L101.9900, L500.2500 #### [facility] [address] [place], [address] CO2 [Moles/Vol] 27.0 mmol/L Normal 21.0-32.0 [facility] Comment on above: Order Comment: Order Date: 02/10/24 Order Info: 666-04 - BMP Order Info: 3083-04 - URIC Order Info: [id number] - CRP Performed By: #### L 501.1400, L100.0100, L501.6710, L3100.5475, L101.9900, L500.2500 #### [facility] [address] [place], [address] Creatinine [Mass/Vol] 1.36 mg/dL High 0.70-1.30 [facility] Comment on above: Order Comment: Order Date: 02/10/24 Order Info: 666-04 - BMP Order Info: 3083-04 - URIC Order Info: [id number] - CRP Result Comment: The validity of the calculated GFR GFRAA in patients over 70 years has not been determined. Clinical correlation is essential. Performed By: #### L 501.1400, L100.0100, L501.6710, L3100.5475, L101.9900, L500.2500 #### [facility] [address] [place], [address] EST GFR - AA 64 mL/min Normal >60 [facility] Comment on above: Order Comment: Order Date: 02/10/24 Order Info: 666-04 - BMP Order Info: 3083-04 - URIC Order Info: [id number] - CRP Result Comment: Afri can Albanian GFR Calc Performed By: #### L 501.1400, L100.0100, L501.6710, L3100.5475, L101.9900, L500.2500 #### [facility] [address] [place], [address] GAP 6 Normal 5-15 [facility] Comment on above: Order Comment: Order Date: 02/10/24 Order Info: 666-04 - BMP Order Info: 3083-04 - URIC Order Info: [id number] - CRP Performed By: #### L 501.1400, L100.0100, L501.6710, L3100.5475, L101.9900, L500.2500 #### [facility] [address] [place], [address] GFR/1.73 sq M.predicted among non-blacks MDRD (S/P/Bld) [Vol rate/Area] 53 mL/min/{1.73_m2} Low >60 [facility] Comment on above: Order Comment: Order Date: 02/10/24 Order Info: 666-04 - BMP Order Info: 3083-04 - URIC Order Info: [id number] - CRP Result Comment: Non- GFR Calc Performed By: #### L 501.1400, L100.0100, L501.6710, L3100.5475, L101.9900, L500.2500 #### [facility] [address] [place], [address] Glucose [Mass/Vol] 169 mg/dL High 74-106 [facility] Comment on above: Order Comment: Order Date: 02/10/24 Order Info: 666-04 - BMP Order Info: 3083-04 - URIC Order Info: [id number] - CRP Result Comment: Fast ing Glucose result greater than or equal to 126 mg/dL suggests DIABETES MELLITUS per A.D.A. criteria. Performed By: #### L 501.1400, L100.0100, L501.6710, L3100.5475, L101.9900, L500.2500 #### [facility] [address] [place], [address] Potassium [Moles/Vol] 4.2 mmol/L Normal 3.5-5.1 [facility] Comment on above: Order Comment: Order Date: 02/10/24 Order Info: 666-04 - BMP Order Info: 3083-04 - URIC Order Info: [id number] - CRP Performed By: #### L 501.1400, L100.0100, L501.6710, L3100.5475, L101.9900, L500.2500 #### [facility] [address] [place], [address] Sodium [Moles/Vol] 134 mmol/L Low 136-145 [facility] Comment on above: Order Comment: Order Date: 02/10/24 Order Info: 666-04 - BMP Order Info: 3084-1 - URIC Order Info: [id number] - CRP Performed By: #### L 501.1400, L100.0100, L501.6710, L3100.5475, L101.9900, L500.2500 #### [facility] [address] [place], [address] Urea nitrogen [Mass/Vol] 29 mg/dL High 7-18 [facility] Comment on above: Order Comment: Order Date: 02/10/24 Order Info: 0667-1 - BMP Order Info: 3084-1 - URIC Order Info: 71069-8 - CRP Performed By: #### L 501.1400, L100.0100, L501.6710, L3100.5475, L101.9900, L500.2500 #### [facility] [address] [place], [address] CBC W/Diff, Automatedon 10- Absolute Lymph 1.26 X10 3/uL Normal 0.83-4.51 [facility] Comment on above: Order Comment: Order Date: 02/10/24 Order Info: 0184-1 - CBCD Order Info: 44679-5 - SED Performed By: #### L 501.1400, L100.0100, L501.6710, L3100.5475, L101.9900, L500.2500 #### [facility] [address] [place], [address] Absolute Neut 5.7 X10 3/uL Normal 2.0-7.7 [facility] Comment on above: Order Comment: Order Date: 02/10/24 Order Info: 0184-1 - CBCD Order Info: 39795-5 - SED Performed By: #### L 501.1400, L100.0100, L501.6710, L3100.5475, L101.9900, L500.2500 #### [facility] [address] [place], [address] Basophils/100 WBC (Bld) 0.9 % Normal 0-1 [facility] Comment on above: Order Comment: Order Date: 02/10/24 Order Info: 01807-18 - CBCD Order Info: 50825-0 - SED Performed By: #### L 501.1400, L100.0100, L501.6710, L3100.5475, L101.9900, L500.2500 #### [facility] [address] [place], [address] Eosinophils/100 WBC (Bld) 2.6 % Normal 0-5 [facility] Comment on above: Order Comment: Order Date: 02/10/24 Order Info: 018- - CBCD Order Info: 16107-9 - SED Performed By: #### L 501.1400, L100.0100, L501.6710, L3100.5475, L101.9900, L500.2500 #### [facility] [address] [place], [address] Erythrocyte distribution width (RBC) [Ratio] 12.5 % Normal 11.6-14.6 [facility] Comment on above: Order Comment: Order Date: 02/10/24 Order Info: 01807-18 - CBCD Order Info: 17587-3 - SED Performed By: #### L 501.1400, L100.0100, L501.6710, L3100.5475, L101.9900, L500.2500 #### [facility] [address] [place], [address] Hematocrit (Bld) [Volume fraction] 39.5 % Low 40-54 [facility] Comment on above: Order Comment: Order Date: 02/10/24 Order Info: 018- - CBCD Order Info: 61406-9 - SED Performed By: #### L 501.1400, L100.0100, L501.6710, L3100.5475, L101.9900, L500.2500 #### [facility] [address] [place], [address] Hemoglobin (Bld) [Mass/Vol] 12.8 g/dL Low 13.0-16.5 [facility] Comment on above: Order Comment: Order Date: 02/10/24 Order Info: 183-04 - CBCD Order Info: - SED Performed By: #### L 501.1400, L100.0100, L501.6710, L3100.5475, L101.9900, L500.2500 #### [facility] [address] [place], [address] IG% 1.100 High 0.0-0.9 [facility] Comment on above: Order Comment: Order Date: 02/10/24 Order Info: 183-04 - CBCD Order Info: - SED Result Comment: IG% - Immature Granulocytes (promyelocytes, myelocytes and metamyelocytes) > 1% indicates that a LEFT SHIFT is Present. Performed By: #### L 501.1400, L100.0100, L501.6710, L3100.5475, L101.9900, L500.2500 #### [facility] [address] [place], [address] Lymphocytes/100 WBC (Bld) 15.5 % Low 19-41 [facility] Comment on above: Order Comment: Order Date: 02/10/24 Order Info: 183-04 - CBCD Order Info: - SED Performed By: #### L 501.1400, L100.0100, L501.6710, L3100.5475, L101.9900, L500.2500 #### [facility] [address] [place], [address] MCH (RBC) [Entitic mass] 28.8 pg Normal 27.0-32.0 [facility] Comment on above: Order Comment: Order Date: 02/10/24 Order Info: 183-04 - CBCD Order Info: - SED Performed By: #### L 501.1400, L100.0100, L501.6710, L3100.5475, L101.9900, L500.2500 #### [facility] [address] [place], [address] MCHC (RBC) [Mass/Vol] 32.4 g/dL Normal 32-36 [facility] Comment on above: Order Comment: Order Date: 02/10/24 Order Info: 183-04 - CBCD Order Info: 84712-8 - SED Performed By: #### L 501.1400, L100.0100, L501.6710, L3100.5475, L101.9900, L500.2500 #### [facility] [address] [place], [address] MCV (RBC) [Entitic vol] 89.0 fL Normal 80-[address] [facility] Comment on above: Order Comment: Order Date: 02/10/24 Order Info: 183-04 - CBCD Order Info: 28417-4 - SED Performed By: #### L 501.1400, L100.0100, L501.6710, L3100.5475, L101.9900, L500.2500 #### [facility] [address] [place], [address] Monocytes/100 WBC (Bld) 9.7 % Normal 0-[address] [facility] Comment on above: Order Comment: Order Date: 02/10/24 Order Info: 183-04 - CBCD Order Info: 40644-5 - SED Performed By: #### L 501.1400, L100.0100, L501.6710, L3100.5475, L101.9900, L500.2500 #### [facility] [address] [place], [address] Neutrophils/100 WBC (Bld) 70.2 % High 47-70 [facility] Comment on above: Order Comment: Order Date: 02/10/24 Order Info: 183-04 - CBCD Order Info: 45988-2 - SED Performed By: #### L 501.1400, L100.0100, L501.6710, L3100.5475, L101.9900, L500.2500 #### [facility] [address] [place], [address] Nucleated RBC (Bld) [#/Vol] 0 10*3/uL Normal 0-5 [facility] Comment on above: Order Comment: Order Date: 02/10/24 Order Info: 018-1 - CBCD Order Info: 65358-2 - SED Performed By: #### L 501.1400, L100.0100, L501.6710, L3100.5475, L101.9900, L500.2500 #### [facility] [address] [place], [address] Platelet mean volume (Bld) [Entitic vol] 9.8 fL Normal 6.2-12.0 [facility] Comment on above: Order Comment: Order Date: 02/10/24 Order Info: 01807-18 - CBCD Order Info: 36602-9 - SED Performed By: #### L 501.1400, L100.0100, L501.6710, L3100.5475, L101.9900, L500.2500 #### [facility] [address] [place], [address] Platelets (Bld) [#/Vol] 435 10*3/uL Normal 150-450 [facility] Comment on above: Order Comment: Order Date: 02/10/24 Order Info: 0184- - CBCD Order Info: 90725-8 - SED Performed By: #### L 501.1400, L100.0100, L501.6710, L3100.5475, L101.9900, L500.2500 #### [facility] [address] [place], [address] RBC (Bld) [#/Vol] 4.44 10*6/uL Low 4.6-6.2 [facility] Comment on above: Order Comment: Order Date: 02/10/24 Order Info: 0184- - CBCD Order Info: 26949-3 - SED Performed By: #### L 501.1400, L100.0100, L501.6710, L3100.5475, L101.9900, L500.2500 #### [facility] [address] [place], [address] RDW SD 40.9 fl Normal 35.1-43.9 [facility] Comment on above: Order Comment: Order Date: 02/10/24 Order Info: 0184-1 - CBCD Order Info: 64908-4 - SED Performed By: #### L 501.1400, L100.0100, L501.6710, L3100.5475, L101.9900, L500.2500 #### [facility] [address] [facility] [place], [address] WBC (Bld) [#/Vol] 8.1 10*3/uL Normal 4.4-11.0 [facility] Comment on above: Order Comment: Order Date: 02/10/24 Order Info: 0184-1 - CBCD Order Info: 11327-0 - SED Performed By: #### L 501.1400, L100.0100, L501.6710, L3100.5475, L101.9900, L500.2500 #### [facility] [address] [place], [address] CRPon 02-10-2024 C-REACTIVE PROT 23.90 mg/L High 0.0-3.0 [facility] Comment on above: Order Comment: Order Date: 02/10/24 Order Info: 0667-1 - BMP Order Info: 3084-1 - URIC Order Info: 90982-1 - CRP Result Comment: C-Re active Protein (CRP) provides useful information for the diagnosis, therapy and monitoring of inflammatory processes and associated diseases. For the evaluation of Relative Risk for Cardiovascular Disease, a High Sensitivity CRP (HSCRP) should be ordered. Performed By: #### L 501.1400, L100.0100, L501.6710, L3100.5475, L101.9900, L500.2500 #### [facility] [address] [place], [place], [address] Erythrocyte Sed Rateon 02-09 SED RATE 31 mm/hr High 0-20 [facility] Comment on above: Order Comment: Order Date: 02/10/24 Order Info: 0184-1 - CBCD Order Info: 91400-8 - SED Performed By: #### L 501.1400, L100.0100, L501.6710, L3100.5475, L101.9900, L500.2500 #### [facility] [address] [place], [place], [address] Knee 4 or More Viewson 02-09 Knee 4 or More Views [facility] Imaging Services [address] [place], [place] [address] Knee 4 or More Views MR#: [id number] Acct: [id number] Name: JAYJAY PARKS Rep #: [id number] : 1940 M 84 From: Pilo Lopez MD PCP: Dr. Mariela Holloway MD Status: REG CLI Study: Knee 4 or More Views Date of Exam: 02/10/24 Exam# [id number] Ordering Dr: Mariela Holloway [id number] STUDY: X-RAY - LEFT KNEE REASON FOR [...] 16:01 EDT Reading Location ID and State: [facility] / [place] , Service support , CC: Dr. Mariela Holloway MD Compounding And Finishing Supervisor: Signed Normal [facility] Uric Acidon 02-10-2024 URIC 4.6 mg/dL Normal 3.5-7.2 [facility] Comment on above: Order Comment: Order Date: 02/10/24 Order Info: 0667-1 - BMP Order Info: 3084-1 - URIC Order Info: 86097-6 - CRP Result Comment: The drugs N-Acetylcysteine and Metamizole may falsely depress this assay. Performed By: #### L 501.1400, L100.0100, L501.6710, L3100.5475, L101.9900, L500.2500 #### [facility] [address] [facility] [place], [address] Emergency Department Summary on 02-01-2024 Emergency Department Summary [facility] Medical Records Department [address] [place] [address] Emergency Department Summary 02/01/24 MR#: [id number] Acct: [id number] Name: JAYJAY PARKS Rep #: [id number] : 1940 84 From: Ruben Cunningham DO PCP: Dr. Mariela Holloway MD Status:DEP ER Location: ED [facility] History of Present Illness Chief Complaint: Upper [...] secondary to this. He states he tried wesg-iap-ckyzpvd medications without any improvement and therefore comes in for evaluation [facility] Medical History Bleeding internal hemorrhoids Carotid stenosis, [...] Skin Yaniv (more content not included)... Normal [facility] MR/BMS.BVSon 12-30-2023 MR/BMS.BVS [facility] Vascular Surgery [address] [place], [place] [address] OFFICE VISIT Date of Service: 12/30/23 MR#: [id number] Acct: [id number] Name: JAYJAY PARKS Rep #: [id number] : 1940 Provider: Dr. German Irizarry MD Age/Sex: 83/M [place] [facility] [place] Status: Signed Intake Vital Signs 07/05/23 13:34 [...] normal bilat (more content not included)... Normal [facility] CREATININE FINGERSTICKon CREATININE WB < 1.0 Normal 0.70-1.30 [facility] Comment on above: Performed By: #### L 9100.0200 #### [facility] [address] [place], [address] EGFR WB > 60.0000 Normal >60 [facility] Comment on above: Performed By: #### L 9100.0200 #### [facility] [address] [place], [address] CTA Abd/Pelvis W/WO Contrast on 11-30-2023 CTA Abd/Pelvis W/WO Contrast [facility] Imaging Services [address] [place], [place] [address] CTA Abd/Pelvis W/WO Contrast MR#: [id number] Acct: [id number] Name: JAYJAY PARKS Rep #: [id number] : 1940 M 83 From: David Palma MD PCP: Dr. Mariela Holloway MD Status: [facility] Study: CTA Abd/Pelvis W/WO Contrast Date of Exam: Exam# [id number] Ordering [place]: [place] [id number] INDICATION: AAA EXAMINATION: CTA abdomen and pelvis [...] Mariela Holloway MD; Dr. German Irizarry MD Compounding And Finishing Supervisor: Signed Normal [facility] Absolute lymphocyte countOrd ered By: Darnell Kessler on 05-18-2023 Lymphocytes Auto (Unsp spec) [#/Vol] 0.92 10*3/uL 0.83-4.51 [facility] Automated lymphocyte count a s percentage of total leukocytesOrdered By: Darnell Kessler on 05-18-2023 Lymphocytes/100 WBC Auto (Unsp spec) 16.5 % 19-41 [facility] Basophil percentageOrdered B y: Darnell Kessler on 05-18-2023 Basophils/100 WBC (Bld) 1.1 % 0-1 [facility] Chloride [Moles/Vol] 104 mmol/L 98-107 [facility] Eosinophils/100 WBC (Bld) 4.8 % 0-5 [facility] Glucose [Mass/Vol] 152 mg/dL 74-106 [facility] Comment on above: Fasting Glucose resu lt greater than or equal to 126 mg/dL suggests DIABETES MELLITUS per A.D.A. criteria. Hemoglobin (Bld) [Mass/Vol] 13.4 g/dL 13.0-16.5 [facility] Monocytes/100 WBC (Bld) 11.1 % 0-10 [facility] Neutrophils (Bld) [#/Vol] 3.7 10*3/uL 2.0-7.7 [facility] Neutrophils/100 WBC (Bld) 66.0 % 47-70 [facility] Potassium [Moles/Vol] 4.4 mmol/L 3.5-5.1 [facility] Sodium [Moles/Vol] 137 mmol/L 136-145 [facility] WBC (Bld) [#/Vol] 5.6 10*3/uL 4.4-11.0 [facility] Determination of erythrocyte mean corpuscular volume (MCV)Ordered By: Darnell Kessler on 05-18-2023 MCV (RBC) [Entitic vol] 93.2 fL 80-94 [facility] Erythrocyte distribution wid th ratioOrdered By: Darnell Kessler on 05-18-2023 Erythrocyte distribution width (RBC) [Ratio] 13.9 % 11.6-14.6 [facility] Erythrocyte distribution wid th standard deviationOrdered By: Darnell Kessler on 05-18-2023 Erythrocyte distribution width (RBC) [Entitic vol] 47.3 fL 35.1-43.9 [facility] Hematocrit Auto (Bld) [Volum e fraction]Ordered By: Darnell Kessler on 05-18-2023 Hematocrit (Bld) [Volume fraction] 42.6 % 40-54 [facility] Immature granulocytes/100 WB C Auto (Bld)Ordered By: Darnell Kessler on 05-18-2023 Immature granulocytes/100 WBC (Bld) 0.500 % 0.0-0.9 [facility] Comment on above: IG% - Immature Granu locytes (promyelocytes, myelocytes and metamyelocytes) > 1% indicates that a LEFT SHIFT is Present. Laboratory - Chemistry and C hemistry - challengeOrdered By: Darnell Kessler on 05-18-2023 CO2 [Moles/Vol] 30.0 mmol/L 21.0-32.0 [facility] Urea nitrogen/Creatinine [Mass ratio] 19.1 mg/mg 10-20 [facility] Laboratory - Hematology and Cell countsOrdered By: Darnell Kessler on 05-18-2023 MCH (RBC) [Entitic mass] 29.3 pg 27.0-32.0 [facility] MCHC (RBC) [Mass/Vol] 31.5 g/dL 32-36 [facility] Nucleated RBC/100 WBC (Bld) [Ratio] 0 % 0-5 [facility] Platelets (Bld) [#/Vol] 253 10*3/uL 150-450 [facility] No Panel InformationOrdered By: Darnell Kessler on 05-18-2023 Estimated Creatinine Clearance Calc 50.78 ml/min [facility] Estimated GFR (MDRD) Amer 78 mL/min >60 [facility] Comment on above: GFR Calc Estimated GFR (MDRD) Non-Af Amer 64 mL/min >60 [facility] Comment on above: Non- GFR Calc Platelet mean volume Benjamin-Ec ker (Bld) [Entitic vol]Ordered By: Darnell Kessler on 05-18-2023 Platelet mean volume (Bld) [Entitic vol] 9.6 fL 6.2-12.0 [facility] RBC Auto (Bld) [#/Vol]Ordere d By: Darnell Kessler on 05-18-2023 RBC (Bld) [#/Vol] 4.57 10*6/uL 4.6-6.2 [facility] er [facility] Serum or plasma calcium bjorn urement (mass/volume)Ordered By: Darnell Kessler on 05-18-2023 Calcium [Mass/Vol] 9.6 mg/dL 8.5-10.1 [facility] Serum or plasma creatinine m easurement (mass/volume)Ordered By: Darnell Kessler on 05-18-2023 Creatinine [Mass/Vol] 1.15 mg/dL 0.70-1.30 [facility] Comment on above: The validity of the calculated GFR & GFRAA in patients over 70 years has not been determined. Clinical correlation is essential. Serum or plasma urea nitroge n measurement (mass/volume)Ordered By: Darnell Kessler on 05-18-2023 Urea nitrogen [Mass/Vol] 22 mg/dL 7-18 [facility] Thin prep Papanicolaou smear with manual screeningOrdered By: Darnell Kessler on 05-18-2023 Thin prep Papanicolaou smear with manual screening 3 5-15 [facility] Absolute lymphocyte countOrd ered By: Luiza Price on 04-21-2023 Lymphocytes Auto (Unsp spec) [#/Vol] 1.52 10*3/uL 0.83-4.51 [facility] Basophil percentageOrdered B y: Luiza Price on 04-21-2023 Basophil percentage 0 SEEN /hpf 0-5 [facility] Basophils/100 WBC (Bld) 1.1 % 0-[address] [facility] Bilirubin [Mass/Vol] 0.30 mg/dL 0.20-1.00 [facility] Comment on above: For patients on eltr ombopag therapy, use of Dimension Blaine TBIL is not recommended. Chloride [Moles/Vol] 105 mmol/L 98-107 [facility] Eosinophils/100 WBC (Bld) 7.4 % 0-5 [facility] Glucose [Mass/Vol] 110 mg/dL 74-106 [facility] Comment on above: Fasting Glucose resu lt from 100 to 125 mg/dL suggests IMPAIRED HOMEOSTASIS per A.D.A. criteria. Neutrophils (Bld) [#/Vol] 2.2 10*3/uL 2.0-7.7 [facility] Neutrophils/100 WBC (Bld) 45.8 % 47-70 [facility] Potassium [Moles/Vol] 4.2 mmol/L 3.5-5.1 [facility] Protein [Mass/Vol] 7.2 g/dL 6.4-8.2 [facility] Sodium [Moles/Vol] 140 mmol/L 136-145 [facility] WBC (Bld) [#/Vol] 4.8 10*3/uL 4.4-11.0 [facility] Bilirubin Test strip Ql (U)O rdered By: Luiza Price on 04-21-2023 Bilirubin Ql (U) Negative Negative [facility] Blood erythrocytes count (nu mber/volume)Ordered By: Luiza Price on 04-21-2023 RBC (Bld) [#/Vol] 4.62 10*6/uL 4.6-6.2 [facility] Blood hemoglobin measurement (mass/volume)Ordered By: Luiza Price on 04-21-2023 Hemoglobin (Bld) [Mass/Vol] 13.6 g/dL 13.0-16.5 [facility] Blood lymphocytes/100 leukoc ytesOrdered By: Luiza Price on 04-21-2023 Lymphocytes/100 WBC (Bld) 31.9 % 19-41 [facility] Blood monocytes/100 leukocyt esOrdered By: Luiza Price on 04-21-2023 Monocytes/100 WBC (Bld) 13.4 % 0-10 [facility] Blood platelet mean volumeOr dered By: Luiza Price on 04-21-2023 Platelet mean volume (Bld) [Entitic vol] 9.2 fL 6.2-12.0 [facility] Determination of erythrocyte mean corpuscular volume (MCV)Ordered By: Luiza Price on 04-21-2023 MCV (RBC) [Entitic vol] 92.0 fL 80-94 [facility] Direct bilirubinOrdered By: Luiza Price on 04-21-2023 Bilirubin.direct [Mass/Vol] 0.11 mg/dL 0.00-0.30 [facility] Hematocrit Auto (Bld) [Volum e fraction]Ordered By: Luiza Price on 04-21-2023 Hematocrit (Bld) [Volume fraction] 42.5 % 40-54 [facility] Ketones Test strip Ql (U)Ord ered By: Luiza Price on 04-21-2023 Ketones Ql (U) Negative Negative [facility] Laboratory - Chemistry and C hemistry - challengeOrdered By: Luiza Price on 04-21-2023 ALP [Catalytic activity/Vol] 100 U/L 45-117 [facility] ALT [Catalytic activity/Vol] 18 U/L 16-61 [facility] CO2 [Moles/Vol] 32.0 mmol/L 21.0-32.0 [facility] Globulin (S) [Mass/Vol] 3.8 g/dL 2.2-4.2 [facility] Lipase [Catalytic activity/Vol] 29 U/L 13-75 [facility] Comment on above: Please note:LIPASE r evised reference range effective 22. New Lipase methodology. Expected to produce lower values than the previous assay method. NEW Reference Range: 13 - 75 U/L Urea nitrogen/Creatinine [Mass ratio] 21.6 mg/mg 10-20 [facility] Laboratory - Hematology and Cell countsOrdered By: Luiza Price on 04-21-2023 Erythrocyte distribution width (RBC) [Entitic vol] 47.0 fL 35.1-43.9 [facility] Erythrocyte distribution width (RBC) [Ratio] 13.8 % 11.6-14.6 [facility] Immature granulocytes/100 WBC (Bld) 0.400 % 0.0-0.9 [facility] Comment on above: IG% - Immature Granu locytes (promyelocytes, myelocytes and metamyelocytes) > 1% indicates that a LEFT SHIFT is Present. MCH (RBC) [Entitic mass] 29.4 pg 27.0-32.0 [facility] Nucleated RBC/100 WBC (Bld) [Ratio] 0.8 % 0-5 [facility] MCHC Auto (RBC) [Mass/Vol]Or dered By: Luiza Price on 04-21-2023 MCHC (RBC) [Mass/Vol] 32.0 g/dL 32-36 [facility] Mucus LM Ql (Urine sed)Order ed By: Luiza Price on 04-21-2023 Mucus Ql (Urine sed) 0 SEEN /hpf [facility] Nitrite Test strip Ql (U)Ord ered By: Luiza Price on 04-21-2023 Nitrite Ql (U) Negative Negative [facility] No Panel InformationOrdered By: Luiza Price on 04-21-2023 Estimated Creatinine Clearance Calc 44.32 ml/min [facility] Estimated GFR (MDRD) Amer 77 mL/min >60 [facility] Comment on above: GFR Calc Estimated GFR (MDRD) Non-Af Amer 64 mL/min >60 [facility] Comment on above: Non- GFR Calc Platelets bldOrdered By: Lauren Price on 04-21-2023 Platelets (Bld) [#/Vol] 240 10*3/uL 150-450 [facility] Protein Test strip Ql (U)Ord ered By: Luiza Price on 04-21-2023 Protein Ql (U) 15 mg/dl Negative [facility] Serum or plasma albumin bjorn urement (mass/volume)Ordered By: Luiza Price on 04-21-2023 Albumin [Mass/Vol] 3.4 g/dL 3.2-5.0 [facility] Serum or plasma calcium bjorn urement (mass/volume)Ordered By: Luiza Price on 04-21-2023 Calcium [Mass/Vol] 9.4 mg/dL 8.5-10.1 [facility] Serum or plasma creatinine m easurement (mass/volume)Ordered By: Luiza Price on 04-21-2023 Creatinine [Mass/Vol] 1.16 mg/dL 0.70-1.30 [facility] Comment on above: The validity of the calculated GFR & GFRAA in patients over 70 years has not been determined. Clinical correlation is essential. Serum or plasma urea nitroge n measurement (mass/volume)Ordered By: Luiza Price on 04-21-2023 Urea nitrogen [Mass/Vol] 25 mg/dL 7-18 [facility] Squamous epithelial cells de tection in urine sediment by light microscopyOrdered By: Luiza Price on 04-21-2023 Epithelial cells.squamous LM Ql (Urine sed) 0 SEEN /hpf 0-5 [facility] Thin prep Papanicolaou smear with manual screeningOrdered By: Luiza Price on 04-21-2023 Thin prep Papanicolaou smear with manual screening 15 U/L 15-37 [facility] Thin prep Papanicolaou smear with manual screening 3 5-15 [facility] Urine blood detectionOrdered By: Luiza Price on 04-21-2023 RBC Ql (U) Negative Negative [facility] RBC Ql (U) 0 SEEN /hpf 0-5 [facility] Urine clarityOrdered By: Lauren Price on 04-21-2023 Clarity (U) Clear Clear [facility] Urine color determinationOrd ered By: Luiza Price on 04-21-2023 Color (U) Yellow Yellow [facility] Urine glucose detectionOrder ed By: Luiza Price on 04-21-2023 Glucose Ql (U) Normal mg/dl Normal [facility] Urine leukocyte esterase det ection by dipstickOrdered By: Luiza Price on 04-21-2023 Leukocyte esterase Test strip Ql (U) Negative Negative [facility] Urine pHOrdered By: Luiza Price on 04-21-2023 pH (U) 7.0 [pH] 5.0 - 8.0 [facility] Urine sediment bacteria coun t by microscopy (number/high power field)Ordered By: Luiza Price on 04-21-2023 Bacteria LM.HPF (Urine sed) [#/Area] 0 /[HPF] None Seen [facility] Urine specific gravity measu rementOrdered By: Luiza Price on 04-21-2023 Specific gravity (U) [Rel density] 1.010 1.002-1.030 [facility] Urobilinogen Auto test strip Ql (U)Ordered By: Luiza Price on 04-21-2023 Urobilinogen Ql (U) Normal mg/dl Normal [facility] CNOVon 07-16-2020 CNOV Office Visit (BRANDYS ) JAYJAY PARKS ([id number]) 1940 M Date Time Provider Department 07/16/20 9:30 AM EZRA SOTO During your visit today, we recorded the following information about you: Temperature Pulse Blood pressure Weight 97.3 degrees 82/minute 136/76 81.6 kg Ezra Soto III, MD 07/16/2020 9:41 AM Signed Patient is status post an EGD and colonoscopy completed at [facility] on 07/09/2020. His upper scope showed [...] HC suppositories which can be obtained at [facility]. Referring Provider: MARIELA HOLLOWAY [[id number]] Allergies As of Date: 07/16/2020 (No Known [...] 07/09/2020 07/09/2020 Letter Text Encounter Status:Closed by ERZA SOTO MD on 07/16/20 Normal [facility] HISTORY PHYSICALon HISTORY PHYSICAL HNO ID: [id number] Author: Ezra Soto Service: General Surgery Author [...] July 09, 2020 TIME: 7:47 AM Normal [facility] NURSING PROGon 07-09-2020 NURSING PROG HNO ID: [id number] Author: Candis Arndt RN Service: ? Author Type: Registered Nurse Type: Nursing Progress Note Filed: 07/09/2020 11:01 AM Note Text: BP stabilized. Pt very alert. Denies any dizziness, pain or nausea. Ready for discharge. Candis Arndt RN Normal [facility] NURSING PROG HNO ID: [id number] Author: Candis Arndt RN Service: ? Author Type: Registered Nurse Type: Nursing Progress Note Filed: 07/09/2020 11:00 AM Note Text: Pt received in PACU. Pt just slightly drowsy, talking and awake. BP low. Dr. Soto notified. Denies pain or nausea. Abd soft and non distended. Passing gas rectally. Cadnis Arndt RN Normal [facility] NURSING PROG HNO ID: [id number] Author: Candis Arndt RN Service: ? Author Type: Registered Nurse Type: Nursing Progress Note Filed: 07/09/2020 10:39 AM Note Text: [facility] PRE-OP NURSING HAND OFF NOTE SBAR Hand off given to Carolann Murrieta RN. Hand off was communicated verbally and at the patient's bedside and all questions were answered. Candis Arndt RN Normal [facility] SURGICAL PATHOLOGYon 021 SURGICAL PATHOLOGY Specimen originated from [facility] Specimen #: [id number] Submitting Physician: EZRA SOTO ([id number]) FINAL DIAGNOSIS [...] in one cassette. Gross examination performed at [facility], [address] [place] [address] 07/09/2020 7:12:00 PM Date of Report: 07/10/2020 Date of Procedure: 07/09/2020 Date of Receipt: 07/09/2020 Submitted by: EZRA SOTO ([email or web address]) Location: W01 Diagnostic interpretation performed at [place] [address]. CLIA Number: [id number] Normal [facility] CNOVon 06-17-2020 CNOV Office Visit (GENSWS ) JAYJAY PARKS ([id number]) 1940 Date Time Provider Department 06/17/20 9:00 [...] APPENDECTOMY - COLONOSCOP W/ OR W/O [facility] SPEC 04/28/2007 Colonoscopy - COLONOSCOP W/ OR W/O [facility] SPEC 03/29/13 Current Outpatient Medications [...] acid r (more content not included)... Normal [facility]AYJ[facility] PARKS ([id number]) 1940 M Date Time Provider Department 06/17/20 EZRA SOTO [employer] During your visit today, we recorded the following information about you: Job Suresh LPN 06/17/2020 9:36 AM Signed [facility] SURGICAL PHONE NOTE Date of Procedure/Surgery: 07/09/2020 [place] Procedure/Surgery Type: EGD COLONOSCOPY ? SEDATION:Conscious Sedation Location of Planned Procedure/Surgery: ? [facility] Surgery/Procedure Ordered: Yes COVID Testing Required: [...] for minimal assistance Any cognitive limitations: No Machine Rough Rounder/Water Engineer required: No Communication Limitations: No Allergies As of Date: 06/17/2020 (No Known Allergies) Date Reviewed: 06/17/2020 Reviewed by: Job Suresh LPN - Fully Assessed Reason for Visit: Procedure [88] Primary Visit Diagnosis:Anemia, unspecified type [D64.9] Order(s):SURGICAL REQUEST - ELECTIVE (11/2019) [1871335] Order #: [id number]: 1 Prescriptions as of 06/17/2020 Sig: SIMVASTATIN [...] Status:Closed by JOB SURESH LPN on 06/17/20 [facility] HOSPon 06-17-2020 HOSP Patient:Jayjay Parks MRN: Height:5' [...] 12.5-50 mg injection (BENADRYL) benzocaine 20% 1 [place] (TOPEX) Problem List: Diverticulosis [K57.90] Allergies: No Known Allergies Date Verified:07/09/20 Lab Values No results within the last 30 days for the following basenames: K,HCT Progress Notes ([facility]): Job Suresh LPN 06/17/2020 9:36 [...] for minimal assistance Any cognitive limitations: No Machine Rough Rounder/Water Engineer required: No Communication Limitations: No Progress Notes ([facility]): Ezra Soto III, MD 06/17/2020 9:50 AM [...] APPENDECTOMY - COLONOSCOP W/ OR W/O [facility] SPEC 04/28/2007 Colonoscopy - COLONOSCOP W/ OR W/O [facility] SPEC 03/29/13 Current Outpatient Medications [...] Take one (more content not included)... Normal [facility] Vital Signs Date Time Vital Sign Value Performing Clinician Horace saleh 05-18-2023 11:10-0500 Diastolic blood pressure 87 mm[Hg] Dr. Joby Holloway Work Phone: [facility] 05-18-2023 11:10-0500 Heart rate 80 /min Dr. Joby Holloway Work Phone: [facility] 05-18-2023 11:10-0500 Respiratory rate 16 /min Dr. Joby Holloway Work Phone: [facility] 05-18-2023 11:10-0500 SaO2% (BldA) [Mass fraction] 97 % Dr. Joby Holloway Work Phone: [facility] 05-18-2023 11:10-0500 Systolic blood pressure 142 mm[Hg] Dr. Joby Holloway Work Phone: [facility] 05-18-2023 07:58-0500 Body height 172.[address] Joby Holloway Work Phone: [facility] 05-18-2023 07:58-0500 Body mass index (BMI) [Ratio] 28.5 kg/m2 Dr. Joby Holloway Work Phone: [facility] 05-18-2023 07:58-0500 Body temperature 98.1 [degF] Dr. Joby Holloway Work Phone: [facility] 05-18-2023 07:58-0500 Body weight 85.[address] Joby Holloway Work Phone: [facility] 04-21-2023 05:25-0500 Diastolic blood pressure 78 mm[Hg] [facility] 04-21-2023 05:25-0500 Heart rate 66 /min [facility] 04-21-2023 05:25-0500 Respiratory rate 15 /min [facility] 04-21-2023 05:25-0500 SaO2% (BldA) [Mass fraction] 97 % [facility] 04-21-2023 05:25-0500 Systolic blood pressure 119 mm[Hg] [facility] 04-21-2023 01:16-0500 Body height 170.18 cm [facility] 04-21-2023 01:16-0500 Body mass index (BMI) [Ratio] 29.3 kg/m2 [facility] 04-21-2023 01:16-0500 Body temperature 97.1 [degF] [facility] 04-21-2023 01:16-0500 Body weight 85 kg [facility] Encounters Encounter Date Encounter Type Care Provider Facility Start: 11-27-2024 ambulatory Mariela De Lunai lity:[facility] Start: 11-17-2024 Non-patient / Non-visit Dr. German Irizarry MD -[facility] Start: 11-17-2024 End: 11-17-[address] Mariela Holloway MD Work Phone: -[facility] Start: 11-17-2024 End: 11-17-2024 Patient encounter procedure Jennifer Velazquez PA -[facility] Work Phone: Start: 11-17-2024 End: 11-17-2024 ambulatory Jennifer Velazquez Facility:[facility] Start: 08-31-2024 ambulatory Mariela De [facility]ai lity:[facility] Start: 06-22-2024 ambulatory German Irizarry Facility:[facility] Start: 06-06-2024 ambulatory German Irizarry Facility:[facility] Start: 06-06-2024 End: 06-06-2024 ambulatory German Irizarry Facility:[facility] Start: 02-10-2024 End: 02-10-2024 ambulatory Mariela Holloway Facility:[facility] Start: 02-01-2024 End: 02-01-2024 Emergency department patient visit Mariela Holloway Facility:[facility] Start: 01-25-2024 ambulatory Mariela Holloway Faci lity:[facility] Start: 12-30-2023 End: 12-30-2023 ambulatory Mariela Holloway Facility:[facility] Start: 11-30-2023 End: 11-30-2023 ambulatory Mariela Holloway Facility:[facility] Start: 06-08-2023 Non-patient / Non-visit Dr. Joby Holloway Work Phone: [facility] Start: 06-08-2023 End: 06-08-[address] Joby Holloway Work Phone: [facility] Work Phone: Start: 06-08-2023 End: 06-08-[address] Joby Holloway Work Phone: [facility]-Cardiovascula r Services Work Phone: Start: 06-04-2023 End: 06-04-[address] Joby Holloway Work Phone: [facility] Work Phone: Start: 06-04-2023 End: 06-04-[address] Joby Holloway Work Phone: [facility] Work Phone: Start: 05-18-2023 End: 05-18-2023 Emergency department patient visit Dr. Joby Holloway Work Phone: [facility]-Emergency Department Work Phone: Start: 04-21-2023 End: 04-21-2023 Emergency department patient visit [facility] Work Phone: Start: 06-08-2020 End: 06-08-2020 Patient encounter procedure Ezra Soto Work Phone: [facility] Start: 06-08-2020 Results Only Ezra Contreras [...] Care Activity Detail Author Start: 05-18-2023 [facility] Start: 04-21-2023 [facility] Start: 12-19-2019 Influenza vaccination INFLUENZA (#1) [facility] Start: 01-02-2004 ADVANCE DIRECTIVE DISCUSSION ADVANCE DIRECTIVE DISCUSSION [facility] Start: 01-02-2004 PNEUMOVAX AGE 65 AND OVER WITH 5YR LOOKBACK (#1) PNEUMOVAX AGE 65 AND OVER WITH 5YR LOOKBACK (#1) [facility] Start: 1989 SHINGRIX VACCINE (1 of 2) SHINGRIX VACCINE (1 of 2) [facility] Start: 01-02-1984 DIABETES SCREEN DIABETES SCREEN [facility] Start: 1958 Urine microalbumin profile DTAP,TDAP,TD (1 - Tdap) [facility] Patient Education [facility] Work Phone: Patient referral [facility] Work Phone: PT ED PATIENT INFORMATION PT ED PATIENT INFORMATION Other 06/08/2020 [facility] Immunizations Immunization Date Immunization Notes Care Provider Fa cility 01-07-2020 Influenza virus vaccine [facility] Payers Date Payer Category Payer Self-pay [id number] 2023 Unknown [id number] 2016 Unknown [employer] [place] DICARE SUPPLEMENT [id number] 2016-Present Indemnity [id number] 2003 Medicare MEDICARE MEDICAR E A AND B [id number] 2003-Present [place] [id number] 2003 Medicare [id number] Unknown [id number] 2 Unknown [id number] 2 Unknown [id number] 2 Unknown [id number] [id number] 2 Unknown [id number] [id number] 2 Unknown [id number] [id number] 2 Unknown [id number] [id number] 2 Unknown [id number] [id number] 2 Unknown [id number] [id number] 2 Unknown [id number] [id number] 2 Unknown [id number] [id number] 2 Unknown [id number] 2 Social History Date Type Detail Facility Start: 04-03-2013 Tobacco smoking stat [facility] Never smoker [facility] Start: 04-03-2013 Alcohol intake Current non-dr tile helper of alcohol (finding) [facility] Start: 1940 Sex Assigned At Not on file [facility] Exposure to SARS-CoV -2 (event) Unable to assess [facility] Start: 04-21-2023 End: 05-18-2023 Tobacco smoking status NHIS Unknown if ever smoked [facility] Start: 01-15-2021 Occasional [facility] Start: 06-05-2020 None [facility] Start: 06-05-2020 Alone [facility] Start: 01-15-2021 Non-smoker [facility] Start: 1940 Sex Assigned At Male [facility] Start: 02-01-2024 [facility] Mental Status Date Assessment Result Facility 01-30-2024 Cognitive function Voice/Name [facility] Work Phone: Progress note 07-16-2020 Note Date & Type Note Facility 07-16-2020 Note HNO ID: [id number] Author: Ezra Soto Service: ? Author Type: Physician Type: Progress Notes Filed: 07/16/2020 9:41 AM Note Text: Patient is status post an EGD and colonoscopy completed at [facility] on 07/09/2020. His upper scope showed [...] HC suppositories which can be obtained at [facility]. [facility] Clinical Note 07-09-2020 Note Date & Type Note Facility 07-09-2020 Note HNO ID: [id number] Author: Candis (Rn) АНДРЕЙ Arndt Service: ? Author Type: Registered Nurse Type: Nursing Progress Note Filed: 07/09/2020 8:59 AM Note Text: Dr. Soto notified of pt's continued BP. No orders received. Candis Arndt RN [facility] Progress note 06-17-2020 Note Date & Type Note Facility 06-17-2020 Note HNO ID: [id number] Author: Ezra Soto Service: ? Author Type: [...] APPENDECTOMY - COLONOSCOP W/ OR W/O [facility] SPEC 04/28/2007 Colonoscopy - COLONOSCOP W/ OR W/O [facility] SPEC 03/29/13 Current Outpatient Medications [...] entered by the nurse and reviewed by va Nursing Notes: Job Suresh LPN 06/17/2020 9:43 [...] denies hernias. Kidney/Usman (more content not included)... [facility] Evaluation note Note Date & Type Note Facility Evaluation note No assessment information availa ble [facility] Work Phone: Reason for referral (narrative) Note Date & Type Note Facility Reason for referral (narrative) No reason for referral information available [facility] Work Phone: Summary Purpose Family History No Family History Records Found Relationship Condition Age at Onset Recorded Date/T leo father Cerebrovascular accident (CVA) Unknown mother Cardiac disease Unknown brother Cerebrovascular accident (CVA) Unknown Malignant neoplasm of pancreas Unknown Advance Directives No Advanced Directives Records Found Advance Directive Response Recorded Date/ Time Living Will No April 21 1:20am Power of Financial Services Internship Yes April 21 1:20am Name of Medical Power of Financial Services Internship KEILA ELISHA April 21, 2023 1:20am Advance Directive Response Recorded Date/ Time Name of Medical Power of Financial Services Internship KEILA PARKS April 21, 2023 1:20am Name of Medical Power of Financial Services Internship segundo sandoval and andrez parks May 18, 2023 8:17am Living Will Yes May 18 8:17am Power of Financial Services Internship Yes May 18, 2023 8:17am Chief Complaint [...] or prosecute any alcohol or drug abuse patient.[facility] (unrecognized sect ion and content) No Status Records FoundNo Status Records Found INFORMATION SOURCE (unrecogn ized section and content) DATE CREATED AUTHOR 05/17/2021 [facility] DATE CREATED AUTHOR AUTHOR'S ORGANIZ ATION 11/25/2024 [facility] Care Teams (unrecognized sec tion and content) [...] BE BASED ON THE PRIMARY CLINICAL RECORDS. [facility]. provides no warranty or guarantee of the accuracy or completeness of information in this document.
== END | disposition home or self-care (01) ==
LOC: CVS 09:32
PROVIDERS: PCP Family Medicine; Referring Provider Surgery Trauma Surgery; Visit Provider Surgery Trauma Surgery
DX: I65.23 Occlusion and stenosis of bilateral carotid arteries (principal)
CPT/HCPCS: 93880

== ENCOUNTER 2025-03-14 11:27 | Outpatient (CLI) | payer MEDICARE, BC, SELFPAY ==
[2025-03-14 12:54] LABS: Creatinine, Urine (random) 52.90 mg/dL (39.00-259.00); Microalbumin,Random Urine 70.1 mg/L (<20 mg/L)
== END 2025-03-14 23:59 | disposition home or self-care (01) ==
LOC: LABSPEC 11:27
PROVIDERS: PCP Family Medicine; Visit Provider Family Medicine
DX: E11.59 Type 2 diabetes mellitus with other circulatory complications (principal)
CPT/HCPCS: 82043; 82570